=== PATIENT | male | born 1950 | race Caucasian/White ===

== ENCOUNTER 2018-06-05 10:56 | Inpatient (IN) ==
[2018-06-05 11:39] LABS: Baso % (Auto) 0.3 % (0.0-2.0); Eos # (Auto) 0.2 th/mm3 (0.0-0.4); Eos % (Auto) 3.4 % (0.0-4.0); Hematocrit 37.1 % (39.0-51.0); Hemoglobin 12.3 gm/dL (13.0-17.0); Lymph # (Auto) 0.6 th/mm3 (1.0-4.8); Mean Corpuscular HGB Conc 33.1 % (32.0-36.0); Mean Corpuscular Hemoglobin 28.5 pg (27.0-34.0); Mean Platelet Volume 6.7 fL (7.0-11.0); Mono % (Auto) 0.4 % (0.0-8.0); Neut # (Auto) 3.7 th/mm3 (1.8-7.7); Neut % (Auto) 82.9 % (16.0-70.0); Platelet Count 380 th/mm3 (150-450); Red Blood Count 4.32 mil/mm3 (4.50-5.90); Red Cell Distribution Width 18.8 % (11.6-17.2); White Blood Count 4.5 th/mm3 (4.0-11.0)
[2018-06-05] MEDS ORDERED: Morphine Inj 4 MG/ML Vial IV.PUSH ONE (11:44)
--- NOTE | 2018-06-05 11:44 | ED ---
HPI General Chief Complaint: Shortness of Breath/Dyspnea Stated Complaint: SOB/Leg Complaint Time Seen by Provider: 06/05/18 11:14 Source: patient Limitations: no limitations History of Present Illness Patient is a 67-year-old male, current smoker, with a history of severe PVD, diverticulitis with diverticular abscess, sepsis, back pain who presents to the emergency room with complaints of sudden onset shortness of breath at 10 AM this morning. He is also complaining of severe pain to his right lower extremity. Patient complains of some chills but unknown fever. Denies productive cough. Denies chest pain. Patient was hospitalized at [facility] on 05/13/18 for diverticular abscess. He also had severe lower extremity pain at that time was evaluated by vascular surgery. 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 Vascular surgery stated no plan for immediate intervention. Patient states he is has a follow-up appointment on June 10. Patient reports he has had significant increase in pain on the right side as well as some numbness which is a change from previous. Related Data Previous Rx's Medication Instructions Recorded amlodipine [Norvasc] 5 mg PO DAILY 30 Days #30 tab 05/13/18 aspirin 325 mg PO DAILY 30 Days #30 tab 05/13/18 multivitamin with folic acid 1 tab PO DAILY 30 Days #30 tab 05/13/18 [Thera] pravastatin 20 mg PO HS 30 Days #30 tab 05/13/18 tamsulosin 0.4 mg PO BID 30 Days #60 cap 05/13/18 Allergies Allergy/AdvReac Type Severity Reaction Status Date / Time *MDRO Multi-Drug Resistant AdvReac Unknown Uncoded 02/20/16 09:24 Organism Review of Systems ROS: all other systems reviewed are negative [facility] Family History Family History Other Family history non-contributory Social History Social History Substance History: No History of Abuse Second Hand Smoke Exposure: Yes Smoking Status: Current every day smoker Tobacco Type: Cigarettes How Often Do You Have a Drink Containing Alcohol: 4 or more times a week Recent Travel in [facility] within the Last 8 Weeks: No Recent Out of Country Travel within the Last 8 Weeks: No Immunization History Tetanus Immunization: Unsure Procedures Procedural Sedation Indications: other (chest tube) Preparation: cardiac cath technician applied, pulse oximeter, capnometry used, suction/ airway equipment at bedside and IV secured Ketamine: IV Ketamine dose (mg): 30 Patient Tolerated Procedure: well Complications: none Course Reevaluation(s) Reevaluation #1: Patient started to get more tachypneic and appeared anxious, repeat chest x-ray shows small apical pneumothorax. Patient was given DuoNeb treatment. Given elevated lactate was also given broad-spectrum antibiotics as well as Solu-Medrol for possible COPD exacerbation. He was also given IV fluid hydration. He will be monitored closely in the ICU Consultations Consultation #1: dr chairez states to place on heparin if ok with trauma Consultation #2: dr mackey will follow, states start heparin Consultation #3: dr humphries agrees to admit, will place chest tube Initial Documented Vital Signs Temperature 97.4 F L 06/05/18 11:06 Pulse Rate 126 H 06/05/18 11:06 Respiratory Rate 34 H 06/05/18 11:06 Blood Pressure 73/44 L 06/05/18 11:06 Pulse Oximetry 84 L 06/05/18 11:06 Last Documented Vital Signs Temperature 98.2 F 06/05/18 13:53 Pulse Rate 88 06/05/18 13:59 Respiratory Rate 26 H 06/05/18 16:16 Blood Pressure 187/97 H 06/05/18 13:53 Pulse Oximetry 100 06/05/18 16:16 Critical Care Time Critical Care Time: Yes Total Critical Care Time: 35 Attestation: Aggregate critical care time was 35 minutes. Time to perform other separately billable procedures was not included in the critical care time. My time did not include minutes spent treating any other patients simultaneously or on activities that did not directly contribute to the patient's treatment. The services I provided to this patient were to treat and/or prevent clinically significant deterioration that could result in: Arrhythmia, failure, I provided critical care services requiring my management, as noted below: Chart data review, documentation time, medication orders and management, vital sign assessments/reviewing monitor data, ordering and reviewing lab tests, ordering and interpreting/reviewing x-rays and diagnostic studies, care of the patient and discussion of the patient with the admitting physicians. Medical Decision Making SEEMA Attestation SEEMA supervised visit: Yes Attestation: I, Dr. sánchez, have reviewed the advance practice practitioner's documentation and am in agreement, met with the patient face to face, made the diagnosis, and the medical decision making was done by me. *My assessment and Findings: 67-year-old male notes month long history of right leg pain that has been worse over the past 2 days. In addition he is having shortness of breath that started this morning. He has noticeable crepitus to his chest wall. Prelim chest x-ray reviewed at bedside shows no large pneumothorax. CT chest shows a small pneumothorax and rib fracture. He does not have a dopplerable pulse to his right foot and he will need heparin. Will discuss with trauma surgery given small pneumothorax and hemothorax on CT before starting heparin that was discussed with vascular surgeon. 1349 patient is acutely short of breath again in the room after he got back from CT. Patient has expiratory wheezing bilaterally. Will dose with DuoNeb and if does not improve repeat chest x-ray. Lactate is noted at 7 so we will get broad-spectrum antibiotics as he is starting to get hypotensive again. MDM Narrative Medical decision making narrative: 67-year-old old male, current smoker, with severe PVD, who presents the emergency room with a sudden onset of shortness of breath at 10:00 this morning. Planes of some chills. Increased pain noted in his right leg over the last couple of days with new numbness. Upon arrival patient is tachypneic but SPO2 is 100% on room air. He does have a left-sided subcu emphysema. Non-doppleable pulses in the right foot which is cool to touch. Initial chest x-ray shows subcu emphysema but no obvious pneumothorax. Patient examined with Dr. Garcia. She also was not able to obtain dopplerable pulses. Call placed to Dr. Chairez, vascular, he will be coming to evaluate the patient. CTA with runoff and CT chest have been ordered. Medical Screen Exam Complete: Yes Emergency Medical Condition: Yes Differential Diagnosis Differential Diagnosis: Pneumothorax/PE/COPD exacerbation/PNA/PVD Lab Data Result diagrams: 06/05/18 11:20 06/05/18 11:20 Lab Results 06/05/18 06/05/18 06/05/18 Range/Units 11:20 11:20 11:42 WBC 4.5 (4.0-11.0) th/mm3 RBC 4.32 L (4.50-5.90) mil/mm3 Hgb 12.3 L (13.0-17.0) gm/dL Hct 37.1 L (39.0-51.0) % MCV 86.0 (80.0-100.0) fL MCH 28.5 (27.0-34.0) pg MCHC 33.1 (32.0-36.0) % RDW 18.8 H (11.6-17.2) % Plt Count 380 D (150-450) th/mm3 MPV 6.7 L (7.0-11.0) fL Neut % (Auto) 82.9 H (16.0-70.0) % Lymph % (Auto) 13.0 (9.0-44.0) % Victoria % (Auto) 0.4 (0.0-8.0) % Eos % (Auto) 3.4 (0.0-4.0) % Baso % (Auto) 0.3 (0.0-2.0) % Neut # (Auto) 3.7 (1.8-7.7) th/mm3 Lymph # (Auto) 0.6 L (1.0-4.8) th/mm3 Victoria # (Auto) 0.0 (0.0-0.9) th/mm3 Eos # (Auto) 0.2 (0.0-0.4) th/mm3 Baso # (Auto) 0.0 (0.0-0.2) th/mm3 WBC Differential . Differential Comment Auto diff final PT (9.8-11.6) sec INR Ratio APTT (23.4-31.7) sec Puncture Site Patient Temperature O2 Saturation (90-100) % ABG pH (7.380-7.420) ABG pCO2 (38-42) mmHg ABG pO2 (61-120) mmHg ABG HCO3 (22-26) mmol/L ABG O2 Content (12.0-20.0) Vol % ABG Base Excess (-2-2) mmol/L ABG Methemoglobin (0-2) % Donato Test Hemoglobin (12.0-16.0) G/DL Carboxyhemoglobin (0-4) % O2 Delivery Device Critical Value Sodium 133 L (136-145) meq/L Potassium 3.9 (3.5-5.1) meq/L Chloride 101 (98-107) meq/L Carbon Dioxide 16.5 L (21.0-32.0) meq/L Anion Gap 16 H (5-15) meq/L BUN 10 (7-18) mg/dL Creatinine 1.17 (0.60-1.30) mg/dL Estimated GFR 62 L (>89) mL/min Random Glucose 97 (74-106) mg/dL Lactic Acid 7.1 H* (0.4-2.0) mmol/L Calcium 8.9 (8.5-10.1) mg/dL Magnesium (1.5-2.5) mg/dL Total Bilirubin 0.6 (0.2-1.0) mg/dL AST 19 (15-37) U/L ALT 19 (12-78) U/L Alkaline Phosphatase 131 H (45-117) U/L Total Creatine Kinase (39-308) U/L Troponin I 0.06 H (0.02-0.05) ng/mL B-Natriuretic Peptide (0-100) pg/mL Total Protein 8.5 H (6.4-8.2) g/dL Albumin 3.2 L (3.4-5.0) g/dL 06/05/18 06/05/18 06/05/18 Range/Units 11:45 11:45 11:45 WBC (4.0-11.0) th/mm3 RBC (4.50-5.90) mil/mm3 Hgb (13.0-17.0) gm/dL Hct (39.0-51.0) % MCV (80.0-100.0) fL MCH (27.0-34.0) pg MCHC (32.0-36.0) % RDW (11.6-17.2) % Plt Count (150-450) th/mm3 MPV (7.0-11.0) fL Neut % (Auto) (16.0-70.0) % Lymph % (Auto) (9.0-44.0) % Victoria % (Auto) (0.0-8.0) % Eos % (Auto) (0.0-4.0) % Baso % (Auto) (0.0-2.0) % Neut # (Auto) (1.8-7.7) th/mm3 Lymph # (Auto) (1.0-4.8) th/mm3 Victoria # (Auto) (0.0-0.9) th/mm3 Eos # (Auto) (0.0-0.4) th/mm3 Baso # (Auto) (0.0-0.2) th/mm3 WBC Differential Differential Comment PT 10.8 (9.8-11.6) sec INR 1.1 Ratio APTT 24.7 (23.4-31.7) sec Puncture Site Patient Temperature O2 Saturation (90-100) % ABG pH (7.380-7.420) ABG pCO2 (38-42) mmHg ABG pO2 (61-120) mmHg ABG HCO3 (22-26) mmol/L ABG O2 Content (12.0-20.0) Vol % ABG Base Excess (-2-2) mmol/L ABG Methemoglobin (0-2) % Donato Test Hemoglobin (12.0-16.0) G/DL Carboxyhemoglobin (0-4) % O2 Delivery Device Critical Value Sodium (136-145) meq/L Potassium (3.5-5.1) meq/L Chloride (98-107) meq/L Carbon Dioxide (21.0-32.0) meq/L Anion Gap (5-15) meq/L BUN (7-18) mg/dL Creatinine (0.60-1.30) mg/dL Estimated GFR (>89) mL/min Random Glucose (74-106) mg/dL Lactic Acid (0.4-2.0) mmol/L Calcium (8.5-10.1) mg/dL Magnesium 1.8 (1.5-2.5) mg/dL Total Bilirubin (0.2-1.0) mg/dL AST (15-37) U/L ALT (12-78) U/L Alkaline Phosphatase (45-117) U/L Total Creatine Kinase 66 (39-308) U/L Troponin I (0.02-0.05) ng/mL B-Natriuretic Peptide 30 (0-100) pg/mL Total Protein (6.4-8.2) g/dL Albumin (3.4-5.0) g/dL 06/05/18 06/05/18 Range/Units 11:45 12:10 WBC (4.0-11.0) th/mm3 RBC (4.50-5.90) mil/mm3 Hgb (13.0-17.0) gm/dL Hct (39.0-51.0) % MCV (80.0-100.0) fL MCH (27.0-34.0) pg MCHC (32.0-36.0) % RDW (11.6-17.2) % Plt Count (150-450) th/mm3 MPV (7.0-11.0) fL Neut % (Auto) (16.0-70.0) % Lymph % (Auto) (9.0-44.0) % Victoria % (Auto) (0.0-8.0) % Eos % (Auto) (0.0-4.0) % Baso % (Auto) (0.0-2.0) % Neut # (Auto) (1.8-7.7) th/mm3 Lymph # (Auto) (1.0-4.8) th/mm3 Victoria # (Auto) (0.0-0.9) th/mm3 Eos # (Auto) (0.0-0.4) th/mm3 Baso # (Auto) (0.0-0.2) th/mm3 WBC Differential Differential Comment PT (9.8-11.6) sec INR Ratio APTT (23.4-31.7) sec Puncture Site Right radial Patient Temperature 98.6 O2 Saturation 93 (90-100) % ABG pH 7.45 H (7.380-7.420) ABG pCO2 27 L (38-42) mmHg ABG pO2 89 (61-120) mmHg ABG HCO3 18 L (22-26) mmol/L ABG O2 Content 14.4 (12.0-20.0) Vol % ABG Base Excess -4.9 L (-2-2) mmol/L ABG Methemoglobin 1.1 (0-2) % Donato Test Present Hemoglobin 10.9 L (12.0-16.0) G/DL Carboxyhemoglobin 3.0 (0-4) % O2 Delivery Device Nasal cannula Critical Value No Sodium (136-145) meq/L Potassium (3.5-5.1) meq/L Chloride (98-107) meq/L Carbon Dioxide (21.0-32.0) meq/L Anion Gap (5-15) meq/L BUN (7-18) mg/dL Creatinine (0.60-1.30) mg/dL Estimated GFR (>89) mL/min Random Glucose (74-106) mg/dL Lactic Acid (0.4-2.0) mmol/L Calcium (8.5-10.1) mg/dL Magnesium (1.5-2.5) mg/dL Total Bilirubin (0.2-1.0) mg/dL AST (15-37) U/L ALT (12-78) U/L Alkaline Phosphatase (45-117) U/L Total Creatine Kinase Cancelled (39-308) U/L Troponin I (0.02-0.05) ng/mL B-Natriuretic Peptide (0-100) pg/mL Total Protein (6.4-8.2) g/dL Albumin (3.4-5.0) g/dL Imaging Data Radiologist's impression: Chest X-Ray 06/05/18 00:00 CONCLUSION: Left-sided chest tube with tiny left apical pneumothorax slightly decreased in prominence. Chest X-Ray 06/05/18 11:20 CONCLUSION: 1. Left-sided rib fracture. 2. Subcutaneous emphysema without significant pneumothorax. Aorta w/Runoff CTA 06/05/18 11:45 CONCLUSION: 1. Extensive peripheral vascular disease with multifocal areas of narrowing/ occlusion as above. Chest CT 06/05/18 11:45 CONCLUSION: 1. Small left-sided pneumothorax and hemothorax. 2. Acute left fifth rib fracture. 3. Emphysema. Chest X-Ray 06/05/18 13:58 CONCLUSION: Tiny left apical pneumothorax. Discharge Plan Discharge Disposition Patient Disposition: ED Admit(ED Internal Use Only) Discharge Order Discharge Orders: ED Use Only Admit Order (Routine); Ordered 06/05/18 Ordered By: Samantha Sánchez Discharge Details Diagnosis: Arterial occlusion, Pneumothorax Physicians Team ED Provider: Samantha Sánchez ED Midlevel Provider: Denita Bautista Primary Care Provider: UNKNOWN, Attending Provider: Nick Humphries Other Providers: Marcello Chairez ; Luis Antonio Mackey Discharge Interventions Interventions: Vital Signs Last Done: 06/05/18 13:53 ED Discharge Assessment Last Done: 06/05/18 15:51 Status ED Status: Admitted Patient
--- NOTE | 2018-06-05 11:45 | XR ---
EXAM DATE: 06/05/2018 11:38 AM EST AGE/SEX: 67 years / Male INDICATIONS: Shortness of breath. CLINICAL DATA: This is the patient's initial encounter. Patient reports that signs and symptoms have been present for 1 day and indicates a pain score of 2/10. MEDICAL/SURGICAL HISTORY: . Peripheral artery disease. Perforated diverticular abscess. None. COMPARISON: [facility] [place] 1V SINGLE AP, 04/30/2018. . FINDINGS: A single AP view of the chest demonstrates the lungs to be symmetrically aerated without evidence of mass, infiltrate or effusion. The cardiomediastinal contours are unremarkable. Left lateral rib frac ture and subcutaneous emphysema. No significant pneumothorax. CONCLUSION: 1. Left-sided rib fracture. 2. Subcutaneous emphysema without significant pneumothorax. Electronically signed by: Darrius Sanches MD Board Certified Radiologist 06/05/2018 11:43 AM EST
[2018-06-05] MEDS: Sod Chloride 0.9% Inj 1,000 ML IV.CONT SCH (12:02)
[2018-06-05 12:07] LABS: Alanine Aminotransferase 19 U/L (12-78); Albumin 3.2 g/dL (3.4-5.0); Anion Gap 16 meq/L (5-15); Aspartate Aminotransferase 19 U/L (15-37); Blood Urea Nitrogen 10 mg/dL (7-18); Calcium 8.9 mg/dL (8.5-10.1); Carbon Dioxide 16.5 meq/L (21.0-32.0); Chloride 101 meq/L (98-107); Glomerular Filtration Rate 62 mL/min (>89); Glucose,Random 97 mg/dL (74-106); Potassium 3.9 meq/L (3.5-5.1); Sodium 133 meq/L (136-145)
[2018-06-05 12:11] LABS: Alkaline Phosphatase 131 U/L (45-117); Total Protein 8.5 g/dL (6.4-8.2); Troponin I 0.06 ng/mL (0.02-0.05)
[2018-06-05 12:25] LABS: ABG Base Excess -4.9 mmol/L (-2-2); ABG PCO2 27 mmHg (38-42); ABG PO2 89 mmHg (61-120)
[2018-06-05 12:31] LABS: Activated Partial Thrombo Time 24.7 sec (23.4-31.7); INR 1.1 Ratio; Prothrombin Time 10.8 sec (9.8-11.6)
[2018-06-05 12:40] LABS: Magnesium 1.8 mg/dL (1.5-2.5)
--- NOTE | 2018-06-05 13:28 | CT ---
EXAM DATE: 06/05/2018 1:08 PM EST AGE/SEX: 67 years / Male INDICATIONS: Shortness of breath. CLINICAL DATA: This is the patient's initial encounter. Patient reports that signs and symptoms have been present for 1 day and indicates a pain score of 8/10. MEDICAL/SURGICAL HISTORY: Peripheral vascular disease. Diverticulitis. None. RADIATION DOSE: 6.02 CTDI (mGy) COMPARISON: No prior exams available for comparison. TECHNIQUE: Multiple contiguous axial images were obtained through the chest without contrast. Image s were obtained in suspended respiration using multiple row detector helical technique. Using automa ekta exposure control and adjustment of the mA and/or kV according to patient size, radiation dose was kept as low as reasonably achievable to obtain optimal diagnostic quality images. DICOM format imag e data is available electronically for review and comparison. FINDINGS: Lungs: Mild emphysema. Small left-sided pneumothorax. Left-sided subcutaneous emphysema. Bibasilar a telectasis. Mediastinum: There is good visualization of the great vessels of the middle mediastinum. No evidenc e of mediastinal or hilar adenopathy/mass. Pleurae: Small left-sided hemothorax. Axillae: Unremarkable. Bony Structures: Left lateral fifth rib fracture. Old left-sided rib fractures. Miscellaneous: The examination was extended to include the upper abdomen, and both adrenal glands ar e normal in size and configuration. CONCLUSION: 1. Small left-sided pneumothorax and hemothorax. 2. Acute left fifth rib fracture. 3. Emphysema. Electronically signed by: Darrius Sanches MD Board Certified Radiologist 06/05/2018 1:27 PM EST
[2018-06-05] MEDS ORDERED: Sod Chloride 0.9% Inj 1,000 ML IV.SIG SCH ×2 (13:45→14:00)
[2018-06-05] MEDS ORDERED: Vancomycin Inj 1,000 MG in Sodium Chlor 0.9% Inj 250 ML IV.SIG ONE (13:50)
[2018-06-05] MEDS ORDERED: Piperacil/Tazo 3.375 GM Premix 3.375 GM/50 ML PIGGYBACK IV.SIG ONE (13:50)
[2018-06-05] MEDS ORDERED: MethylPREDNISolone Sod Succinate Inj 125 MG/2 ML Vial IV.PUSH ONE (13:53)
[2018-06-05] MEDS ORDERED: Sodium Bicarbonate 8.4% Inj 50 MEQ/50 ML Syringe IV.PUSH ONE (14:00)
[2018-06-05] MEDS ORDERED: Heparin 10,000 UNITS/10 ML Vial (for IV use) IV.PUSH STA (14:14)
--- NOTE | 2018-06-05 14:17 | CT ---
EXAM DATE: 06/05/2018 1:54 PM EST AGE/SEX: 67 years / Male INDICATIONS: Shortness of breath and right lower extremity pain. CLINICAL DATA: This is the patient's initial encounter. Patient reports that signs and symptoms have been present for 1 day and indicates a pain score of 8/10. MEDICAL/SURGICAL HISTORY: Peripheral vascular disease. Diverticulitis. None. RADIATION DOSE: 1.88 CTDI (mGy) COMPARISON: [facility], CTA RUNOFF W CONTRAST W 3D, 04/30/2018. . TECHNIQUE: Volumetric scanning was performed using a multi-row detector CT scanner during bolus infu [place] of 96 ml Omnipaque 350 (iohexol) nonionic water-soluble contrast as a single exam dose. The d yenni was post processed with a variety of visualization algorithms including full volume maximum inten sity projection, multi-planar sliding thin slab reformation, curved planar reformation, and surface r endering techniques. Using automated exposure control and adjustment of the mA and/or kV according t o patient size, radiation dose was kept as low as reasonably achievable to obtain optimal diagnostic quality images. DICOM format image data is available electronically for review and comparison. FINDINGS: Abdominal Aorta: Extensive atherosclerotic changes without aneurysmal dilation. The proximal marimar ac and superior mesenteric arteries are patent and normal in diameter. There are solitary renal nabeel tabitha bilaterally without gross abnormality. Bifurcation: There is occlusion of the right common iliac artery. Right Pelvis: Extensive atherosclerotic changes and narrowing of the right common and external iliac arteries. High-grade stenosis of the distal right external iliac artery. Left Pelvis: Extensive atherosclerotic changes of the left common iliac artery and internal carotid iliac artery with focal areas of mild narrowing seen. Right Thigh: There is significant narrowing of the right common femoral artery and superficial femor al arteries. Left Thigh: Extensive atherosclerotic changes without high-grade stenosis. Right Knee: Extensive atherosclerotic changes and multifocal areas of narrowing of the right poplite al artery. There is occlusion of the right femoral artery Left Knee: Occlusion of the left femoral artery and extensive atherosclerotic changes of the poplite al artery but no significant stenosis. Collateral vessels seen on the left side. Right Leg: Extensive atherosclerotic changes and multifocal narrowing of the trifurcation. Left Leg: Extensive atherosclerotic changes and multifocal narrowing of the trifurcation. CONCLUSION: 1. Extensive peripheral vascular disease with multifocal areas of narrowing/occlusion as above. Electronically signed by: Darrius Sanches MD Board Certified Radiologist 06/05/2018 2:15 PM EST
--- NOTE | 2018-06-05 14:41 | XR ---
EXAM DATE: 06/05/2018 2:36 PM EST AGE/SEX: 67 years / Male INDICATIONS: Shortness of breath. CLINICAL DATA: This is the patient's initial encounter. Patient reports that signs and symptoms have been present for 1 day and indicates a pain score of 8/10. MEDICAL/SURGICAL HISTORY: . Peripheral artery disease. Perforated diverticular abscess. None. COMPARISON: [facility] – [place], CHEST 1V SINGLE AP, 06/05/2018. . FINDINGS: A single AP view of the chest demonstrates hyperinflation with tiny left apical pneumothorax. Heart n ormal in size. Subcutaneous emphysema laterally on the left chest wall. No mediastinal shift. The car diomediastinal contours are unremarkable. Left fifth lateral rib fracture. CONCLUSION: Tiny left apical pneumothorax. Electronically signed by: Darrius Sanches MD Board Certified Radiologist 06/05/2018 2:40 PM EST
[2018-06-05] MEDS ORDERED: Ketamine Inj 50 MG/5 ML Syringe IV.PUSH ONE (14:53)
[2018-06-05] MEDS ORDERED: Lidocaine 1%/Epinephrine 1:100,000 Inj 20 ML Vial ONE (14:56)
--- NOTE | 2018-06-05 15:00 | P.CONVS ---
History of Present Illness Service: vascular surgery Consult date: 06/05/18 Primary Care Provider: UNKNOWN Chief Complaint: RLE pain History of Present Illness: 67 year old male with the PMH of diverticular abscess s/p drainage. He was seen by our service during his last admission for PVD evaluation. During that time, patient was complaining of claudication and right foot numbness. He returns to the hospital today with 2 day history of RLE rest pain. He is able to ambulate. He denies any LE weakness. he reports left sided chest pain and SOB. He was hypotensive on admission and responded to IVF. Review of Systems All other systems reviewed negative except as stated in HPI PMFSH - History History Provided By: Patient - Medical History Medical History: Medical History (Last Reviewed 06/05/18 @ 15:45 by Nick Guillen MD) Back pain PAD (peripheral artery disease) Smoking - Family History Family History: Family History (Last Updated 06/05/18 @ 15:46 by Nick Guillen MD) Other Family history non-contributory - Tobacco History Second Hand Smoke Exposure: Yes Tobacco Use In Past 30 Days: Yes Smoking Status: Current every day smoker Tobacco Type: Cigarettes - Alcohol History How Often Do You Have a Drink Containing Alcohol: 4 or more times a week - Substance Use History Substance History: No History of Abuse - Travel History Recent Travel in the [place] Within the Last 8 Weeks: No Recent Travel Out of the Country Within the Last 8 Weeks: No - Immunization History Tetanus Immunization: Unsure Medications and Allergies Active Medications: Active Medications Sodium Chloride (Ns Inj) 1,000 mls @ 75 mls/hr IV.CONT .[id number] [place] Last Infusion: 06/05/18 13:00 Dose: Infused Sodium Chloride (Ns Inj) 1,000 mls @ 1,000 mls/hr IV.SIG BOLUS [place] Stop: 06/05/18 14:44 Last Infusion: 06/05/18 14:09 Dose: Infused Vancomycin HCl 1,000 mg/ (Sodium Chloride) 250 mls @ 250 mls/hr IV.SIG ONCE ONE Stop: 06/05/18 14:49 Last Admin: 06/05/18 14:20 Dose: 250 mls/hr Sodium Chloride (Ns Inj) 1,000 mls @ 1,000 mls/hr IV.SIG BOLUS [place] Stop: 06/05/18 14:59 Heparin Sodium/Dextrose (Heparin/D5w 25,000 U/250 Ml) 25,000 unit in 250 mls @ 0 mls/hr IV.CONT TITRATE PRN; Protocol PRN Reason: Per Protocol Allergies Allergy/AdvReac Type Severity Reaction Status Date / Time *MDRO Multi-Drug Resistant AdvReac Unknown Uncoded 02/20/16 09:24 Organism Physical Exam Vital Signs / I&O: Vital Signs 06/05/18 11:06 06/05/18 11:18 06/05/18 11:32 Temperature 97.4 F L Pulse Rate 126 H 134 H Respiratory Rate 34 H 26 H Blood Pressure 73/44 L 129/60 Pulse Oximetry 84 L 98 98 06/05/18 11:33 06/05/18 11:56 06/05/18 12:00 Temperature 98.7 F Pulse Rate 123 H 124 H Respiratory Rate 22 30 H Blood Pressure 100/59 L Pulse Oximetry 100 100 06/05/18 13:00 06/05/18 13:53 06/05/18 13:59 Temperature 98.2 F Pulse Rate 113 H 144 H 88 Respiratory Rate 24 32 H 26 H Blood Pressure 84/49 L 187/97 H Pulse Oximetry 95 98 Intake & Output 06/04/18 06/05/18 06/05/18 18:59 06:59 18:59 Intake Total 2049 Balance 2049 Weight 61.235 kg Intake: IV 2049 NS Inj 1,000 ML @ 75 mls/hr IV. 1000 / 1000 CONT .[id number] [facility] Rx#:[id number] Zosyn 3.375 GM Premix 3.375 gm 50 / 50 In 50 ml @ 100 mls/hr IV.SIG ONCE ONE Rx#:[id number] NS Inj 1,000 ML @ 1000 mls/hr 1000 / 1000 IV.SIG BOLUS [facility] Rx#:[id number] Neuro: AAOx3 HEENT: NC AT Neck: supple Heart: s1,s2 Lungs: left chest crepitus Abdomen: soft, ND, Mildly TTP, no Rebound, no PS Vascular: unable to palpate femoral or pedal pulses only RLE venous signal no motor or sensory deficits Laboratory Results - last 24 hr 06/05/18 06/05/18 06/05/18 11:20 11:20 11:42 WBC 4.5 RBC 4.32 L Hgb 12.3 L Hct 37.1 L MCV 86.0 MCH 28.5 MCHC 33.1 RDW 18.8 H Plt Count 380 D MPV 6.7 L Neut % (Auto) 82.9 H Lymph % (Auto) 13.0 [place] % (Auto) 0.4 Eos % (Auto) 3.4 Baso % (Auto) 0.3 Neut # (Auto) 3.7 Lymph # (Auto) 0.6 L [place] # (Auto) 0.0 Eos # (Auto) 0.2 Baso # (Auto) 0.0 WBC Differential . Differential Comment Auto diff final PT INR APTT Puncture Site Patient Temperature O2 Saturation ABG pH ABG pCO2 ABG pO2 ABG HCO3 ABG O2 Content ABG Base Excess ABG Methemoglobin Donato Test Hemoglobin Carboxyhemoglobin O2 Delivery Device Critical Value Sodium 133 L Potassium 3.9 Chloride 101 Carbon Dioxide 16.5 L Anion Gap 16 H BUN 10 Creatinine 1.17 Estimated GFR 62 L Random Glucose 97 Lactic Acid 7.1 H* Calcium 8.9 Magnesium Total Bilirubin 0.6 AST 19 ALT 19 Alkaline Phosphatase 131 H Total Creatine Kinase Troponin I 0.06 H B-Natriuretic Peptide Total Protein 8.5 H Albumin 3.2 L 06/05/18 06/05/18 06/05/18 11:45 11:45 11:45 WBC RBC Hgb Hct MCV MCH MCHC RDW Plt Count MPV Neut % (Auto) Lymph % (Auto) [place] % (Auto) Eos % (Auto) Baso % (Auto) Neut # (Auto) Lymph # (Auto) [place] # (Auto) Eos # (Auto) Baso # (Auto) WBC Differential Differential Comment PT 10.8 INR 1.1 APTT 24.7 Puncture Site Patient Temperature O2 Saturation ABG pH ABG pCO2 ABG pO2 ABG HCO3 ABG O2 Content ABG Base Excess ABG Methemoglobin Donato Test Hemoglobin Carboxyhemoglobin O2 Delivery Device Critical Value Sodium Potassium Chloride Carbon Dioxide Anion Gap BUN Creatinine Estimated GFR Random Glucose Lactic Acid Calcium Magnesium 1.8 Total Bilirubin AST ALT Alkaline Phosphatase Total Creatine Kinase 66 Troponin I B-Natriuretic Peptide 30 Total Protein Albumin 06/05/18 06/05/18 11:45 12:10 WBC RBC Hgb Hct MCV MCH MCHC RDW Plt Count MPV Neut % (Auto) Lymph % (Auto) [place] % (Auto) Eos % (Auto) Baso % (Auto) Neut # (Auto) Lymph # (Auto) [place] # (Auto) Eos # (Auto) Baso # (Auto) WBC Differential Differential Comment PT INR APTT Puncture Site Right radial Patient Temperature 98.6 O2 Saturation 93 ABG pH 7.45 H ABG pCO2 27 L ABG pO2 89 ABG HCO3 18 L ABG O2 Content 14.4 ABG Base Excess -4.9 L ABG Methemoglobin 1.1 Donaot Test Present Hemoglobin 10.9 L Carboxyhemoglobin 3.0 O2 Delivery Device Nasal cannula Critical Value No Sodium Potassium Chloride Carbon Dioxide Anion Gap BUN Creatinine Estimated GFR Random Glucose Lactic Acid Calcium Magnesium Total Bilirubin AST ALT Alkaline Phosphatase Total Creatine Kinase Cancelled Troponin I B-Natriuretic Peptide Total Protein Albumin Impressions Chest X-Ray 06/05/18 11:20 CONCLUSION: 1. Left-sided rib fracture. 2. Subcutaneous emphysema without significant pneumothorax. Aorta w/Runoff CTA 06/05/18 11:45 CONCLUSION: 1. Extensive peripheral vascular disease with multifocal areas of narrowing/ occlusion as above. Chest CT 06/05/18 11:45 CONCLUSION: 1. Small left-sided pneumothorax and hemothorax. 2. Acute left fifth rib fracture. 3. Emphysema. Chest X-Ray 06/05/18 13:58 CONCLUSION: Tiny left apical pneumothorax. Assessment and Plan - Plan Shock/lactic acidosis ?etiology RLE acute limb ischemia stage I Left hemo/pneumothorax and rib fracture reviewed CTA: no obvious change since previous CT scan Patient is critically ill. His RLE ischemia is a result of his current medical condition and it's not the etiology of his shock He is currently a very high operative risk for RLE revascularization. He is at high risk for limb loss if his RLE ischemia progressed. 1- admit to ICU 2- shock/lactic acidosis work up 3- start heparin drip, if ok with trauma service 4- will follow clinically Marcello Saez MD [phone]
[2018-06-05] MEDS: Heparin Drip 25,000 UNIT/250 ML BAG IV.CONT PRN (15:18)
--- NOTE | 2018-06-05 15:57 | P.HPCC ---
History of Present Illness Service: Critical care medicine Primary Care Physician: UNKNOWN Chief Complaint: RLE pain History of Present Illness: 67yM with history of severe PAD who presents after he had sudden onset right leg pain which caused him to fall, and then he began with sudden shortness of breath. In the emergency department, found to have left apical pneumothorax with large amount of subQ air, with rib fracture. In addition, severe PAD with occlusion of the right common femoral artery. Labs significant for trop 0.06, Lactate 7. patient denies chest pain. does endorse leg pain and shortness of breath. denies fever,chills. remainder of the ROS negative, although limited by his critical illness. Inpatient Certification: I certify that the inpatient services were ordered in accordance with Medicare regulations governing the order. This includes certification that hospital inpatient services are reasonable and necessary and in the case of services not specified as inpatient-only under 42 CFR 419.22(n), that they are appropriately provided as inpatient services in accordance to with the 2-midnight benchmark under 43 CFR 412.3(e) Review of Systems All other systems reviewed negative except as stated in HPI PMFSH - History History Provided By: Patient, Medical Record - Medical History Medical History: Medical History (Last Reviewed 06/05/18 @ 15:45 by Nick Guillen MD) Back pain PAD (peripheral artery disease) Smoking - Family History Family History: Family History (Last Updated 06/05/18 @ 15:46 by Nick Guillen MD) Other Family history non-contributory - Social History I have reviewed the patient's Social History: Yes - Tobacco History Second Hand Smoke Exposure: Yes Tobacco Use In Past 30 Days: Yes Smoking Status: Current every day smoker Tobacco Type: Cigarettes - Alcohol History How Often Do You Have a Drink Containing Alcohol: 4 or more times a week - Substance Use History Substance History: No History of Abuse - Travel History Recent Travel in the [place] Within the Last 8 Weeks: No Recent Travel Out of the Country Within the Last 8 Weeks: No - Immunization History Tetanus Immunization: Unsure Medications and Allergies Active Medications: Active Medications Sodium Chloride (Ns Inj) 1,000 mls @ 75 mls/hr IV.CONT .[id number] [place] Last Infusion: 06/05/18 13:00 Dose: Infused Heparin Sodium/Dextrose (Heparin/D5w 25,000 U/250 Ml) 25,000 unit in 250 mls @ 0 mls/hr IV.CONT TITRATE PRN; Protocol PRN Reason: Per Protocol Last Admin: 06/05/18 15:18 Dose: 1,100 units/hr, 11 mls/hr Allergies Allergy/AdvReac Type Severity Reaction Status Date / Time *MDRO Multi-Drug Resistant AdvReac Unknown Uncoded 02/20/16 09:24 Organism Results - Labs CBC & Chem 7: 06/05/18 11:20 06/05/18 11:20 Labs: Short CBC 06/05/18 Range/Units 11:20 WBC 4.5 (4.0-11.0) th/mm3 Hgb 12.3 L (13.0-17.0) gm/dL Hct 37.1 L (39.0-51.0) % Plt Count 380 D (150-450) th/mm3 BMP 06/05/18 11:20 Sodium 133 L Potassium 3.9 Chloride 101 Carbon Dioxide 16.5 L BUN 10 Creatinine 1.17 Calcium 8.9 Cardiac Enzymes 06/05/18 06/05/18 06/05/18 Range/Units 11:20 11:45 11:45 Total Creatine Kinase 66 Cancelled (39-308) U/L Troponin I 0.06 H (0.02-0.05) ng/mL Liver Function 06/05/18 Range/Units 11:20 Total Bilirubin 0.6 (0.2-1.0) mg/dL AST 19 (15-37) U/L ALT 19 (12-78) U/L Alkaline Phosphatase 131 H (45-117) U/L Albumin 3.2 L (3.4-5.0) g/dL - Imaging Impressions Chest X-Ray 06/05/18 11:20 CONCLUSION: 1. Left-sided rib fracture. 2. Subcutaneous emphysema without significant pneumothorax. Aorta w/Runoff CTA 06/05/18 11:45 CONCLUSION: 1. Extensive peripheral vascular disease with multifocal areas of narrowing/ occlusion as above. Chest CT 06/05/18 11:45 CONCLUSION: 1. Small left-sided pneumothorax and hemothorax. 2. Acute left fifth rib fracture. 3. Emphysema. Chest X-Ray 06/05/18 13:58 CONCLUSION: Tiny left apical pneumothorax. Exam Vital signs: Vital Signs 06/05/18 11:06 06/05/18 11:18 06/05/18 11:32 Temperature 36.3 C L Pulse Rate 126 H 134 H Respiratory Rate 34 H 26 H Blood Pressure 73/44 L 129/60 Pulse Oximetry 84 L 98 98 06/05/18 11:33 06/05/18 11:56 06/05/18 12:00 Temperature 37.1 C Pulse Rate 123 H 124 H Respiratory Rate 22 30 H Blood Pressure 100/59 L Pulse Oximetry 100 100 06/05/18 13:00 06/05/18 13:53 06/05/18 13:59 Temperature 36.8 C Pulse Rate 113 H 144 H 88 Respiratory Rate 24 32 H 26 H Blood Pressure 84/49 L 187/97 H Pulse Oximetry 95 98 06/05/18 15:33 Temperature Pulse Rate Respiratory Rate Blood Pressure Pulse Oximetry 99 Intake & Output 06/04/18 06/05/18 06/05/18 18:59 06:59 18:59 Intake Total 2049 Balance 2049 Weight 61.235 kg Intake: IV 2049 NS Inj 1,000 ML @ 75 mls/hr IV. 1000 / 1000 CONT .[id number] [facility] Rx#:[id number] Zosyn 3.375 GM Premix 3.375 gm 50 / 50 In 50 ml @ 100 mls/hr IV.SIG ONCE ONE Rx#:[id number] NS Inj 1,000 ML @ 1000 mls/hr 1000 / 1000 IV.SIG BOLUS [facility] Rx#:[id number] Narrative: GENERAL: Frail middle-age man who appears much older than stated age, lying in bed, in severe distress HEENT: Normocephalic. Atraumatic. Pupils equal, round, reactive, conjugate. Mucous membranes are dry NECK: Trachea is midline. There is no JVD. CHEST: Labored. Tachypneic. Subcu emphysema over the left anterior chest wall. On nasal cannula oxygen. Tripoding. CARDIOVASCULAR: Tachycardic rate, regular rhythm. Sinus. ABDOMEN: Soft, nontender, nondistended. No guarding. MUSCULOSKELETAL: Radial pulses are 1+. There are absent bilateral pulses in the lower extremities. The patient in general is fairly mottled with poor perfusion all the way up to the mid abdomen. In particular however the right lower extremity is acutely cold and demarcated from the toes up to approximately a few centimeters above the knee. Above that point there is still mottling but the patient appears much warmer. No Refill in the right lower extremity. Minimal cap refill in the left lower extremity. Patient can move bilateral lower extremities without pain. NEUROLOGICAL: RASS 0 to +1. GCS 15. Follows commands in all 4 extremities. No focal deficits. Agitated and in distress. Septic Shock Reassessment Septic shock perfusion: reassessment completed Caprini VTE Risk Assessment Caprini VTE Risk Assessment: Moderate/High Risk (score >= 2) Caprini Risk Assessment Model: Point Value = 1 Point Value = 2 Point Value = 3 Point Value = 5 Age 41-60 Minor surgery BMI > 25 kg/m2 Swollen legs Varicose veins or History of unexplained or recurrent spontaneous Oral contraceptives or hormone replacement Sepsis (< 1 month) Serious lung disease, including pneumonia (< 1 month) Abnormal pulmonary function Acute myocardial infarction Congestive heart failure (< 1 month) History of inflammatory bowel disease Medical patient at bed rest Age 61-74 Arthroscopic surgery Major open surgery (> 45 min) Laparoscopic surgery (> 45 min) Malignancy Confined to bed (> 72 hours) Immobilizing plaster cast Central venous access Age >= 75 History of VTE Family history of VTE Factor V Leiden Prothrombin [id number] Lupus anticoagulant Anticardiolipin antibodies Elevated serum homocysteine Heparin-induced thrombocytopenia Other congenital or acquired thrombophilia Stroke (< 1 month) Elective arthroplasty Hip, pelvis, or leg fracture Acute spinal cord injury (< 1 month) Prophylaxis Regimen: Total Risk Factor Score Risk Level Prophylaxis Regimen 0-1 Low Early ambulation 2 Moderate Order ONE of the following: *Sequential Compression Device (SCD) *Heparin 5000 units SQ BID 3-4 Higher Order ONE of the following medications: *Heparin 5000 units SQ TID *Enoxaparin/Lovenox 40 mg SQ daily (WT < 150 kg, CrCl > 30 mL/min) *Enoxaparin/Lovenox 30 mg SQ daily (WT < 150 kg, CrCl > 10-29 mL/min) *Enoxaparin/Lovenox 30 mg SQ BID (WT < 150 kg, CrCl > 30 mL/min) AND/OR *Sequential Compression Device (SCD) 5 or more Highest Order ONE of the following medications: *Heparin 5000 units SQ TID (Preferred with Epidurals) *Enoxaparin/Lovenox 40 mg SQ daily (WT < 150 kg, CrCl > 30 mL/min) *Enoxaparin/Lovenox 30 mg SQ daily (WT < 150 kg, CrCl > 10-29 mL/min) *Enoxaparin/Lovenox 30 mg SQ BID (WT < 150 kg, CrCl > 30 mL/min) AND *Sequential Compression Device (SCD) Assessment and Plan - Assessment and Plan Plan: Assessment: 67yM with left rib fracture, pneumothorax, and critical limb ischemia, who is now in acute shock and clinically decompensating. I placed a left sided chest tube to alleviate the pneumothorax which was decompressing into the subcutaneous tissues. In addition, he needs emergent heparinization for his critical limb ischemia and a chest tube allows for improved monitoring of his small hemothorax. In addition, I have discussed the case at length with the vascular surgeon reconditioner who feels that his shock is out of proportion to his [id number] limb ischemia, and we will work to find a second etiology of his shock. He is critically ill with decompensating shock. Plan by systems: Neurologic: Acute metabolic encephalopathy - avoid sedatives - frequent neuro checks Respiratory: COPD Left sided rib fractures Left pneumothorax Acute hypoxic and hypercarbic respiratory failure intubated 06/05 for resp failure. - wean fio2 for goal spo2 > 90% Vent bundle Nebs Head of bed elevated - keep chest tube to suction - CXR in AM Cardiovascular: Elevated troponin NSTEMI Stat 2D echo Trend troponins Status post 4 L crystalloid bolus Heparin drip Renal: Acute kidney injury Place Loja for hourly urine outputs Trend daily creatinine -- Strict I/Os FEN/GI: Acute protein calorie malnutritionsevere Lactic acidosis Severe anion gap metabolic acidosis N.p.o. ICU electrolyte protocol Status post 4 L crystalloid bolus Daily CMP, magnesium, phosphorus Heme/ID: Critical limb ischemia Heparin drip Trend lactates No other infectious etiology suspected at this time to suggest sepsis as a source of his shock Daily CBC Watch closely for bleeding from the chest tube Endocrine: Hyperglycemia of critical illness -- SSI, medium scale, every 6 Prophylaxis: GI Prophylaxis Pepcid IV DVT Prophylaxis -- SCDs Heparin infusion Lines: 06/05 left radial arterial line 06/05 left subclavian triple-lumen catheter 06/05 Loja 06/05 left-sided 32 Armenian chest tube Dispo: Admit ICU. Critically ill. This patient remains critically ill with one or more organ systems which are or may become a threat to life. I have spent in excess of 95 minutes discontinuously in the care and management of this patient. This time is exclusive of procedures, and includes, but is not limited to, evaluation of the patient, review of the medical record, discussions with family, consultants, nursing staff, or respiratory therapy, and documentation in the medical record.
[2018-06-05] MEDS ORDERED: Midazolam Inj 5 MG/ML 1 ML Vial ONE (16:00)
[2018-06-05] MEDS ORDERED: Succinylcholine Inj 200 MG/10 ML Vial ONE (16:00)
--- NOTE | 2018-06-05 16:09 | ECG ---
Date Performed: 06/05/2018 Time Performed: 11:23:00 PTAGE: 67 years EKG: Baseline artifact present SINUS TACHYCARDIA MINIMAL ST DEPRESSION ABNORMAL RHYTHM ECG Mil red to prior electrocardiogram, rate has increased and Nonspecific ST changes are now present . PREVIOUS TRACING : 04/30/2018 14.14 DOCTOR: Ryan Dey Interpretating Date/Time 06/05/2018 16:09:02
--- NOTE | 2018-06-05 16:14 | XR ---
EXAM DATE: 06/05/2018 4:12 PM EST AGE/SEX: 67 years / Male INDICATIONS: Dobhoff verification placement. CLINICAL DATA: This is the patient's subsequent encounter. Patient reports that signs and symptoms h ave been present for 1 day and indicates a pain score of Nonresponsive. MEDICAL/SURGICAL HISTORY: . Peripheral artery disease. Perforated diverticular abscess. None. [place] [facility] [place]. . FINDINGS: A single AP view of the chest demonstrates hyperinflation. Left-sided chest tube with tiny apical pne umothorax slightly less prominent. Subcutaneous emphysema laterally on the left. The cardiomediastina l contours are unremarkable. Osseous structures are intact. CONCLUSION: Left-sided chest tube with tiny left apical pneumothorax slightly decreased in prominence. Electronically signed by: Darrius Sanches MD Board Certified Radiologist 06/05/2018 4:13 PM EST
[2018-06-05] MEDS ORDERED: Potassium Phosphate 500 MG Soluble Tablet PO PRN ×2 (16:16)
[2018-06-05] MEDS ORDERED: Bisacodyl 10 MG Supp RECTAL PRN (16:16)
[2018-06-05] MEDS ORDERED: Potassium Chlor 20 mEq Premix 20 MEQ/100 ML PIGGYBACK IV.SIG PRN (16:16)
[2018-06-05] MEDS ORDERED: Potassium Phosphate Inj 30 MMOL in Sodium Chlor 0.9% Inj 250 ML IV.SIG PRN (16:16)
[2018-06-05] MEDS ORDERED: Potassium Chloride Liq 20 MEQ/15 ML UDC PO PRN ×2 (16:16)
[2018-06-05] MEDS ORDERED: Magnesium Sulfate Inj 2 GM in Sodium Chlor 0.9% Inj 96 ML IV.SIG PRN (16:16)
[2018-06-05] MEDS ORDERED: Magnesium Sulfate Inj 4 GM in Sodium Chlor 0.9% Inj 92 ML IV.SIG PRN (16:16)
[2018-06-05] MEDS ORDERED: Sodium Phosphate Inj 30 MMOL in Sodium Chlor 0.9% Inj 250 ML IV.SIG PRN (16:16)
[2018-06-05] MEDS ORDERED: Dextrose 50% in Water 50 ML Vial IV.PUSH PRN (16:16)
[2018-06-05] MEDS ORDERED: Acetaminophen 325 MG Tablet PO PRN (16:16)
[2018-06-05] MEDS ORDERED: Magnesium Oxide 400 MG Tablet PO PRN (16:16)
[2018-06-05] MEDS ORDERED: hydrALAZINE HCl Inj 20 MG/ML Vial IV.PUSH PRN (16:16)
[2018-06-05] MEDS ORDERED: Haloperidol Inj 5 MG/ML Ampul IV.PUSH PRN (16:16)
[2018-06-05] MEDS ORDERED: Labetalol HCl Inj 100 MG/20 ML Vial IV.PUSH PRN (16:16)
[2018-06-05] MEDS ORDERED: Propofol Inj 500 MG/50 ML Vial ONE (16:19)
[2018-06-05] MEDS ORDERED: Influenza (Quadrivalent) Vaccine 0.5 ML Syringe IM ONE (16:30)
[2018-06-05 16:55] LABS: ABG Base Excess -9.2 mmol/L (-2-2); ABG PCO2 39 mmHg (38-42); ABG PO2 334 mmHg (61-120)
--- NOTE | 2018-06-05 17:12 | P.PCN ---
Date of procedure: 06/05/18 Procedure: Tube Thoracostomy Procedure Note Left-sided 32 [place] chest tube Diagnosis: Acute pneumothorax with respiratory failure Indications: Acute left-sided pneumothorax with respiratory failure Consent: Emergent Anesthesia: Ketamine 30 milligrams IV Description of the Procedure: The patient was placed in the supine position. The arm was abducted above the head and secured. The left lateral chest was prepped and draped sterilely to include the axilla and nipple. 1% Lidcaine was infiltrated subcutaneously and into the tissues down to the periosteum of the rib. The 5th intercostal space was identified. A small incision was made using a #11 blade. At the mid-axillary line, blunt dissection was performed until the rib was palpated. A Karla clamp was used to bluntly enter the pleura immediately above the adjacent rib. The space was opened bluntly with the Karla clamp. A finger was inserted and lung and pleura were felt. A 32 Fr chest tube was inserted along the course of the finger and into the pleural cavity easily and without resistance. The chest tube was connected to a Pleur-o -vac and connected to [id number] suction. The catheter was sutured to the skin using a 0 silk sandal suture and an occlusive dressing was applied. There were no immediate complications noted. There was minimal EBL. The patient tolerated the procedure well. Chest Tube output: Minimal serosanguineous output, baca of air. A Chest x-ray has been ordered. I personally performed the procedure.
--- NOTE | 2018-06-05 17:14 | P.PCN ---
Date of procedure: 06/05/18 Procedure: Procedure: Arterial Line Placement Left radial arterial line Diagnosis: Cardiogenic shock Indications: Need for beat to beat hemodynamic monitoring Consent: Emergent Description of the Procedure: The left wrist was prepped and draped sterilely. 1% lidocaine was used for local anesthesia. The pulse was located and a needle was advanced into the artery. A 20 gauge, 12 cm catheter was advanced into the artery using a modified Seldinger technique. The catheter was sutured to the skin and a sterile dressing was applied. The catheter was connected to a pressure transducer and an arterial waveform was noted. There were no immediate complications noted. There was minimal EBL. I personally performed the procedure.
--- NOTE | 2018-06-05 17:14 | P.PCN ---
Date of procedure: 06/05/18 Procedure: Endotracheal Intubation Diagnosis: Acute hypoxic respiratory failure Indications: Acute hypoxic respiratory failure Consent: Emergent Anesthesia: Versed 5 milligrams IV, succinylcholine 70 milligrams IV Description of the Procedure: The patient was positioned in the sniffing position. Pre-oxygenation was performed using a high flow nasal cannula. Anesthesia was induced via rapid sequence. A Estrada #2 was used for laryngoscopy and a Grade I view was obtained. A 8.5 cuffed endotracheal tube was inserted atraumatically through the vocal cords. Confirmation of correct endotracheal tube placement was made by equal and bilateral breath sounds and colorimetric CO2 detection. The endotracheal tube was secured at 24 cm at the teeth. There were no immediate complications noted. The patient remained hemodynamically stable throughout the procedure. A chest x-ray has been ordered. I personally performed the procedure.
--- NOTE | 2018-06-05 17:15 | P.PCN ---
Date of procedure: 06/05/18 Procedure: Central Line Procedure Note Left subclavian 7 Malay 20 cm triple-lumen catheter Diagnosis: Cardiogenic shock Indications: Need for highly potent vasoactive substances and need for central pressure monitoring Consent: Emergent Anesthesia: Propofol IV Description of the Procedure: The patient was placed in the supine, mild- Trendelenburg position. The area was prepped and draped sterilely. A 19g needle was inserted under negative pressure aspiration and dark venous blood was obtained. A guidewire was inserted easily without resistance. A small incision was made using a #11 blade. Using a modified Seldinger technique, the dilator and 7 Malay, 27 m catheter were advanced over the guidewire without resistance. All ports were aspirated and flushed, and had brisk blood return. The line was secured at the skin using a non-suture StatLock device. A Biopatch and Transparent sterile dressing were applied. There were no immediate complications noted. There was minimal EBL. The patient tolerated the procedure well. Ultrasound guidance was not used for this procedure. A Chest x-ray has been ordered. I personally performed the procedure.
[2018-06-05 17:19] LABS: Troponin I 1.12 ng/mL (0.02-0.05)
[2018-06-05] MEDS ORDERED: Aspirin 300 MG Supp RECTAL ONE (17:19)
[2018-06-05 17:45] LABS: CKMB Percent 1.3 % (0.0-4.0); Creatine Kinase MB 4.9 ng/mL (0.5-3.6)
[2018-06-05] MEDS ORDERED: Vasopressin Inj 40 UNIT in Dextrose 5% in Water Inj 98 ML IV.CONT PRN ×2 (17:57)
--- NOTE | 2018-06-05 18:06 | XR ---
EXAM DATE: 06/05/2018 6:00 PM EST AGE/SEX: 67 years / Male INDICATIONS: Left central line placement and intubation. CLINICAL DATA: This is the patient's initial encounter. Patient reports that signs and symptoms have been present for 1 day and indicates a pain score of Nonresponsive. MEDICAL/SURGICAL HISTORY: . Peripheral artery disease. Perforated diverticular abscess. None. . [place] [facility] [place]. . FINDINGS: A single AP view of the chest demonstrates tiny left apical pneumothorax. Cutaneous emphysema lateral ly. Left-sided chest tube. Endotracheal tube, nasogastric and left subclavian central line stable pos ition. Bibasilar atelectasis The cardiomediastinal contours are unremarkable. Osseous structures are intact. CONCLUSION: Tiny left apical pneumothorax. Electronically signed by: Darrius Sanches MD Board Certified Radiologist 06/05/2018 6:05 PM EST
[2018-06-05] MEDS: Milrinone Inj 20 MG in Sodium Chlor 0.9% Inj 80 ML IV.CONT SCH (18:15)
--- NOTE | 2018-06-05 18:51 | ECHRPT ---
Indication: Heart Failure CONCLUSIONS Mildly dilated left ventricle. Wall thickness is normal. Left ventricular systolic function is severely reduced with an estimated ejection fraction of 20%. The basal portions of the inferior, posterior and lateral abdi contract fairly normally; all other left ventr icular segments are akinetic or severely hypokinetic. Normal right ventricular size though probably with moderately to severely reduced systolic function. Structurally normal mitral valve. Trace mitral regurgitation. There is trace to mild tricuspid valve regurgitation. The estimated pulmonary arterial pressure is 3 3 mmHg. BP: / HR: Rhythm: MEASUREMENTS (Male / Female) Normal Values Technical Quality:Technically difficult study 2D ECHO LV Diastolic Diameter PLAX 5.3 cm 4.2 - 5.9 / 3.9 - 5.3 cm LV Systolic Diameter PLAX 4.5 cm IVS Diastolic Thickness 0.9 cm 0.6 - 1.0 / 0.6 - 0.9 cm LVPW Diastolic Thickness 0.9 cm 0.6 - 1.0 / 0.6 - 0.9 cm LV Relative Wall Thickness 0.3 RV Internal Dim ED PLAX 2.0 cm LVOT Diameter 1.9 cm Aortic Root Diameter 3.1 cm LA Systolic Diameter LX 2.9 cm 3.0 - 4.0 / 2.7 - 3.8 cm DOPPLER TR Peak Velocity 239.0 cm/s TR Peak Gradient 22.8 mmHg Right Atrial Pressure 10.0 mmHg Pulmonary Artery Systolic Pressu 32.8 mmHg Right Ventricular Systolic Press 32.8 mmHg FINDINGS LEFT VENTRICLE Mildly dilated left ventricle. Wall thickness is normal. Left ventricular systolic function is severely reduced with an estimated ejection fraction of 20%. The basal portions of the inferior, posterior and lateral abdi contract fairly normally; all other left ventr icular segments are akinetic or severely hypokinetic. RIGHT VENTRICLE Normal right ventricular size though probably with moderately to severely reduced systolic function. LEFT ATRIUM The left atrial size is normal. RIGHT ATRIUM The right atrial size is normal. ATRIAL SEPTUM Normal atrial septal thickness. AORTA The aortic root and proximal ascending aorta are normal in size on limited imaging. MITRAL VALVE Structurally normal mitral valve. Trace mitral regurgitation. AORTIC VALVE The aortic valve is not well visualized. Trileaflet aortic valve. No aortic valve stenosis or regurg itation. TRICUSPID VALVE There is trace to mild tricuspid valve regurgitation. The estimated pulmonary arterial pressure is 33 mmHg. PULMONARY VALVE The pulmonary valve is not well visualized. VESSELS The inferior vena cava is normal in size. PERICARDIUM No pericardial effusion. Isma H. No MD (Electronically Signed) Final Date:05 June 2018 18:50
[2018-06-05 19:09] LABS: Bacteria,Urine Few /hpf; Bilirubin,Urine Negative (Negative); Color,Urine Yellow (Yellw/Straw); Glucose,Urine (UA) 50 mg/dL (Negative); Leukocyte Esterase,Urine Large (Negative); Nitrite,Urine Negative (Negative); Specific Gravity,Urine 1.047 (1.002-1.035); Squamous Epithelial Cell,Urine <1 /hpf (0-5)
[2018-06-05 19:11] LABS: Clarity,Urine Hazy (Clear)
[2018-06-05] MEDS ORDERED: Vancomycin Consult Pharmacy OTHER PRN (19:41)
[2018-06-05] MEDS: Insulin NovoLIN Regular Correctional Sugar Inj SQ SCH (20:05)
[2018-06-05] MEDS: Piperacil/Tazo 3.375 GM Premix 3.375 GM/50 ML PIGGYBACK IV.SIG SCH (20:57)
[2018-06-05] MEDS: Senna/Docusate Sodium 8.6/50 MG Tablet PO SCH (20:58)
[2018-06-05] MEDS: Propofol 1000 mg/100 ml Inj 1,000 MG/100 ML BOTTLE IV.CONT PRN (20:58)
[2018-06-05] MEDS: Chlorhexidine 0.12% Oral Kit 15 ML UDC OROPHARYNG SCH (20:58)
[2018-06-05] MEDS: Polyethylene Glycol 3350 17 GM Packet PO SCH (20:58)
[2018-06-05] MEDS: Famotidine PF Inj 20 MG/2 ML Vial IV.PUSH SCH (20:58)
[2018-06-05 21:10] LABS: ABG Base Excess -9.1 mmol/L (-2-2); ABG PCO2 23 mmHg (38-42); ABG PO2 191 mmHg (61-120)
[2018-06-05] MEDS ORDERED: Heparin 10,000 UNITS/10 ML Vial (for IV use) IV.PUSH PRN (21:15)
--- NOTE | 2018-06-05 21:23 | XR ---
EXAM DATE: 06/05/2018 9:13 PM EST AGE/SEX: 67 years / Male INDICATIONS: ET tube placement. CLINICAL DATA: This is the patient's subsequent encounter. Patient reports that signs and symptoms h ave been present for 1 day and indicates a pain score of Nonresponsive. MEDICAL/SURGICAL HISTORY: . Peripheral artery disease. Perforated diverticular abscess. None. COMPARISON: [facility], CHEST 1V SINGLE AP, 06/05/2018. . FINDINGS: Endotracheal tube is in good position. NG is entering stomach. Left central line in superior vena cav a. Left chest tube without pneumothorax. Bilateral mostly basilar airspace disease has improved sligh tly since earlier exam. CONCLUSION: Endotracheal tube, nasogastric tube and left central line in good position. Left chest tube without s ignificant pneumothorax. Slight improvement in basilar airspace disease since earlier exam. Electronically signed by: Cornell Phillips MD Board Certified Radiologist 06/05/2018 9:21 PM EST
--- NOTE | 2018-06-05 21:50 | MB ---
cc: Isma Sarabia MD DATE: 06/05/2018 REASON FOR CONSULTATION: Abnormal troponin, hypotension, severe dilated cardiomyopathy. HISTORY OF PRESENT ILLNESS: Currently, the patient is intubated, though awake. He is a 67-year-old white male with a history of severe peripheral vascular disease, COPD, status post recent admission to the hospital for diverticulitis associated with perforation, and development of pelvic abscess, necessitating drainage, who presented once again to the hospital with complaints of shortness of breath as well as severe pain in his right lower extremity. Today, he developed worsening hypotension and respiratory distress necessitating intubation and placement on mechanical ventilation, as well as initiation of pressor support. The patient denies any recent chest pain, palpitations, syncope, near syncope, pedal edema, paroxysmal nocturnal dyspnea. He does state some time in the last couple of days, his shortness of breath increased considerably from baseline. PAST MEDICAL HISTORY: 1. Severe peripheral vascular disease with recent CT angiograms showing occlusion of the right common iliac artery and occlusion of bilateral femoral arteries. 2. COPD. 3. Right pelvic abscess drainage 04/30/2018. 4. Sigmoid colon diverticulitis with perforation last month. 5. Hypertension. CARDIAC MEDICATIONS AT HOME: 1. Amlodipine 5 mg daily. 2. Aspirin 325 mg daily. 3. Pravastatin 20 mg at bedtime. CARDIAC MEDICATIONS IN THE HOSPITAL: 1. Heparin drip. 2. Milrinone drip. 3. Norepinephrine drip. ALLERGIES: NO KNOWN DRUG ALLERGIES. FAMILY HISTORY: There is no family history of cardiac disease. SOCIAL HISTORY: The patient smokes cigarettes. He denies alcohol abuse. REVIEW OF SYSTEMS: As in the history of present illness, otherwise negative or noncontributory. He also currently denies headache, abdominal pain, melena, dyspepsia, bright red blood per rectum, flu symptoms. PHYSICAL EXAMINATION: VITAL SIGNS: His blood pressure 113/70 with a pulse of 90, respirations 27. GENERAL: He is a well-developed, well-nourished white male, in no acute distress. NECK: Jugular venous pressure is normal. Carotid pulses are 2+ bilaterally and without bruits. CHEST: Reveals clear lung cortez anteriorly. CARDIAC: He has a regular rhythm and rate without S3, S4, or murmur. ABDOMEN: He has a soft, nontender abdomen. Bowel sounds are scant. There is no definite hepatosplenomegaly. EXTREMITIES: Reveal no pedal edema. LABORATORY DATA: Includes WBC 4.5, hemoglobin 12.3, platelets 380, potassium 3.9, BUN 10, creatinine 1.17. Troponin 1.12. IMAGING STUDIES: Chest x-ray shows tiny left apical pneumothorax. IMPRESSION: Severe dilated cardiomyopathy with ejection fraction of 20% by echocardiogram today, hypotension in this 67-year-old white male with a history of severe peripheral vascular disease, chronic obstructive pulmonary disease, recent admission for diverticulitis and pelvic abscess, hypertension. The patient's echocardiogram this evening shows only the basal segments of the posterior, inferior, and lateral abdi lulu. Conceivably, he has a severe nonischemic cardiomyopathy, possibly viral-mediated. Alternatively, he has severe multivessel coronary artery disease. The patient denies any recent chest pains. CK levels are negative for myocardial infarction. Troponin is only minimally elevated. There is no definite evidence for acute congestive heart failure. RECOMMENDATIONS: 1. Continue inotropic and pressor support. 2. Daily aspirin. Continue heparin. 3. Will likely recommend cardiac catheterization this admission to rule out underlying severe coronary artery disease. MD MAIKOL Huerta/kendra/mandy , 07:21 PM , 07:30 PM MTDD
[2018-06-05 23:00] LABS: ABG Base Excess -6.6 mmol/L (-2-2); ABG PCO2 31 mmHg (38-42); ABG PO2 232 mmHg (61-120)
[2018-06-05 23:12] LABS: Troponin I 1.4 ng/mL (0.02-0.05)
[2018-06-05 23:24] LABS: CKMB Percent 2.3 % (0.0-4.0); Creatine Kinase MB 11.7 ng/mL (0.5-3.6)
[2018-06-06] MEDS: Oral Hygiene Kit OROPHARYNG SCH ×5 (00:33→23:18)
[2018-06-06] MEDS: Insulin NovoLIN Regular Correctional Sugar Inj SQ SCH ×5 (01:21→23:28)
[2018-06-06] MEDS: Piperacil/Tazo 3.375 GM Premix 3.375 GM/50 ML PIGGYBACK IV.SIG SCH ×4 (01:23→20:11)
[2018-06-06] MEDS: Sod Chloride 0.9% Inj 1,000 ML IV.CONT SCH ×2 (03:31→15:56)
[2018-06-06] MEDS ORDERED: Chlorhexidine Gluconate 2% 1 Pack (2 Cloths) TOPICAL PRN (04:00)
--- NOTE | 2018-06-06 04:33 | XR ---
EXAM DATE: 06/06/2018 3:57 AM EST AGE/SEX: 67 years / Male INDICATIONS: Atelectasis. CLINICAL DATA: This is the patient's subsequent encounter. Patient reports that signs and symptoms h ave been present for 1 week and indicates a pain score of Nonresponsive. MEDICAL/SURGICAL HISTORY: . Peripheral artery disease. Perforated diverticular abscess. None. COMPARISON: [facility], CHEST 1V SINGLE AP, 06/05/2018. . FINDINGS: Endotracheal tube tip is present 6 cm above the abeba. Nasogastric tube descends into the stomach. L eft subclavian central line and left thoracostomy tube remain in place. There has been slight improve ment in aeration with decrease in confluence of right perihilar and right base infiltrate. Cardiac co ntours are unchanged. CONCLUSION: Slightly improved aeration Electronically signed by: Thee Whitley MD Board Certified Radiologist 06/06/2018 4:32 AM EST
[2018-06-06] MEDS: Chlorhexidine Gluconate 2% 1 Pack (2 Cloths) TOPICAL SCH (04:58)
[2018-06-06 05:15] LABS: ABG Base Excess -4.6 mmol/L (-2-2); ABG PCO2 32 mmHg (38-42); ABG PO2 229 mmHg (61-120)
[2018-06-06 05:28] LABS: INR 1.1 Ratio; Prothrombin Time 11.5 sec (9.8-11.6)
[2018-06-06] MEDS: Milrinone Inj 20 MG in Sodium Chlor 0.9% Inj 80 ML IV.CONT SCH ×4 (05:52→23:17)
[2018-06-06] MEDS: Propofol 1000 mg/100 ml Inj 1,000 MG/100 ML BOTTLE IV.CONT PRN ×2 (05:54→15:43)
[2018-06-06] MEDS ORDERED: Labetalol HCl Inj 20 MG/4 ML Vial IV.PUSH PRN (07:00)
[2018-06-06 07:07] LABS: Alanine Aminotransferase 21 U/L (12-78); Albumin 2.4 g/dL (3.4-5.0); Alkaline Phosphatase 74 U/L (45-117); Anion Gap 9 meq/L (5-15); Aspartate Aminotransferase 36 U/L (15-37); Blood Urea Nitrogen 10 mg/dL (7-18); Calcium 7.7 mg/dL (8.5-10.1); Carbon Dioxide 21.2 meq/L (21.0-32.0); Chloride 112 meq/L (98-107); Creatine Kinase 577 U/L (39-308); Glomerular Filtration Rate Greater Than 89 mL/min (>89); Glucose,Random 257 mg/dL (74-106); Magnesium 1.8 mg/dL (1.5-2.5); Phosphorus 2.4 mg/dL (2.5-4.9); Potassium 3.2 meq/L (3.5-5.1); Sodium 142 meq/L (136-145)
[2018-06-06 07:16] LABS: Baso % (Auto) 0.2 % (0.0-2.0); Hemoglobin 10.4 gm/dL (13.0-17.0); Lymph % (Auto) 4.8 % (9.0-44.0); Mean Corpuscular HGB Conc 33.6 % (32.0-36.0); Mean Corpuscular Hemoglobin 28.2 pg (27.0-34.0); Mean Corpuscular Volume 83.9 fL (80.0-100.0); Mean Platelet Volume 7.2 fL (7.0-11.0); Mono # (Auto) 0.5 th/mm3 (0.0-0.9); Mono % (Auto) 2.3 % (0.0-8.0); Neut # (Auto) 19.1 th/mm3 (1.8-7.7); Neut % (Auto) 92.7 % (16.0-70.0); Platelet Count 329 th/mm3 (150-450); Red Cell Distribution Width 18.6 % (11.6-17.2); White Blood Count 20.6 th/mm3 (4.0-11.0)
[2018-06-06 07:18] LABS: Troponin I 0.96 ng/mL (0.02-0.05)
[2018-06-06 07:33] LABS: CKMB Percent 3.2 % (0.0-4.0); Creatine Kinase MB 18.2 ng/mL (0.5-3.6)
[2018-06-06] MEDS: Polyethylene Glycol 3350 17 GM Packet PO SCH ×2 (08:14→20:11)
[2018-06-06] MEDS: Famotidine PF Inj 20 MG/2 ML Vial IV.PUSH SCH ×2 (08:14→20:12)
[2018-06-06] MEDS: Senna/Docusate Sodium 8.6/50 MG Tablet PO SCH ×2 (08:14→20:12)
[2018-06-06 08:46] LABS: Lymphocytes 5 % (9-44); Monocytes 6 % (0-8); Myelocytes 1 % (0-0)
[2018-06-06 08:47] LABS: Toxic Granulation 1+
[2018-06-06 08:48] LABS: Platelet Estimate Normal (Normal); Platelet Morphology Normal (Normal); Toxic Vacuolation Present
--- NOTE | 2018-06-06 08:48 | ECG ---
Date Performed: 06/05/2018 Time Performed: 22:59:46 PTAGE: 67 years EKG: Baseline artifact present Sinus arrhythmia with PVC(s). Possible septal infarct - age undet ermined Nonspecific ST and T wave abnormalities Low QRS voltages in limb leads Abnormal ECG NO PREVIOUS TRACING DOCTOR: Ryan Dey Interpretating Date/Time 06/06/2018 08:47:09
--- NOTE | 2018-06-06 08:55 | ECG ---
Date Performed: 06/05/2018 Time Performed: 17:12:02 PTAGE: 67 years EKG: Baseline artifact present PROBABLE Sinus tachycardia. Leftward axis Inferior infarct - age undetermined Nonspecific ST-T-wave changes Cannot rule out septal MT Low QRS voltages in limb leads A bnormal ECG Within the constraints of artifact it appears that ST depression has improved while there is now septal lead ST elevation and worsening T-wave conversions. PREVIOUS TRACING : 06/05/2018 11.23 DOCTOR: Ryan Dey Interpretating Date/Time 06/06/2018 08:54:43
[2018-06-06] MEDS ORDERED: Vancomycin Inj 1,250 MG in Sodium Chlor 0.9% Inj 250 ML IV.SIG SCH (09:00)
--- NOTE | 2018-06-06 09:16 | P.PNCA ---
Subjective Interval history: Intubated. Sedated. Medications and Allergies Active Medications: Active Cardiac Medications Aspirin (Aspirin Chew) 81 mg PO DAILY [facility] Last Admin: 06/06/18 08:14 Dose: 81 mg Heparin Sodium/Dextrose (Heparin/D5w 25,000 U/250 Ml) 25,000 unit in 250 mls @ 0 mls/hr IV.CONT TITRATE PRN; Protocol PRN Reason: Per Protocol Last Titration: 06/06/18 03:34 Dose: 800 units/hr, 8 mls/hr Milrinone Lactate 20 mg/ (Sodium Chloride) 100 mls @ 6.88 mls/hr IV.CONT .[id number] [facility] Last Admin: 06/06/18 05:52 Dose: 0.375 mcg/kg/min, 6.88 mls/hr Norepinephrine Bitartrate (Levophed-Dextrose 4 Mg/250 Ml Drip) 4 mg in 250 mls @ 7.5 mls/hr IV.SIG TITRATE PRN; Protocol PRN Reason: Per Protocol Last Admin: 06/06/18 05:51 Dose: 7 mcg/min, 26.25 mls/hr Vasopressin 40 unit/ Dextrose 100 mls @ 6 mls/hr IV.CONT TITRATE PRN; Protocol PRN Reason: Per Protocol Allergies Allergy/AdvReac Type Severity Reaction Status Date / Time *MDRO Multi-Drug Resistant AdvReac Unknown Uncoded 02/20/16 09:24 Organism Physical Exam Vital signs: Vital Signs 06/05/18 11:06 06/05/18 11:18 06/05/18 11:32 Temperature 97.4 F L Pulse Rate 126 H 134 H Respiratory Rate 34 H 26 H Blood Pressure 73/44 L 129/60 Pulse Oximetry 84 L 98 98 06/05/18 11:33 06/05/18 11:56 06/05/18 12:00 Temperature 98.7 F Pulse Rate 123 H 124 H Respiratory Rate 22 30 H Blood Pressure 100/59 L Pulse Oximetry 100 100 06/05/18 13:00 06/05/18 13:53 06/05/18 13:59 Temperature 98.2 F Pulse Rate 113 H 144 H 88 Respiratory Rate 24 32 H 26 H Blood Pressure 84/49 L 187/97 H Pulse Oximetry 95 98 06/05/18 15:33 06/05/18 15:34 06/05/18 15:45 Temperature Pulse Rate 127 H 122 H Respiratory Rate 36 H 37 H Blood Pressure 109/58 L 99/58 L Pulse Oximetry 99 100 06/05/18 15:59 06/05/18 16:00 06/05/18 16:02 Temperature Pulse Rate 130 H 131 H 134 H Respiratory Rate 41 H 57 H 46 H Blood Pressure 101/61 143/77 H Pulse Oximetry 89 L 53 L 87 L 06/05/18 16:05 06/05/18 16:08 06/05/18 16:11 Temperature Pulse Rate 131 H 119 H 113 H Respiratory Rate 51 H 21 26 H Blood Pressure 133/74 102/59 L 92/55 L Pulse Oximetry 82 L 100 100 06/05/18 16:14 06/05/18 16:16 06/05/18 16:30 Temperature Pulse Rate 115 H 112 H Respiratory Rate 24 26 H 24 Blood Pressure 93/55 L 75/49 L Pulse Oximetry 100 100 100 06/05/18 16:45 06/05/18 16:50 06/05/18 17:00 Temperature Pulse Rate 105 H 103 H 105 H Respiratory Rate 24 27 H 27 H Blood Pressure 67/51 L 111/56 L 98/55 L Pulse Oximetry 06/05/18 17:15 06/05/18 17:30 06/05/18 17:40 Temperature Pulse Rate 115 H 107 H 98 H Respiratory Rate 27 H 27 H 27 H Blood Pressure 119/69 117/74 85/54 L Pulse Oximetry 100 75 L 06/05/18 18:00 06/05/18 18:06 06/05/18 18:35 Temperature Pulse Rate 91 H 96 H 91 H Respiratory Rate 27 H 28 H 27 H Blood Pressure 142/84 H 113/70 Pulse Oximetry 95 96 96 06/05/18 19:00 06/05/18 19:15 06/05/18 19:30 Temperature Pulse Rate 83 88 85 Respiratory Rate 27 H 27 H 27 H Blood Pressure Pulse Oximetry 97 96 95 06/05/18 19:35 06/05/18 19:43 06/05/18 19:45 Temperature Pulse Rate 84 86 86 Respiratory Rate 27 H 27 H 27 H Blood Pressure Pulse Oximetry 96 98 06/05/18 19:53 06/05/18 20:00 06/05/18 20:15 Temperature 97.9 F Pulse Rate 85 85 79 Respiratory Rate 27 H 27 H 27 H Blood Pressure 124/70 Pulse Oximetry 98 99 98 06/05/18 20:30 06/05/18 20:35 06/05/18 20:45 Temperature Pulse Rate 74 82 73 Respiratory Rate 27 H 27 H 27 H Blood Pressure 119/71 Pulse Oximetry 97 99 97 06/05/18 21:00 06/05/18 21:15 06/05/18 21:30 Temperature Pulse Rate 74 74 70 Respiratory Rate 27 H 27 H 27 H Blood Pressure Pulse Oximetry 97 99 99 06/05/18 21:35 06/05/18 21:45 06/05/18 22:00 Temperature Pulse Rate 71 76 82 Respiratory Rate 27 H Blood Pressure Pulse Oximetry 99 96 100 06/05/18 22:15 06/05/18 22:30 06/05/18 22:35 Temperature Pulse Rate 86 81 74 Respiratory Rate 20 Blood Pressure 110/62 Pulse Oximetry 100 99 97 06/05/18 22:45 06/05/18 23:00 06/05/18 23:15 Temperature Pulse Rate 71 76 74 Respiratory Rate 20 22 22 Blood Pressure Pulse Oximetry 98 98 100 06/05/18 23:23 06/05/18 23:30 06/05/18 23:35 Temperature Pulse Rate 67 76 71 Respiratory Rate 20 26 H 20 Blood Pressure 115/62 Pulse Oximetry 99 99 98 06/05/18 23:45 06/06/18 00:00 06/06/18 00:15 Temperature 97.8 F Pulse Rate 65 78 78 Respiratory Rate 20 24 23 Blood Pressure Pulse Oximetry 97 98 94 L 06/06/18 00:30 06/06/18 00:35 06/06/18 01:00 Temperature Pulse Rate 70 66 62 Respiratory Rate 20 20 20 Blood Pressure 106/57 L Pulse Oximetry 94 L 97 98 06/06/18 01:35 06/06/18 02:00 06/06/18 02:35 Temperature Pulse Rate 75 61 60 Respiratory Rate 25 H 20 20 Blood Pressure 156/77 H 118/65 Pulse Oximetry 97 98 99 06/06/18 03:00 06/06/18 03:35 06/06/18 03:47 Temperature Pulse Rate 62 63 59 L Respiratory Rate 19 20 20 Blood Pressure 120/63 Pulse Oximetry 99 94 L 99 06/06/18 04:00 06/06/18 04:35 06/06/18 05:00 Temperature 97.8 F Pulse Rate 57 L 57 L 56 L Respiratory Rate 20 20 20 Blood Pressure 116/63 Pulse Oximetry 99 95 99 06/06/18 05:35 06/06/18 06:00 06/06/18 08:32 Temperature Pulse Rate 56 L 55 L 69 Respiratory Rate 20 20 21 Blood Pressure 119/61 Pulse Oximetry 99 95 96 Intake & Output 06/05/18 06/06/18 06/06/18 18:59 06:59 18:59 Intake Total 3300 / 3300 3200 / 3200 Output Total 450 / 450 100 / 100 Balance 2850 / 2850 3100 / 3100 Weight 61.235 kg 58.5 kg Intake: IV 3300 / 3300 1000 / 1000 Primacor Inj 20 MG In NS Inj 80 100 / 100 ML @ 0.375 MCG/KG/MIN 6.88 mls /hr IV.CONT .[id number] [facility] Rx#: [id number] Diprivan 1000 mg/100 ml Inj 1, 100 / 100 000 mg In 100 ml @ 5 MCG/KG/MIN 1.837 mls/hr IV.CONT TITRATE PRN Rx#:[id number] NS Inj 1,000 ML @ 75 mls/hr IV. 1000 / 1000 CONT .[id number] [facility] Rx#:[id number] Diflucan 400 mg Premix Bag 200 200 / 200 ML @ 100 mls/hr IV.SIG Q24H [facility] Rx#:[id number] Levophed-Dextrose 4 mg/250 ml 500 / 500 Drip 4 mg In 250 ml @ 2 MCG/MIN 7.5 mls/hr IV.SIG TITRATE PRN Rx#:[id number] Zosyn 3.375 GM Premix 3.375 gm 50 / 50 100 / 100 In 50 ml @ 100 mls/hr IV.SIG Q6H [facility] Rx#:[id number] NS Inj 1,000 ML @ 1000 mls/hr 1999 / 1999 IV.SIG BOLUS [facility] Rx#:[id number] Vancomycin Inj 1,000 MG In NS 250 / 250 Inj 250 ML @ 250 mls/hr IV.SIG ONCE ONE Rx#:[id number] Oral 2200 / 2200 Output: Urine Amount (Catheter) 300 / 300 Indwelling Temp Sensing 300 / 300 Catheter Gastric Drainage 0 / 0 Orogastric Tube 0 / 0 Chest Tube Drainage 150 / 150 100 / 100 Left 150 / 150 100 / 100 - Constitutional Comments: Intubated. Sedated. - Routine Neck Exam Present: JVD - Routine Respiratory Exam Comments: Clear lungs anteriorly. - Routine Cardiovascular Exam Present: RRR, S1, S2. Absent: murmur, gallop - Routine Abdominal Exam Present: soft, normoactive bowel sounds - Routine Extremities Exam Absent: cyanosis, clubbing, edema - Urinary Catheter Management Indwelling Temp Sensing Catheter Cath placed during this visit: no Results 06/06/18 06:57 06/06/18 06:11 Cardiac Enzymes 06/05/18 06/05/18 06/05/18 Range/Units 11:20 11:45 16:35 AST 19 (15-37) U/L CK-MB (CK-2) 4.9 H (0.5-3.6) ng/mL Troponin I 0.06 H 1.12 H* (0.02-0.05) ng/mL B-Natriuretic Peptide 30 (0-100) pg/mL 06/05/18 06/06/18 06/06/18 Range/Units 22:06 04:49 06:11 AST 36 (15-37) U/L CK-MB (CK-2) 11.7 H 18.2 H (0.5-3.6) ng/mL Troponin I 1.40 H* 0.96 H* (0.02-0.05) ng/mL B-Natriuretic Peptide 1217 H (0-100) pg/mL Coagulation 06/05/18 06/05/18 06/05/18 Range/Units 11:45 11:45 22:06 PT 10.8 (9.8-11.6) sec APTT 24.7 123.9 H* D (23.4-31.7) sec B-Natriuretic Peptide 30 (0-100) pg/mL 06/06/18 06/06/18 06/06/18 Range/Units 02:17 04:49 04:49 PT 11.5 (9.8-11.6) sec APTT 52.3 H D (23.4-31.7) sec B-Natriuretic Peptide 1217 H (0-100) pg/mL 06/06/18 Range/Units 08:55 PT (9.8-11.6) sec APTT 54.9 H (23.4-31.7) sec B-Natriuretic Peptide (0-100) pg/mL CBC 06/05/18 06/06/18 Range/Units 11:20 06:57 WBC 4.5 20.6 H D (4.0-11.0) th/mm3 RBC 4.32 L 3.70 L (4.50-5.90) mil/mm3 Hgb 12.3 L 10.4 L (13.0-17.0) gm/dL Hct 37.1 L 31.0 L (39.0-51.0) % Plt Count 380 D 329 (150-450) th/mm3 Neut # (Auto) 3.7 19.1 H (1.8-7.7) th/mm3 Lymph # (Auto) 0.6 L 1.0 (1.0-4.8) th/mm3 Chaves # (Auto) 0.0 0.5 (0.0-0.9) th/mm3 Eos # (Auto) 0.2 0.0 (0.0-0.4) th/mm3 Baso # (Auto) 0.0 0.0 (0.0-0.2) th/mm3 Comprehensive Metabolic Panel 06/05/18 06/06/18 Range/Units 11:20 06:11 Sodium 133 L 142 (136-145) meq/L Potassium 3.9 3.2 L (3.5-5.1) meq/L Chloride 101 112 H D (98-107) meq/L Carbon Dioxide 16.5 L 21.2 (21.0-32.0) meq/L BUN 10 10 (7-18) mg/dL Creatinine 1.17 0.76 (0.60-1.30) mg/dL Calcium 8.9 7.7 L D (8.5-10.1) mg/dL AST 19 36 (15-37) U/L ALT 19 21 (12-78) U/L Alkaline Phosphatase 131 H 74 (45-117) U/L Total Protein 8.5 H 7.0 D (6.4-8.2) g/dL Albumin 3.2 L 2.4 L D (3.4-5.0) g/dL Intake and Output 02/06/06/18 06/06/18 22:59 06:59 14:59 Intake Total 1550 / 1550 2900 / 2900 Output Total 450 / 450 100 / 100 Balance 1100 / 1100 2800 / 2800 Intake: IV 1550 / 1550 700 / 700 Primacor Inj 20 MG In NS Inj 80 100 / 100 ML @ 0.375 MCG/KG/MIN 6.88 mls /hr IV.CONT .[id number] [facility] Rx#: [id number] Diprivan 1000 mg/100 ml Inj 1, 100 / 100 000 mg In 100 ml @ 5 MCG/KG/MIN 1.837 mls/hr IV.CONT TITRATE PRN Rx#:[id number] Diflucan 400 mg Premix Bag 200 200 / 200 ML @ 100 mls/hr IV.SIG Q24H [facility] Rx#:[id number] Levophed-Dextrose 4 mg/250 ml 250 / 250 250 / 250 Drip 4 mg In 250 ml @ 2 MCG/MIN 7.5 mls/hr IV.SIG TITRATE PRN Rx#:[id number] Zosyn 3.375 GM Premix 3.375 gm 50 / 50 50 / 50 In 50 ml @ 100 mls/hr IV.SIG Q6H [facility] Rx#:[id number] NS Inj 1,000 ML @ 1000 mls/hr 1000 / 1000 IV.SIG BOLUS [facility] Rx#:[id number] Vancomycin Inj 1,000 MG In NS 250 / 250 Inj 250 ML @ 250 mls/hr IV.SIG ONCE ONE Rx#:[id number] Oral 2200 / 2200 Output: Urine Amount (Catheter) 300 / 300 Indwelling Temp Sensing 300 / 300 Catheter Gastric Drainage 0 / 0 Orogastric Tube 0 / 0 Chest Tube Drainage 150 / 150 100 / 100 Left 150 / 150 100 / 100 Other: Weight 58.5 kg - Imaging and Cardiology Imaging: Impressions Chest X-Ray 06/05/18 00:00 CONCLUSION: Left-sided chest tube with tiny left apical pneumothorax slightly decreased in prominence. Chest X-Ray 06/05/18 00:00 CONCLUSION: Tiny left apical pneumothorax. Chest X-Ray 06/05/18 11:20 CONCLUSION: 1. Left-sided rib fracture. 2. Subcutaneous emphysema without significant pneumothorax. Aorta w/Runoff CTA 06/05/18 11:45 CONCLUSION: 1. Extensive peripheral vascular disease with multifocal areas of narrowing/ occlusion as above. Chest CT 06/05/18 11:45 CONCLUSION: 1. Small left-sided pneumothorax and hemothorax. 2. Acute left fifth rib fracture. 3. Emphysema. Chest X-Ray 06/05/18 13:58 CONCLUSION: Tiny left apical pneumothorax. Chest X-Ray 06/05/18 20:55 CONCLUSION: Endotracheal tube, nasogastric tube and left central line in good position. Left chest tube without significant pneumothorax. Slight improvement in basilar airspace disease since earlier exam. Chest X-Ray 06/06/18 05:00 CONCLUSION: Slightly improved aeration Assessment and Plan - Assessment (1) Dilated cardiomyopathy Code(s): I42.0 - Dilated cardiomyopathy Status: Acute Plan: Severe dilated cardiomyopathy, EF 20% by echo yesterday. Improving chest x-ray findings. Weaning off pressor support. Suspect he has underlying severe multivessel CAD. REC cath later this week. Will be out of town tomorrow and f/ u Tues. (2) Elevated troponin Code(s): R74.8 - Abnormal levels of other serum enzymes Status: Acute Plan: Overall minimally elevated troponin levels and trending downward. REC cath later this week. (3) Hypotension Code(s): I95.9 - Hypotension, unspecified Status: Acute Plan: Improving hypotension. Weaning off Levophed. - Plan Code Status: full code (3) Hypotension Qualifiers: Hypotension type: unspecified hypotension type Qualified Code(s): I95.9 - Hypotension, unspecified
[2018-06-06] MEDS: Potassium Chlor 40 mEq Premix 40 MEQ/100 ML PIGGYBACK IV.SIG PRN ×2 (10:05→13:57)
[2018-06-06] MEDS: Chlorhexidine 0.12% Oral Kit 15 ML UDC OROPHARYNG SCH ×2 (10:08→20:12)
--- NOTE | 2018-06-06 10:49 | P.PNCC ---
Subjective Subjective Remarks/Hospital Course: Hospital Course: 67yM with history of severe PAD who presents after he had sudden onset right leg pain which caused him to fall, and then he began with sudden shortness of breath. In the emergency department, found to have left apical pneumothorax with large amount of subQ air, with rib fracture. In addition, severe PAD with occlusion of the right common femoral artery. Labs significant for trop 0.06, Lactate 7. patient denies chest pain. does endorse leg pain and shortness of breath. denies fever,chills. remainder of the ROS negative, although limited by his critical illness. Subjective: 06/06: discussed case with Dr. Oglesby from gen surg overnight- patient also has additional pelvic abscesses compounding his shock. blood cultures growing GNRs. We elected to hold off on draining abscesses yesterday due to acute cardiogenic shock in the setting of acute myocardial infarction as well as critical limb ischemia. Today, leg appears better perfused and lactate is starting to clear. remains on milrinone and norepinephrine infusions. BNP has risen from 30 to 1300. Cardiology recommends LHC during this admission, but waiting until shock resolves and more stable. remains critically ill today. Objective Vital Signs / I&O: Vital Signs 06/05/18 11:06 06/05/18 11:18 06/05/18 11:32 Temperature 36.3 C L Pulse Rate 126 H 134 H Respiratory Rate 34 H 26 H Blood Pressure 73/44 L 129/60 Pulse Oximetry 84 L 98 98 06/05/18 11:33 06/05/18 11:56 06/05/18 12:00 Temperature 37.1 C Pulse Rate 123 H 124 H Respiratory Rate 22 30 H Blood Pressure 100/59 L Pulse Oximetry 100 100 06/05/18 13:00 06/05/18 13:53 06/05/18 13:59 Temperature 36.8 C Pulse Rate 113 H 144 H 88 Respiratory Rate 24 32 H 26 H Blood Pressure 84/49 L 187/97 H Pulse Oximetry 95 98 06/05/18 15:33 06/05/18 15:34 06/05/18 15:45 Temperature Pulse Rate 127 H 122 H Respiratory Rate 36 H 37 H Blood Pressure 109/58 L 99/58 L Pulse Oximetry 99 100 06/05/18 15:59 06/05/18 16:00 06/05/18 16:02 Temperature Pulse Rate 130 H 131 H 134 H Respiratory Rate 41 H 57 H 46 H Blood Pressure 101/61 143/77 H Pulse Oximetry 89 L 53 L 87 L 06/05/18 16:05 06/05/18 16:08 06/05/18 16:11 Temperature Pulse Rate 131 H 119 H 113 H Respiratory Rate 51 H 21 26 H Blood Pressure 133/74 102/59 L 92/55 L Pulse Oximetry 82 L 100 100 06/05/18 16:14 06/05/18 16:16 06/05/18 16:30 Temperature Pulse Rate 115 H 112 H Respiratory Rate 24 26 H 24 Blood Pressure 93/55 L 75/49 L Pulse Oximetry 100 100 100 06/05/18 16:45 06/05/18 16:50 06/05/18 17:00 Temperature Pulse Rate 105 H 103 H 105 H Respiratory Rate 24 27 H 27 H Blood Pressure 67/51 L 111/56 L 98/55 L Pulse Oximetry 06/05/18 17:15 06/05/18 17:30 06/05/18 17:40 Temperature Pulse Rate 115 H 107 H 98 H Respiratory Rate 27 H 27 H 27 H Blood Pressure 119/69 117/74 85/54 L Pulse Oximetry 100 75 L 06/05/18 18:00 06/05/18 18:06 06/05/18 18:35 Temperature Pulse Rate 91 H 96 H 91 H Respiratory Rate 27 H 28 H 27 H Blood Pressure 142/84 H 113/70 Pulse Oximetry 95 96 96 06/05/18 19:00 06/05/18 19:15 06/05/18 19:30 Temperature Pulse Rate 83 88 85 Respiratory Rate 27 H 27 H 27 H Blood Pressure Pulse Oximetry 97 96 95 06/05/18 19:35 06/05/18 19:43 06/05/18 19:45 Temperature Pulse Rate 84 86 86 Respiratory Rate 27 H 27 H 27 H Blood Pressure Pulse Oximetry 96 98 06/05/18 19:53 06/05/18 20:00 06/05/18 20:15 Temperature 36.6 C Pulse Rate 85 85 79 Respiratory Rate 27 H 27 H 27 H Blood Pressure 124/70 Pulse Oximetry 98 99 98 06/05/18 20:30 06/05/18 20:35 06/05/18 20:45 Temperature Pulse Rate 74 82 73 Respiratory Rate 27 H 27 H 27 H Blood Pressure 119/71 Pulse Oximetry 97 99 97 06/05/18 21:00 06/05/18 21:15 06/05/18 21:30 Temperature Pulse Rate 74 74 70 Respiratory Rate 27 H 27 H 27 H Blood Pressure Pulse Oximetry 97 99 99 06/05/18 21:35 06/05/18 21:45 06/05/18 22:00 Temperature Pulse Rate 71 76 82 Respiratory Rate 27 H Blood Pressure Pulse Oximetry 99 96 100 06/05/18 22:15 06/05/18 22:30 06/05/18 22:35 Temperature Pulse Rate 86 81 74 Respiratory Rate 20 Blood Pressure 110/62 Pulse Oximetry 100 99 97 06/05/18 22:45 06/05/18 23:00 06/05/18 23:15 Temperature Pulse Rate 71 76 74 Respiratory Rate 20 22 22 Blood Pressure Pulse Oximetry 98 98 100 06/05/18 23:23 06/05/18 23:30 06/05/18 23:35 Temperature Pulse Rate 67 76 71 Respiratory Rate 20 26 H 20 Blood Pressure 115/62 Pulse Oximetry 99 99 98 06/05/18 23:45 06/06/18 00:00 06/06/18 00:15 Temperature 36.6 C Pulse Rate 65 78 78 Respiratory Rate 20 24 23 Blood Pressure Pulse Oximetry 97 98 94 L 06/06/18 00:30 06/06/18 00:35 06/06/18 01:00 Temperature Pulse Rate 70 66 62 Respiratory Rate 20 20 20 Blood Pressure 106/57 L Pulse Oximetry 94 L 97 98 06/06/18 01:35 06/06/18 02:00 06/06/18 02:35 Temperature Pulse Rate 75 61 60 Respiratory Rate 25 H 20 20 Blood Pressure 156/77 H 118/65 Pulse Oximetry 97 98 99 06/06/18 03:00 06/06/18 03:35 06/06/18 03:47 Temperature Pulse Rate 62 63 59 L Respiratory Rate 19 20 20 Blood Pressure 120/63 Pulse Oximetry 99 94 L 99 06/06/18 04:00 06/06/18 04:35 06/06/18 05:00 Temperature 36.6 C Pulse Rate 57 L 57 L 56 L Respiratory Rate 20 20 20 Blood Pressure 116/63 Pulse Oximetry 99 95 99 06/06/18 05:35 06/06/18 06:00 06/06/18 08:32 Temperature Pulse Rate 56 L 55 L 69 Respiratory Rate 20 20 21 Blood Pressure 119/61 Pulse Oximetry 99 95 96 Intake & Output 06/05/18 06/06/18 06/06/18 18:59 06:59 18:59 Intake Total 3300 / 3300 3200 / 3200 Output Total 450 / 450 100 / 100 Balance 2850 / 2850 3100 / 3100 Weight 61.235 kg 58.5 kg Intake: IV 3300 / 3300 1000 / 1000 Primacor Inj 20 MG In NS Inj 80 100 / 100 ML @ 0.375 MCG/KG/MIN 6.88 mls /hr IV.CONT .[id number] [facility] Rx#: [id number] Diprivan 1000 mg/100 ml Inj 1, 100 / 100 000 mg In 100 ml @ 5 MCG/KG/MIN 1.837 mls/hr IV.CONT TITRATE PRN Rx#:[id number] NS Inj 1,000 ML @ 75 mls/hr IV. 1000 / 1000 CONT .[id number] [facility] Rx#:[id number] Diflucan 400 mg Premix Bag 200 200 / 200 ML @ 100 mls/hr IV.SIG Q24H [facility] Rx#:[id number] Levophed-Dextrose 4 mg/250 ml 500 / 500 Drip 4 mg In 250 ml @ 2 MCG/MIN 7.5 mls/hr IV.SIG TITRATE PRN Rx#:[id number] Zosyn 3.375 GM Premix 3.375 gm 50 / 50 100 / 100 In 50 ml @ 100 mls/hr IV.SIG Q6H [facility] Rx#:[id number] NS Inj 1,000 ML @ 1000 mls/hr 1999 / 1999 IV.SIG BOLUS [facility] Rx#:[id number] Vancomycin Inj 1,000 MG In NS 250 / 250 Inj 250 ML @ 250 mls/hr IV.SIG ONCE ONE Rx#:[id number] Oral 2200 / 2200 Output: Urine Amount (Catheter) 300 / 300 Indwelling Temp Sensing 300 / 300 Catheter Gastric Drainage 0 / 0 Orogastric Tube 0 / 0 Chest Tube Drainage 150 / 150 100 / 100 Left 150 / 150 100 / 100 Result Diagrams: 06/06/18 06:57 06/06/18 06:11 Objective Remarks: GENERAL: Frail middle-age man who appears much older than stated age, lying in bed, intubated, sedated, critically ill. HEENT: Normocephalic. Atraumatic. Pupils equal, round, reactive, conjugate. Mucous membranes are moist NECK: Trachea is midline. +JVD today. CHEST: equal chest rise. Subcu emphysema over the left anterior chest wall. PRVC. PEEP 5. fio2 40%. left chest tube with moderate serosanguinous output, to suction. no air leak. CARDIOVASCULAR: Tachycardic rate, regular rhythm. Sinus. milrinone at 0.5 mcg/ kg/min. norepinephrine at 5 mcg/min. ABDOMEN: Soft, nontender, nondistended. No guarding. MUSCULOSKELETAL: Radial pulses are 1+. There are absent bilateral pulses in the lower extremities, though he now has Dopplerable signals in the bilateral lower extremities. improved perfusion with much less mottling than yesterday. no longer any demarkation of the LE perfusion. NEUROLOGICAL: RASS -2. Follows commands in all 4 extremities. No focal deficits. Assessment and Plan - Assessment and Plan Plan: Assessment: 67yM with left rib fracture, pneumothorax, and critical limb ischemia, complicated by multiple shock states including acute NSTEMI with cardiogenic shock, septic shock with gram negative yojana bacteremia, pelvic abscesses. Critically ill with ongoing shock from multiple etiologies. Plan by systems: Neurologic: Acute metabolic encephalopathy - avoid sedatives - frequent neuro checks - propofol for goal RASS -2. Respiratory: COPD Left sided rib fractures Left pneumothorax Acute hypoxic and hypercarbic respiratory failure intubated 06/05 for resp failure. - wean fio2 for goal spo2 > 90% Vent bundle Nebs Head of bed elevated - keep chest tube to suction - CXR in AM Cardiovascular: Elevated troponin NSTEMI with cardiogenic shock Septic shock new acute ischemic cardiomyopathy, EF 20% Trend troponins Status post 4 L crystalloid bolus Heparin drip ASA Renal: Acute kidney injury Loja for hourly urine outputs Trend daily creatinine -- Strict I/Os FEN/GI: Acute protein calorie malnutritionsevere Lactic acidosis Severe anion gap metabolic acidosis N.p.o. while in shock ICU electrolyte protocol Status post 4 L crystalloid bolus Daily CMP, magnesium, phosphorus Heme/ID: Critical limb ischemia pelvic abscesses Gram negative yojana bacteremia Heparin drip Trend lactates continue zosyn, vancomycin blood cultures 3/4 bottles GNR, speciation and sensitivities to follow. Daily CBC Watch closely for bleeding from the chest tube Endocrine: Hyperglycemia of critical illness -- SSI, medium scale, every 6 Prophylaxis: GI Prophylaxis Pepcid IV DVT Prophylaxis -- SCDs Heparin infusion Lines: 06/05 left radial arterial line 06/05 left subclavian triple-lumen catheter 06/05 Loja 06/05 left-sided 32 [place] chest tube Dispo: remain in ICU. Critically ill. This patient remains critically ill with one or more organ systems which are or may become a threat to life. I have spent in excess of 62 minutes discontinuously in the care and management of this patient. This time is exclusive of procedures, and includes, but is not limited to, evaluation of the patient, review of the medical record, discussions with family, consultants, nursing staff, or respiratory therapy, and documentation in the medical record.
--- NOTE | 2018-06-06 11:22 | P.PNVS ---
Subjective Subjective/Hospital Course: Sedated, intubated On pressors Objective Vital Signs / I&O: Vital Signs 06/05/18 11:32 06/05/18 11:33 06/05/18 11:56 Temperature Pulse Rate 123 H Respiratory Rate 22 Blood Pressure Pulse Oximetry 98 100 06/05/18 12:00 06/05/18 13:00 06/05/18 13:53 Temperature 98.7 F 98.2 F Pulse Rate 124 H 113 H 144 H Respiratory Rate 30 H 24 32 H Blood Pressure 100/59 L 84/49 L 187/97 H Pulse Oximetry 100 95 98 06/05/18 13:59 06/05/18 15:33 06/05/18 15:34 Temperature Pulse Rate 88 127 H Respiratory Rate 26 H 36 H Blood Pressure 109/58 L Pulse Oximetry 99 06/05/18 15:45 06/05/18 15:59 06/05/18 16:00 Temperature Pulse Rate 122 H 130 H 131 H Respiratory Rate 37 H 41 H 57 H Blood Pressure 99/58 L 101/61 Pulse Oximetry 100 89 L 53 L 06/05/18 16:02 06/05/18 16:05 06/05/18 16:08 Temperature Pulse Rate 134 H 131 H 119 H Respiratory Rate 46 H 51 H 21 Blood Pressure 143/77 H 133/74 102/59 L Pulse Oximetry 87 L 82 L 100 06/05/18 16:11 06/05/18 16:14 06/05/18 16:16 Temperature Pulse Rate 113 H 115 H Respiratory Rate 26 H 24 26 H Blood Pressure 92/55 L 93/55 L Pulse Oximetry 100 100 100 06/05/18 16:30 06/05/18 16:45 06/05/18 16:50 Temperature Pulse Rate 112 H 105 H 103 H Respiratory Rate 24 24 27 H Blood Pressure 75/49 L 67/51 L 111/56 L Pulse Oximetry 100 06/05/18 17:00 06/05/18 17:15 06/05/18 17:30 Temperature Pulse Rate 105 H 115 H 107 H Respiratory Rate 27 H 27 H 27 H Blood Pressure 98/55 L 119/69 117/74 Pulse Oximetry 100 75 L 06/05/18 17:40 06/05/18 18:00 06/05/18 18:06 Temperature Pulse Rate 98 H 91 H 96 H Respiratory Rate 27 H 27 H 28 H Blood Pressure 85/54 L 142/84 H Pulse Oximetry 95 96 06/05/18 18:35 06/05/18 19:00 06/05/18 19:15 Temperature Pulse Rate 91 H 83 88 Respiratory Rate 27 H 27 H 27 H Blood Pressure 113/70 Pulse Oximetry 96 97 96 06/05/18 19:30 06/05/18 19:35 06/05/18 19:43 Temperature Pulse Rate 85 84 86 Respiratory Rate 27 H 27 H 27 H Blood Pressure Pulse Oximetry 95 96 06/05/18 19:45 06/05/18 19:53 06/05/18 20:00 Temperature Pulse Rate 86 85 85 Respiratory Rate 27 H 27 H 27 H Blood Pressure 124/70 Pulse Oximetry 98 98 99 06/05/18 20:15 06/05/18 20:30 06/05/18 20:35 Temperature 97.9 F Pulse Rate 79 74 82 Respiratory Rate 27 H 27 H 27 H Blood Pressure 119/71 Pulse Oximetry 98 97 99 06/05/18 20:45 06/05/18 21:00 06/05/18 21:15 Temperature Pulse Rate 73 74 74 Respiratory Rate 27 H 27 H 27 H Blood Pressure Pulse Oximetry 97 97 99 06/05/18 21:30 06/05/18 21:35 06/05/18 21:45 Temperature Pulse Rate 70 71 76 Respiratory Rate 27 H 27 H Blood Pressure Pulse Oximetry 99 99 96 06/05/18 22:00 06/05/18 22:15 06/05/18 22:30 Temperature Pulse Rate 82 86 81 Respiratory Rate Blood Pressure Pulse Oximetry 100 100 99 06/05/18 22:35 06/05/18 22:45 06/05/18 23:00 Temperature Pulse Rate 74 71 76 Respiratory Rate 20 20 22 Blood Pressure 110/62 Pulse Oximetry 97 98 98 06/05/18 23:15 06/05/18 23:23 06/05/18 23:30 Temperature Pulse Rate 74 67 76 Respiratory Rate 22 20 26 H Blood Pressure Pulse Oximetry 100 99 99 06/05/18 23:35 06/05/18 23:45 06/06/18 00:00 Temperature 97.8 F Pulse Rate 71 65 78 Respiratory Rate 20 20 24 Blood Pressure 115/62 Pulse Oximetry 98 97 98 06/06/18 00:15 06/06/18 00:30 06/06/18 00:35 Temperature Pulse Rate 78 70 66 Respiratory Rate 23 20 20 Blood Pressure 106/57 L Pulse Oximetry 94 L 94 L 97 06/06/18 01:00 06/06/18 01:35 06/06/18 02:00 Temperature Pulse Rate 62 75 61 Respiratory Rate 20 25 H 20 Blood Pressure 156/77 H Pulse Oximetry 98 97 98 06/06/18 02:35 06/06/18 03:00 06/06/18 03:35 Temperature Pulse Rate 60 62 63 Respiratory Rate 20 19 20 Blood Pressure 118/65 120/63 Pulse Oximetry 99 99 94 L 06/06/18 03:47 06/06/18 04:00 06/06/18 04:35 Temperature 97.8 F Pulse Rate 59 L 57 L 57 L Respiratory Rate 20 20 20 Blood Pressure 116/63 Pulse Oximetry 99 99 95 06/06/18 05:00 06/06/18 05:35 06/06/18 06:00 Temperature Pulse Rate 56 L 56 L 55 L Respiratory Rate 20 20 20 Blood Pressure 119/61 Pulse Oximetry 99 99 95 06/06/18 06:35 06/06/18 07:00 06/06/18 07:35 Temperature Pulse Rate 55 L 55 L 51 L Respiratory Rate 20 20 20 Blood Pressure 124/65 118/61 Pulse Oximetry 98 98 98 06/06/18 08:00 06/06/18 08:32 06/06/18 08:35 Temperature Pulse Rate 53 L 69 69 Respiratory Rate 20 21 21 Blood Pressure 130/63 Pulse Oximetry 99 96 97 06/06/18 09:00 06/06/18 09:35 06/06/18 10:00 Temperature 93.7 F L 94.1 F L 94.6 F L Pulse Rate 53 L 55 L 63 Respiratory Rate 20 20 20 Blood Pressure 110/60 Pulse Oximetry 94 L 98 95 06/06/18 10:35 06/06/18 10:45 06/06/18 11:00 Temperature 95.4 F L 95.7 F L 95.9 F L Pulse Rate 55 L 55 L 57 L Respiratory Rate 20 20 20 Blood Pressure 110/55 L Pulse Oximetry 97 97 97 Intake & Output 06/05/18 06/06/18 06/06/18 18:59 06:59 18:59 Intake Total 3300 / 3300 3200 / 3200 Output Total 450 / 450 100 / 100 Balance 2850 / 2850 3100 / 3100 Weight 61.235 kg 58.5 kg Intake: IV 3300 / 3300 1000 / 1000 Primacor Inj 20 MG In NS Inj 80 100 / 100 ML @ 0.375 MCG/KG/MIN 6.88 mls /hr IV.CONT .[id number] [place] Rx#: [id number] Diprivan 1000 mg/100 ml Inj 1, 100 / 100 000 mg In 100 ml @ 5 MCG/KG/MIN 1.837 mls/hr IV.CONT TITRATE PRN Rx#:[id number] NS Inj 1,000 ML @ 75 mls/hr IV. 1000 / 1000 CONT .[id number] [place] Rx#:[id number] Diflucan 400 mg Premix Bag 200 200 / 200 ML @ 100 mls/hr IV.SIG Q24H [facility] Rx#:[id number] Levophed-Dextrose 4 mg/250 ml 500 / 500 Drip 4 mg In 250 ml @ 2 MCG/MIN 7.5 mls/hr IV.SIG TITRATE PRN Rx#:[id number] Zosyn 3.375 GM Premix 3.375 gm 50 / 50 100 / 100 In 50 ml @ 100 mls/hr IV.SIG Q6H [facility] Rx#:[id number] NS Inj 1,000 ML @ 1000 mls/hr 2000 / 2000 IV.SIG BOLUS [facility] Rx#:[id number] Vancomycin Inj 1,000 MG In NS 250 / 250 Inj 250 ML @ 250 mls/hr IV.SIG ONCE ONE Rx#:[id number] Oral 2200 / 2200 Output: Urine Amount (Catheter) 300 / 300 Indwelling Temp Sensing 300 / 300 Catheter Gastric Drainage 0 / 0 Orogastric Tube 0 / 0 Chest Tube Drainage 150 / 150 100 / 100 Left 150 / 150 100 / 100 Physical Exam: Right lower extremity monitoring resolved Monophasic right PT signal Laboratory Results - last 24 hr 06/05/18 06/05/18 06/05/18 11:20 11:20 11:42 WBC 4.5 RBC 4.32 L Hgb 12.3 L Hct 37.1 L MCV 86.0 MCH 28.5 MCHC 33.1 RDW 18.8 H Plt Count 380 D MPV 6.7 L Prelim Diff (Auto) Neut % (Auto) 82.9 H Lymph % (Auto) 13.0 [place] % (Auto) 0.4 Eos % (Auto) 3.4 Baso % (Auto) 0.3 Neut # (Auto) 3.7 Lymph # (Auto) 0.6 L [place] # (Auto) 0.0 Eos # (Auto) 0.2 Baso # (Auto) 0.0 WBC Differential . Seg Neuts % (Manual) Band Neuts % (Manual) Lymphocytes % (Manual) Monocytes % (Manual) Myelocytes % (Man) Abs Neuts (Manual) Differential Comment Auto diff final Toxic Granulation Toxic Vacuolation Platelet Estimate Platelet Morphology PT INR APTT Puncture Site Patient Temperature O2 Saturation ABG pH ABG pCO2 ABG pO2 ABG HCO3 ABG O2 Content ABG Base Excess ABG Methemoglobin [place] Test Hemoglobin Carboxyhemoglobin O2 Delivery Device Liter Flow Vent Setting Inspired O2 Critical Value Sodium 133 L Potassium 3.9 Chloride 101 Carbon Dioxide 16.5 L Anion Gap 16 H BUN 10 Creatinine 1.17 Estimated GFR 62 L POC Glucose Random Glucose 97 Lactic Acid 7.1 H* Calcium 8.9 Phosphorus Magnesium Total Bilirubin 0.6 AST 19 ALT 19 Alkaline Phosphatase 131 H Total Creatine Kinase CK-MB (CK-2) CK-MB (CK-2) % Troponin I 0.06 H B-Natriuretic Peptide Total Protein 8.5 H Albumin 3.2 L Urine Color Urine Clarity Urine pH Ur Specific [place] Urine Protein Urine Glucose (UA) Urine Ketones Urine Occult Blood Urine Nitrate Urine Bilirubin Urine Urobilinogen Ur Leukocyte Esterase Urine RBC Urine WBC Urine WBC Clumps Ur Squamous Epith Cells Urine Bacteria Micro UA Comment Ur Microscopic Review Urine Culture Comments Nasal Screen MRSA (PCR) 06/05/18 06/05/18 06/05/18 11:45 11:45 11:45 WBC RBC Hgb Hct MCV MCH MCHC RDW Plt Count MPV Prelim Diff (Auto) Neut % (Auto) Lymph % (Auto) [place] % (Auto) Eos % (Auto) Baso % (Auto) Neut # (Auto) Lymph # (Auto) [place] # (Auto) Eos # (Auto) Baso # (Auto) WBC Differential Seg Neuts % (Manual) Band Neuts % (Manual) Lymphocytes % (Manual) Monocytes % (Manual) Myelocytes % (Man) Abs Neuts (Manual) Differential Comment Toxic Granulation Toxic Vacuolation Platelet Estimate Platelet Morphology PT 10.8 INR 1.1 APTT 24.7 Puncture Site Patient Temperature O2 Saturation ABG pH ABG pCO2 ABG pO2 ABG HCO3 ABG O2 Content ABG Base Excess ABG Methemoglobin [place] Test Hemoglobin Carboxyhemoglobin O2 Delivery Device Liter Flow Vent Setting Inspired O2 Critical Value Sodium Potassium Chloride Carbon Dioxide Anion Gap BUN Creatinine Estimated GFR POC Glucose Random Glucose Lactic Acid Calcium Phosphorus Magnesium 1.8 Total Bilirubin AST ALT Alkaline Phosphatase Total Creatine Kinase 66 CK-MB (CK-2) CK-MB (CK-2) % Troponin I B-Natriuretic Peptide 30 Total Protein Albumin Urine Color Urine Clarity Urine pH Ur Specific [place] Urine Protein Urine Glucose (UA) Urine Ketones Urine Occult Blood Urine Nitrate Urine Bilirubin Urine Urobilinogen Ur Leukocyte Esterase Urine RBC Urine WBC Urine WBC Clumps Ur Squamous Epith Cells Urine Bacteria Micro UA Comment Ur Microscopic Review Urine Culture Comments Nasal Screen MRSA (PCR) 06/05/18 06/05/18 06/05/18 11:45 12:10 16:35 WBC RBC Hgb Hct MCV MCH MCHC RDW Plt Count MPV Prelim Diff (Auto) Neut % (Auto) Lymph % (Auto) [place] % (Auto) Eos % (Auto) Baso % (Auto) Neut # (Auto) Lymph # (Auto) [place] # (Auto) Eos # (Auto) Baso # (Auto) WBC Differential Seg Neuts % (Manual) Band Neuts % (Manual) Lymphocytes % (Manual) Monocytes % (Manual) Myelocytes % (Man) Abs Neuts (Manual) Differential Comment Toxic Granulation Toxic Vacuolation Platelet Estimate Platelet Morphology PT INR APTT Puncture Site Right radial Patient Temperature 98.6 O2 Saturation 93 ABG pH 7.45 H ABG pCO2 27 L ABG pO2 89 ABG HCO3 18 L ABG O2 Content 14.4 ABG Base Excess -4.9 L ABG Methemoglobin 1.1 [place] Test Present Hemoglobin 10.9 L Carboxyhemoglobin 3.0 O2 Delivery Device Nasal cannula Liter Flow Vent Setting Inspired O2 Critical Value No Sodium Potassium Chloride Carbon Dioxide Anion Gap BUN Creatinine Estimated GFR POC Glucose Random Glucose Lactic Acid 3.4 H Calcium Phosphorus Magnesium Total Bilirubin AST ALT Alkaline Phosphatase Total Creatine Kinase Cancelled CK-MB (CK-2) CK-MB (CK-2) % Troponin I B-Natriuretic Peptide Total Protein Albumin Urine Color Urine Clarity Urine pH Ur Specific [place] Urine Protein Urine Glucose (UA) Urine Ketones Urine Occult Blood Urine Nitrate Urine Bilirubin Urine Urobilinogen Ur Leukocyte Esterase Urine RBC Urine WBC Urine WBC Clumps Ur Squamous Epith Cells Urine Bacteria Micro UA Comment Ur Microscopic Review Urine Culture Comments Nasal Screen MRSA (PCR) 06/05/18 06/05/18 06/05/18 16:35 16:37 16:37 WBC RBC Hgb Hct MCV MCH MCHC RDW Plt Count MPV Prelim Diff (Auto) Neut % (Auto) Lymph % (Auto) [place] % (Auto) Eos % (Auto) Baso % (Auto) Neut # (Auto) Lymph # (Auto) [place] # (Auto) Eos # (Auto) Baso # (Auto) WBC Differential Seg Neuts % (Manual) Band Neuts % (Manual) Lymphocytes % (Manual) Monocytes % (Manual) Myelocytes % (Man) Abs Neuts (Manual) Differential Comment Toxic Granulation Toxic Vacuolation Platelet Estimate Platelet Morphology PT INR APTT Puncture Site Art line Cancelled Patient Temperature 98.6 Cancelled O2 Saturation 97 Cancelled ABG pH 7.25 L* Cancelled ABG pCO2 39 Cancelled ABG pO2 334 H Cancelled ABG HCO3 17 L Cancelled ABG O2 Content 13.2 Cancelled ABG Base Excess -9.2 L Cancelled ABG Methemoglobin 1.3 Cancelled [place] Test Cancelled Hemoglobin 9.0 L Cancelled Carboxyhemoglobin 1.4 Cancelled O2 Delivery Device Ventilator Cancelled Liter Flow Cancelled Vent Setting 600/24/+5/1.0 Cancelled Inspired O2 100 Cancelled Critical Value Yes Cancelled Sodium Potassium Chloride Carbon Dioxide Anion Gap BUN Creatinine Estimated GFR POC Glucose Random Glucose Lactic Acid Calcium Phosphorus Magnesium Total Bilirubin AST ALT Alkaline Phosphatase Total Creatine Kinase 375 H CK-MB (CK-2) 4.9 H CK-MB (CK-2) % 1.3 Troponin I 1.12 H* B-Natriuretic Peptide Total Protein Albumin Urine Color Urine Clarity Urine pH Ur Specific [place] Urine Protein Urine Glucose (UA) Urine Ketones Urine Occult Blood Urine Nitrate Urine Bilirubin Urine Urobilinogen Ur Leukocyte Esterase Urine RBC Urine WBC Urine WBC Clumps Ur Squamous Epith Cells Urine Bacteria Micro UA Comment Ur Microscopic Review Urine Culture Comments Nasal Screen MRSA (PCR) 06/05/18 06/05/18 06/05/18 17:55 18:50 18:50 WBC RBC Hgb Hct MCV MCH MCHC RDW Plt Count MPV Prelim Diff (Auto) Neut % (Auto) Lymph % (Auto) [place] % (Auto) Eos % (Auto) Baso % (Auto) Neut # (Auto) Lymph # (Auto) [place] # (Auto) Eos # (Auto) Baso # (Auto) WBC Differential Seg Neuts % (Manual) Band Neuts % (Manual) Lymphocytes % (Manual) Monocytes % (Manual) Myelocytes % (Man) Abs Neuts (Manual) Differential Comment Toxic Granulation Toxic Vacuolation Platelet Estimate Platelet Morphology PT INR APTT Puncture Site Patient Temperature O2 Saturation ABG pH ABG pCO2 ABG pO2 ABG HCO3 ABG O2 Content ABG Base Excess ABG Methemoglobin [place] Test Hemoglobin Carboxyhemoglobin O2 Delivery Device Liter Flow Vent Setting Inspired O2 Critical Value Sodium Potassium Chloride Carbon Dioxide Anion Gap BUN Creatinine Estimated GFR POC Glucose 179 H Random Glucose Lactic Acid Calcium Phosphorus Magnesium Total Bilirubin AST ALT Alkaline Phosphatase Total Creatine Kinase CK-MB (CK-2) CK-MB (CK-2) % Troponin I B-Natriuretic Peptide Total Protein Albumin Urine Color Yellow Urine Clarity Hazy H Urine pH 5.0 Ur Specific [place] 1.047 H Urine Protein 30 H Urine Glucose (UA) 50 Urine Ketones Trace H Urine Occult Blood Small H Urine Nitrate Negative Urine Bilirubin Negative Urine Urobilinogen Less than 2 Ur Leukocyte Esterase Large H Urine RBC 32 H Urine WBC Urine WBC Clumps Few H Ur Squamous Epith Cells <1 Urine Bacteria Few H Micro UA Comment Cath-culture ind Ur Microscopic Review Not Reportable Urine Culture Comments Cath-cult indicated Nasal Screen MRSA (PCR) Not detected 06/05/18 06/05/18 06/05/18 20:11 20:56 22:06 WBC RBC Hgb Hct MCV MCH MCHC RDW Plt Count MPV Prelim Diff (Auto) Neut % (Auto) Lymph % (Auto) [place] % (Auto) Eos % (Auto) Baso % (Auto) Neut # (Auto) Lymph # (Auto) [place] # (Auto) Eos # (Auto) Baso # (Auto) WBC Differential Seg Neuts % (Manual) Band Neuts % (Manual) Lymphocytes % (Manual) Monocytes % (Manual) Myelocytes % (Man) Abs Neuts (Manual) Differential Comment Toxic Granulation Toxic Vacuolation Platelet Estimate Platelet Morphology PT INR APTT 123.9 H* D Puncture Site Art line Patient Temperature 98.6 O2 Saturation 97 ABG pH 7.42 ABG pCO2 23 L* ABG pO2 191 H ABG HCO3 15 L* ABG O2 Content 13.8 ABG Base Excess -9.1 L ABG Methemoglobin 1.1 [place] Test Hemoglobin 9.8 L Carboxyhemoglobin 1.3 O2 Delivery Device Ventilator Liter Flow Vent Setting Prvc/ac Inspired O2 50 Critical Value Yes Sodium Potassium Chloride Carbon Dioxide Anion Gap BUN Creatinine Estimated GFR POC Glucose Random Glucose Lactic Acid 2.9 H Calcium Phosphorus Magnesium Total Bilirubin AST ALT Alkaline Phosphatase Total Creatine Kinase CK-MB (CK-2) CK-MB (CK-2) % Troponin I B-Natriuretic Peptide Total Protein Albumin Urine Color Urine Clarity Urine pH Ur Specific [place] Urine Protein Urine Glucose (UA) Urine Ketones Urine Occult Blood Urine Nitrate Urine Bilirubin Urine Urobilinogen Ur Leukocyte Esterase Urine RBC Urine WBC Urine WBC Clumps Ur Squamous Epith Cells Urine Bacteria Micro UA Comment Ur Microscopic Review Urine Culture Comments Nasal Screen MRSA (PCR) 06/05/18 06/05/18 06/05/18 22:06 22:39 22:46 WBC RBC Hgb Hct MCV MCH MCHC RDW Plt Count MPV Prelim Diff (Auto) Neut % (Auto) Lymph % (Auto) [place] % (Auto) Eos % (Auto) Baso % (Auto) Neut # (Auto) Lymph # (Auto) [place] # (Auto) Eos # (Auto) Baso # (Auto) WBC Differential Seg Neuts % (Manual) Band Neuts % (Manual) Lymphocytes % (Manual) Monocytes % (Manual) Myelocytes % (Man) Abs Neuts (Manual) Differential Comment Toxic Granulation Toxic Vacuolation Platelet Estimate Platelet Morphology PT INR APTT Puncture Site Art line Patient Temperature 98.6 O2 Saturation 98 ABG pH 7.38 ABG pCO2 31 L ABG pO2 232 H ABG HCO3 18 L ABG O2 Content 14.6 ABG Base Excess -6.6 L ABG Methemoglobin 1.0 [place] Test Hemoglobin 10.3 L Carboxyhemoglobin 1.3 O2 Delivery Device Ventilator Liter Flow Vent Setting Prvc/ac Inspired O2 50 Critical Value No Sodium Potassium Chloride Carbon Dioxide Anion Gap BUN Creatinine Estimated GFR POC Glucose Random Glucose Lactic Acid 2.2 H Calcium Phosphorus Magnesium Total Bilirubin AST ALT Alkaline Phosphatase Total Creatine Kinase 504 H CK-MB (CK-2) 11.7 H CK-MB (CK-2) % 2.3 Troponin I 1.40 H* B-Natriuretic Peptide Total Protein Albumin Urine Color Urine Clarity Urine pH Ur Specific [place] Urine Protein Urine Glucose (UA) Urine Ketones Urine Occult Blood Urine Nitrate Urine Bilirubin Urine Urobilinogen Ur Leukocyte Esterase Urine RBC Urine WBC Urine WBC Clumps Ur Squamous Epith Cells Urine Bacteria Micro UA Comment Ur Microscopic Review Urine Culture Comments Nasal Screen MRSA (PCR) 06/06/18 06/06/18 06/06/18 02:17 04:49 04:49 WBC RBC Hgb Hct MCV MCH MCHC RDW Plt Count MPV Prelim Diff (Auto) Neut % (Auto) Lymph % (Auto) [place] % (Auto) Eos % (Auto) Baso % (Auto) Neut # (Auto) Lymph # (Auto) [place] # (Auto) Eos # (Auto) Baso # (Auto) WBC Differential Seg Neuts % (Manual) Band Neuts % (Manual) Lymphocytes % (Manual) Monocytes % (Manual) Myelocytes % (Man) Abs Neuts (Manual) Differential Comment Toxic Granulation Toxic Vacuolation Platelet Estimate Platelet Morphology PT 11.5 INR 1.1 APTT 52.3 H D Puncture Site Patient Temperature O2 Saturation ABG pH ABG pCO2 ABG pO2 ABG HCO3 ABG O2 Content ABG Base Excess ABG Methemoglobin [place] Test Hemoglobin Carboxyhemoglobin O2 Delivery Device Liter Flow Vent Setting Inspired O2 Critical Value Sodium Potassium Chloride Carbon Dioxide Anion Gap BUN Creatinine Estimated GFR POC Glucose Random Glucose Lactic Acid Calcium Phosphorus Magnesium Total Bilirubin AST ALT Alkaline Phosphatase Total Creatine Kinase CK-MB (CK-2) CK-MB (CK-2) % Troponin I B-Natriuretic Peptide 1217 H Total Protein Albumin Urine Color Urine Clarity Urine pH Ur Specific [place] Urine Protein Urine Glucose (UA) Urine Ketones Urine Occult Blood Urine Nitrate Urine Bilirubin Urine Urobilinogen Ur Leukocyte Esterase Urine RBC Urine WBC Urine WBC Clumps Ur Squamous Epith Cells Urine Bacteria Micro UA Comment Ur Microscopic Review Urine Culture Comments Nasal Screen MRSA (PCR) 06/06/18 06/06/18 06/06/18 05:04 06:11 06:57 WBC 20.6 H D RBC 3.70 L Hgb 10.4 L Hct 31.0 L MCV 83.9 MCH 28.2 MCHC 33.6 RDW 18.6 H Plt Count 329 MPV 7.2 Prelim Diff (Auto) Slide review pending Neut % (Auto) 92.7 H Lymph % (Auto) 4.8 L [place] % (Auto) 2.3 Eos % (Auto) 0.0 Baso % (Auto) 0.2 Neut # (Auto) 19.1 H Lymph # (Auto) 1.0 [place] # (Auto) 0.5 Eos # (Auto) 0.0 Baso # (Auto) 0.0 WBC Differential Manual diff final Seg Neuts % (Manual) 70 Band Neuts % (Manual) 18 H Lymphocytes % (Manual) 5 L Monocytes % (Manual) 6 Myelocytes % (Man) 1 H Abs Neuts (Manual) 18.3 H Differential Comment . Toxic Granulation 1+ H Toxic Vacuolation Present H Platelet Estimate Normal Platelet Morphology Normal PT INR APTT Puncture Site Art line Patient Temperature 98.6 O2 Saturation 98 ABG pH 7.40 ABG pCO2 32 L ABG pO2 229 H ABG HCO3 19 L ABG O2 Content 14.7 ABG Base Excess -4.6 L ABG Methemoglobin 1.0 [place] Test Hemoglobin 10.3 L Carboxyhemoglobin 1.1 O2 Delivery Device Ventilator Liter Flow Vent Setting See comments Inspired O2 50 Critical Value No Sodium 142 Potassium 3.2 L Chloride 112 H D Carbon Dioxide 21.2 Anion Gap 9 BUN 10 Creatinine 0.76 Estimated GFR Greater than 89 POC Glucose Random Glucose 257 H D Lactic Acid Calcium 7.7 L D Phosphorus 2.4 L Magnesium 1.8 Total Bilirubin 0.5 AST 36 ALT 21 Alkaline Phosphatase 74 Total Creatine Kinase 577 H CK-MB (CK-2) 18.2 H CK-MB (CK-2) % 3.2 Troponin I 0.96 H* B-Natriuretic Peptide Total Protein 7.0 D Albumin 2.4 L D Urine Color Urine Clarity Urine pH Ur Specific [place] Urine Protein Urine Glucose (UA) Urine Ketones Urine Occult Blood Urine Nitrate Urine Bilirubin Urine Urobilinogen Ur Leukocyte Esterase Urine RBC Urine WBC Urine WBC Clumps Ur Squamous Epith Cells Urine Bacteria Micro UA Comment Ur Microscopic Review Urine Culture Comments Nasal Screen MRSA (PCR) 06/06/18 08:55 WBC RBC Hgb Hct MCV MCH MCHC RDW Plt Count MPV Prelim Diff (Auto) Neut % (Auto) Lymph % (Auto) [place] % (Auto) Eos % (Auto) Baso % (Auto) Neut # (Auto) Lymph # (Auto) [place] # (Auto) Eos # (Auto) Baso # (Auto) WBC Differential Seg Neuts % (Manual) Band Neuts % (Manual) Lymphocytes % (Manual) Monocytes % (Manual) Myelocytes % (Man) Abs Neuts (Manual) Differential Comment Toxic Granulation Toxic Vacuolation Platelet Estimate Platelet Morphology PT INR APTT 54.9 H Puncture Site Patient Temperature O2 Saturation ABG pH ABG pCO2 ABG pO2 ABG HCO3 ABG O2 Content ABG Base Excess ABG Methemoglobin [place] Test Hemoglobin Carboxyhemoglobin O2 Delivery Device Liter Flow Vent Setting Inspired O2 Critical Value Sodium Potassium Chloride Carbon Dioxide Anion Gap BUN Creatinine Estimated GFR POC Glucose Random Glucose Lactic Acid Calcium Phosphorus Magnesium Total Bilirubin AST ALT Alkaline Phosphatase Total Creatine Kinase CK-MB (CK-2) CK-MB (CK-2) % Troponin I B-Natriuretic Peptide Total Protein Albumin Urine Color Urine Clarity Urine pH Ur Specific [place] Urine Protein Urine Glucose (UA) Urine Ketones Urine Occult Blood Urine Nitrate Urine Bilirubin Urine Urobilinogen Ur Leukocyte Esterase Urine RBC Urine WBC Urine WBC Clumps Ur Squamous Epith Cells Urine Bacteria Micro UA Comment Ur Microscopic Review Urine Culture Comments Nasal Screen MRSA (PCR) Microbiology 06/05/18 11:45 Aerobic Blood Culture - Preliminary Blood - Peripheral No growth in 1 day Anaerobic Blood Culture - Preliminary gram negative rods 06/05/18 11:40 Aerobic Blood Culture - Preliminary Blood - Peripheral gram negative rods Anaerobic Blood Culture - Preliminary gram negative rods Impressions Chest X-Ray 06/05/18 00:00 CONCLUSION: Left-sided chest tube with tiny left apical pneumothorax slightly decreased in prominence. Chest X-Ray 06/05/18 00:00 CONCLUSION: Tiny left apical pneumothorax. Chest X-Ray 06/05/18 11:20 CONCLUSION: 1. Left-sided rib fracture. 2. Subcutaneous emphysema without significant pneumothorax. Aorta w/Runoff CTA 06/05/18 11:45 CONCLUSION: 1. Extensive peripheral vascular disease with multifocal areas of narrowing/ occlusion as above. Chest CT 06/05/18 11:45 CONCLUSION: 1. Small left-sided pneumothorax and hemothorax. 2. Acute left fifth rib fracture. 3. Emphysema. Chest X-Ray 06/05/18 13:58 CONCLUSION: Tiny left apical pneumothorax. Chest X-Ray 06/05/18 20:55 CONCLUSION: Endotracheal tube, nasogastric tube and left central line in good position. Left chest tube without significant pneumothorax. Slight improvement in basilar airspace disease since earlier exam. Chest X-Ray 06/06/18 05:00 CONCLUSION: Slightly improved aeration Assessment and Plan - Plan Shock/lactic acidosis Most likely cardiogenic Multiple intra-abdominal diverticular abscess. Left hemo/pneumothorax and rib fracture RLE acute limb ischemia stage I Resolved with augmentation of cardiac output. Patient is back to baseline. Continue with heparin drip. Right lower extremity revascularization when adequate stable. Marcello Saez MD [phone]
[2018-06-06 12:58] LABS: Troponin I 0.79 ng/mL (0.02-0.05)
[2018-06-06 13:11] LABS: CKMB Percent 3.2 % (0.0-4.0); Creatine Kinase MB 16.4 ng/mL (0.5-3.6)
[2018-06-06] MEDS: fentaNYL 10 mcg/mL Premix Drip 2,500 MCG/250 ML BAG IV.SIG PRN (13:58)
[2018-06-06] MEDS: Heparin Drip 25,000 UNIT/250 ML BAG IV.CONT PRN (15:50)
--- NOTE | 2018-06-06 16:46 | P.CON ---
History of Present Illness Consult date: 06/06/18 Reason for Consult: Possible intestinal ischemia Primary Care Provider: UNKNOWN Chief Complaint: Abdominal pain History of Present Illness: Patient is an unfortunate 67-year-old male who presented with sudden onset right leg pain which caused him to fall. Patient then had shortness of breath and was found to have a small left apical pneumothorax with rib fracture. Patient had a very small abscess on CT scan and was noted to have elevated troponins and was in cardiogenic shock. Patient has been placed on pressor agents including milrinone and norepinephrine. Patient is also been recommended to be on anticoagulation by the vascular surgeon to improve chances of limb salvage of the right leg. [facility] - History History Provided By: Patient - Medical / Surgical Hx Neg / Unobtainable Medical Problems Denied: Unable to Obtain - Medical History Medical History: Medical History (Last Reviewed 06/05/18 @ 15:45 by Nick Guillen MD) Back pain PAD (peripheral artery disease) Smoking - Family History Family History: Family History (Last Updated 06/05/18 @ 15:46 by Nick Guillen MD) Other Family history non-contributory - Tobacco History Second Hand Smoke Exposure: Yes Tobacco Use In Past 30 Days: Yes Smoking Status: Current every day smoker Tobacco Type: Cigarettes - Alcohol History How Often Do You Have a Drink Containing Alcohol: 4 or more times a week - Substance Use History Substance History: No History of Abuse - Travel History Recent Travel in the [place] Within the Last 8 Weeks: No Recent Travel Out of the Country Within the Last 8 Weeks: No - Immunization History Tetanus Immunization: Unsure Hx Influenza Vaccine This Season: No Medications and Allergies Active Medications: Active Medications Acetaminophen (Tylenol) 650 mg PO Q6H PRN PRN Reason: TEMPERATURE > 101 F Albuterol (Duoneb Neb (Prn)) 1 ampul NEB Q2HR NEB PRN PRN Reason: WHEEZING Albuterol (Duoneb Neb (Nikkie)) 1 ampul NEB Q4HR NEB NIKKIE Last Admin: 06/06/18 12:46 Dose: 1 ampul Aspirin (Aspirin Chew) 81 mg PO DAILY NIKKIE Last Admin: 06/06/18 08:14 Dose: 81 mg Bisacodyl (Dulcolax Supp) 10 mg RECTAL DAILY PRN PRN Reason: if no BM in last 24h Chlorhexidine Gluconate (Peridex 0.12% Oral Kit) 15 ml OROPHARYNG BID@0800, 2000 [facility] Last Admin: 06/06/18 10:08 Dose: 15 ml Chlorhexidine Gluconate (Chlorhexidine 2% Cloth) 3 pack TOPICAL DAILY@0400 [facility] Stop: 06/11/18 03:59 Last Admin: 06/06/18 04:58 Dose: 3 pack Chlorhexidine Gluconate (Chlorhexidine 2% Cloth) 3 pack TOPICAL DAILY@0400 PRN PRN Reason: Extra cloth needed Stop: 06/11/18 03:59 Dextrose (D50w Vial) 50 ml IV.PUSH UNSCH PRN PRN Reason: PER HYPOGLYCEMIA PROTOCOL Famotidine (Pepcid Pf Inj) 20 mg IV.PUSH Q12HR [facility] Last Admin: 06/06/18 08:14 Dose: 20 mg Glucagon (Glucagon Inj) 1 mg OTHER PRN PRN PRN Reason: for Hypoglycemia Protocol Haloperidol Lactate (Haldol Inj) 5 mg IV.PUSH Q1H PRN PRN Reason: AGITATION Heparin Sodium (Porcine) (Heparin Inj) 5,000 units IV.PUSH UNSCH PRN PRN Reason: aPTT < 25 Heparin Sodium (Porcine) (Heparin Inj) 2,500 units IV.PUSH UNSCH PRN PRN Reason: aPTT 25-39 Hydralazine HCl (Apresoline Inj) 10 mg IV.PUSH Q30M PRN PRN Reason: sbp > 160, dbp > 95 Sodium Chloride (Ns Inj) 1,000 mls @ 75 mls/hr IV.CONT .[id number] [facility] Last Admin: 06/06/18 15:56 Dose: Not Given Heparin Sodium/Dextrose (Heparin/D5w 25,000 U/250 Ml) 25,000 unit in 250 mls @ 0 mls/hr IV.CONT TITRATE PRN; Protocol PRN Reason: Per Protocol Last Admin: 06/06/18 15:50 Dose: 800 units/hr, 8 mls/hr Milrinone Lactate 20 mg/ (Sodium Chloride) 100 mls @ 6.88 mls/hr IV.CONT .[id number] [facility] Last Infusion: 06/06/18 09:00 Dose: 0.5 mcg/kg/min, 9.18 mls/hr Fentanyl (Fentanyl 10 Mcg/Ml Premix Drip) 2,500 mcg in 250 mls @ 5 mls/hr IV.SIG TITRATE PRN; Protocol PRN Reason: Per Protocol Last Admin: 06/06/18 13:58 Dose: 50 mcg/hr, 5 mls/hr Magnesium Sulfate 4 gm/ Sodium (Chloride) 100 mls @ 50 mls/hr IV.SIG UNSCH PRN PRN Reason: For Magnesium 0.9 - 1.1 mg/dL Magnesium Sulfate 2 gm/ Sodium (Chloride) 100 mls @ 50 mls/hr IV.SIG UNSCH PRN PRN Reason: For Magnesium 1.2 - 1.6 mg/dL Potassium Chloride (Kcl 40 Meq Premix Inj) 40 meq in 100 mls @ 25 mls/hr IV.SIG Q2H PRN PRN Reason: For Potassium 2.8 - 3.2 mEq/L Last Admin: 06/06/18 13:57 Dose: 25 mls/hr Potassium Chloride (Kcl 20 Meq Premix Inj) 20 meq in 100 mls @ 50 mls/hr IV.SIG Q2H PRN PRN Reason: For Potassium 3.3 - 3.5 mEq/L Potassium Chloride (Kcl 40 Meq Premix Inj) 40 meq in 100 mls @ 25 mls/hr IV.SIG UNSCH PRN PRN Reason: For Potassium 3.3 - 3.5 mEq/L Potassium Chloride (Kcl 20 Meq Premix Inj) 20 meq in 100 mls @ 50 mls/hr IV.SIG Q2H PRN PRN Reason: For Potassium 2.8 - 3.2 mEq/L Potassium Phosphate 30 mmol/ (Sodium Chloride) 260 mls @ 42 mls/hr IV.SIG UNSCH PRN PRN Reason: SEE LABEL COMMENTS Propofol (Diprivan 1000 Mg/100 Ml Inj) 1,000 mg in 100 mls @ 1.837 mls/hr IV.CONT TITRATE PRN; Protocol PRN Reason: Per Protocol Last Admin: 06/06/18 15:43 Dose: 30 mcg/kg/min, 11.02 mls/hr Sodium Phosphate 30 mmol/ (Sodium Chloride) 260 mls @ 42 mls/hr IV.SIG UNSCH PRN PRN Reason: For Phosphorus < 2.5 mg/dL Norepinephrine Bitartrate (Levophed-Dextrose 4 Mg/250 Ml Drip) 4 mg in 250 mls @ 7.5 mls/hr IV.SIG TITRATE PRN; Protocol PRN Reason: Per Protocol Last Admin: 06/06/18 15:41 Dose: 8 mcg/min, 30 mls/hr Vasopressin 40 unit/ Dextrose 100 mls @ 6 mls/hr IV.CONT TITRATE PRN; Protocol PRN Reason: Per Protocol Piperacillin/Tazobactam/Dextrose (Zosyn 3.375 Gm Premix) 3.375 gm in 50 mls @ 100 mls/hr IV.SIG Q6H [facility] Last Infusion: 06/06/18 14:30 Dose: Infused Fluconazole (Diflucan 400 Mg Premix Bag) 200 mls @ 100 mls/hr IV.SIG Q24H [facility] Last Infusion: 06/06/18 02:05 Dose: Infused Vancomycin HCl 1,000 mg/ (Sodium Chloride) 250 mls @ 250 mls/hr IV.SIG Q12H NIKKIE Insulin Human Regular (Novolin R Correctional Sugar Inj) 0 units SQ Q6HR [facility]; Protocol Last Admin: 06/06/18 12:00 Dose: 2 units Labetalol HCl (Trandate Inj) 10 mg IV.PUSH Q20M PRN PRN Reason: SBP > 160 DBP > 95 Lactulose (Lactulose Liq) 30 ml PO BID [facility] Last Admin: 06/06/18 08:13 Dose: 30 ml Magnesium Oxide (Mag-Ox) 800 mg PO UNSCH PRN PRN Reason: For Magnesium 1.2 - 1.6 mg/dL Midazolam HCl (Versed Inj) 2 mg IV.PUSH Q1H PRN PRN Reason: sedation Last Admin: 06/06/18 12:00 Dose: 2 mg Miscellaneous Information ([facility] Ordered Lab Info) 0 each OTHER ONCE [facility] Miscellaneous Medication () 1 each OROPHARYNG 0000,0400,1200,1600 [facility] Last Admin: 06/06/18 13:57 Dose: 1 each Ondansetron HCl (Zofran Inj) 4 mg IV.PUSH Q6H PRN PRN Reason: NAUSEA OR VOMITING Pharmacy Profile Note (Vancomycin Consult Pharmacy) 1 each OTHER UNSCH PRN PRN Reason: Pharmacy to dose Polyethylene Glycol (Miralax) 17 gm PO BID [facility] Last Admin: 06/06/18 08:14 Dose: 17 gm Potassium Chloride (Kcl Liq) 40 meq PO UNSCH PRN PRN Reason: Potassium level 3.3-3.5 mEq/L Potassium Chloride (Kcl Liq) 40 meq PO UNSCH PRN PRN Reason: POTASSIUM LESS THAN 3.5 Potassium Phosphate (K-Phos Original) 2,000 mg PO Q4H PRN PRN Reason: Phosphorus Less Than 2.5 mg/dL Potassium Phosphate (K-Phos Original) 2,000 mg PO UNSCH PRN PRN Reason: SEE LABEL COMMENTS Senna/Docusate Sodium (Antoinette-Colace) 1 tab PO BID NIKKIE Last Admin: 06/06/18 08:14 Dose: 1 tab Sodium Chloride (Ns Flush) 2 ml IV.FLUSH UNSCH PRN PRN Reason: FLUSH AFTER USING IV ACCESS Terbutaline Sulfate (Brethine Inj) 1 mg SQ UNSCH PRN PRN Reason: For Extravasation Allergies Allergy/AdvReac Type Severity Reaction Status Date / Time *MDRO Multi-Drug Resistant AdvReac Unknown Uncoded 02/20/16 09:24 Organism Physical Exam Vital signs: Vital Signs 06/05/18 16:50 06/05/18 17:00 06/05/18 17:15 Temperature Pulse Rate 103 H 105 H 115 H Respiratory Rate 27 H 27 H 27 H Blood Pressure 111/56 L 98/55 L 119/69 Pulse Oximetry 100 06/05/18 17:30 06/05/18 17:40 06/05/18 18:00 Temperature Pulse Rate 107 H 98 H 91 H Respiratory Rate 27 H 27 H 27 H Blood Pressure 117/74 85/54 L Pulse Oximetry 75 L 95 06/05/18 18:06 06/05/18 18:35 06/05/18 19:00 Temperature Pulse Rate 96 H 91 H 83 Respiratory Rate 28 H 27 H 27 H Blood Pressure 142/84 H 113/70 Pulse Oximetry 96 96 97 06/05/18 19:15 06/05/18 19:30 06/05/18 19:35 Temperature Pulse Rate 88 85 84 Respiratory Rate 27 H 27 H 27 H Blood Pressure Pulse Oximetry 96 95 96 06/05/18 19:43 06/05/18 19:45 06/05/18 19:53 Temperature Pulse Rate 86 86 85 Respiratory Rate 27 H 27 H 27 H Blood Pressure 124/70 Pulse Oximetry 98 98 06/05/18 20:00 06/05/18 20:15 06/05/18 20:30 Temperature 97.9 F Pulse Rate 85 79 74 Respiratory Rate 27 H 27 H 27 H Blood Pressure Pulse Oximetry 99 98 97 06/05/18 20:35 06/05/18 20:45 06/05/18 21:00 Temperature Pulse Rate 82 73 74 Respiratory Rate 27 H 27 H 27 H Blood Pressure 119/71 Pulse Oximetry 99 97 97 06/05/18 21:15 06/05/18 21:30 06/05/18 21:35 Temperature Pulse Rate 74 70 71 Respiratory Rate 27 H 27 H 27 H Blood Pressure Pulse Oximetry 99 99 99 06/05/18 21:45 06/05/18 22:00 06/05/18 22:15 Temperature Pulse Rate 76 82 86 Respiratory Rate Blood Pressure Pulse Oximetry 96 100 100 06/05/18 22:30 06/05/18 22:35 06/05/18 22:45 Temperature Pulse Rate 81 74 71 Respiratory Rate 20 20 Blood Pressure 110/62 Pulse Oximetry 99 97 98 06/05/18 23:00 06/05/18 23:15 06/05/18 23:23 Temperature Pulse Rate 76 74 67 Respiratory Rate 22 22 20 Blood Pressure Pulse Oximetry 98 100 99 06/05/18 23:30 06/05/18 23:35 06/05/18 23:45 Temperature Pulse Rate 76 71 65 Respiratory Rate 26 H 20 20 Blood Pressure 115/62 Pulse Oximetry 99 98 97 06/06/18 00:00 06/06/18 00:15 06/06/18 00:30 Temperature 97.8 F Pulse Rate 78 78 70 Respiratory Rate 24 23 20 Blood Pressure Pulse Oximetry 98 94 L 94 L 06/06/18 00:35 06/06/18 01:00 06/06/18 01:35 Temperature Pulse Rate 66 62 75 Respiratory Rate 20 20 25 H Blood Pressure 106/57 L 156/77 H Pulse Oximetry 97 98 97 06/06/18 02:00 06/06/18 02:35 06/06/18 03:00 Temperature Pulse Rate 61 60 62 Respiratory Rate 20 20 19 Blood Pressure 118/65 Pulse Oximetry 98 99 99 06/06/18 03:35 06/06/18 03:47 06/06/18 04:00 Temperature 97.8 F Pulse Rate 63 59 L 57 L Respiratory Rate 20 20 20 Blood Pressure 120/63 Pulse Oximetry 94 L 99 99 06/06/18 04:35 06/06/18 05:00 06/06/18 05:35 Temperature Pulse Rate 57 L 56 L 56 L Respiratory Rate 20 20 20 Blood Pressure 116/63 119/61 Pulse Oximetry 95 99 99 06/06/18 06:00 06/06/18 06:35 06/06/18 07:00 Temperature Pulse Rate 55 L 55 L 55 L Respiratory Rate 20 20 20 Blood Pressure 124/65 Pulse Oximetry 95 98 98 06/06/18 07:35 06/06/18 08:00 06/06/18 08:32 Temperature Pulse Rate 51 L 53 L 69 Respiratory Rate 20 20 21 Blood Pressure 118/61 Pulse Oximetry 98 99 96 06/06/18 08:35 06/06/18 09:00 06/06/18 09:35 Temperature 93.7 F L 94.1 F L Pulse Rate 69 53 L 55 L Respiratory Rate 21 20 20 Blood Pressure 130/63 110/60 Pulse Oximetry 97 94 L 98 06/06/18 10:00 06/06/18 10:35 06/06/18 10:45 Temperature 94.6 F L 95.4 F L 95.7 F L Pulse Rate 63 55 L 55 L Respiratory Rate 20 20 20 Blood Pressure 110/55 L Pulse Oximetry 95 97 97 06/06/18 11:00 06/06/18 11:35 06/06/18 12:00 Temperature 95.9 F L 96.6 F L 97.0 F L Pulse Rate 57 L 64 62 Respiratory Rate 20 20 20 Blood Pressure 108/58 L Pulse Oximetry 97 97 97 06/06/18 12:35 06/06/18 12:48 06/06/18 13:00 Temperature 97.0 F L 96.8 F L Pulse Rate 59 L 61 60 Respiratory Rate 20 20 20 Blood Pressure 106/55 L Pulse Oximetry 97 97 97 06/06/18 13:35 06/06/18 14:00 06/06/18 14:30 Temperature 96.6 F L 96.6 F L Pulse Rate 55 L 55 L Respiratory Rate 20 20 20 Blood Pressure 106/59 L Pulse Oximetry 97 97 06/06/18 14:35 06/06/18 15:00 06/06/18 15:35 Temperature 96.8 F L 97.0 F L 96.8 F L Pulse Rate 65 56 L 52 L Respiratory Rate 21 23 20 Blood Pressure 109/55 L 100/54 L Pulse Oximetry 97 97 97 02/17/19 16:00 Temperature 96.6 F L Pulse Rate 56 L Respiratory Rate 20 Blood Pressure Pulse Oximetry 97 Intake & Output 06/05/18 06/06/18 06/06/18 18:59 06:59 18:59 Intake Total 3300 / 3300 3200 / 3200 1062.5 / 1062.5 Output Total 450 / 450 100 / 100 Balance 2850 / 2850 3100 / 3100 1062.5 / 1062.5 Weight 61.235 kg 58.5 kg Intake: IV 3300 / 3300 1000 / 1000 1062.5 / 1062.5 Heparin/D5W 25,000 U/250 mL 25, 250 / 250 000 unit In 250 ml @ Per Protocol IV.CONT TITRATE PRN Rx #:[id number] Primacor Inj 20 MG In NS Inj 80 100 / 100 ML @ 0.375 MCG/KG/MIN 6.88 mls /hr IV.CONT .[id number] NIKKIE Rx#: [id number] Diprivan 1000 mg/100 ml Inj 1, 100 / 100 100 / 100 000 mg In 100 ml @ 5 MCG/KG/MIN 1.837 mls/hr IV.CONT TITRATE PRN Rx#:[id number] NS Inj 1,000 ML @ 75 mls/hr IV. 1000 / 1000 CONT .[id number] NIKKIE Rx#:[id number] Diflucan 400 mg Premix Bag 200 200 / 200 ML @ 100 mls/hr IV.SIG Q24H NIKKIE Rx#:[id number] Levophed-Dextrose 4 mg/250 ml 500 / 500 250 / 250 Drip 4 mg In 250 ml @ 2 MCG/MIN 7.5 mls/hr IV.SIG TITRATE PRN Rx#:[id number] Zosyn 3.375 GM Premix 3.375 gm 50 / 50 100 / 100 100 / 100 In 50 ml @ 100 mls/hr IV.SIG Q6H NIKKIE Rx#:[id number] KCl 40 mEq Premix Inj 40 meq In 100 / 100 100 ml @ 25 mls/hr IV.SIG Q2H PRN Rx#:[id number] NS Inj 1,000 ML @ 1000 mls/hr 1999 / 1999 IV.SIG BOLUS NIKKIE Rx#:[id number] Vancomycin Inj 1,000 MG In NS 250 / 250 Inj 250 ML @ 250 mls/hr IV.SIG ONCE ONE Rx#:[id number] Vancomycin Inj 1,250 MG In NS 262.5 / 262.5 Inj 250 ML @ 250 mls/hr IV.SIG Q24H [facility] Rx#:[id number] Oral 2200 / 2200 Output: Urine Amount (Catheter) 300 / 300 Indwelling Temp Sensing 300 / 300 Catheter Gastric Drainage 0 / 0 Orogastric Tube 0 / 0 Chest Tube Drainage 150 / 150 100 / 100 Left 150 / 150 100 / 100 - Constitutional mild distress, thin, chronically ill appearing - Routine Respiratory Exam Present: patient mechanically ventilated, CTA bilaterally - Routine Cardiovascular Exam Present: tachycardia - Routine Abdominal Exam Present: soft, tenderness (Mild diffuse tenderness; patient grimaces with palpation) - Routine Skin Exam Present: dry, warm - Detailed Neurological Exam: Coma Scale Motor Response: Localizing - Urinary Catheter Management Indwelling Temp Sensing Catheter Cath placed during this visit: no Results - Labs CBC & Chem 7: 06/06/18 06:57 06/06/18 06:11 Labs: Laboratory Results - last 24 hr 06/05/18 06/05/18 06/05/18 16:35 16:35 16:37 WBC RBC Hgb Hct MCV MCH MCHC RDW Plt Count MPV Prelim Diff (Auto) Neut % (Auto) Lymph % (Auto) Bland % (Auto) Eos % (Auto) Baso % (Auto) Neut # (Auto) Lymph # (Auto) Bland # (Auto) Eos # (Auto) Baso # (Auto) WBC Differential Seg Neuts % (Manual) Band Neuts % (Manual) Lymphocytes % (Manual) Monocytes % (Manual) Myelocytes % (Man) Abs Neuts (Manual) Differential Comment Toxic Granulation Toxic Vacuolation Platelet Estimate Platelet Morphology PT INR APTT Puncture Site Art line Patient Temperature 98.6 O2 Saturation 97 ABG pH 7.25 L* ABG pCO2 39 ABG pO2 334 H ABG HCO3 17 L ABG O2 Content 13.2 ABG Base Excess -9.2 L ABG Methemoglobin 1.3 Donato Test Hemoglobin 9.0 L Carboxyhemoglobin 1.4 O2 Delivery Device Ventilator Liter Flow Vent Setting 600/24/+5/1.0 Inspired O2 100 Critical Value Yes Sodium Potassium Chloride Carbon Dioxide Anion Gap BUN Creatinine Estimated GFR POC Glucose Random Glucose Lactic Acid 3.4 H Calcium Phosphorus Magnesium Total Bilirubin AST ALT Alkaline Phosphatase Total Creatine Kinase 375 H CK-MB (CK-2) 4.9 H CK-MB (CK-2) % 1.3 Troponin I 1.12 H* B-Natriuretic Peptide Total Protein Albumin Urine Color Urine Clarity Urine pH Ur Specific [place] Urine Protein Urine Glucose (UA) Urine Ketones Urine Occult Blood Urine Nitrate Urine Bilirubin Urine Urobilinogen Ur Leukocyte Esterase Urine RBC Urine WBC Urine WBC Clumps Ur Squamous Epith Cells Urine Bacteria Micro UA Comment Ur Microscopic Review Urine Culture Comments Nasal Screen MRSA (PCR) 06/05/18 06/05/18 06/05/18 16:37 17:55 18:50 WBC RBC Hgb Hct MCV MCH MCHC RDW Plt Count MPV Prelim Diff (Auto) Neut % (Auto) Lymph % (Auto) Bland % (Auto) Eos % (Auto) Baso % (Auto) Neut # (Auto) Lymph # (Auto) Bland # (Auto) Eos # (Auto) Baso # (Auto) WBC Differential Seg Neuts % (Manual) Band Neuts % (Manual) Lymphocytes % (Manual) Monocytes % (Manual) Myelocytes % (Man) Abs Neuts (Manual) Differential Comment Toxic Granulation Toxic Vacuolation Platelet Estimate Platelet Morphology PT INR APTT Puncture Site Cancelled Patient Temperature Cancelled O2 Saturation Cancelled ABG pH Cancelled ABG pCO2 Cancelled ABG pO2 Cancelled ABG HCO3 Cancelled ABG O2 Content Cancelled ABG Base Excess Cancelled ABG Methemoglobin Cancelled [place] Test Cancelled Hemoglobin Cancelled Carboxyhemoglobin Cancelled O2 Delivery Device Cancelled Liter Flow Cancelled Vent Setting Cancelled Inspired O2 Cancelled Critical Value Cancelled Sodium Potassium Chloride Carbon Dioxide Anion Gap BUN Creatinine Estimated GFR POC Glucose 179 H Random Glucose Lactic Acid Calcium Phosphorus Magnesium Total Bilirubin AST ALT Alkaline Phosphatase Total Creatine Kinase CK-MB (CK-2) CK-MB (CK-2) % Troponin I B-Natriuretic Peptide Total Protein Albumin Urine Color Urine Clarity Urine pH Ur Specific [place] Urine Protein Urine Glucose (UA) Urine Ketones Urine Occult Blood Urine Nitrate Urine Bilirubin Urine Urobilinogen Ur Leukocyte Esterase Urine RBC Urine WBC Urine WBC Clumps Ur Squamous Epith Cells Urine Bacteria Micro UA Comment Ur Microscopic Review Urine Culture Comments Nasal Screen MRSA (PCR) Not detected 06/05/18 06/05/18 06/05/18 18:50 20:11 20:56 WBC RBC Hgb Hct MCV MCH MCHC RDW Plt Count MPV Prelim Diff (Auto) Neut % (Auto) Lymph % (Auto) Bland % (Auto) Eos % (Auto) Baso % (Auto) Neut # (Auto) Lymph # (Auto) Bland # (Auto) Eos # (Auto) Baso # (Auto) WBC Differential Seg Neuts % (Manual) Band Neuts % (Manual) Lymphocytes % (Manual) Monocytes % (Manual) Myelocytes % (Man) Abs Neuts (Manual) Differential Comment Toxic Granulation Toxic Vacuolation Platelet Estimate Platelet Morphology PT INR APTT Puncture Site Art line Patient Temperature 98.6 O2 Saturation 97 ABG pH 7.42 ABG pCO2 23 L* ABG pO2 191 H ABG HCO3 15 L* ABG O2 Content 13.8 ABG Base Excess -9.1 L ABG Methemoglobin 1.1 Donato Test Hemoglobin 9.8 L Carboxyhemoglobin 1.3 O2 Delivery Device Ventilator Liter Flow Vent Setting Prvc/ac Inspired O2 50 Critical Value Yes Sodium Potassium Chloride Carbon Dioxide Anion Gap BUN Creatinine Estimated GFR POC Glucose Random Glucose Lactic Acid 2.9 H Calcium Phosphorus Magnesium Total Bilirubin AST ALT Alkaline Phosphatase Total Creatine Kinase CK-MB (CK-2) CK-MB (CK-2) % Troponin I B-Natriuretic Peptide Total Protein Albumin Urine Color Yellow Urine Clarity Hazy H Urine pH 5.0 Ur Specific [place] 1.047 H Urine Protein 30 H Urine Glucose (UA) 50 Urine Ketones Trace H Urine Occult Blood Small H Urine Nitrate Negative Urine Bilirubin Negative Urine Urobilinogen Less than 2 Ur Leukocyte Esterase Large H Urine RBC 32 H Urine WBC Urine WBC Clumps Few H Ur Squamous Epith Cells <1 Urine Bacteria Few H Micro UA Comment Cath-culture ind Ur Microscopic Review Not Reportable Urine Culture Comments Cath-cult indicated Nasal Screen MRSA (PCR) 06/05/18 06/05/18 06/05/18 22:06 22:06 22:39 WBC RBC Hgb Hct MCV MCH MCHC RDW Plt Count MPV Prelim Diff (Auto) Neut % (Auto) Lymph % (Auto) Bland % (Auto) Eos % (Auto) Baso % (Auto) Neut # (Auto) Lymph # (Auto) Bland # (Auto) Eos # (Auto) Baso # (Auto) WBC Differential Seg Neuts % (Manual) Band Neuts % (Manual) Lymphocytes % (Manual) Monocytes % (Manual) Myelocytes % (Man) Abs Neuts (Manual) Differential Comment Toxic Granulation Toxic Vacuolation Platelet Estimate Platelet Morphology PT INR APTT 123.9 H* D Puncture Site Patient Temperature O2 Saturation ABG pH ABG pCO2 ABG pO2 ABG HCO3 ABG O2 Content ABG Base Excess ABG Methemoglobin Donato Test Hemoglobin Carboxyhemoglobin O2 Delivery Device Liter Flow Vent Setting Inspired O2 Critical Value Sodium Potassium Chloride Carbon Dioxide Anion Gap BUN Creatinine Estimated GFR POC Glucose Random Glucose Lactic Acid 2.2 H Calcium Phosphorus Magnesium Total Bilirubin AST ALT Alkaline Phosphatase Total Creatine Kinase 504 H CK-MB (CK-2) 11.7 H CK-MB (CK-2) % 2.3 Troponin I 1.40 H* B-Natriuretic Peptide Total Protein Albumin Urine Color Urine Clarity Urine pH Ur Specific [place] Urine Protein Urine Glucose (UA) Urine Ketones Urine Occult Blood Urine Nitrate Urine Bilirubin Urine Urobilinogen Ur Leukocyte Esterase Urine RBC Urine WBC Urine WBC Clumps Ur Squamous Epith Cells Urine Bacteria Micro UA Comment Ur Microscopic Review Urine Culture Comments Nasal Screen MRSA (PCR) 06/05/18 06/06/18 06/06/18 22:46 02:17 04:49 WBC RBC Hgb Hct MCV MCH MCHC RDW Plt Count MPV Prelim Diff (Auto) Neut % (Auto) Lymph % (Auto) Bland % (Auto) Eos % (Auto) Baso % (Auto) Neut # (Auto) Lymph # (Auto) Bland # (Auto) Eos # (Auto) Baso # (Auto) WBC Differential Seg Neuts % (Manual) Band Neuts % (Manual) Lymphocytes % (Manual) Monocytes % (Manual) Myelocytes % (Man) Abs Neuts (Manual) Differential Comment Toxic Granulation Toxic Vacuolation Platelet Estimate Platelet Morphology PT 11.5 INR 1.1 APTT 52.3 H D Puncture Site Art line Patient Temperature 98.6 O2 Saturation 98 ABG pH 7.38 ABG pCO2 31 L ABG pO2 232 H ABG HCO3 18 L ABG O2 Content 14.6 ABG Base Excess -6.6 L ABG Methemoglobin 1.0 Donato Test Hemoglobin 10.3 L Carboxyhemoglobin 1.3 O2 Delivery Device Ventilator Liter Flow Vent Setting Prvc/ac Inspired O2 50 Critical Value No Sodium Potassium Chloride Carbon Dioxide Anion Gap BUN Creatinine Estimated GFR POC Glucose Random Glucose Lactic Acid Calcium Phosphorus Magnesium Total Bilirubin AST ALT Alkaline Phosphatase Total Creatine Kinase CK-MB (CK-2) CK-MB (CK-2) % Troponin I B-Natriuretic Peptide Total Protein Albumin Urine Color Urine Clarity Urine pH Ur Specific [place] Urine Protein Urine Glucose (UA) Urine Ketones Urine Occult Blood Urine Nitrate Urine Bilirubin Urine Urobilinogen Ur Leukocyte Esterase Urine RBC Urine WBC Urine WBC Clumps Ur Squamous Epith Cells Urine Bacteria Micro UA Comment Ur Microscopic Review Urine Culture Comments Nasal Screen MRSA (PCR) 06/06/18 06/06/18 06/06/18 04:49 05:04 06:11 WBC RBC Hgb Hct MCV MCH MCHC RDW Plt Count MPV Prelim Diff (Auto) Neut % (Auto) Lymph % (Auto) Bland % (Auto) Eos % (Auto) Baso % (Auto) Neut # (Auto) Lymph # (Auto) Bland # (Auto) Eos # (Auto) Baso # (Auto) WBC Differential Seg Neuts % (Manual) Band Neuts % (Manual) Lymphocytes % (Manual) Monocytes % (Manual) Myelocytes % (Man) Abs Neuts (Manual) Differential Comment Toxic Granulation Toxic Vacuolation Platelet Estimate Platelet Morphology PT INR APTT Puncture Site Art line Patient Temperature 98.6 O2 Saturation 98 ABG pH 7.40 ABG pCO2 32 L ABG pO2 229 H ABG HCO3 19 L ABG O2 Content 14.7 ABG Base Excess -4.6 L ABG Methemoglobin 1.0 Donato Test Hemoglobin 10.3 L Carboxyhemoglobin 1.1 O2 Delivery Device Ventilator Liter Flow Vent Setting See comments Inspired O2 50 Critical Value No Sodium 142 Potassium 3.2 L Chloride 112 H D Carbon Dioxide 21.2 Anion Gap 9 BUN 10 Creatinine 0.76 Estimated GFR Greater than 89 POC Glucose Random Glucose 257 H D Lactic Acid Calcium 7.7 L D Phosphorus 2.4 L Magnesium 1.8 Total Bilirubin 0.5 AST 36 ALT 21 Alkaline Phosphatase 74 Total Creatine Kinase 577 H CK-MB (CK-2) 18.2 H CK-MB (CK-2) % 3.2 Troponin I 0.96 H* B-Natriuretic Peptide 1217 H Total Protein 7.0 D Albumin 2.4 L D Urine Color Urine Clarity Urine pH Ur Specific [place] Urine Protein Urine Glucose (UA) Urine Ketones Urine Occult Blood Urine Nitrate Urine Bilirubin Urine Urobilinogen Ur Leukocyte Esterase Urine RBC Urine WBC Urine WBC Clumps Ur Squamous Epith Cells Urine Bacteria Micro UA Comment Ur Microscopic Review Urine Culture Comments Nasal Screen MRSA (PCR) 06/06/18 06/06/18 06/06/18 06:57 08:55 11:43 WBC 20.6 H D RBC 3.70 L Hgb 10.4 L Hct 31.0 L MCV 83.9 MCH 28.2 MCHC 33.6 RDW 18.6 H Plt Count 329 MPV 7.2 Prelim Diff (Auto) Slide review pending Neut % (Auto) 92.7 H Lymph % (Auto) 4.8 L Bland % (Auto) 2.3 Eos % (Auto) 0.0 Baso % (Auto) 0.2 Neut # (Auto) 19.1 H Lymph # (Auto) 1.0 Bland # (Auto) 0.5 Eos # (Auto) 0.0 Baso # (Auto) 0.0 WBC Differential Manual diff final Seg Neuts % (Manual) 70 Band Neuts % (Manual) 18 H Lymphocytes % (Manual) 5 L Monocytes % (Manual) 6 Myelocytes % (Man) 1 H Abs Neuts (Manual) 18.3 H Differential Comment . Toxic Granulation 1+ H Toxic Vacuolation Present H Platelet Estimate Normal Platelet Morphology Normal PT INR APTT 54.9 H Puncture Site Patient Temperature O2 Saturation ABG pH ABG pCO2 ABG pO2 ABG HCO3 ABG O2 Content ABG Base Excess ABG Methemoglobin [place]ato Test Hemoglobin Carboxyhemoglobin O2 Delivery Device Liter Flow Vent Setting Inspired O2 Critical Value Sodium Potassium Chloride Carbon Dioxide Anion Gap BUN Creatinine Estimated GFR POC Glucose 193 H Random Glucose Lactic Acid Calcium Phosphorus Magnesium Total Bilirubin AST ALT Alkaline Phosphatase Total Creatine Kinase CK-MB (CK-2) CK-MB (CK-2) % Troponin I B-Natriuretic Peptide Total Protein Albumin Urine Color Urine Clarity Urine pH Ur Specific [place] Urine Protein Urine Glucose (UA) Urine Ketones Urine Occult Blood Urine Nitrate Urine Bilirubin Urine Urobilinogen Ur Leukocyte Esterase Urine RBC Urine WBC Urine WBC Clumps Ur Squamous Epith Cells Urine Bacteria Micro UA Comment Ur Microscopic Review Urine Culture Comments Nasal Screen MRSA (PCR) 06/06/18 12:07 WBC RBC Hgb Hct MCV MCH MCHC RDW Plt Count MPV Prelim Diff (Auto) Neut % (Auto) Lymph % (Auto) Bland % (Auto) Eos % (Auto) Baso % (Auto) Neut # (Auto) Lymph # (Auto) Bland # (Auto) Eos # (Auto) Baso # (Auto) WBC Differential Seg Neuts % (Manual) Band Neuts % (Manual) Lymphocytes % (Manual) Monocytes % (Manual) Myelocytes % (Man) Abs Neuts (Manual) Differential Comment Toxic Granulation Toxic Vacuolation Platelet Estimate Platelet Morphology PT INR APTT Puncture Site Patient Temperature O2 Saturation ABG pH ABG pCO2 ABG pO2 ABG HCO3 ABG O2 Content ABG Base Excess ABG Methemoglobin [place] Test Hemoglobin Carboxyhemoglobin O2 Delivery Device Liter Flow Vent Setting Inspired O2 Critical Value Sodium Potassium Chloride Carbon Dioxide Anion Gap BUN Creatinine Estimated GFR POC Glucose Random Glucose Lactic Acid Calcium Phosphorus Magnesium Total Bilirubin AST ALT Alkaline Phosphatase Total Creatine Kinase 520 H CK-MB (CK-2) 16.4 H CK-MB (CK-2) % 3.2 Troponin I 0.79 H* B-Natriuretic Peptide Total Protein Albumin Urine Color Urine Clarity Urine pH Ur Specific [place] Urine Protein Urine Glucose (UA) Urine Ketones Urine Occult Blood Urine Nitrate Urine Bilirubin Urine Urobilinogen Ur Leukocyte Esterase Urine RBC Urine WBC Urine WBC Clumps Ur Squamous Epith Cells Urine Bacteria Micro UA Comment Ur Microscopic Review Urine Culture Comments Nasal Screen MRSA (PCR) - Imaging Impressions Chest X-Ray 06/05/18 00:00 CONCLUSION: Tiny left apical pneumothorax. Chest X-Ray 06/05/18 20:55 CONCLUSION: Endotracheal tube, nasogastric tube and left central line in good position. Left chest tube without significant pneumothorax. Slight improvement in basilar airspace disease since earlier exam. Chest X-Ray 06/06/18 05:00 CONCLUSION: Slightly improved aeration Assessment and Plan - Assessment (1) Diverticulitis of colon with perforation Code(s): K57.20 - Diverticulitis of large intestine with perforation and abscess without bleeding Status: Acute Plan: Recheck CT when more stable; if he has an extremely small non-drainable area, continued nonoperative management would be appropriate. Etiology of patient's previous abscesses not clear; it may very well simply be a fistula sized area that is due to inflammatory process of the colon versus a malignant process. In any case, surgical intervention given the patient's recent acute WA would be problematic at very best. Staff is attempting to contact family, as patient may best be served by palliative care at this point. However full resuscitation has been undertaken and the patient seems to have stabilized. We will follow with you. Dr. Oglesby to return tomorrow. (2) Dilated cardiomyopathy Code(s): I42.0 - Dilated cardiomyopathy Status: Acute (3) Elevated troponin Code(s): R74.8 - Abnormal levels of other serum enzymes Status: Acute (4) Hypotension Code(s): I95.9 - Hypotension, unspecified Status: Acute (1) Diverticulitis of colon with perforation Qualifiers: Diverticulitis bleeding: without bleeding Qualified Code(s): K57.20 - Diverticulitis of large intestine with perforation and abscess without bleeding (4) Hypotension Qualifiers: Hypotension type: unspecified hypotension type Qualified Code(s): I95.9 - Hypotension, unspecified
[2018-06-06] MEDS: Vancomycin Inj 1,000 MG in Sodium Chlor 0.9% Inj 250 ML IV.SIG SCH (22:02)
[2018-06-07] MEDS: Propofol 1000 mg/100 ml Inj 1,000 MG/100 ML BOTTLE IV.CONT PRN ×2 (01:18→09:49)
[2018-06-07] MEDS: Piperacil/Tazo 3.375 GM Premix 3.375 GM/50 ML PIGGYBACK IV.SIG SCH ×4 (01:22→20:05)
[2018-06-07] MEDS: Oral Hygiene Kit OROPHARYNG SCH ×4 (04:16→23:10)
[2018-06-07] MEDS: Sod Chloride 0.9% Inj 1,000 ML IV.CONT SCH ×2 (04:17→14:05)
[2018-06-07] MEDS: Chlorhexidine Gluconate 2% 1 Pack (2 Cloths) TOPICAL SCH (04:17)
[2018-06-07 05:50] LABS: ABG Base Excess -3.4 mmol/L (-2-2); ABG PCO2 30 mmHg (38-42); ABG PO2 186 mmHg (61-120)
[2018-06-07] MEDS: Insulin NovoLIN Regular Correctional Sugar Inj SQ SCH ×3 (06:05→18:05)
[2018-06-07 06:09] LABS: Baso % (Auto) 0.1 % (0.0-2.0); Hematocrit 29.2 % (39.0-51.0); Hemoglobin 9.6 gm/dL (13.0-17.0); Lymph # (Auto) 1.4 th/mm3 (1.0-4.8); Lymph % (Auto) 6.6 % (9.0-44.0); Mean Corpuscular HGB Conc 32.9 % (32.0-36.0); Mean Corpuscular Hemoglobin 27.8 pg (27.0-34.0); Mean Corpuscular Volume 84.5 fL (80.0-100.0); Mean Platelet Volume 7.3 fL (7.0-11.0); Mono # (Auto) 1.4 th/mm3 (0.0-0.9); Mono % (Auto) 6.6 % (0.0-8.0); Neut # (Auto) 18.9 th/mm3 (1.8-7.7); Neut % (Auto) 86.7 % (16.0-70.0); Platelet Count 314 th/mm3 (150-450); Red Blood Count 3.46 mil/mm3 (4.50-5.90); Red Cell Distribution Width 18.8 % (11.6-17.2); White Blood Count 21.8 th/mm3 (4.0-11.0)
[2018-06-07 06:19] LABS: Activated Partial Thrombo Time 35.7 sec (23.4-31.7); Prothrombin Time 10.1 sec (9.8-11.6)
[2018-06-07 06:41] LABS: Alanine Aminotransferase 18 U/L (12-78); Albumin 2.3 g/dL (3.4-5.0); Anion Gap 10 meq/L (5-15); Aspartate Aminotransferase 26 U/L (15-37); Blood Urea Nitrogen 16 mg/dL (7-18); Calcium 7.9 mg/dL (8.5-10.1); Carbon Dioxide 20.2 meq/L (21.0-32.0); Chloride 112 meq/L (98-107); Glomerular Filtration Rate 75 mL/min (>89); Glucose,Random 145 mg/dL (74-106); Magnesium 1.9 mg/dL (1.5-2.5); Phosphorus 2.8 mg/dL (2.5-4.9); Potassium 3.9 meq/L (3.5-5.1); Sodium 142 meq/L (136-145)
[2018-06-07 06:45] LABS: Alkaline Phosphatase 61 U/L (45-117); Creatine Kinase 252 U/L (39-308); Total Protein 6.9 g/dL (6.4-8.2)
[2018-06-07] MEDS: fentaNYL 10 mcg/mL Premix Drip 2,500 MCG/250 ML BAG IV.SIG PRN (09:30)
[2018-06-07] MEDS: Chlorhexidine 0.12% Oral Kit 15 ML UDC OROPHARYNG SCH ×2 (09:47→19:52)
[2018-06-07] MEDS: Polyethylene Glycol 3350 17 GM Packet PO SCH (09:48)
[2018-06-07] MEDS: Senna/Docusate Sodium 8.6/50 MG Tablet PO SCH (09:48)
[2018-06-07] MEDS: Vancomycin Inj 1,000 MG in Sodium Chlor 0.9% Inj 250 ML IV.SIG SCH ×2 (09:48→23:10)
[2018-06-07] MEDS: Famotidine PF Inj 20 MG/2 ML Vial IV.PUSH SCH ×2 (09:51→20:05)
[2018-06-07] MEDS: Heparin 10,000 UNITS/10 ML Vial (for IV use) IV.PUSH PRN ×2 (10:20→20:04)
[2018-06-07] MEDS: Heparin Drip 25,000 UNIT/250 ML BAG IV.CONT PRN ×2 (10:21→20:39)
[2018-06-07] MEDS: Milrinone Inj 20 MG in Sodium Chlor 0.9% Inj 80 ML IV.CONT SCH ×2 (10:29→15:32)
--- NOTE | 2018-06-07 10:50 | P.PNPAL ---
Palliative care consulted to assist with goals of medical treatment for Mr. Potter. Attempted to identify legal health care decision maker(s). In review of past records patient has a brother, Nikos Potter, listed. Staff, including palliative care, have been unable to connect with anyone via . No additional contact numbers in past EMR. Notes indicate patient was discharged on 05/13/18 with [facility]. Telephone call to [facility]ri to inquire about their records of family/next of kin. [place] only has patient's home number, , and report they were never able to connect with him. Google search indicates possible mother, Angela Potter (age 93) [phone] ( disconnected) and [phone] (disconnected). [employer] requested. Results obtained, however patient was able to complete health care surrogate designation later in the day. Palliative care will continue to follow. See full consultation for additional information.
--- NOTE | 2018-06-07 11:09 | P.CONPAL ---
Consult Service: Palliative Care Requesting Physician: Nick Guillen Reason for Consult: a. To assist with evaluation and management of symptoms including: dyspnea, pain b. To assist medical decision maker(s) with: better understanding of current medical conditions; weighing benefits/burdens of medical treatment options; making medical treatment decisions. Primary Care Provider: UNKNOWN History of Present Illness History of Present Illness: This is a 67 y/o male with hx PAD, COPD, diverticular abscesses, hydronephrosis who presented 06/05 to ER for sudden onset SOB, RLE pain. Imaging showed pneumothorax and rib fx. and chest tube was placed. He had ischemic RLE and was started on heparin heparin. Per vascular surgery very high risk for surgery. He developed hypotension, worsening respiratory distress. CCM consulted, pt noted to be in decompensating shock. Pt intubated. Found to have NSTEMI. Echo 06/05 showed EF 20% and fairly normal movement basal, inferior , posterior, lateral abdi but all other left ventricular segments akinetic or severely hypokinetic; moderate to severe reduced right ventricle systolic function. Cardiology consulted, recommended left heart cath but pt has been too unstable. Subsequently BCX pos for gram negative rods. General Surgery consulted for known pelvic abscesses and recommending non-op mgmt given pt's acute TX. Pt was recently admitted 04/30 to 05/13 during which he was found to have diverticular abscesses and had drain placement. He was also treated for UTI and obstructive uropathy, hydronephrosis. He was noted to have right common iliac total occlusion, left common illiac severe stenosis, dodie SFA occlusion and at that time was not deemed surgical candidate. Pt seen in room, RN and surgery SHAKE SPLITTER Elsa at bedside. No family present. Pt is awake and lethargic. Initially he indicates denial of pain, SOB, nausea however during exam he does nod his head when asked about RLE pain. He is intubated. On [address]AP trials under way. ADDENDUM: Around 1300 was informed pt self extubated. On my eval he is lethargic, answers appropriately. Does not appear to be in any distress. Function/Cognitive Trajectory: Pt had recent admission but reportedly at d/c 05/13/18 was ambulatory. Review of Systems unobtainable due to endotracheal tube Ears, Nose, Mouth, and Throat: Denies abnormal hearing (done to best of my ability via chart review, discussion with providers) Cardiovascular: Denies chest pain Respiratory: Reports shortness of breath Gastrointestinal: Denies abdominal pain, Denies nausea Musculoskeletal: Reports radiating pain into limb Psychiatric: Denies anxiety PMFSH - History History Provided By: Patient - Medical History Medical History: Medical History (Last Updated 06/07/18 @ 12:01 by EDUARDO Srivastava) Pelvic abscess Back pain PAD (peripheral artery disease) Smoking - Family History Family History: Family History (Last Updated 06/07/18 @ 10:40 by EDUARDO Srivastava) Father Lung cancer Mother Diverticulitis - Tobacco History Second Hand Smoke Exposure: Yes Tobacco Use In Past 30 Days: Yes Smoking Status: Current every day smoker Tobacco Type: Cigarettes - Alcohol History How Often Do You Have a Drink Containing Alcohol: 4 or more times a week - Substance Use History Substance History: No History of Abuse - Travel History Recent Travel in the [place] Within the Last 8 Weeks: No Recent Travel Out of the Country Within the Last 8 Weeks: No - Immunization History Tetanus Immunization: Unsure Hx Influenza Vaccine This Season: No Medications and Allergies Active Medications: Active Medications Acetaminophen (Tylenol) 650 mg PO Q6H PRN PRN Reason: TEMPERATURE > 101 F Albuterol (Duoneb Neb (Prn)) 1 ampul NEB Q2HR NEB PRN PRN Reason: WHEEZING Albuterol (Duoneb Neb (Nikkie)) 1 ampul NEB Q4HR NEB NIKKIE Last Admin: 06/07/18 07:52 Dose: 1 ampul Aspirin (Aspirin Chew) 81 mg PO DAILY [facility] Last Admin: 06/07/18 09:47 Dose: Not Given Bisacodyl (Dulcolax Supp) 10 mg RECTAL DAILY PRN PRN Reason: if no BM in last 24h Chlorhexidine Gluconate (Peridex 0.12% Oral Kit) 15 ml OROPHARYNG BID@0800, 2000 [facility] Last Admin: 06/07/18 09:47 Dose: 15 ml Chlorhexidine Gluconate (Chlorhexidine 2% Cloth) 3 pack TOPICAL DAILY@0400 [facility] Stop: 06/11/18 03:59 Last Admin: 06/07/18 04:17 Dose: 3 pack Chlorhexidine Gluconate (Chlorhexidine 2% Cloth) 3 pack TOPICAL DAILY@0400 PRN PRN Reason: Extra cloth needed Stop: 06/11/18 03:59 Dextrose (D50w Vial) 50 ml IV.PUSH UNSCH PRN PRN Reason: PER HYPOGLYCEMIA PROTOCOL Famotidine (Pepcid Pf Inj) 20 mg IV.PUSH Q12HR [facility] Last Admin: 06/07/18 09:51 Dose: 20 mg Glucagon (Glucagon Inj) 1 mg OTHER PRN PRN PRN Reason: for Hypoglycemia Protocol Haloperidol Lactate (Haldol Inj) 5 mg IV.PUSH Q1H PRN PRN Reason: AGITATION Heparin Sodium (Porcine) (Heparin Inj) 5,000 units IV.PUSH UNSCH PRN PRN Reason: aPTT < 25 Heparin Sodium (Porcine) (Heparin Inj) 2,500 units IV.PUSH UNSCH PRN PRN Reason: aPTT 25-39 Last Admin: 06/07/18 10:20 Dose: 2,500 units Hydralazine HCl (Apresoline Inj) 10 mg IV.PUSH Q30M PRN PRN Reason: sbp > 160, dbp > 95 Sodium Chloride (Ns Inj) 1,000 mls @ 75 mls/hr IV.CONT .[id number] [facility] Last Infusion: 06/07/18 06:00 Dose: 75 mls/hr Heparin Sodium/Dextrose (Heparin/D5w 25,000 U/250 Ml) 25,000 unit in 250 mls @ 0 mls/hr IV.CONT TITRATE PRN; Protocol PRN Reason: Per Protocol Last Titration: 06/07/18 10:27 Dose: 900 units/hr, 9 mls/hr Milrinone Lactate 20 mg/ (Sodium Chloride) 100 mls @ 6.88 mls/hr IV.CONT .[id number] [facility] Last Admin: 06/07/18 10:29 Dose: 0.5 mcg/kg/min, 9.18 mls/hr Fentanyl (Fentanyl 10 Mcg/Ml Premix Drip) 2,500 mcg in 250 mls @ 5 mls/hr IV.SIG TITRATE PRN; Protocol PRN Reason: Per Protocol Last Admin: 06/07/18 09:30 Dose: 125 mcg/hr, 12.5 mls/hr Magnesium Sulfate 4 gm/ Sodium (Chloride) 100 mls @ 50 mls/hr IV.SIG UNSCH PRN PRN Reason: For Magnesium 0.9 - 1.1 mg/dL Magnesium Sulfate 2 gm/ Sodium (Chloride) 100 mls @ 50 mls/hr IV.SIG UNSCH PRN PRN Reason: For Magnesium 1.2 - 1.6 mg/dL Potassium Chloride (Kcl 40 Meq Premix Inj) 40 meq in 100 mls @ 25 mls/hr IV.SIG Q2H PRN PRN Reason: For Potassium 2.8 - 3.2 mEq/L Last Infusion: 06/06/18 18:00 Dose: Infused Potassium Chloride (Kcl 20 Meq Premix Inj) 20 meq in 100 mls @ 50 mls/hr IV.SIG Q2H PRN PRN Reason: For Potassium 3.3 - 3.5 mEq/L Potassium Chloride (Kcl 40 Meq Premix Inj) 40 meq in 100 mls @ 25 mls/hr IV.SIG UNSCH PRN PRN Reason: For Potassium 3.3 - 3.5 mEq/L Potassium Chloride (Kcl 20 Meq Premix Inj) 20 meq in 100 mls @ 50 mls/hr IV.SIG Q2H PRN PRN Reason: For Potassium 2.8 - 3.2 mEq/L Potassium Phosphate 30 mmol/ (Sodium Chloride) 260 mls @ 42 mls/hr IV.SIG UNSCH PRN PRN Reason: SEE LABEL COMMENTS Propofol (Diprivan 1000 Mg/100 Ml Inj) 1,000 mg in 100 mls @ 1.837 mls/hr IV.CONT TITRATE PRN; Protocol PRN Reason: Per Protocol Last Admin: 06/07/18 09:49 Dose: 25 mcg/kg/min, 9.19 mls/hr Sodium Phosphate 30 mmol/ (Sodium Chloride) 260 mls @ 42 mls/hr IV.SIG UNSCH PRN PRN Reason: For Phosphorus < 2.5 mg/dL Norepinephrine Bitartrate (Levophed-Dextrose 4 Mg/250 Ml Drip) 4 mg in 250 mls @ 7.5 mls/hr IV.SIG TITRATE PRN; Protocol PRN Reason: Per Protocol Last Titration: 06/07/18 10:31 Dose: 7 mcg/min, 26.25 mls/hr Vasopressin 40 unit/ Dextrose 100 mls @ 6 mls/hr IV.CONT TITRATE PRN; Protocol PRN Reason: Per Protocol Piperacillin/Tazobactam/Dextrose (Zosyn 3.375 Gm Premix) 3.375 gm in 50 mls @ 100 mls/hr IV.SIG Q6H [facility] Last Admin: 06/07/18 09:47 Dose: 100 mls/hr Fluconazole (Diflucan 400 Mg Premix Bag) 200 mls @ 100 mls/hr IV.SIG Q24H [facility] Last Infusion: 06/07/18 01:17 Dose: Infused Vancomycin HCl 1,000 mg/ (Sodium Chloride) 250 mls @ 250 mls/hr IV.SIG Q12H [facility] Last Admin: 06/07/18 09:48 Dose: 250 mls/hr Insulin Human Regular (Novolin R Correctional Sugar Inj) 0 units SQ Q6HR [facility]; Protocol Last Admin: 06/07/18 06:05 Dose: Not Given Labetalol HCl (Trandate Inj) 10 mg IV.PUSH Q20M PRN PRN Reason: SBP > 160 DBP > 95 Lactulose (Lactulose Liq) 30 ml PO BID [facility] Last Admin: 06/07/18 09:48 Dose: Not Given Magnesium Oxide (Mag-Ox) 800 mg PO UNSCH PRN PRN Reason: For Magnesium 1.2 - 1.6 mg/dL Midazolam HCl (Versed Inj) 2 mg IV.PUSH Q1H PRN PRN Reason: sedation Last Admin: 06/06/18 12:00 Dose: 2 mg Miscellaneous Information ([facility] Ordered Lab Info) 0 each OTHER ONCE [facility] Miscellaneous Medication () 1 each OROPHARYNG 0000,0400,1200,1600 [facility] Last Admin: 06/07/18 04:16 Dose: 1 each Ondansetron HCl (Zofran Inj) 4 mg IV.PUSH Q6H PRN PRN Reason: NAUSEA OR VOMITING Pharmacy Profile Note (Vancomycin Consult Pharmacy) 1 each OTHER UNSCH PRN PRN Reason: Pharmacy to dose Polyethylene Glycol (Miralax) 17 gm PO BID [facility] Last Admin: 06/07/18 09:48 Dose: Not Given Potassium Chloride (Kcl Liq) 40 meq PO UNSCH PRN PRN Reason: Potassium level 3.3-3.5 mEq/L Potassium Chloride (Kcl Liq) 40 meq PO UNSCH PRN PRN Reason: POTASSIUM LESS THAN 3.5 Potassium Phosphate (K-Phos Original) 2,000 mg PO Q4H PRN PRN Reason: Phosphorus Less Than 2.5 mg/dL Potassium Phosphate (K-Phos Original) 2,000 mg PO UNSCH PRN PRN Reason: SEE LABEL COMMENTS Senna/Docusate Sodium (Antoinette-Colace) 1 tab PO BID NIKKIE Last Admin: 06/07/18 09:48 Dose: Not Given Sodium Chloride (Ns Flush) 2 ml IV.FLUSH UNSCH PRN PRN Reason: FLUSH AFTER USING IV ACCESS Terbutaline Sulfate (Brethine Inj) 1 mg SQ UNSCH PRN PRN Reason: For Extravasation Allergies Allergy/AdvReac Type Severity Reaction Status Date / Time *MDRO Multi-Drug Resistant AdvReac Unknown Uncoded 02/20/16 09:24 Organism Advance Directives Living Will: No Healthcare Surrogate: No Power of Oyster Worker: No Physical Exam Vital Signs: Vital Signs - 24 hr 06/06/18 10:35 06/06/18 10:45 06/06/18 11:00 Temperature 95.4 F L 95.7 F L 95.9 F L Pulse Rate 55 L 55 L 57 L Respiratory Rate 20 20 20 Blood Pressure 110/55 L Pulse Oximetry 97 97 97 06/06/18 11:35 06/06/18 12:00 06/06/18 12:35 Temperature 96.6 F L 97.0 F L 97.0 F L Pulse Rate 64 62 59 L Respiratory Rate 20 20 20 Blood Pressure 108/58 L 106/55 L Pulse Oximetry 97 97 97 06/06/18 12:48 06/06/18 13:00 06/06/18 13:35 Temperature 96.8 F L 96.6 F L Pulse Rate 61 60 55 L Respiratory Rate 20 20 20 Blood Pressure 106/59 L Pulse Oximetry 97 97 97 06/06/18 14:00 06/06/18 14:30 06/06/18 14:35 Temperature 96.6 F L 96.8 F L Pulse Rate 55 L 65 Respiratory Rate 20 20 21 Blood Pressure 109/55 L Pulse Oximetry 97 97 06/06/18 15:00 06/06/18 15:35 06/06/18 16:00 Temperature 97.0 F L 96.8 F L 96.6 F L Pulse Rate 56 L 52 L 56 L Respiratory Rate 23 20 20 Blood Pressure 100/54 L Pulse Oximetry 97 97 97 06/06/18 16:35 06/06/18 17:00 06/06/18 17:35 Temperature 96.4 F L 96.8 F L 97.3 F L Pulse Rate 52 L 73 64 Respiratory Rate 20 20 20 Blood Pressure 106/57 L 102/55 L Pulse Oximetry 97 97 100 06/06/18 17:41 06/06/18 17:46 06/06/18 18:00 Temperature 97.3 F L Pulse Rate 57 L 53 L Respiratory Rate 20 20 20 Blood Pressure Pulse Oximetry 100 100 06/06/18 18:35 06/06/18 19:00 06/06/18 19:35 Temperature 97.2 F L 96.8 F L 96.6 F L Pulse Rate 52 L 52 L 51 L Respiratory Rate 26 H 29 H 29 H Blood Pressure 108/58 L 118/59 L Pulse Oximetry 100 100 100 06/06/18 19:58 06/06/18 20:00 06/06/18 20:35 Temperature Pulse Rate 62 61 86 Respiratory Rate 20 35 H 23 Blood Pressure 126/64 Pulse Oximetry 100 100 100 06/06/18 21:00 06/06/18 21:35 06/06/18 22:00 Temperature 98.9 F Pulse Rate 48 L 50 L 51 L Respiratory Rate 21 17 Blood Pressure 125/61 Pulse Oximetry 99 99 100 06/06/18 22:35 06/06/18 23:00 06/06/18 23:17 Temperature 97.4 F L Pulse Rate 52 L 53 L 53 L Respiratory Rate 17 20 Blood Pressure 126/61 Pulse Oximetry 100 100 100 06/06/18 23:35 06/07/18 00:00 06/07/18 00:35 Temperature Pulse Rate 66 52 L 48 L Respiratory Rate 20 20 20 Blood Pressure 141/63 H 128/59 L Pulse Oximetry 100 100 100 06/07/18 01:00 06/07/18 01:35 06/07/18 02:00 Temperature Pulse Rate 49 L 47 L 50 L Respiratory Rate 20 20 20 Blood Pressure 130/60 Pulse Oximetry 100 100 100 06/07/18 02:35 06/07/18 03:00 06/07/18 03:12 Temperature 97.5 F L Pulse Rate 49 L 48 L 50 L Respiratory Rate 20 Blood Pressure 142/65 H 178/84 H Pulse Oximetry 100 100 100 06/07/18 03:14 06/07/18 03:35 06/07/18 03:49 Temperature Pulse Rate 53 L 49 L 49 L Respiratory Rate 20 Blood Pressure 139/62 139/64 Pulse Oximetry 100 100 100 06/07/18 04:00 06/07/18 04:35 06/07/18 05:00 Temperature Pulse Rate 80 47 L 49 L Respiratory Rate 17 Blood Pressure 120/59 L Pulse Oximetry 99 100 100 06/07/18 05:35 06/07/18 06:00 06/07/18 06:35 Temperature 95.7 F L Pulse Rate 49 L 48 L 48 L Respiratory Rate 20 25 H Blood Pressure 137/65 129/60 Pulse Oximetry 100 100 100 06/07/18 06:43 06/07/18 06:45 06/07/18 06:46 Temperature 95.7 F L 95.7 F L 95.7 F L Pulse Rate 52 L 59 L 53 L Respiratory Rate 24 20 23 Blood Pressure 79/46 L 123/61 134/68 Pulse Oximetry 97 96 100 06/07/18 07:00 06/07/18 07:01 06/07/18 07:16 Temperature 95.7 F L 95.7 F L 95.9 F L Pulse Rate 49 L 49 L 50 L Respiratory Rate 28 H 28 H 25 H Blood Pressure 135/69 134/63 Pulse Oximetry 100 100 100 06/07/18 07:31 06/07/18 07:46 06/07/18 07:52 Temperature 95.9 F L 95.9 F L Pulse Rate 49 L 50 L Respiratory Rate 28 H 28 H 20 Blood Pressure 133/63 141/65 H Pulse Oximetry 100 100 100 06/07/18 08:00 06/07/18 08:01 06/07/18 08:16 Temperature 95.5 F L 95.5 F L 96.1 F L Pulse Rate 48 L 46 L 68 Respiratory Rate 19 26 H 21 Blood Pressure 138/60 155/72 H Pulse Oximetry 100 100 100 06/07/18 08:31 Temperature 95.9 F L Pulse Rate 48 L Respiratory Rate 28 H Blood Pressure 135/57 L Pulse Oximetry 100 I&O: Intake & Output 06/05/18 06/06/18 06/07/18 06/08/18 06:59 06:59 06:59 06:59 Intake Total 6500 / 6500 3010.0 / 3010.0 149.5 / 149.5 Output Total 550 / 550 2135 / 2135 Balance 5950 / 5950 875.0 / 875.0 149.5 / 149.5 Weight 58.5 kg 59.3 kg Physical Exam: CONSTITUTIONAL/GENERAL: This is an thin male, intubated on vent TUBES/LINES/DRAINS: paul, chest tube, OETT, PIV, central line SKIN: No jaundice, rashes, or lesions. +Ecchymoses on upper extremities. wound/ lesion partially bandaged LUE. Not diaphoretic. HEAD: Atraumatic. Normocephalic. EYES: Pupils equal and round and reactive. Extraocular motions intact. No scleral icterus. No injection or drainage. Fundi not examined. ENT: Hearing grossly normal. Nose without bleeding or purulent drainage. Throat exam inhibited by ETT NECK: Trachea midline. Supple, nontender. CARDIOVASCULAR: irregular heart rate without murmurs, gallops, or rubs. No JVD. RESPIRATORY/CHEST: Symmetric, unlabored respirations. Clear to auscultation. Breath sounds equal bilaterally. No wheezes, rales, or rhonchi. GASTROINTESTINAL: Abdomen semi firm, tympanitic, non-tender, somewhat distended. No hepato-splenomegaly, or palpable masses. No guarding. Bowel sounds present. GENITOURINARY: Without palpable bladder distension. Paul catheter in place. MUSCULOSKELETAL: Extremities without clubbing, cyanosis, or edema. No joint tenderness or effusion noted. No calf tenderness. No mottling or clubbing. + BUE restraints NEUROLOGICAL: Awake and lethargic. Motor and sensory grossly within normal limits. Follows commands. can shake head 'no'. Moves all extremities. PSYCHIATRIC: No obvious anxiety/depression. no apparent hallucinations or other psychotic thought process. Diagnostic Tests Laboratory: Laboratory Results - last 72 hr 06/05/18 06/05/18 06/05/18 11:20 11:20 11:42 WBC 4.5 RBC 4.32 L Hgb 12.3 L Hct 37.1 L MCV 86.0 MCH 28.5 MCHC 33.1 RDW 18.8 H Plt Count 380 D MPV 6.7 L Prelim Diff (Auto) Neut % (Auto) 82.9 H Lymph % (Auto) 13.0 [place] % (Auto) 0.4 Eos % (Auto) 3.4 Baso % (Auto) 0.3 Neut # (Auto) 3.7 Lymph # (Auto) 0.6 L [place] # (Auto) 0.0 Eos # (Auto) 0.2 Baso # (Auto) 0.0 WBC Differential . Seg Neuts % (Manual) Band Neuts % (Manual) Lymphocytes % (Manual) Monocytes % (Manual) Myelocytes % (Man) Abs Neuts (Manual) Differential Comment Auto diff final Toxic Granulation Toxic Vacuolation Platelet Estimate Platelet Morphology PT INR APTT Puncture Site Patient Temperature O2 Saturation ABG pH ABG pCO2 ABG pO2 ABG HCO3 ABG O2 Content ABG Base Excess ABG Methemoglobin Donato Test Hemoglobin Carboxyhemoglobin O2 Delivery Device Liter Flow Vent Setting Inspired O2 Critical Value Sodium 133 L Potassium 3.9 Chloride 101 Carbon Dioxide 16.5 L Anion Gap 16 H BUN 10 Creatinine 1.17 Estimated GFR 62 L POC Glucose Random Glucose 97 Lactic Acid 7.1 H* Calcium 8.9 Phosphorus Magnesium Total Bilirubin 0.6 AST 19 ALT 19 Alkaline Phosphatase 131 H Total Creatine Kinase CK-MB (CK-2) CK-MB (CK-2) % Troponin I 0.06 H B-Natriuretic Peptide Total Protein 8.5 H Albumin 3.2 L Urine Color Urine Clarity Urine pH Ur Specific [place] Urine Protein Urine Glucose (UA) Urine Ketones Urine Occult Blood Urine Nitrate Urine Bilirubin Urine Urobilinogen Ur Leukocyte Esterase Urine RBC Urine WBC Urine WBC Clumps Ur Squamous Epith Cells Urine Bacteria Micro UA Comment Ur Microscopic Review Urine Culture Comments Nasal Screen MRSA (PCR) 06/05/18 06/05/18 06/05/18 11:45 11:45 11:45 WBC RBC Hgb Hct MCV MCH MCHC RDW Plt Count MPV Prelim Diff (Auto) Neut % (Auto) Lymph % (Auto) [place] % (Auto) Eos % (Auto) Baso % (Auto) Neut # (Auto) Lymph # (Auto) [place] # (Auto) Eos # (Auto) Baso # (Auto) WBC Differential Seg Neuts % (Manual) Band Neuts % (Manual) Lymphocytes % (Manual) Monocytes % (Manual) Myelocytes % (Man) Abs Neuts (Manual) Differential Comment Toxic Granulation Toxic Vacuolation Platelet Estimate Platelet Morphology PT 10.8 INR 1.1 APTT 24.7 Puncture Site Patient Temperature O2 Saturation ABG pH ABG pCO2 ABG pO2 ABG HCO3 ABG O2 Content ABG Base Excess ABG Methemoglobin [place] Test Hemoglobin Carboxyhemoglobin O2 Delivery Device Liter Flow Vent Setting Inspired O2 Critical Value Sodium Potassium Chloride Carbon Dioxide Anion Gap BUN Creatinine Estimated GFR POC Glucose Random Glucose Lactic Acid Calcium Phosphorus Magnesium 1.8 Total Bilirubin AST ALT Alkaline Phosphatase Total Creatine Kinase 66 CK-MB (CK-2) CK-MB (CK-2) % Troponin I B-Natriuretic Peptide 30 Total Protein Albumin Urine Color Urine Clarity Urine pH Ur Specific [place] Urine Protein Urine Glucose (UA) Urine Ketones Urine Occult Blood Urine Nitrate Urine Bilirubin Urine Urobilinogen Ur Leukocyte Esterase Urine RBC Urine WBC Urine WBC Clumps Ur Squamous Epith Cells Urine Bacteria Micro UA Comment Ur Microscopic Review Urine Culture Comments Nasal Screen MRSA (PCR) 06/05/18 06/05/18 06/05/18 11:45 12:10 16:35 WBC RBC Hgb Hct MCV MCH MCHC RDW Plt Count MPV Prelim Diff (Auto) Neut % (Auto) Lymph % (Auto) [place] % (Auto) Eos % (Auto) Baso % (Auto) Neut # (Auto) Lymph # (Auto) [place] # (Auto) Eos # (Auto) Baso # (Auto) WBC Differential Seg Neuts % (Manual) Band Neuts % (Manual) Lymphocytes % (Manual) Monocytes % (Manual) Myelocytes % (Man) Abs Neuts (Manual) Differential Comment Toxic Granulation Toxic Vacuolation Platelet Estimate Platelet Morphology PT INR APTT Puncture Site Right radial Patient Temperature 98.6 O2 Saturation 93 ABG pH 7.45 H ABG pCO2 27 L ABG pO2 89 ABG HCO3 18 L ABG O2 Content 14.4 ABG Base Excess -4.9 L ABG Methemoglobin 1.1 Donato Test Present Hemoglobin 10.9 L Carboxyhemoglobin 3.0 O2 Delivery Device Nasal cannula Liter Flow Vent Setting Inspired O2 Critical Value No Sodium Potassium Chloride Carbon Dioxide Anion Gap BUN Creatinine Estimated GFR POC Glucose Random Glucose Lactic Acid 3.4 H Calcium Phosphorus Magnesium Total Bilirubin AST ALT Alkaline Phosphatase Total Creatine Kinase Cancelled CK-MB (CK-2) CK-MB (CK-2) % Troponin I B-Natriuretic Peptide Total Protein Albumin Urine Color Urine Clarity Urine pH Ur Specific [place] Urine Protein Urine Glucose (UA) Urine Ketones Urine Occult Blood Urine Nitrate Urine Bilirubin Urine Urobilinogen Ur Leukocyte Esterase Urine RBC Urine WBC Urine WBC Clumps Ur Squamous Epith Cells Urine Bacteria Micro UA Comment Ur Microscopic Review Urine Culture Comments Nasal Screen MRSA (PCR) 06/05/18 06/05/1819 16:35 16:37 16:37 WBC RBC Hgb Hct MCV MCH MCHC RDW Plt Count MPV Prelim Diff (Auto) Neut % (Auto) Lymph % (Auto) [place] % (Auto) Eos % (Auto) Baso % (Auto) Neut # (Auto) Lymph # (Auto) [place] # (Auto) Eos # (Auto) Baso # (Auto) WBC Differential Seg Neuts % (Manual) Band Neuts % (Manual) Lymphocytes % (Manual) Monocytes % (Manual) Myelocytes % (Man) Abs Neuts (Manual) Differential Comment Toxic Granulation Toxic Vacuolation Platelet Estimate Platelet Morphology PT INR APTT Puncture Site Art line Cancelled Patient Temperature 98.6 Cancelled O2 Saturation 97 Cancelled ABG pH 7.25 L* Cancelled ABG pCO2 39 Cancelled ABG pO2 334 H Cancelled ABG HCO3 17 L Cancelled ABG O2 Content 13.2 Cancelled ABG Base Excess -9.2 L Cancelled ABG Methemoglobin 1.3 Cancelled Donato Test Cancelled Hemoglobin 9.0 L Cancelled Carboxyhemoglobin 1.4 Cancelled O2 Delivery Device Ventilator Cancelled Liter Flow Cancelled Vent Setting 600/24/+5/1.0 Cancelled Inspired O2 100 Cancelled Critical Value Yes Cancelled Sodium Potassium Chloride Carbon Dioxide Anion Gap BUN Creatinine Estimated GFR POC Glucose Random Glucose Lactic Acid Calcium Phosphorus Magnesium Total Bilirubin AST ALT Alkaline Phosphatase Total Creatine Kinase 375 H CK-MB (CK-2) 4.9 H CK-MB (CK-2) % 1.3 Troponin I 1.12 H* B-Natriuretic Peptide Total Protein Albumin Urine Color Urine Clarity Urine pH Ur Specific [place] Urine Protein Urine Glucose (UA) Urine Ketones Urine Occult Blood Urine Nitrate Urine Bilirubin Urine Urobilinogen Ur Leukocyte Esterase Urine RBC Urine WBC Urine WBC Clumps Ur Squamous Epith Cells Urine Bacteria Micro UA Comment Ur Microscopic Review Urine Culture Comments Nasal Screen MRSA (PCR) 06/05/18 06/05/18 06/05/18 17:55 18:50 18:50 WBC RBC Hgb Hct MCV MCH MCHC RDW Plt Count MPV Prelim Diff (Auto) Neut % (Auto) Lymph % (Auto) [place] % (Auto) Eos % (Auto) Baso % (Auto) Neut # (Auto) Lymph # (Auto) [place] # (Auto) Eos # (Auto) Baso # (Auto) WBC Differential Seg Neuts % (Manual) Band Neuts % (Manual) Lymphocytes % (Manual) Monocytes % (Manual) Myelocytes % (Man) Abs Neuts (Manual) Differential Comment Toxic Granulation Toxic Vacuolation Platelet Estimate Platelet Morphology PT INR APTT Puncture Site Patient Temperature O2 Saturation ABG pH ABG pCO2 ABG pO2 ABG HCO3 ABG O2 Content ABG Base Excess ABG Methemoglobin [place] Test Hemoglobin Carboxyhemoglobin O2 Delivery Device Liter Flow Vent Setting Inspired O2 Critical Value Sodium Potassium Chloride Carbon Dioxide Anion Gap BUN Creatinine Estimated GFR POC Glucose 179 H Random Glucose Lactic Acid Calcium Phosphorus Magnesium Total Bilirubin AST ALT Alkaline Phosphatase Total Creatine Kinase CK-MB (CK-2) CK-MB (CK-2) % Troponin I B-Natriuretic Peptide Total Protein Albumin Urine Color Yellow Urine Clarity Hazy H Urine pH 5.0 Ur Specific [place] 1.047 H Urine Protein 30 H Urine Glucose (UA) 50 Urine Ketones Trace H Urine Occult Blood Small H Urine Nitrate Negative Urine Bilirubin Negative Urine Urobilinogen Less than 2 Ur Leukocyte Esterase Large H Urine RBC 32 H Urine WBC Urine WBC Clumps Few H Ur Squamous Epith Cells <1 Urine Bacteria Few H Micro UA Comment Cath-culture ind Ur Microscopic Review Not Reportable Urine Culture Comments Cath-cult indicated Nasal Screen MRSA (PCR) Not detected 06/05/18 06/05/18 06/05/18 20:11 20:56 22:06 WBC RBC Hgb Hct MCV MCH MCHC RDW Plt Count MPV Prelim Diff (Auto) Neut % (Auto) Lymph % (Auto) [place] % (Auto) Eos % (Auto) Baso % (Auto) Neut # (Auto) Lymph # (Auto) [place] # (Auto) Eos # (Auto) Baso # (Auto) WBC Differential Seg Neuts % (Manual) Band Neuts % (Manual) Lymphocytes % (Manual) Monocytes % (Manual) Myelocytes % (Man) Abs Neuts (Manual) Differential Comment Toxic Granulation Toxic Vacuolation Platelet Estimate Platelet Morphology PT INR APTT 123.9 H* D Puncture Site Art line Patient Temperature 98.6 O2 Saturation 97 ABG pH 7.42 ABG pCO2 23 L* ABG pO2 191 H ABG HCO3 15 L* ABG O2 Content 13.8 ABG Base Excess -9.1 L ABG Methemoglobin 1.1 Donato Test Hemoglobin 9.8 L Carboxyhemoglobin 1.3 O2 Delivery Device Ventilator Liter Flow Vent Setting Prvc/ac Inspired O2 50 Critical Value Yes Sodium Potassium Chloride Carbon Dioxide Anion Gap BUN Creatinine Estimated GFR POC Glucose Random Glucose Lactic Acid 2.9 H Calcium Phosphorus Magnesium Total Bilirubin AST ALT Alkaline Phosphatase Total Creatine Kinase CK-MB (CK-2) CK-MB (CK-2) % Troponin I B-Natriuretic Peptide Total Protein Albumin Urine Color Urine Clarity Urine pH Ur Specific [place] Urine Protein Urine Glucose (UA) Urine Ketones Urine Occult Blood Urine Nitrate Urine Bilirubin Urine Urobilinogen Ur Leukocyte Esterase Urine RBC Urine WBC Urine WBC Clumps Ur Squamous Epith Cells Urine Bacteria Micro UA Comment Ur Microscopic Review Urine Culture Comments Nasal Screen MRSA (PCR) 06/05/18 06/05/18 06/05/18 22:06 22:39 22:46 WBC RBC Hgb Hct MCV MCH MCHC RDW Plt Count MPV Prelim Diff (Auto) Neut % (Auto) Lymph % (Auto) [place] % (Auto) Eos % (Auto) Baso % (Auto) Neut # (Auto) Lymph # (Auto) [place] # (Auto) Eos # (Auto) Baso # (Auto) WBC Differential Seg Neuts % (Manual) Band Neuts % (Manual) Lymphocytes % (Manual) Monocytes % (Manual) Myelocytes % (Man) Abs Neuts (Manual) Differential Comment Toxic Granulation Toxic Vacuolation Platelet Estimate Platelet Morphology PT INR APTT Puncture Site Art line Patient Temperature 98.6 O2 Saturation 98 ABG pH 7.38 ABG pCO2 31 L ABG pO2 232 H ABG HCO3 18 L ABG O2 Content 14.6 ABG Base Excess -6.6 L ABG Methemoglobin 1.0 Don[place] Test Hemoglobin 10.3 L Carboxyhemoglobin 1.3 O2 Delivery Device Ventilator Liter Flow Vent Setting Prvc/ac Inspired O2 50 Critical Value No Sodium Potassium Chloride Carbon Dioxide Anion Gap BUN Creatinine Estimated GFR POC Glucose Random Glucose Lactic Acid 2.2 H Calcium Phosphorus Magnesium Total Bilirubin AST ALT Alkaline Phosphatase Total Creatine Kinase 504 H CK-MB (CK-2) 11.7 H CK-MB (CK-2) % 2.3 Troponin I 1.40 H* B-Natriuretic Peptide Total Protein Albumin Urine Color Urine Clarity Urine pH Ur Specific [place] Urine Protein Urine Glucose (UA) Urine Ketones Urine Occult Blood Urine Nitrate Urine Bilirubin Urine Urobilinogen Ur Leukocyte Esterase Urine RBC Urine WBC Urine WBC Clumps Ur Squamous Epith Cells Urine Bacteria Micro UA Comment Ur Microscopic Review Urine Culture Comments Nasal Screen MRSA (PCR) 06/06/18 06/06/18 06/06/18 02:17 04:49 04:49 WBC RBC Hgb Hct MCV MCH MCHC RDW Plt Count MPV Prelim Diff (Auto) Neut % (Auto) Lymph % (Auto) [place] % (Auto) Eos % (Auto) Baso % (Auto) Neut # (Auto) Lymph # (Auto) [place] # (Auto) Eos # (Auto) Baso # (Auto) WBC Differential Seg Neuts % (Manual) Band Neuts % (Manual) Lymphocytes % (Manual) Monocytes % (Manual) Myelocytes % (Man) Abs Neuts (Manual) Differential Comment Toxic Granulation Toxic Vacuolation Platelet Estimate Platelet Morphology PT 11.5 INR 1.1 APTT 52.3 H D Puncture Site Patient Temperature O2 Saturation ABG pH ABG pCO2 ABG pO2 ABG HCO3 ABG O2 Content ABG Base Excess ABG Methemoglobin [place] Test Hemoglobin Carboxyhemoglobin O2 Delivery Device Liter Flow Vent Setting Inspired O2 Critical Value Sodium Potassium Chloride Carbon Dioxide Anion Gap BUN Creatinine Estimated GFR POC Glucose Random Glucose Lactic Acid Calcium Phosphorus Magnesium Total Bilirubin AST ALT Alkaline Phosphatase Total Creatine Kinase CK-MB (CK-2) CK-MB (CK-2) % Troponin I B-Natriuretic Peptide 1217 H Total Protein Albumin Urine Color Urine Clarity Urine pH Ur Specific [place] Urine Protein Urine Glucose (UA) Urine Ketones Urine Occult Blood Urine Nitrate Urine Bilirubin Urine Urobilinogen Ur Leukocyte Esterase Urine RBC Urine WBC Urine WBC Clumps Ur Squamous Epith Cells Urine Bacteria Micro UA Comment Ur Microscopic Review Urine Culture Comments Nasal Screen MRSA (PCR) 06/06/18 06/06/18 06/06/18 05:04 06:11 06:57 WBC 20.6 H D RBC 3.70 L Hgb 10.4 L Hct 31.0 L MCV 83.9 MCH 28.2 MCHC 33.6 RDW 18.6 H Plt Count 329 MPV 7.2 Prelim Diff (Auto) Slide review pending Neut % (Auto) 92.7 H Lymph % (Auto) 4.8 L [place] % (Auto) 2.3 Eos % (Auto) 0.0 Baso % (Auto) 0.2 Neut # (Auto) 19.1 H Lymph # (Auto) 1.0 [place] # (Auto) 0.5 Eos # (Auto) 0.0 Baso # (Auto) 0.0 WBC Differential Manual diff final Seg Neuts % (Manual) 70 Band Neuts % (Manual) 18 H Lymphocytes % (Manual) 5 L Monocytes % (Manual) 6 Myelocytes % (Man) 1 H Abs Neuts (Manual) 18.3 H Differential Comment . Toxic Granulation 1+ H Toxic Vacuolation Present H Platelet Estimate Normal Platelet Morphology Normal PT INR APTT Puncture Site Art line Patient Temperature 98.6 O2 Saturation 98 ABG pH 7.40 ABG pCO2 32 L ABG pO2 229 H ABG HCO3 19 L ABG O2 Content 14.7 ABG Base Excess -4.6 L ABG Methemoglobin 1.0 [place] Test Hemoglobin 10.3 L Carboxyhemoglobin 1.1 O2 Delivery Device Ventilator Liter Flow Vent Setting See comments Inspired O2 50 Critical Value No Sodium 142 Potassium 3.2 L Chloride 112 H D Carbon Dioxide 21.2 Anion Gap 9 BUN 10 Creatinine 0.76 Estimated GFR Greater than 89 POC Glucose Random Glucose 257 H D Lactic Acid Calcium 7.7 L D Phosphorus 2.4 L Magnesium 1.8 Total Bilirubin 0.5 AST 36 ALT 21 Alkaline Phosphatase 74 Total Creatine Kinase 577 H CK-MB (CK-2) 18.2 H CK-MB (CK-2) % 3.2 Troponin I 0.96 H* B-Natriuretic Peptide Total Protein 7.0 D Albumin 2.4 L D Urine Color Urine Clarity Urine pH Ur Specific [place] Urine Protein Urine Glucose (UA) Urine Ketones Urine Occult Blood Urine Nitrate Urine Bilirubin Urine Urobilinogen Ur Leukocyte Esterase Urine RBC Urine WBC Urine WBC Clumps Ur Squamous Epith Cells Urine Bacteria Micro UA Comment Ur Microscopic Review Urine Culture Comments Nasal Screen MRSA (PCR) 06/06/18 06/06/18 06/06/18 08:55 11:43 12:07 WBC RBC Hgb Hct MCV MCH MCHC RDW Plt Count MPV Prelim Diff (Auto) Neut % (Auto) Lymph % (Auto) [place] % (Auto) Eos % (Auto) Baso % (Auto) Neut # (Auto) Lymph # (Auto) [place] # (Auto) Eos # (Auto) Baso # (Auto) WBC Differential Seg Neuts % (Manual) Band Neuts % (Manual) Lymphocytes % (Manual) Monocytes % (Manual) Myelocytes % (Man) Abs Neuts (Manual) Differential Comment Toxic Granulation Toxic Vacuolation Platelet Estimate Platelet Morphology PT INR APTT 54.9 H Puncture Site Patient Temperature O2 Saturation ABG pH ABG pCO2 ABG pO2 ABG HCO3 ABG O2 Content ABG Base Excess ABG Methemoglobin [place] Test Hemoglobin Carboxyhemoglobin O2 Delivery Device Liter Flow Vent Setting Inspired O2 Critical Value Sodium Potassium Chloride Carbon Dioxide Anion Gap BUN Creatinine Estimated GFR POC Glucose 193 H Random Glucose Lactic Acid Calcium Phosphorus Magnesium Total Bilirubin AST ALT Alkaline Phosphatase Total Creatine Kinase 520 H CK-MB (CK-2) 16.4 H CK-MB (CK-2) % 3.2 Troponin I 0.79 H* B-Natriuretic Peptide Total Protein Albumin Urine Color Urine Clarity Urine pH Ur Specific [place] Urine Protein Urine Glucose (UA) Urine Ketones Urine Occult Blood Urine Nitrate Urine Bilirubin Urine Urobilinogen Ur Leukocyte Esterase Urine RBC Urine WBC Urine WBC Clumps Ur Squamous Epith Cells Urine Bacteria Micro UA Comment Ur Microscopic Review Urine Culture Comments Nasal Screen MRSA (PCR) 06/06/18 06/06/18 06/07/18 17:23 23:26 05:39 WBC RBC Hgb Hct MCV MCH MCHC RDW Plt Count MPV Prelim Diff (Auto) Neut % (Auto) Lymph % (Auto) [place] % (Auto) Eos % (Auto) Baso % (Auto) Neut # (Auto) Lymph # (Auto) [place] # (Auto) Eos # (Auto) Baso # (Auto) WBC Differential Seg Neuts % (Manual) Band Neuts % (Manual) Lymphocytes % (Manual) Monocytes % (Manual) Myelocytes % (Man) Abs Neuts (Manual) Differential Comment Toxic Granulation Toxic Vacuolation Platelet Estimate Platelet Morphology PT INR APTT Puncture Site Art line Patient Temperature 98.6 O2 Saturation 97 ABG pH 7.45 H ABG pCO2 30 L ABG pO2 186 H ABG HCO3 20 L ABG O2 Content 15.2 ABG Base Excess -3.4 L ABG Methemoglobin 1.2 Don[place] Test Hemoglobin 10.8 L Carboxyhemoglobin 1.1 O2 Delivery Device Ventilator Liter Flow Vent Setting Prvc/ac Inspired O2 40 Critical Value No Sodium Potassium Chloride Carbon Dioxide Anion Gap BUN Creatinine Estimated GFR POC Glucose 146 H 200 H Random Glucose Lactic Acid Calcium Phosphorus Magnesium Total Bilirubin AST ALT Alkaline Phosphatase Total Creatine Kinase CK-MB (CK-2) CK-MB (CK-2) % Troponin I B-Natriuretic Peptide Total Protein Albumin Urine Color Urine Clarity Urine pH Ur Specific [place] Urine Protein Urine Glucose (UA) Urine Ketones Urine Occult Blood Urine Nitrate Urine Bilirubin Urine Urobilinogen Ur Leukocyte Esterase Urine RBC Urine WBC Urine WBC Clumps Ur Squamous Epith Cells Urine Bacteria Micro UA Comment Ur Microscopic Review Urine Culture Comments Nasal Screen MRSA (PCR) 06/07/18 06/07/18 06/07/18 05:51 05:55 05:55 WBC 21.8 H RBC 3.46 L Hgb 9.6 L Hct 29.2 L MCV 84.5 MCH 27.8 MCHC 32.9 RDW 18.8 H Plt Count 314 MPV 7.3 Prelim Diff (Auto) Neut % (Auto) 86.7 H Lymph % (Auto) 6.6 L [place] % (Auto) 6.6 Eos % (Auto) 0.0 Baso % (Auto) 0.1 Neut # (Auto) 18.9 H Lymph # (Auto) 1.4 [place] # (Auto) 1.4 H Eos # (Auto) 0.0 Baso # (Auto) 0.0 WBC Differential . Seg Neuts % (Manual) Band Neuts % (Manual) Lymphocytes % (Manual) Monocytes % (Manual) Myelocytes % (Man) Abs Neuts (Manual) Differential Comment Auto diff final Toxic Granulation Toxic Vacuolation Platelet Estimate Platelet Morphology PT INR APTT Puncture Site Patient Temperature O2 Saturation ABG pH ABG pCO2 ABG pO2 ABG HCO3 ABG O2 Content ABG Base Excess ABG Methemoglobin [place] Test Hemoglobin Carboxyhemoglobin O2 Delivery Device Liter Flow Vent Setting Inspired O2 Critical Value Sodium 142 Potassium 3.9 Chloride 112 H Carbon Dioxide 20.2 L Anion Gap 10 BUN 16 Creatinine 0.99 Estimated GFR 75 L POC Glucose 161 H Random Glucose 145 H D Lactic Acid Calcium 7.9 L Phosphorus 2.8 Magnesium 1.9 Total Bilirubin 0.3 AST 26 ALT 18 Alkaline Phosphatase 61 Total Creatine Kinase 252 CK-MB (CK-2) CK-MB (CK-2) % Troponin I B-Natriuretic Peptide Total Protein 6.9 Albumin 2.3 L Urine Color Urine Clarity Urine pH Ur Specific [place] Urine Protein Urine Glucose (UA) Urine Ketones Urine Occult Blood Urine Nitrate Urine Bilirubin Urine Urobilinogen Ur Leukocyte Esterase Urine RBC Urine WBC Urine WBC Clumps Ur Squamous Epith Cells Urine Bacteria Micro UA Comment Ur Microscopic Review Urine Culture Comments Nasal Screen MRSA (PCR) 06/07/18 06/07/18 05:55 05:55 WBC RBC Hgb Hct MCV MCH MCHC RDW Plt Count MPV Prelim Diff (Auto) Neut % (Auto) Lymph % (Auto) [place] % (Auto) Eos % (Auto) Baso % (Auto) Neut # (Auto) Lymph # (Auto) [place] # (Auto) Eos # (Auto) Baso # (Auto) WBC Differential Seg Neuts % (Manual) Band Neuts % (Manual) Lymphocytes % (Manual) Monocytes % (Manual) Myelocytes % (Man) Abs Neuts (Manual) Differential Comment Toxic Granulation Toxic Vacuolation Platelet Estimate Platelet Morphology PT 10.1 INR 1.0 APTT 35.7 H D Puncture Site Patient Temperature O2 Saturation ABG pH ABG pCO2 ABG pO2 ABG HCO3 ABG O2 Content ABG Base Excess ABG Methemoglobin [place] Test Hemoglobin Carboxyhemoglobin O2 Delivery Device Liter Flow Vent Setting Inspired O2 Critical Value Sodium Potassium Chloride Carbon Dioxide Anion Gap BUN Creatinine Estimated GFR POC Glucose Random Glucose Lactic Acid Calcium Phosphorus Magnesium Total Bilirubin AST ALT Alkaline Phosphatase Total Creatine Kinase CK-MB (CK-2) CK-MB (CK-2) % Troponin I B-Natriuretic Peptide 225 H Total Protein Albumin Urine Color Urine Clarity Urine pH Ur Specific [place] Urine Protein Urine Glucose (UA) Urine Ketones Urine Occult Blood Urine Nitrate Urine Bilirubin Urine Urobilinogen Ur Leukocyte Esterase Urine RBC Urine WBC Urine WBC Clumps Ur Squamous Epith Cells Urine Bacteria Micro UA Comment Ur Microscopic Review Urine Culture Comments Nasal Screen MRSA (PCR) Result Diagrams: 06/07/18 05:55 06/07/18 05:55 Microbiology: Microbiology 06/05/18 11:40 Aerobic Blood Culture - Preliminary Blood - Peripheral Klebsiella pneumoniae Anaerobic Blood Culture - Preliminary gram negative rods 06/05/18 18:50 Urine Culture - Preliminary Catheterized Urine Immature growth - reincubate 06/05/18 11:45 Aerobic Blood Culture - Preliminary Blood - Peripheral No growth in 1 day Anaerobic Blood Culture - Preliminary gram negative rods Imaging: ITS Impressions Aorta w/Runoff CTA 06/05/18 11:45 CONCLUSION: 1. Extensive peripheral vascular disease with multifocal areas of narrowing/ occlusion as above. Chest CT 06/05/18 11:45 CONCLUSION: 1. Small left-sided pneumothorax and hemothorax. 2. Acute left fifth rib fracture. 3. Emphysema. Chest X-Ray 06/06/18 05:00 CONCLUSION: Slightly improved aeration Procedures: 06/05 chest tube placed, intubated, art line placed, central line placed 06/07 self extubated Patient/Family Conference Present at Family Conference: Dr Ruiz, RN Juanis Pt's brother Vinny Family Conference Time: 28 Family Conference Location: Bedside Issues Discussed: Provided brief medical update to patient this morning while he was awake and intubated. Dr Ruiz later provided medical update to pt and brother after pt self -extubated. * Palliative care role, purpose, approach * Additional medical, psychosocial history * Patient/family understanding of the current medical problems * Patient/family understanding of prognosis * Patients goals of care * Current medical treatment options and benefits/burdens of those options * Likely scenarios comparing ongoing aggressive care with a transition to comfort measures only * code status * decision maker * Questions answered to the best of my ability * Palliative care contact information provided Goals pending, aggressive for now. Pt designated his sister Leanna as his primary HCS and his brother Vinny as alternate. Pt not ready to make decision on code status or goals of medical treatment. "You act like I didn't like that tube." Advised pt that if he had to be intubated manager long term care he would get weaker and eventually require a tracheostomy. He still would not indicate if he would want to be intubated or not. Dr Ruiz provided in depth medical update to both pt and Vinny. Pt said he was "pissed" b/c he was at a Dr appt about a month ago and was told he was fine to continue outpt follow up. Unclear which Dr this was. 1530 had telephone discussion with Leanna Minaya [facility]. Discussed above. Assessment and Plan - Disease Oriented Problem List (1) Intra-abdominal abscess (2) Pneumothorax (3) Dilated cardiomyopathy (4) Arterial occlusion (5) UTI (urinary tract infection), bacterial (6) Claudication of both lower extremities Pertinent Non-Medical Issues: Psychosocial: Pt has 2 sisters and 2 brothers, also a son who reportedly lives in [place] from whom he is estranged. 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 [place] is a [place]. Spiritual: pastoral care available Legal: Pt is not currently capacitated to make decisions. It is possible he will regain that capacity. For the time being, in the absence of previously designated HCS, proxy medical decision making would fall to his son. If his son were to opt out or is otherwise unavailable, decision making would then fall to the majority of pt's 4 siblings. Ethical issues impacting care: none Important Contacts: brother Tracie Potter [phone] brother Vinny Potter [phone] Prognosis: 67 y/o male with COPD, PAD, diverticular abscesses who presented 06/05 for RLE pain and SOB. Found to have TX, ischemic RLE, persistent pelvic abscesses. In shock and not stable for cath or surgeries. Currently intubated and on 2 pressors. CPAP trials in progress. Even if he is intubated, it is not clear if he would be a candidate for any aggressive interventions. Pt is critically ill and at risk for decline and further complications. Code Status: Full Code Plan: - LEGAL DECISION MAKER - Pt is not currently capacitated to make decisions. It is possible he will regain that capacity. For the time being, in the absence of previously designated HCS, proxy medical decision making would fall to his son. If his son were to opt out or is otherwise unavailable, decision making would then fall to the majority of pt's 4 siblings. - CODE STATUS- full code - GOALS - pending further discussion and hospital course. Aggressive for now. Pt designated his sister Leanna as his primary HCS and his brother Vinny as alternate. Pt not ready to make decision on code status or goals of medical treatment. "You act like I didn't like that tube." Advised pt that if he had to be intubated manager long term care he would get weaker and eventually require a tracheostomy. He still would not indicate if he would want to be intubated or not. Dr Ruiz provided in depth medical update to both pt and Vinny. Pt said he was "pissed" b/c he was at a Dr appt about a month ago and was told he was fine to continue outpt follow up. Unclear which Dr this was. - SYMPTOMS - * dyspnea - multifactorial, hx COPD, recent TX, pneumothorax s/p chest tube, fractured rib. self extubated 06/07 * pain - poss pain sites/sources include: lines and drains, RLE, abdomen. on fentanyl drip - d/w Dr Guillen, RN, [facility] [employer] Elsa - Palliative care will continue to follow during hospital course as condition evolves, to assist patient/decision-maker with understanding of medical conditions, weighing benefits/burdens of treatment options, for clarification of goals of treatment. Additionally will assist with any symptoms of palliative concern Appreciation Thank you for the opportunity to participate in the care of Cornell Potter.
--- NOTE | 2018-06-07 12:00 | P.PNCC ---
Subjective Subjective Remarks/Hospital Course: Hospital Course: 67yM with history of severe PAD who presents after he had sudden onset right leg pain which caused him to fall, and then he began with sudden shortness of breath. In the emergency department, found to have left apical pneumothorax with large amount of subQ air, with rib fracture. In addition, severe PAD with occlusion of the right common femoral artery. Labs significant for trop 0.06, Lactate 7. patient denies chest pain. does endorse leg pain and shortness of breath. denies fever,chills. remainder of the ROS negative, although limited by his critical illness. Subjective: 06/06: discussed case with Dr. Oglesby from gen surg overnight- patient also has additional pelvic abscesses compounding his shock. blood cultures growing GNRs. We elected to hold off on draining abscesses yesterday due to acute cardiogenic shock in the setting of acute myocardial infarction as well as critical limb ischemia. Today, leg appears better perfused and lactate is starting to clear. remains on milrinone and norepinephrine infusions. BNP has risen from 30 to 1300. Cardiology recommends LHC during this admission, but waiting until shock resolves and more stable. remains critically ill today. 06/07: minimal improvements. remains in shock. bacteremic with Klebsiella, sensitivities pending. remains on milrinone at 0.5 mcg/kg/min, norepinephrine. lactate still elevated, although starting to clear. Objective Vital Signs / I&O: Vital Signs 06/06/18 12:00 06/06/18 12:35 06/06/18 12:48 Temperature 36.1 C L 36.1 C L Pulse Rate 62 59 L 61 Respiratory Rate 20 20 20 Blood Pressure 106/55 L Pulse Oximetry 97 97 97 06/06/18 13:00 06/06/18 13:35 06/06/18 14:00 Temperature 36.0 C L 35.9 C L 35.9 C L Pulse Rate 60 55 L 55 L Respiratory Rate 20 20 20 Blood Pressure 106/59 L Pulse Oximetry 97 97 97 06/06/18 14:30 06/06/18 14:35 06/06/18 15:00 Temperature 36.0 C L 36.1 C L Pulse Rate 65 56 L Respiratory Rate 20 21 23 Blood Pressure 109/55 L Pulse Oximetry 97 97 06/06/18 15:35 06/06/18 16:00 06/06/18 16:35 Temperature 36.0 C L 35.9 C L 35.8 C L Pulse Rate 52 L 56 L 52 L Respiratory Rate 20 20 20 Blood Pressure 100/54 L 106/57 L Pulse Oximetry 97 97 97 06/06/18 17:00 06/06/18 17:35 06/06/18 17:41 Temperature 36.0 C L 36.3 C L Pulse Rate 73 64 57 L Respiratory Rate 20 20 20 Blood Pressure 102/55 L Pulse Oximetry 97 100 06/06/18 17:46 06/06/18 18:00 06/06/18 18:35 Temperature 36.3 C L 36.2 C L Pulse Rate 53 L 52 L Respiratory Rate 20 20 26 H Blood Pressure 108/58 L Pulse Oximetry 100 100 100 06/06/18 19:00 06/06/18 19:35 06/06/18 19:58 Temperature 36.0 C L 35.9 C L Pulse Rate 52 L 51 L 62 Respiratory Rate 29 H 29 H 20 Blood Pressure 118/59 L Pulse Oximetry 100 100 100 06/06/18 20:00 06/06/18 20:35 06/06/18 21:00 Temperature 37.2 C Pulse Rate 61 86 48 L Respiratory Rate 35 H 23 21 Blood Pressure 126/64 Pulse Oximetry 100 100 99 06/06/18 21:35 06/06/18 22:00 06/06/18 22:35 Temperature Pulse Rate 50 L 51 L 52 L Respiratory Rate 17 Blood Pressure 125/61 126/61 Pulse Oximetry 99 100 100 06/06/18 23:00 06/06/18 23:17 06/06/18 23:35 Temperature 36.3 C L Pulse Rate 53 L 53 L 66 Respiratory Rate 17 20 20 Blood Pressure 141/63 H Pulse Oximetry 100 100 100 06/07/18 00:00 06/07/18 00:35 06/07/18 01:00 Temperature Pulse Rate 52 L 48 L 49 L Respiratory Rate 20 20 20 Blood Pressure 128/59 L Pulse Oximetry 100 100 100 06/07/18 01:35 06/07/18 02:00 06/07/18 02:35 Temperature Pulse Rate 47 L 50 L 49 L Respiratory Rate 20 20 Blood Pressure 130/60 142/65 H Pulse Oximetry 100 100 100 06/07/18 03:00 06/07/18 03:12 06/07/18 03:14 Temperature 36.4 C L Pulse Rate 48 L 50 L 53 L Respiratory Rate 20 Blood Pressure 178/84 H 139/62 Pulse Oximetry 100 100 100 06/07/18 03:35 06/07/18 03:49 06/07/18 04:00 Temperature Pulse Rate 49 L 49 L 80 Respiratory Rate 20 17 Blood Pressure 139/64 Pulse Oximetry 100 100 99 06/07/18 04:35 06/07/18 05:00 06/07/18 05:35 Temperature Pulse Rate 47 L 49 L 49 L Respiratory Rate 20 Blood Pressure 120/59 L 137/65 Pulse Oximetry 100 100 100 06/07/18 06:00 06/07/18 06:35 06/07/18 06:43 Temperature 35.4 C L 35.4 C L Pulse Rate 48 L 48 L 52 L Respiratory Rate 25 H 24 Blood Pressure 129/60 79/46 L Pulse Oximetry 100 100 97 06/07/18 06:45 06/07/18 06:46 06/07/18 07:00 Temperature 35.4 C L 35.4 C L 35.4 C L Pulse Rate 59 L 53 L 49 L Respiratory Rate 20 23 28 H Blood Pressure 123/61 134/68 Pulse Oximetry 96 100 100 06/07/18 07:01 06/07/18 07:16 06/07/18 07:31 Temperature 35.4 C L 35.5 C L 35.5 C L Pulse Rate 49 L 50 L 49 L Respiratory Rate 28 H 25 H 28 H Blood Pressure 135/69 134/63 133/63 Pulse Oximetry 100 100 100 06/07/18 07:46 06/07/18 07:52 06/07/18 08:00 Temperature 35.5 C L 35.3 C L Pulse Rate 50 L 48 L Respiratory Rate 28 H 20 19 Blood Pressure 141/65 H Pulse Oximetry 100 100 100 06/07/18 08:01 06/07/18 08:16 06/07/18 08:31 Temperature 35.3 C L 35.6 C L 35.5 C L Pulse Rate 46 L 68 48 L Respiratory Rate 26 H 21 28 H Blood Pressure 138/60 155/72 H 135/57 L Pulse Oximetry 100 100 100 06/07/18 08:46 06/07/18 09:00 06/07/18 09:01 Temperature Pulse Rate 48 L 48 L 48 L Respiratory Rate 27 H 28 H 27 H Blood Pressure 134/63 147/70 H Pulse Oximetry 100 100 100 06/07/18 09:16 06/07/18 09:31 06/07/18 09:46 Temperature Pulse Rate 49 L 48 L 48 L Respiratory Rate 25 H 21 21 Blood Pressure 144/61 H 141/68 H 149/71 H Pulse Oximetry 100 100 100 06/07/18 10:00 06/07/18 10:01 06/07/18 10:16 Temperature Pulse Rate 51 L 45 L 47 L Respiratory Rate 22 27 H 33 H Blood Pressure 150/71 H 156/70 H Pulse Oximetry 100 100 100 06/07/18 10:31 06/07/18 10:46 06/07/18 11:00 Temperature Pulse Rate 47 L 46 L 47 L Respiratory Rate 28 H 34 H 31 H Blood Pressure 136/56 L 133/63 Pulse Oximetry 100 100 100 06/07/18 11:01 06/07/18 11:11 06/07/18 11:16 Temperature Pulse Rate 47 L 68 Respiratory Rate 33 H 20 23 Blood Pressure 144/71 H 143/70 H Pulse Oximetry 100 100 100 Intake & Output 06/06/18 06/07/18 06/07/18 18:59 06:59 18:59 Intake Total 1262.5 / 1262.5 1747.5 / 1747.5 149.5 / 149.5 Output Total 1650 / 1650 485 / 485 Balance -387.5 / -387.5 1262.5 / 1262.5 149.5 / 149.5 Weight 59.3 kg Intake: IV 1262.5 / 1262.5 1747.5 / 1747.5 149.5 / 149.5 Heparin/D5W 25,000 U/250 mL 25, 250 / 250 67 / 67 000 unit In 250 ml @ Per Protocol IV.CONT TITRATE PRN Rx #:[id number] Primacor Inj 20 MG In NS Inj 80 100 / 100 175 / 175 25 / 25 ML @ 0.375 MCG/KG/MIN 6.88 mls /hr IV.CONT .[id number] [facility] Rx#: [id number] Diprivan 1000 mg/100 ml Inj 1, 100 / 100 142.5 / 142.5 57.5 / 57.5 000 mg In 100 ml @ 5 MCG/KG/MIN 1.837 mls/hr IV.CONT TITRATE PRN Rx#:[id number] NS Inj 1,000 ML @ 75 mls/hr IV. 125 / 125 CONT .[id number] [facility] Rx#:[id number] Diflucan 400 mg Premix Bag 200 200 / 200 ML @ 100 mls/hr IV.SIG Q24H [facility] Rx#:[id number] Levophed-Dextrose 4 mg/250 ml 250 / 250 505 / 505 Drip 4 mg In 250 ml @ 2 MCG/MIN 7.5 mls/hr IV.SIG TITRATE PRN Rx#:[id number] Zosyn 3.375 GM Premix 3.375 gm 100 / 100 100 / 100 In 50 ml @ 100 mls/hr IV.SIG Q6H [facility] Rx#:[id number] KCl 40 mEq Premix Inj 40 meq In 200 / 200 100 ml @ 25 mls/hr IV.SIG Q2H PRN Rx#:[id number] Vancomycin Inj 1,000 MG In NS 250 / 250 Inj 250 ML @ 250 mls/hr IV.SIG Q12H [facility] Rx#:[id number] Vancomycin Inj 1,250 MG In NS 262.5 / 262.5 Inj 250 ML @ 250 mls/hr IV.SIG Q24H [facility] Rx#:[id number] fentaNYL 10 mcg/mL Premix Drip 183 / 183 67 / 67 2,500 mcg In 250 ml @ 50 MCG/HR 5 mls/hr IV.SIG TITRATE PRN Rx #:[id number] Output: Urine Amount (Catheter) 1500 / 1500 245 / 245 Indwelling Temp Sensing 1500 / 1500 245 / 245 Catheter Gastric Drainage 150 / 150 200 / 200 Orogastric Tube 150 / 150 200 / 200 Chest Tube Drainage 0 / 0 40 / 40 Left 0 / 0 40 / 40 Result Diagrams: 06/07/18 05:55 06/07/18 05:55 Objective Remarks: GENERAL: Frail middle-age man who appears much older than stated age, lying in bed, intubated, sedated, critically ill. HEENT: Normocephalic. Atraumatic. Pupils equal, round, reactive, conjugate. Mucous membranes are moist NECK: Trachea is midline. -JVD today. CHEST: equal chest rise. Subcu emphysema over the left anterior chest wall, improving. PRVC. PEEP 5. fio2 40%. left chest tube with minimal serosanguinous output, to suction. no air leak. CARDIOVASCULAR: Tachycardic rate, regular rhythm. Sinus. milrinone at 0.5 mcg/ kg/min. norepinephrine at 9 mcg/min. ABDOMEN: Soft, nontender, nondistended. No guarding. MUSCULOSKELETAL: Radial pulses are 1+. There are absent bilateral pulses in the lower extremities, though he now has Dopplerable signals in the bilateral lower extremities. improved perfusion with much less mottling than yesterday. no longer any demarkation of the LE perfusion. NEUROLOGICAL: RASS -2. Follows commands in all 4 extremities. No focal deficits. Assessment and Plan - Assessment and Plan Plan: Assessment: 67yM with left rib fracture, pneumothorax, and critical limb ischemia, complicated by multiple shock states including acute NSTEMI with cardiogenic shock, septic shock with gram negative yojana bacteremia, pelvic abscesses. Critically ill with ongoing shock from multiple etiologies. I have asked palliative to consult to assist with goals of care, since we are unable to rapidly intervene on his cardiogenic shock, we are unable to operatively gain source control over his septic shock, and we cannot address his critical peripheral vascular disease due to his shock states. He remains critically ill with an overall quite poor prognosis. Plan by systems: Neurologic: Acute metabolic encephalopathy - avoid sedatives - frequent neuro checks - propofol for goal RASS -2. Respiratory: COPD Left sided rib fractures Left pneumothorax Acute hypoxic and hypercarbic respiratory failure intubated 06/05 for resp failure. - wean fio2 for goal spo2 > 90% Vent bundle Nebs Head of bed elevated - keep chest tube to suction - CXR in AM Cardiovascular: Elevated troponin NSTEMI with cardiogenic shock Septic shock new acute ischemic cardiomyopathy, EF 20% Trend troponins Status post 4 L crystalloid boluses Heparin drip ASA Renal: Acute kidney injury- improving Loja for hourly urine outputs Trend daily creatinine -- Strict I/Os FEN/GI: Acute protein calorie malnutritionsevere Lactic acidosis- persistent Severe anion gap metabolic acidosis N.p.o. while in shock ICU electrolyte protocol Status post 4 L crystalloid bolus Daily CMP, magnesium, phosphorus Heme/ID: Critical limb ischemia pelvic abscesses Gram negative yojana bacteremia Heparin drip Trend lactates continue zosyn, vancomycin 06/05 blood cultures 3/4 bottles Klebsiella, sensitivities to follow. repeat blood cultures today, 2/18 Daily CBC Watch closely for bleeding from the chest tube Endocrine: Hyperglycemia of critical illness -- SSI, medium scale, every 6 Prophylaxis: GI Prophylaxis Pepcid IV DVT Prophylaxis -- SCDs Heparin infusion Lines: 06/05 left radial arterial line 06/05 left subclavian triple-lumen catheter 06/05 Loja 06/05 left-sided 32 Kisw[place]ili chest tube Dispo: remain in ICU. Critically ill. This patient remains critically ill with one or more organ systems which are or may become a threat to life. I have spent in excess of 49 minutes discontinuously in the care and management of this patient. This time is exclusive of procedures, and includes, but is not limited to, evaluation of the patient, review of the medical record, discussions with family, consultants, nursing staff, or respiratory therapy, and documentation in the medical record.
--- NOTE | 2018-06-07 14:37 | P.PNGS ---
Subjective Interval history: Intubated/Sedated On Levophed and Milrinone Chest tube in place Physical Exam Vital signs: Vital Signs 06/06/18 14:35 06/06/18 15:00 06/06/18 15:35 Temperature 96.8 F L 97.0 F L 96.8 F L Pulse Rate 65 56 L 52 L Respiratory Rate 21 23 20 Blood Pressure 109/55 L 100/54 L Pulse Oximetry 97 97 97 06/06/18 16:00 06/06/18 16:35 06/06/18 17:00 Temperature 96.6 F L 96.4 F L 96.8 F L Pulse Rate 56 L 52 L 73 Respiratory Rate 20 20 20 Blood Pressure 106/57 L Pulse Oximetry 97 97 97 06/06/18 17:35 06/06/18 17:41 06/06/18 17:46 Temperature 97.3 F L Pulse Rate 64 57 L Respiratory Rate 20 20 20 Blood Pressure 102/55 L Pulse Oximetry 100 100 06/06/18 18:00 06/06/18 18:35 06/06/18 19:00 Temperature 97.3 F L 97.2 F L 96.8 F L Pulse Rate 53 L 52 L 52 L Respiratory Rate 20 26 H 29 H Blood Pressure 108/58 L Pulse Oximetry 100 100 100 06/06/18 19:35 06/06/18 19:58 06/06/18 20:00 Temperature 96.6 F L Pulse Rate 51 L 62 61 Respiratory Rate 29 H 20 35 H Blood Pressure 118/59 L Pulse Oximetry 100 100 100 06/06/18 20:35 06/06/18 21:00 06/06/18 21:35 Temperature 98.9 F Pulse Rate 86 48 L 50 L Respiratory Rate 23 21 Blood Pressure 126/64 125/61 Pulse Oximetry 100 99 99 06/06/18 22:00 06/06/18 22:35 06/06/18 23:00 Temperature 97.4 F L Pulse Rate 51 L 52 L 53 L Respiratory Rate 17 17 Blood Pressure 126/61 Pulse Oximetry 100 100 100 06/06/18 23:17 06/06/18 23:35 06/07/18 00:00 Temperature Pulse Rate 53 L 66 52 L Respiratory Rate 20 20 20 Blood Pressure 141/63 H Pulse Oximetry 100 100 100 06/07/18 00:35 06/07/18 01:00 06/07/18 01:35 Temperature Pulse Rate 48 L 49 L 47 L Respiratory Rate 20 20 20 Blood Pressure 128/59 L 130/60 Pulse Oximetry 100 100 100 06/07/18 02:00 06/07/18 02:35 06/07/18 03:00 Temperature Pulse Rate 50 L 49 L 48 L Respiratory Rate 20 Blood Pressure 142/65 H Pulse Oximetry 100 100 100 06/07/18 03:12 06/07/18 03:14 06/07/18 03:35 Temperature 97.5 F L Pulse Rate 50 L 53 L 49 L Respiratory Rate 20 Blood Pressure 178/84 H 139/62 139/64 Pulse Oximetry 100 100 100 06/07/18 03:49 06/07/18 04:00 06/07/18 04:35 Temperature Pulse Rate 49 L 80 47 L Respiratory Rate 20 17 Blood Pressure 120/59 L Pulse Oximetry 100 99 100 06/07/18 05:00 06/07/18 05:35 06/07/18 06:00 Temperature Pulse Rate 49 L 49 L 48 L Respiratory Rate 20 Blood Pressure 137/65 Pulse Oximetry 100 100 100 06/07/18 06:35 06/07/18 06:43 06/07/18 06:45 Temperature 95.7 F L 95.7 F L 95.7 F L Pulse Rate 48 L 52 L 59 L Respiratory Rate 25 H 24 20 Blood Pressure 129/60 79/46 L 123/61 Pulse Oximetry 100 97 96 06/07/18 06:46 06/07/18 07:00 06/07/18 07:01 Temperature 95.7 F L 95.7 F L 95.7 F L Pulse Rate 53 L 49 L 49 L Respiratory Rate 23 28 H 28 H Blood Pressure 134/68 135/69 Pulse Oximetry 100 100 100 06/07/18 07:16 06/07/18 07:31 06/07/18 07:46 Temperature 95.9 F L 95.9 F L 95.9 F L Pulse Rate 50 L 49 L 50 L Respiratory Rate 25 H 28 H 28 H Blood Pressure 134/63 133/63 141/65 H Pulse Oximetry 100 100 100 06/07/18 07:52 06/07/18 08:00 06/07/18 08:01 Temperature 95.5 F L 95.5 F L Pulse Rate 48 L 46 L Respiratory Rate 20 19 26 H Blood Pressure 138/60 Pulse Oximetry 100 100 100 06/07/18 08:16 06/07/18 08:31 06/07/18 08:46 Temperature 96.1 F L 95.9 F L Pulse Rate 68 48 L 48 L Respiratory Rate 21 28 H 27 H Blood Pressure 155/72 H 135/57 L 134/63 Pulse Oximetry 100 100 100 06/07/18 09:00 06/07/18 09:01 06/07/18 09:16 Temperature Pulse Rate 48 L 48 L 49 L Respiratory Rate 28 H 27 H 25 H Blood Pressure 147/70 H 144/61 H Pulse Oximetry 100 100 100 06/07/18 09:31 06/07/18 09:46 06/07/18 10:00 Temperature Pulse Rate 48 L 48 L 51 L Respiratory Rate 21 21 22 Blood Pressure 141/68 H 149/71 H Pulse Oximetry 100 100 100 06/07/18 10:01 06/07/18 10:16 06/07/18 10:31 Temperature Pulse Rate 45 L 47 L 47 L Respiratory Rate 27 H 33 H 28 H Blood Pressure 150/71 H 156/70 H 136/56 L Pulse Oximetry 100 100 100 06/07/18 10:46 06/07/18 11:00 06/07/18 11:01 Temperature Pulse Rate 46 L 47 L 47 L Respiratory Rate 34 H 31 H 33 H Blood Pressure 133/63 144/71 H Pulse Oximetry 100 100 100 06/07/18 11:11 06/07/18 11:16 06/07/18 11:31 Temperature Pulse Rate 68 44 L Respiratory Rate 20 23 29 H Blood Pressure 143/70 H 101/55 L Pulse Oximetry 100 100 100 06/07/18 11:46 06/07/18 12:00 06/07/18 12:01 Temperature 98.8 F Pulse Rate 64 69 61 Respiratory Rate 35 H 25 H 30 H Blood Pressure 125/62 122/64 Pulse Oximetry 100 06/07/18 12:16 06/07/18 12:31 06/07/18 12:39 Temperature Pulse Rate 56 L 58 L Respiratory Rate 17 10 L Blood Pressure 122/65 126/61 Pulse Oximetry 100 100 06/07/18 12:46 06/07/18 13:00 06/07/18 13:01 Temperature 97.4 F L Pulse Rate 77 74 79 Respiratory Rate 26 H 16 16 Blood Pressure 124/58 L 132/68 Pulse Oximetry 100 99 99 06/07/18 13:16 06/07/18 13:31 06/07/18 13:46 Temperature 95.7 F L 95.7 F L Pulse Rate 64 65 59 L Respiratory Rate 11 L 10 L 11 L Blood Pressure 118/61 116/57 L 120/60 Pulse Oximetry 99 98 99 06/07/18 14:00 06/07/18 14:01 Temperature Pulse Rate 79 80 Respiratory Rate 20 21 Blood Pressure 134/64 Pulse Oximetry 99 99 Intake & Output 06/06/18 06/07/18 06/07/18 18:59 06:59 18:59 Intake Total 1262.5 / 1262.5 1747.5 / 1747.5 149.5 / 149.5 Output Total 1650 / 1650 485 / 485 Balance -387.5 / -387.5 1262.5 / 1262.5 149.5 / 149.5 Weight 59.3 kg Intake: IV 1262.5 / 1262.5 1747.5 / 1747.5 149.5 / 149.5 Heparin/D5W 25,000 U/250 mL 25, 250 / 250 67 / 67 000 unit In 250 ml @ Per Protocol IV.CONT TITRATE PRN Rx #:[id number] Primacor Inj 20 MG In NS Inj 80 100 / 100 175 / 175 25 / 25 ML @ 0.375 MCG/KG/MIN 6.88 mls /hr IV.CONT .[id number] [facility] Rx#: [id number] Diprivan 1000 mg/100 ml Inj 1, 100 / 100 142.5 / 142.5 57.5 / 57.5 000 mg In 100 ml @ 5 MCG/KG/MIN 1.837 mls/hr IV.CONT TITRATE PRN Rx#:[id number] NS Inj 1,000 ML @ 75 mls/hr IV. 125 / 125 CONT .[id number] [facility] Rx#:[id number] Diflucan 400 mg Premix Bag 200 200 / 200 ML @ 100 mls/hr IV.SIG Q24H [facility] Rx#:[id number] Levophed-Dextrose 4 mg/250 ml 250 / 250 505 / 505 Drip 4 mg In 250 ml @ 2 MCG/MIN 7.5 mls/hr IV.SIG TITRATE PRN Rx#:[id number] Zosyn 3.375 GM Premix 3.375 gm 100 / 100 100 / 100 In 50 ml @ 100 mls/hr IV.SIG Q6H [facility] Rx#:[id number] KCl 40 mEq Premix Inj 40 meq In 200 / 200 100 ml @ 25 mls/hr IV.SIG Q2H [facility]N Rx#:[id number] Vancomycin Inj 1,000 MG In NS 250 / 250 Inj 250 ML @ 250 mls/hr IV.SIG Q12H [facility] Rx#:[id number] Vancomycin Inj 1,250 MG In NS 262.5 / 262.5 Inj 250 ML @ 250 mls/hr IV.SIG Q24H [facility] Rx#:[id number] fentaNYL 10 mcg/mL Premix Drip 183 / 183 67 / 67 2,500 mcg In 250 ml @ 50 MCG/HR 5 mls/hr IV.SIG TITRATE PRN Rx #:[id number] Output: Urine Amount (Catheter) 1500 / 1500 245 / 245 Indwelling Temp Sensing 1500 / 1500 245 / 245 Catheter Gastric Drainage 150 / 150 200 / 200 Orogastric Tube 150 / 150 200 / 200 Chest Tube Drainage 0 / 0 40 / 40 Left 0 / 0 40 / 40 Narrative: Alert and awake Abd: distended. Non tender Chest tube in place - Urinary Catheter Management Indwelling Temp Sensing Catheter Cath placed during this visit: no Results - Labs 06/07/18 05:55 06/07/18 05:55 Laboratory Results - last 24 hr 06/05/18 06/06/18 06/06/18 18:50 17:23 23:26 WBC RBC Hgb Hct MCV MCH MCHC RDW Plt Count MPV Neut % (Auto) Lymph % (Auto) Conway % (Auto) Eos % (Auto) Baso % (Auto) Neut # (Auto) Lymph # (Auto) Conway # (Auto) Eos # (Auto) Baso # (Auto) WBC Differential Differential Comment PT INR APTT Puncture Site Patient Temperature O2 Saturation ABG pH ABG pCO2 ABG pO2 ABG HCO3 ABG O2 Content ABG Base Excess ABG Methemoglobin Hemoglobin Carboxyhemoglobin O2 Delivery Device Vent Setting Inspired O2 Critical Value Sodium Potassium Chloride Carbon Dioxide Anion Gap BUN Creatinine Estimated GFR POC Glucose 146 H 200 H Random Glucose Calcium Phosphorus Magnesium Total Bilirubin AST ALT Alkaline Phosphatase Total Creatine Kinase B-Natriuretic Peptide Total Protein Albumin Urine Color Yellow Urine Clarity Hazy H Urine pH 5.0 Ur Specific Koppel 1.047 H Urine Protein 30 H Urine Glucose (UA) 50 Urine Ketones Trace H Urine Occult Blood Small H Urine Nitrate Negative Urine Bilirubin Negative Urine Urobilinogen Less than 2 Ur Leukocyte Esterase Large H Urine RBC 32 H Urine WBC Urine WBC Clumps Few H Ur Squamous Epith Cells <1 Urine Bacteria Few H Micro UA Comment Cath-culture ind Urine Culture Comments Cath-cult indicated 06/07/18 06/07/18 06/07/18 05:39 05:51 05:55 WBC RBC Hgb Hct MCV MCH MCHC RDW Plt Count MPV Neut % (Auto) Lymph % (Auto) Conway % (Auto) Eos % (Auto) Baso % (Auto) Neut # (Auto) Lymph # (Auto) Conway # (Auto) Eos # (Auto) Baso # (Auto) WBC Differential Differential Comment PT INR APTT Puncture Site Art line Patient Temperature 98.6 O2 Saturation 97 ABG pH 7.45 H ABG pCO2 30 L ABG pO2 186 H ABG HCO3 20 L ABG O2 Content 15.2 ABG Base Excess -3.4 L ABG Methemoglobin 1.2 Hemoglobin 10.8 L Carboxyhemoglobin 1.1 O2 Delivery Device Ventilator Vent Setting Prvc/ac Inspired O2 40 Critical Value No Sodium 142 Potassium 3.9 Chloride 112 H Carbon Dioxide 20.2 L Anion Gap 10 BUN 16 Creatinine 0.99 Estimated GFR 75 L POC Glucose 161 H Random Glucose 145 H D Calcium 7.9 L Phosphorus 2.8 Magnesium 1.9 Total Bilirubin 0.3 AST 26 ALT 18 Alkaline Phosphatase 61 Total Creatine Kinase 252 B-Natriuretic Peptide Total Protein 6.9 Albumin 2.3 L Urine Color Urine Clarity Urine pH Ur Specific Koppel Urine Protein Urine Glucose (UA) Urine Ketones Urine Occult Blood Urine Nitrate Urine Bilirubin Urine Urobilinogen Ur Leukocyte Esterase Urine RBC Urine WBC Urine WBC Clumps Ur Squamous Epith Cells Urine Bacteria Micro UA Comment Urine Culture Comments 06/07/18 06/07/18 06/07/18 05:55 05:55 05:55 WBC 21.8 H RBC 3.46 L Hgb 9.6 L Hct 29.2 L MCV 84.5 MCH 27.8 MCHC 32.9 RDW 18.8 H Plt Count 314 MPV 7.3 Neut % (Auto) 86.7 H Lymph % (Auto) 6.6 L Conway % (Auto) 6.6 Eos % (Auto) 0.0 Baso % (Auto) 0.1 Neut # (Auto) 18.9 H Lymph # (Auto) 1.4 Conway # (Auto) 1.4 H Eos # (Auto) 0.0 Baso # (Auto) 0.0 WBC Differential . Differential Comment Auto diff final PT 10.1 INR 1.0 APTT 35.7 H D Puncture Site Patient Temperature O2 Saturation ABG pH ABG pCO2 ABG pO2 ABG HCO3 ABG O2 Content ABG Base Excess ABG Methemoglobin Hemoglobin Carboxyhemoglobin O2 Delivery Device Vent Setting Inspired O2 Critical Value Sodium Potassium Chloride Carbon Dioxide Anion Gap BUN Creatinine Estimated GFR POC Glucose Random Glucose Calcium Phosphorus Magnesium Total Bilirubin AST ALT Alkaline Phosphatase Total Creatine Kinase B-Natriuretic Peptide 225 H Total Protein Albumin Urine Color Urine Clarity Urine pH Ur Specific Koppel Urine Protein Urine Glucose (UA) Urine Ketones Urine Occult Blood Urine Nitrate Urine Bilirubin Urine Urobilinogen Ur Leukocyte Esterase Urine RBC Urine WBC Urine WBC Clumps Ur Squamous Epith Cells Urine Bacteria Micro UA Comment Urine Culture Comments 06/07/18 13:42 WBC RBC Hgb Hct MCV MCH MCHC RDW Plt Count MPV Neut % (Auto) Lymph % (Auto) Conway % (Auto) Eos % (Auto) Baso % (Auto) Neut # (Auto) Lymph # (Auto) Conway # (Auto) Eos # (Auto) Baso # (Auto) WBC Differential Differential Comment PT INR APTT Puncture Site Patient Temperature O2 Saturation ABG pH ABG pCO2 ABG pO2 ABG HCO3 ABG O2 Content ABG Base Excess ABG Methemoglobin Hemoglobin Carboxyhemoglobin O2 Delivery Device Vent Setting Inspired O2 Critical Value Sodium Potassium Chloride Carbon Dioxide Anion Gap BUN Creatinine Estimated GFR POC Glucose 115 H Random Glucose Calcium Phosphorus Magnesium Total Bilirubin AST ALT Alkaline Phosphatase Total Creatine Kinase B-Natriuretic Peptide Total Protein Albumin Urine Color Urine Clarity Urine pH Ur Specific Koppel Urine Protein Urine Glucose (UA) Urine Ketones Urine Occult Blood Urine Nitrate Urine Bilirubin Urine Urobilinogen Ur Leukocyte Esterase Urine RBC Urine WBC Urine WBC Clumps Ur Squamous Epith Cells Urine Bacteria Micro UA Comment Urine Culture Comments - Imaging Imaging: ITS Impressions Aorta w/Runoff CTA 06/05/18 11:45 CONCLUSION: 1. Extensive peripheral vascular disease with multifocal areas of narrowing/ occlusion as above. Chest CT 06/05/18 11:45 CONCLUSION: 1. Small left-sided pneumothorax and hemothorax. 2. Acute left fifth rib fracture. 3. Emphysema. Chest X-Ray 06/06/18 05:00 CONCLUSION: Slightly improved aeration Assessment and Plan - Assessment (1) Diverticulitis of colon with perforation Code(s): K57.20 - Diverticulitis of large intestine with perforation and abscess without bleeding Status: Acute Plan: 67 year old male with recent fall---rib fractures/PTX; NETEMI; -Continues to require Levophed/Milrinone drips from BP support -Vent per CCM -Will get GI involved to scope patient once stable -Palliative consulted (2) Dilated cardiomyopathy Code(s): I42.0 - Dilated cardiomyopathy Status: Acute (3) Elevated troponin Code(s): R74.8 - Abnormal levels of other serum enzymes Status: Acute (4) Hypotension Code(s): I95.9 - Hypotension, unspecified Status: Acute (1) Diverticulitis of colon with perforation Qualifiers: Diverticulitis bleeding: without bleeding Qualified Code(s): K57.20 - Diverticulitis of large intestine with perforation and abscess without bleeding (4) Hypotension Qualifiers: Hypotension type: unspecified hypotension type Qualified Code(s): I95.9 - Hypotension, unspecified
--- NOTE | 2018-06-07 16:47 | ECG ---
Date Performed: 06/07/2018 Time Performed: 07:46:02 PTAGE: 67 years EKG: Sinus bradycardia Possible anterior infarct - age undetermined Inferior/lateral ST-T change s may be due to myocardial ischemia Low QRS voltages in limb leads Abnormal ECG Compared to PREVIOUS TRACING , loss of R-wave V3 with marked T-wave changes. Cannot rule out acute in jury. Clinical correlation strongly recommended. Could also represent electrolyte abnormality. PREVIO US TRACIN06/05/2018 10.59.46 DOCTOR: Hugo Still Interpretating Date/Time 06/07/2018 16:46:17
[2018-06-08] MEDS: Insulin NovoLIN Regular Correctional Sugar Inj SQ SCH ×3 (00:37→12:24)
[2018-06-08] MEDS: Milrinone Inj 20 MG in Sodium Chlor 0.9% Inj 80 ML IV.CONT SCH ×3 (00:57→13:43)
[2018-06-08] MEDS: Morphine Sulfate Inj 2 MG/ML Vial IV.PUSH PRN ×4 (02:05→21:26)
[2018-06-08] MEDS: Piperacil/Tazo 3.375 GM Premix 3.375 GM/50 ML PIGGYBACK IV.SIG SCH ×4 (02:38→21:25)
[2018-06-08] MEDS: Oral Hygiene Kit OROPHARYNG SCH ×3 (04:29→15:19)
[2018-06-08] MEDS: Chlorhexidine Gluconate 2% 1 Pack (2 Cloths) TOPICAL SCH (04:29)
[2018-06-08 05:12] LABS: ABG PCO2 40 mmHg (38-42); ABG PO2 67 mmHg (61-120)
[2018-06-08 06:48] LABS: Baso % (Auto) 0.1 % (0.0-2.0); Eos % (Auto) 0.2 % (0.0-4.0); Hematocrit 25.9 % (39.0-51.0); Hemoglobin 8.7 gm/dL (13.0-17.0); Lymph # (Auto) 2.1 th/mm3 (1.0-4.8); Lymph % (Auto) 19.2 % (9.0-44.0); Mean Corpuscular HGB Conc 33.6 % (32.0-36.0); Mean Corpuscular Hemoglobin 28.2 pg (27.0-34.0); Mean Corpuscular Volume 83.9 fL (80.0-100.0); Mean Platelet Volume 7.4 fL (7.0-11.0); Mono # (Auto) 0.5 th/mm3 (0.0-0.9); Mono % (Auto) 4.9 % (0.0-8.0); Neut # (Auto) 8.1 th/mm3 (1.8-7.7); Neut % (Auto) 75.6 % (16.0-70.0); Platelet Count 233 th/mm3 (150-450); Red Blood Count 3.09 mil/mm3 (4.50-5.90); Red Cell Distribution Width 18.9 % (11.6-17.2); White Blood Count 10.7 th/mm3 (4.0-11.0)
[2018-06-08 06:57] LABS: Prothrombin Time 10.6 sec (9.8-11.6)
[2018-06-08 07:16] LABS: Alanine Aminotransferase 16 U/L (12-78); Albumin 2.2 g/dL (3.4-5.0); Anion Gap 7 meq/L (5-15); Aspartate Aminotransferase 21 U/L (15-37); Blood Urea Nitrogen 11 mg/dL (7-18); Calcium 7.8 mg/dL (8.5-10.1); Carbon Dioxide 26.2 meq/L (21.0-32.0); Chloride 114 meq/L (98-107); Glomerular Filtration Rate Greater Than 89 mL/min (>89); Glucose,Random 69 mg/dL (74-106); Magnesium 1.9 mg/dL (1.5-2.5); Phosphorus 3.3 mg/dL (2.5-4.9); Potassium 3.3 meq/L (3.5-5.1); Sodium 147 meq/L (136-145)
[2018-06-08 07:19] LABS: Alkaline Phosphatase 53 U/L (45-117); Total Protein 6.1 g/dL (6.4-8.2)
--- NOTE | 2018-06-08 08:32 | P.PNCA ---
Subjective Interval history: Denies dyspnea, CP, dizziness, palpitations, abdominal pain, nausea. Medications and Allergies Active Medications: Active Cardiac Medications Aspirin (Aspirin Chew) 81 mg PO DAILY [facility] Last Admin: 06/07/18 09:47 Dose: Not Given Hydralazine HCl (Apresoline Inj) 10 mg IV.PUSH Q30M PRN PRN Reason: sbp > 160, dbp > 95 Heparin Sodium/Dextrose (Heparin/D5w 25,000 U/250 Ml) 25,000 unit in 250 mls @ 0 mls/hr IV.CONT TITRATE PRN; Protocol PRN Reason: Per Protocol Last Admin: 06/07/18 20:39 Dose: 1,000 units/hr, 10 mls/hr Milrinone Lactate 20 mg/ (Sodium Chloride) 100 mls @ 6.88 mls/hr IV.CONT .[id number] [facility] Last Admin: 06/08/18 02:38 Dose: Not Given Norepinephrine Bitartrate (Levophed-Dextrose 4 Mg/250 Ml Drip) 4 mg in 250 mls @ 7.5 mls/hr IV.SIG TITRATE PRN; Protocol PRN Reason: Per Protocol Last Titration: 06/07/18 10:31 Dose: 7 mcg/min, 26.25 mls/hr Vasopressin 40 unit/ Dextrose 100 mls @ 6 mls/hr IV.CONT TITRATE PRN; Protocol PRN Reason: Per Protocol Labetalol HCl (Trandate Inj) 10 mg IV.PUSH Q20M PRN PRN Reason: SBP > 160 DBP > 95 Allergies Allergy/AdvReac Type Severity Reaction Status Date / Time *MDRO Multi-Drug Resistant AdvReac Unknown Uncoded 02/20/16 09:24 Organism Physical Exam Vital signs: Vital Signs 06/07/18 08:31 06/07/18 08:46 06/07/18 09:00 Temperature 95.9 F L Pulse Rate 48 L 48 L 48 L Respiratory Rate 28 H 27 H 28 H Blood Pressure 135/57 L 134/63 Pulse Oximetry 100 100 100 06/07/18 09:01 06/07/18 09:16 06/07/18 09:31 Temperature Pulse Rate 48 L 49 L 48 L Respiratory Rate 27 H 25 H 21 Blood Pressure 147/70 H 144/61 H 141/68 H Pulse Oximetry 100 100 100 06/07/18 09:46 06/07/18 10:00 06/07/18 10:01 Temperature Pulse Rate 48 L 51 L 45 L Respiratory Rate 21 22 27 H Blood Pressure 149/71 H 150/71 H Pulse Oximetry 100 100 100 06/07/18 10:16 06/07/18 10:31 06/07/18 10:46 Temperature Pulse Rate 47 L 47 L 46 L Respiratory Rate 33 H 28 H 34 H Blood Pressure 156/70 H 136/56 L 133/63 Pulse Oximetry 100 100 100 06/07/18 11:00 06/07/18 11:01 06/07/18 11:11 Temperature Pulse Rate 47 L 47 L Respiratory Rate 31 H 33 H 20 Blood Pressure 144/71 H Pulse Oximetry 100 100 100 06/07/18 11:16 06/07/18 11:31 06/07/18 11:46 Temperature Pulse Rate 68 44 L 64 Respiratory Rate 23 29 H 35 H Blood Pressure 143/70 H 101/55 L 125/62 Pulse Oximetry 100 100 100 06/07/18 12:00 06/07/18 12:01 06/07/18 12:16 Temperature 98.8 F Pulse Rate 69 61 56 L Respiratory Rate 25 H 30 H 17 Blood Pressure 122/64 122/65 Pulse Oximetry 06/07/18 12:31 06/07/18 12:39 06/07/18 12:46 Temperature Pulse Rate 58 L 77 Respiratory Rate 10 L 26 H Blood Pressure 126/61 124/58 L Pulse Oximetry 100 100 100 06/07/18 13:00 06/07/18 13:01 06/07/18 13:16 Temperature 97.4 F L 95.7 F L Pulse Rate 74 79 64 Respiratory Rate 16 16 11 L Blood Pressure 132/68 118/61 Pulse Oximetry 99 99 99 06/07/18 13:31 06/07/18 13:46 06/07/18 14:00 Temperature 95.7 F L Pulse Rate 65 59 L 79 Respiratory Rate 10 L 11 L 20 Blood Pressure 116/57 L 120/60 Pulse Oximetry 98 99 99 06/07/18 14:01 06/07/18 14:16 06/07/18 14:19 Temperature Pulse Rate 80 74 62 Respiratory Rate 21 15 11 L Blood Pressure 134/64 133/66 130/65 Pulse Oximetry 99 98 99 02/18/19 14:46 06/07/18 15:00 06/07/18 15:01 Temperature Pulse Rate 59 L 69 70 Respiratory Rate 10 L 13 20 Blood Pressure 93/55 L 122/58 L Pulse Oximetry 98 99 99 06/07/18 15:16 06/07/18 15:31 06/07/18 15:46 Temperature Pulse Rate 66 79 78 Respiratory Rate 9 L 21 13 Blood Pressure 134/68 113/58 L 122/64 Pulse Oximetry 100 98 98 06/07/18 16:00 06/07/18 16:01 06/07/18 16:16 Temperature Pulse Rate 71 75 82 Respiratory Rate 14 20 17 Blood Pressure 130/60 122/61 Pulse Oximetry 98 98 99 06/07/18 16:31 06/07/18 16:46 06/07/18 17:00 Temperature Pulse Rate 79 84 75 Respiratory Rate 14 20 13 Blood Pressure 125/66 121/65 Pulse Oximetry 98 98 98 06/07/18 17:01 06/07/18 17:16 06/07/18 17:31 Temperature 97.6 F Pulse Rate 79 79 70 Respiratory Rate 16 19 19 Blood Pressure 109/59 L 116/57 L 114/59 L Pulse Oximetry 98 98 98 06/07/18 17:46 06/07/18 18:00 06/07/18 18:01 Temperature 97.8 F Pulse Rate 70 72 71 Respiratory Rate 17 20 15 Blood Pressure 117/68 117/63 Pulse Oximetry 98 98 98 06/07/18 18:16 06/07/18 18:31 06/07/18 18:46 Temperature Pulse Rate 72 69 81 Respiratory Rate 18 16 20 Blood Pressure 115/55 L 122/58 L 127/61 Pulse Oximetry 98 98 98 06/07/18 19:00 06/07/18 19:01 06/07/18 19:16 Temperature Pulse Rate 68 70 65 Respiratory Rate 25 H 26 H 21 Blood Pressure 115/59 L 120/62 Pulse Oximetry 98 98 98 06/07/18 19:31 06/07/18 19:43 06/07/18 19:46 Temperature 97.9 F Pulse Rate 75 71 Respiratory Rate 16 15 Blood Pressure 123/58 L 136/66 Pulse Oximetry 98 98 99 06/07/18 20:00 06/07/18 20:01 06/07/18 20:16 Temperature Pulse Rate 68 78 80 Respiratory Rate 18 23 16 Blood Pressure 125/69 131/67 Pulse Oximetry 98 97 98 06/07/18 20:31 06/07/18 20:46 06/07/18 21:00 Temperature Pulse Rate 71 73 92 H Respiratory Rate 19 16 26 H Blood Pressure 128/61 152/70 H Pulse Oximetry 98 98 96 06/07/18 21:01 06/07/18 21:16 06/07/18 21:31 Temperature Pulse Rate 91 H 86 82 Respiratory Rate 20 19 18 Blood Pressure 138/67 138/69 116/67 Pulse Oximetry 96 97 96 06/07/18 21:46 06/07/18 22:00 06/07/18 22:01 Temperature Pulse Rate 76 89 89 Respiratory Rate 17 17 21 Blood Pressure 118/62 113/57 L Pulse Oximetry 96 96 96 06/07/18 23:00 06/07/18 23:06 06/07/18 23:48 Temperature 97.4 F L Pulse Rate 79 72 67 Respiratory Rate 18 17 18 Blood Pressure 122/56 L Pulse Oximetry 96 97 06/08/18 00:00 06/08/18 00:37 06/08/18 00:45 Temperature Pulse Rate 94 H 81 90 Respiratory Rate 17 17 19 Blood Pressure 102/56 L 101/59 L Pulse Oximetry 96 95 95 06/08/18 00:58 06/08/18 01:00 06/08/18 01:13 Temperature Pulse Rate 87 90 85 Respiratory Rate 19 19 16 Blood Pressure 104/64 114/59 L Pulse Oximetry 94 L 94 L 94 L 06/08/18 01:28 06/08/18 01:43 06/08/18 02:00 Temperature Pulse Rate 92 H 88 81 Respiratory Rate 21 19 17 Blood Pressure 106/56 L 104/58 L Pulse Oximetry 95 96 95 06/08/18 02:13 06/08/18 02:28 06/08/18 02:38 Temperature Pulse Rate 83 72 Respiratory Rate 17 14 12 Blood Pressure 110/58 L 105/56 L Pulse Oximetry 95 96 06/08/18 02:43 06/08/18 02:58 06/08/18 03:00 Temperature Pulse Rate 71 79 73 Respiratory Rate 13 19 17 Blood Pressure 107/55 L 111/60 Pulse Oximetry 96 96 96 06/08/18 03:13 06/08/18 03:28 06/08/18 03:43 Temperature Pulse Rate 78 76 81 Respiratory Rate 17 15 17 Blood Pressure 111/55 L 114/58 L 109/56 L Pulse Oximetry 95 96 96 06/08/18 03:58 06/08/18 04:00 06/08/18 04:11 Temperature Pulse Rate 68 67 83 Respiratory Rate 15 15 17 Blood Pressure 101/59 L Pulse Oximetry 95 95 06/08/18 04:13 06/08/18 04:28 06/08/18 04:43 Temperature 97.5 F L Pulse Rate 71 81 79 Respiratory Rate 14 15 17 Blood Pressure 112/61 115/66 103/56 L Pulse Oximetry 96 96 94 L 06/08/18 04:58 06/08/18 05:00 06/08/18 05:13 Temperature Pulse Rate 80 89 82 Respiratory Rate 16 25 H 18 Blood Pressure 111/55 L 109/56 L Pulse Oximetry 94 L 95 94 L 06/08/18 05:28 06/08/18 05:43 06/08/18 05:58 Temperature Pulse Rate 76 74 108 H Respiratory Rate 15 15 25 H Blood Pressure 111/56 L 106/57 L 143/80 H Pulse Oximetry 94 L 95 93 L 06/08/18 06:00 06/08/18 07:42 Temperature Pulse Rate 109 H 78 Respiratory Rate 23 17 Blood Pressure Pulse Oximetry 91 L 94 L Intake & Output 06/07/18 06/08/18 06/08/18 18:59 06:59 18:59 Intake Total 549.5 / 549.5 1173 / 1173 Output Total 650 / 650 2250 / 2250 Balance -100.5 / -100.5 -1077 / -1077 Weight 56 kg Intake: IV 549.5 / 549.5 1173 / 1173 Heparin/D5W 25,000 U/250 mL 25, 173 / 173 000 unit In 250 ml @ Per Protocol IV.CONT TITRATE PRN Rx #:[id number] Primacor Inj 20 MG In NS Inj 80 125 / 125 100 / 100 ML @ 0.375 MCG/KG/MIN 6.88 mls /hr IV.CONT .[id number] [facility] Rx#: [id number] Diprivan 1000 mg/100 ml Inj 1, 57.5 / 57.5 100 / 100 000 mg In 100 ml @ 5 MCG/KG/MIN 1.837 mls/hr IV.CONT TITRATE PRN Rx#:[id number] Diflucan 400 mg Premix Bag 200 200 / 200 ML @ 100 mls/hr IV.SIG Q24H [facility] Rx#:[id number] Zosyn 3.375 GM Premix 3.375 gm 50 / 50 100 / 100 In 50 ml @ 100 mls/hr IV.SIG Q6H [facility] Rx#:[id number] Vancomycin Inj 1,000 MG In NS 250 / 250 250 / 250 Inj 250 ML @ 250 mls/hr IV.SIG Q12H [facility] Rx#:[id number] fentaNYL 10 mcg/mL Premix Drip 67 / 67 250 / 250 2,500 mcg In 250 ml @ 50 MCG/HR 5 mls/hr IV.SIG TITRATE PRN Rx #:[id number] Output: Stool 0 / 0 Urine Amount (Catheter) 650 / 650 1650 / 1650 Indwelling Temp Sensing 650 / 650 1650 / 1650 Catheter Gastric Drainage 600 / 600 Orogastric Tube 600 / 600 Chest Tube Drainage 0 / 0 Left 0 / 0 Other: Date of Last Bowel Movement 06/07/18 - Constitutional no acute distress - Routine Neck Exam Absent: JVD - Routine Respiratory Exam Comments: Clear lungs anteriorly. - Routine Cardiovascular Exam Present: RRR, S1, S2. Absent: murmur, gallop - Routine Abdominal Exam Present: soft. Absent: normoactive bowel sounds, tenderness - Routine Extremities Exam Absent: cyanosis, clubbing, edema - Urinary Catheter Management Indwelling Temp Sensing Catheter Cath placed during this visit: no Results 06/08/18 05:50 06/08/18 05:50 Cardiac Enzymes 06/06/18 06/07/18 06/07/18 Range/Units 12:07 05:55 05:55 AST 26 (15-37) U/L CK-MB (CK-2) 16.4 H (0.5-3.6) ng/mL Troponin I 0.79 H* (0.02-0.05) ng/mL B-Natriuretic Peptide 225 H (0-100) pg/mL 06/08/18 06/08/18 Range/Units 05:50 05:50 AST 21 (15-37) U/L CK-MB (CK-2) (0.5-3.6) ng/mL Troponin I (0.02-0.05) ng/mL B-Natriuretic Peptide 597 H (0-100) pg/mL Coagulation 06/06/18 06/07/18 06/07/18 Range/Units 08:55 05:55 05:55 PT 10.1 (9.8-11.6) sec APTT 54.9 H 35.7 H D (23.4-31.7) sec B-Natriuretic Peptide 225 H (0-100) pg/mL 06/07/18 06/08/18 06/08/18 Range/Units 19:15 01:20 05:50 PT (9.8-11.6) sec APTT 35.5 H 43.8 H D (23.4-31.7) sec B-Natriuretic Peptide 597 H (0-100) pg/mL 06/08/18 Range/Units 05:50 PT 10.6 (9.8-11.6) sec APTT 39.0 H (23.4-31.7) sec B-Natriuretic Peptide (0-100) pg/mL CBC 06/07/18 06/08/18 Range/Units 05:55 05:50 WBC 21.8 H 10.7 D (4.0-11.0) th/mm3 RBC 3.46 L 3.09 L (4.50-5.90) mil/mm3 Hgb 9.6 L 8.7 L (13.0-17.0) gm/dL Hct 29.2 L 25.9 L (39.0-51.0) % Plt Count 314 233 (150-450) th/mm3 Neut # (Auto) 18.9 H 8.1 H (1.8-7.7) th/mm3 Lymph # (Auto) 1.4 2.1 (1.0-4.8) th/mm3 [place] # (Auto) 1.4 H 0.5 (0.0-0.9) th/mm3 Eos # (Auto) 0.0 0.0 (0.0-0.4) th/mm3 Baso # (Auto) 0.0 0.0 (0.0-0.2) th/mm3 Comprehensive Metabolic Panel 06/07/18 06/08/18 Range/Units 05:55 05:50 Sodium 142 147 H (136-145) meq/L Potassium 3.9 3.3 L (3.5-5.1) meq/L Chloride 112 H 114 H (98-107) meq/L Carbon Dioxide 20.2 L 26.2 (21.0-32.0) meq/L BUN 16 11 (7-18) mg/dL Creatinine 0.99 0.71 (0.60-1.30) mg/dL Calcium 7.9 L 7.8 L (8.5-10.1) mg/dL AST 26 21 (15-37) U/L ALT 18 16 (12-78) U/L Alkaline Phosphatase 61 53 (45-117) U/L Total Protein 6.9 6.1 L D (6.4-8.2) g/dL Albumin 2.3 L 2.2 L (3.4-5.0) g/dL Intake and Output 06/07/18 06/08/18 06/08/18 22:59 06:59 14:59 Intake Total 673 / 673 600 / 600 Output Total 650 / 650 2250 / 2250 Balance -1650 / -1650 Intake: IV 673 / 673 600 / 600 Heparin/D5W 25,000 U/250 mL 25, 173 / 173 000 unit In 250 ml @ Per Protocol IV.CONT TITRATE PRN Rx #:[id number] Primacor Inj 20 MG In NS Inj 80 100 / 100 100 / 100 ML @ 0.375 MCG/KG/MIN 6.88 mls /hr IV.CONT .[id number] [facility] Rx#: [id number] Diprivan 1000 mg/100 ml Inj 1, 100 / 100 000 mg In 100 ml @ 5 MCG/KG/MIN 1.837 mls/hr IV.CONT TITRATE PRN Rx#:[id number] Diflucan 400 mg Premix Bag 200 200 / 200 ML @ 100 mls/hr IV.SIG Q24H [facility] Rx#:[id number] Zosyn 3.375 GM Premix 3.375 gm 50 / 50 50 / 50 In 50 ml @ 100 mls/hr IV.SIG Q6H [facility] Rx#:[id number] Vancomycin Inj 1,000 MG In NS 250 / 250 Inj 250 ML @ 250 mls/hr IV.SIG Q12H [facility] Rx#:[id number] fentaNYL 10 mcg/mL Premix Drip 250 / 250 2,500 mcg In 250 ml @ 50 MCG/HR 5 mls/hr IV.SIG TITRATE PRN Rx #:[id number] Output: Stool 0 / 0 Urine Amount (Catheter) 650 / 650 1650 / 1650 Indwelling Temp Sensing 650 / 650 1650 / 1650 Catheter Gastric Drainage 600 / 600 Orogastric Tube 600 / 600 Chest Tube Drainage 0 / 0 Left 0 / 0 Other: Date of Last Bowel Movement 06/07/18 Weight 56 kg Assessment and Plan - Assessment (1) Dilated cardiomyopathy Code(s): I42.0 - Dilated cardiomyopathy Status: Acute Plan: Severe dilated cardiomyopathy, EF 20% by echo this admission. Suspect he has underlying severe multivessel CAD though viral-mediated non-ischemic cardiomyopathy also possible. REC cath tomorrow. (2) Elevated troponin Code(s): R74.8 - Abnormal levels of other serum enzymes Status: Acute Plan: Overall minimally elevated troponin levels. Patient clinically stable. No definite angina symptoms. In light of his severe cardiomyopathy, recommend cath. - Plan Code Status: full code Discussed Condition With: patient
[2018-06-08] MEDS ORDERED: Pharmacy Ordered Lab Info OTHER SCH (08:45)
[2018-06-08] MEDS ORDERED: fentaNYL Citrate Inj 100 MCG/2 ML Ampul IV.PUSH SCH (08:45)
[2018-06-08] MEDS: Chlorhexidine 0.12% Oral Kit 15 ML UDC OROPHARYNG SCH (09:10)
[2018-06-08] MEDS: Heparin 10,000 UNITS/10 ML Vial (for IV use) IV.PUSH PRN (09:29)
[2018-06-08] MEDS: Famotidine PF Inj 20 MG/2 ML Vial IV.PUSH SCH ×2 (09:29→21:25)
[2018-06-08] MEDS: Vancomycin Inj 1,000 MG in Sodium Chlor 0.9% Inj 250 ML IV.SIG SCH ×2 (09:30→21:59)
--- NOTE | 2018-06-08 10:40 | P.PNGS ---
Subjective Interval history: Resting in bed No extubated Off levophed Physical Exam Vital signs: Vital Signs 06/07/18 10:46 06/07/18 11:00 06/07/18 11:01 Temperature Pulse Rate 46 L 47 L 47 L Respiratory Rate 34 H 31 H 33 H Blood Pressure 133/63 144/71 H Pulse Oximetry 100 100 100 06/07/18 11:11 06/07/18 11:16 06/07/18 11:31 Temperature Pulse Rate 68 44 L Respiratory Rate 20 23 29 H Blood Pressure 143/70 H 101/55 L Pulse Oximetry 100 100 100 06/07/18 11:46 06/07/18 12:00 06/07/18 12:01 Temperature 98.8 F Pulse Rate 64 69 61 Respiratory Rate 35 H 25 H 30 H Blood Pressure 125/62 122/64 Pulse Oximetry 100 06/07/18 12:16 06/07/18 12:31 06/07/18 12:39 Temperature Pulse Rate 56 L 58 L Respiratory Rate 17 10 L Blood Pressure 122/65 126/61 Pulse Oximetry 100 100 06/07/18 12:46 06/07/18 13:00 06/07/18 13:01 Temperature 97.4 F L Pulse Rate 77 74 79 Respiratory Rate 26 H 16 16 Blood Pressure 124/58 L 132/68 Pulse Oximetry 100 99 99 06/07/18 13:16 06/07/18 13:31 06/07/18 13:46 Temperature 95.7 F L 95.7 F L Pulse Rate 64 65 59 L Respiratory Rate 11 L 10 L 11 L Blood Pressure 118/61 116/57 L 120/60 Pulse Oximetry 99 98 99 06/07/18 14:00 06/07/18 14:01 06/07/18 14:16 Temperature Pulse Rate 79 80 74 Respiratory Rate 20 21 15 Blood Pressure 134/64 133/66 Pulse Oximetry 99 99 98 06/07/18 14:19 06/07/18 14:46 06/07/18 15:00 Temperature Pulse Rate 62 59 L 69 Respiratory Rate 11 L 10 L 13 Blood Pressure 130/65 93/55 L Pulse Oximetry 99 98 99 06/07/18 15:01 06/07/18 15:16 06/07/18 15:31 Temperature Pulse Rate 70 66 79 Respiratory Rate 20 9 L 21 Blood Pressure 122/58 L 134/68 113/58 L Pulse Oximetry 99 100 98 06/07/18 15:46 06/07/18 16:00 06/07/18 16:01 Temperature Pulse Rate 78 71 75 Respiratory Rate 13 14 20 Blood Pressure 122/64 130/60 Pulse Oximetry 98 98 98 06/07/18 16:16 06/07/18 16:31 06/07/18 16:46 Temperature Pulse Rate 82 79 84 Respiratory Rate 17 14 20 Blood Pressure 122/61 125/66 121/65 Pulse Oximetry 99 98 98 06/07/18 17:00 06/07/18 17:01 06/07/18 17:16 Temperature Pulse Rate 75 79 79 Respiratory Rate 13 16 19 Blood Pressure 109/59 L 116/57 L Pulse Oximetry 98 98 98 06/07/18 17:31 06/07/18 17:46 06/07/18 18:00 Temperature 97.6 F 97.8 F Pulse Rate 70 70 72 Respiratory Rate 19 17 20 Blood Pressure 114/59 L 117/68 Pulse Oximetry 98 98 98 06/07/18 18:01 06/07/18 18:16 06/07/18 18:31 Temperature Pulse Rate 71 72 69 Respiratory Rate 15 18 16 Blood Pressure 117/63 115/55 L 122/58 L Pulse Oximetry 98 98 98 06/07/18 18:46 06/07/18 19:00 06/07/18 19:01 Temperature Pulse Rate 81 68 70 Respiratory Rate 20 25 H 26 H Blood Pressure 127/61 115/59 L Pulse Oximetry 98 98 98 06/07/18 19:16 06/07/18 19:31 06/07/18 19:43 Temperature 97.9 F Pulse Rate 65 75 Respiratory Rate 21 16 Blood Pressure 120/62 123/58 L Pulse Oximetry 98 98 98 06/07/18 19:46 06/07/18 20:00 06/07/18 20:01 Temperature Pulse Rate 71 68 78 Respiratory Rate 15 18 23 Blood Pressure 136/66 125/69 Pulse Oximetry 99 98 97 06/07/18 20:16 06/07/18 20:31 02 20:46 Temperature Pulse Rate 80 71 73 Respiratory Rate 16 19 16 Blood Pressure 131/67 128/61 152/70 H Pulse Oximetry 98 98 98 06/07/18 21:00 06/07/18 21:01 06/07/18 21:16 Temperature Pulse Rate 92 H 91 H 86 Respiratory Rate 26 H 20 19 Blood Pressure 138/67 138/69 Pulse Oximetry 96 96 97 06/07/18 21:31 06/07/18 21:46 06/07/18 22:00 Temperature Pulse Rate 82 76 89 Respiratory Rate 18 17 17 Blood Pressure 116/67 118/62 Pulse Oximetry 96 96 96 06/07/18 22:01 06/07/18 23:00 06/07/18 23:06 Temperature 97.4 F L Pulse Rate 89 79 72 Respiratory Rate 21 18 17 Blood Pressure 113/57 L 122/56 L Pulse Oximetry 96 96 97 06/07/18 23:48 06/08/18 00:00 06/08/18 00:37 Temperature Pulse Rate 67 94 H 81 Respiratory Rate 18 17 17 Blood Pressure 102/56 L Pulse Oximetry 96 95 06/08/18 00:45 06/08/18 00:58 06/08/18 01:00 Temperature Pulse Rate 90 87 90 Respiratory Rate 19 19 19 Blood Pressure 101/59 L 104/64 Pulse Oximetry 95 94 L 94 L 06/08/18 01:13 06/08/18 01:28 06/08/18 01:43 Temperature Pulse Rate 85 92 H 88 Respiratory Rate 16 21 19 Blood Pressure 114/59 L 106/56 L 104/58 L Pulse Oximetry 94 L 95 96 06/08/18 02:00 06/08/18 02:13 06/08/18 02:28 Temperature Pulse Rate 81 83 72 Respiratory Rate 17 17 14 Blood Pressure 110/58 L 105/56 L Pulse Oximetry 95 95 96 06/08/18 02:38 06/08/18 02:43 06/08/18 02:58 Temperature Pulse Rate 71 79 Respiratory Rate 12 13 19 Blood Pressure 107/55 L 111/60 Pulse Oximetry 96 96 06/08/18 03:00 06/08/18 03:13 06/08/18 03:28 Temperature Pulse Rate 73 78 76 Respiratory Rate 17 17 15 Blood Pressure 111/55 L 114/58 L Pulse Oximetry 96 95 96 06/08/18 03:43 06/08/18 03:58 06/08/18 04:00 Temperature Pulse Rate 81 68 67 Respiratory Rate 17 15 15 Blood Pressure 109/56 L 101/59 L Pulse Oximetry 96 95 95 06/08/18 04:11 06/08/18 04:13 06/08/18 04:28 Temperature 97.5 F L Pulse Rate 83 71 81 Respiratory Rate 17 14 15 Blood Pressure 112/61 115/66 Pulse Oximetry 96 96 06/08/18 04:43 06/08/18 04:58 06/08/18 05:00 Temperature Pulse Rate 79 80 89 Respiratory Rate 17 16 25 H Blood Pressure 103/56 L 111/55 L Pulse Oximetry 94 L 94 L 95 06/08/18 05:13 06/08/18 05:28 06/08/18 05:43 Temperature Pulse Rate 82 76 74 Respiratory Rate 18 15 15 Blood Pressure 109/56 L 111/56 L 106/57 L Pulse Oximetry 94 L 94 L 95 06/08/18 05:58 06/08/18 06:00 06/08/18 07:42 Temperature Pulse Rate 108 H 109 H 78 Respiratory Rate 25 H 23 17 Blood Pressure 143/80 H Pulse Oximetry 93 L 91 L 94 L Intake & Output 06/07/18 06/08/18 06/08/18 18:59 06:59 18:59 Intake Total 549.5 / 549.5 1173 / 1173 Output Total 650 / 650 2250 / 2250 Balance -100.5 / -100.5 -1077 / -1077 Weight 56 kg Intake: IV 549.5 / 549.5 1173 / 1173 Heparin/D5W 25,000 U/250 mL 25, 173 / 173 000 unit In 250 ml @ Per Protocol IV.CONT TITRATE PRN Rx #:[id number] Primacor Inj 20 MG In NS Inj 80 125 / 125 100 / 100 ML @ 0.375 MCG/KG/MIN 6.88 mls /hr IV.CONT .[id number] [facility] Rx#: [id number] Diprivan 1000 mg/100 ml Inj 1, 57.5 / 57.5 100 / 100 000 mg In 100 ml @ 5 MCG/KG/MIN 1.837 mls/hr IV.CONT TITRATE PRN Rx#:[id number] Diflucan 400 mg Premix Bag 200 200 / 200 ML @ 100 mls/hr IV.SIG Q24H [facility] Rx#:[id number] Zosyn 3.375 GM Premix 3.375 gm 50 / 50 100 / 100 In 50 ml @ 100 mls/hr IV.SIG Q6H [facility] Rx#:[id number] Vancomycin Inj 1,000 MG In NS 250 / 250 250 / 250 Inj 250 ML @ 250 mls/hr IV.SIG Q12H [facility] Rx#:[id number] fentaNYL 10 mcg/mL Premix Drip 250 / 250 2,500 mcg In 250 ml @ 50 MCG/HR 5 mls/hr IV.SIG TITRATE PRN Rx #:[id number] Output: Stool 0 / 0 Urine Amount (Catheter) 650 / 650 1650 / 1650 Indwelling Temp Sensing 650 / 650 1650 / 1650 Catheter Gastric Drainage 600 / 600 Orogastric Tube 600 / 600 Chest Tube Drainage 0 / 0 Left 0 / 0 Other: Date of Last Bowel Movement 06/07/18 Narrative: Alert and awake Abd; soft; mildly distended; non tender - Urinary Catheter Management Indwelling Temp Sensing Catheter Cath placed during this visit: no Results - Labs 06/08/18 05:50 06/08/18 05:50 Laboratory Results - last 24 hr 06/07/18 06/07/18 06/07/18 13:42 17:17 19:15 WBC RBC Hgb Hct MCV MCH MCHC RDW Plt Count MPV Neut % (Auto) Lymph % (Auto) [place] % (Auto) Eos % (Auto) Baso % (Auto) Neut # (Auto) Lymph # (Auto) [place] # (Auto) Eos # (Auto) Baso # (Auto) WBC Differential Differential Comment PT INR APTT 35.5 H Puncture Site Patient Temperature O2 Saturation ABG pH ABG pCO2 ABG pO2 ABG HCO3 ABG O2 Content ABG Base Excess ABG Methemoglobin Hemoglobin Carboxyhemoglobin O2 Delivery Device Liter Flow Critical Value Sodium Potassium Chloride Carbon Dioxide Anion Gap BUN Creatinine Estimated GFR POC Glucose 115 H 83 Random Glucose Calcium Phosphorus Magnesium Total Bilirubin AST ALT Alkaline Phosphatase B-Natriuretic Peptide Total Protein Albumin 06/08/18 06/08/18 06/08/18 00:38 01:20 04:58 WBC RBC Hgb Hct MCV MCH MCHC RDW Plt Count MPV Neut % (Auto) Lymph % (Auto) [place] % (Auto) Eos % (Auto) Baso % (Auto) Neut # (Auto) Lymph # (Auto) [place] # (Auto) Eos # (Auto) Baso # (Auto) WBC Differential Differential Comment PT INR APTT 43.8 H D Puncture Site Right brachial Patient Temperature 98.6 O2 Saturation 91 ABG pH 7.40 ABG pCO2 40 ABG pO2 67 ABG HCO3 24 ABG O2 Content 10.9 L ABG Base Excess 0.0 ABG Methemoglobin 1.5 Hemoglobin 8.5 L Carboxyhemoglobin 1.4 O2 Delivery Device Nasal cannula Liter Flow 2.00 Critical Value No Sodium Potassium Chloride Carbon Dioxide Anion Gap BUN Creatinine Estimated GFR POC Glucose 78 Random Glucose Calcium Phosphorus Magnesium Total Bilirubin AST ALT Alkaline Phosphatase B-Natriuretic Peptide Total Protein Albumin 06/08/18 06/08/18 06/08/18 05:50 05:50 05:50 WBC 10.7 D RBC 3.09 L Hgb 8.7 L Hct 25.9 L MCV 83.9 MCH 28.2 MCHC 33.6 RDW 18.9 H Plt Count 233 MPV 7.4 Neut % (Auto) 75.6 H Lymph % (Auto) 19.2 [place] % (Auto) 4.9 Eos % (Auto) 0.2 Baso % (Auto) 0.1 Neut # (Auto) 8.1 H Lymph # (Auto) 2.1 [place] # (Auto) 0.5 Eos # (Auto) 0.0 Baso # (Auto) 0.0 WBC Differential . Differential Comment Auto diff final PT INR APTT Puncture Site Patient Temperature O2 Saturation ABG pH ABG pCO2 ABG pO2 ABG HCO3 ABG O2 Content ABG Base Excess ABG Methemoglobin Hemoglobin Carboxyhemoglobin O2 Delivery Device Liter Flow Critical Value Sodium 147 H Potassium 3.3 L Chloride 114 H Carbon Dioxide 26.2 Anion Gap 7 BUN 11 Creatinine 0.71 Estimated GFR Greater than 89 POC Glucose Random Glucose 69 L Calcium 7.8 L Phosphorus 3.3 Magnesium 1.9 Total Bilirubin 0.3 AST 21 ALT 16 Alkaline Phosphatase 53 B-Natriuretic Peptide 597 H Total Protein 6.1 L D Albumin 2.2 L 06/08/18 06/08/18 05:50 05:53 WBC RBC Hgb Hct MCV MCH MCHC RDW Plt Count MPV Neut % (Auto) Lymph % (Auto) [place] % (Auto) Eos % (Auto) Baso % (Auto) Neut # (Auto) Lymph # (Auto) [place] # (Auto) Eos # (Auto) Baso # (Auto) WBC Differential Differential Comment PT 10.6 INR 1.0 APTT 39.0 H Puncture Site Patient Temperature O2 Saturation ABG pH ABG pCO2 ABG pO2 ABG HCO3 ABG O2 Content ABG Base Excess ABG Methemoglobin Hemoglobin Carboxyhemoglobin O2 Delivery Device Liter Flow Critical Value Sodium Potassium Chloride Carbon Dioxide Anion Gap BUN Creatinine Estimated GFR POC Glucose 76 Random Glucose Calcium Phosphorus Magnesium Total Bilirubin AST ALT Alkaline Phosphatase B-Natriuretic Peptide Total Protein Albumin - Imaging Imaging: ITS Impressions Aorta w/Runoff CTA 06/05/18 11:45 CONCLUSION: 1. Extensive peripheral vascular disease with multifocal areas of narrowing/ occlusion as above. Chest CT 06/05/18 11:45 CONCLUSION: 1. Small left-sided pneumothorax and hemothorax. 2. Acute left fifth rib fracture. 3. Emphysema. Chest X-Ray 06/06/18 05:00 CONCLUSION: Slightly improved aeration Assessment and Plan - Assessment (1) Diverticulitis of colon with perforation Code(s): K57.20 - Diverticulitis of large intestine with perforation and abscess without bleeding Status: Acute Plan: 67 year old male with recent fall---rib fractures/PTX; NETEMI; -Continues to require Milrinone; off Levophed -Extubated -Heart cath planned for tomorrow -GI consulted--- will plan for cscope soon -Palliative following (2) Dilated cardiomyopathy Code(s): I42.0 - Dilated cardiomyopathy Status: Acute (3) Elevated troponin Code(s): R74.8 - Abnormal levels of other serum enzymes Status: Acute (4) Hypotension Code(s): I95.9 - Hypotension, unspecified Status: Acute (1) Diverticulitis of colon with perforation Qualifiers: Diverticulitis bleeding: without bleeding Qualified Code(s): K57.20 - Diverticulitis of large intestine with perforation and abscess without bleeding (4) Hypotension Qualifiers: Hypotension type: unspecified hypotension type Qualified Code(s): I95.9 - Hypotension, unspecified
[2018-06-08] MEDS: Potassium Chlor 20 mEq Premix 20 MEQ/100 ML PIGGYBACK IV.SIG PRN ×2 (12:23→14:36)
--- NOTE | 2018-06-08 13:06 | P.PNPAL ---
Reason for Visit Reason for visit: a. To assist with evaluation and management of symptoms including: dyspnea, pain b. To assist medical decision maker(s) with: better understanding of current medical conditions; weighing benefits/burdens of medical treatment options; making medical treatment decisions. Subjective Subjective/Interval History: Patient now off Levophed. O2 sats have been between 93 and 94 today, currently on 2 L and finishing breathing treatment. Cardiology recommending cardiac cath tomorrow. Patient seen in room no family at bedside. He is complaining of right leg pain. He says it was a 7 or 8 but that it improved after he got his morphine. He is unable to assign a number to the pain after his morphine but says it is improved. Patient says he is having "some procedure where they are going to look at my heart" tomorrow. I discussed cardiac catheterization with him. He was unaware of the purpose and details of the procedure. I asked him if he understood and he said "I wish my sister was here." I assured him I would update his sister and discuss This with her. readdressed CODE STATUS, but patient is unable to make a decision on this. Advance Directives Health Care Surrogate Name and Number: Leanna Minaya, Vinny potter, see important contacts Objective Vital Signs: Vital Signs 06/07/18 13:00 06/07/18 13:01 06/07/18 13:16 Temperature 97.4 F L 95.7 F L Pulse Rate 74 79 64 Respiratory Rate 16 16 11 L Blood Pressure 132/68 118/61 Pulse Oximetry 99 99 99 06/07/18 13:31 06/07/18 13:46 06/07/18 14:00 Temperature 95.7 F L Pulse Rate 65 59 L 79 Respiratory Rate 10 L 11 L 20 Blood Pressure 116/57 L 120/60 Pulse Oximetry 98 99 99 06/07/18 14:01 06/07/18 14:16 06/07/18 14:19 Temperature Pulse Rate 80 74 62 Respiratory Rate 21 15 11 L Blood Pressure 134/64 133/66 130/65 Pulse Oximetry 99 98 99 06/07/18 14:46 06/07/18 15:00 06/07/18 15:01 Temperature Pulse Rate 59 L 69 70 Respiratory Rate 10 L 13 20 Blood Pressure 93/55 L 122/58 L Pulse Oximetry 98 99 99 06/07/18 15:16 06/07/18 15:31 06/07/18 15:46 Temperature Pulse Rate 66 79 78 Respiratory Rate 9 L 21 13 Blood Pressure 134/68 113/58 L 122/64 Pulse Oximetry 100 98 98 06/07/18 16:00 06/07/18 16:01 06/07/18 16:16 Temperature Pulse Rate 71 75 82 Respiratory Rate 14 20 17 Blood Pressure 130/60 122/61 Pulse Oximetry 98 98 99 06/07/18 16:31 06/07/18 16:46 06/07/18 17:00 Temperature Pulse Rate 79 84 75 Respiratory Rate 14 20 13 Blood Pressure 125/66 121/65 Pulse Oximetry 98 98 98 06/07/18 17:01 06/07/18 17:16 06/07/18 17:31 Temperature 97.6 F Pulse Rate 79 79 70 Respiratory Rate 16 19 19 Blood Pressure 109/59 L 116/57 L 114/59 L Pulse Oximetry 98 98 98 06/07/18 17:46 06/07/18 18:00 06/07/18 18:01 Temperature 97.8 F Pulse Rate 70 72 71 Respiratory Rate 17 20 15 Blood Pressure 117/68 117/63 Pulse Oximetry 98 98 98 06/07/18 18:16 06/07/18 18:31 06/07/18 18:46 Temperature Pulse Rate 72 69 81 Respiratory Rate 18 16 20 Blood Pressure 115/55 L 122/58 L 127/61 Pulse Oximetry 98 98 98 06/07/18 19:00 06/07/18 19:01 06/07/18 19:16 Temperature Pulse Rate 68 70 65 Respiratory Rate 25 H 26 H 21 Blood Pressure 115/59 L 120/62 Pulse Oximetry 98 98 98 06/07/18 19:31 06/07/18 19:43 06/07/18 19:46 Temperature 97.9 F Pulse Rate 75 71 Respiratory Rate 16 15 Blood Pressure 123/58 L 136/66 Pulse Oximetry 98 98 99 06/07/18 20:00 06/07/18 20:01 06/07/18 20:16 Temperature Pulse Rate 68 78 80 Respiratory Rate 18 23 16 Blood Pressure 125/69 131/67 Pulse Oximetry 98 97 98 06/07/18 20:31 06/07/18 20:46 06/07/18 21:00 Temperature Pulse Rate 71 73 92 H Respiratory Rate 19 16 26 H Blood Pressure 128/61 152/70 H Pulse Oximetry 98 98 96 06/07/18 21:01 06/07/18 21:16 06/07/18 21:31 Temperature Pulse Rate 91 H 86 82 Respiratory Rate 20 19 18 Blood Pressure 138/67 138/69 116/67 Pulse Oximetry 96 97 96 06/07/18 21:46 06/07/18 22:00 06/07/18 22:01 Temperature Pulse Rate 76 89 89 Respiratory Rate 17 17 21 Blood Pressure 118/62 113/57 L Pulse Oximetry 96 96 96 06/07/18 23:00 06/07/18 23:06 06/07/18 23:48 Temperature 97.4 F L Pulse Rate 79 72 67 Respiratory Rate 18 17 18 Blood Pressure 122/56 L Pulse Oximetry 96 97 06/08/18 00:00 06/08/18 00:37 06/08/18 00:45 Temperature Pulse Rate 94 H 81 90 Respiratory Rate 17 17 19 Blood Pressure 102/56 L 101/59 L Pulse Oximetry 96 95 95 06/08/18 00:58 06/08/18 01:00 06/08/18 01:13 Temperature Pulse Rate 87 90 85 Respiratory Rate 19 19 16 Blood Pressure 104/64 114/59 L Pulse Oximetry 94 L 94 L 94 L 06/08/18 01:28 06/08/18 01:43 06/08/18 02:00 Temperature Pulse Rate 92 H 88 81 Respiratory Rate 21 19 17 Blood Pressure 106/56 L 104/58 L Pulse Oximetry 95 96 95 06/08/18 02:13 06/08/18 02:28 06/08/18 02:38 Temperature Pulse Rate 83 72 Respiratory Rate 17 14 12 Blood Pressure 110/58 L 105/56 L Pulse Oximetry 95 96 06/08/18 02:43 06/08/18 02:58 06/08/18 03:00 Temperature Pulse Rate 71 79 73 Respiratory Rate 13 19 17 Blood Pressure 107/55 L 111/60 Pulse Oximetry 96 96 96 06/08/18 03:13 06/08/18 03:28 06/08/18 03:43 Temperature Pulse Rate 78 76 81 Respiratory Rate 17 15 17 Blood Pressure 111/55 L 114/58 L 109/56 L Pulse Oximetry 95 96 96 06/08/18 03:58 06/08/18 04:00 06/08/18 04:11 Temperature Pulse Rate 68 67 83 Respiratory Rate 15 15 17 Blood Pressure 101/59 L Pulse Oximetry 95 95 06/08/18 04:13 06/08/18 04:28 06/08/18 04:43 Temperature 97.5 F L Pulse Rate 71 81 79 Respiratory Rate 14 15 17 Blood Pressure 112/61 115/66 103/56 L Pulse Oximetry 96 96 94 L 06/08/18 04:58 06/08/18 05:00 06/08/18 05:13 Temperature Pulse Rate 80 89 82 Respiratory Rate 16 25 H 18 Blood Pressure 111/55 L 109/56 L Pulse Oximetry 94 L 95 94 L 06/08/18 05:28 06/08/18 05:43 06/08/18 05:58 Temperature Pulse Rate 76 74 108 H Respiratory Rate 15 15 25 H Blood Pressure 111/56 L 106/57 L 143/80 H Pulse Oximetry 94 L 95 93 L 06/08/18 06:00 06/08/18 06:13 06/08/18 06:28 Temperature Pulse Rate 109 H 76 Respiratory Rate 23 15 Blood Pressure 117/59 L 114/60 Pulse Oximetry 91 L 93 L 06/08/18 06:43 06/08/18 06:58 06/08/18 07:13 Temperature Pulse Rate 85 84 83 Respiratory Rate 18 25 H 26 H Blood Pressure 110/57 L 116/60 115/61 Pulse Oximetry 94 L 94 L 94 L 06/08/18 07:28 06/08/18 07:42 06/08/18 07:43 Temperature Pulse Rate 77 78 79 Respiratory Rate 22 17 13 Blood Pressure 110/55 L 122/61 Pulse Oximetry 95 94 L 95 06/08/18 07:58 06/08/18 08:00 06/08/18 08:13 Temperature 97.9 F Pulse Rate 82 74 Respiratory Rate 23 20 Blood Pressure 114/60 109/57 L Pulse Oximetry 95 94 L 95 06/08/18 08:28 06/08/18 08:43 06/08/18 08:58 Temperature Pulse Rate 76 83 77 Respiratory Rate 22 27 H 18 Blood Pressure 120/61 119/66 118/58 L Pulse Oximetry 95 94 L 94 L 06/08/18 09:13 06/08/18 09:28 06/08/18 09:43 Temperature Pulse Rate 79 84 88 Respiratory Rate 21 25 H 24 Blood Pressure 119/61 111/58 L 143/72 H Pulse Oximetry 94 L 94 L 94 L 06/08/18 09:58 06/08/18 10:13 06/08/18 10:28 Temperature Pulse Rate 77 87 76 Respiratory Rate 17 29 H 25 H Blood Pressure 118/60 134/68 122/61 Pulse Oximetry 93 L 93 L 94 L 06/08/18 10:43 06/08/18 10:58 06/08/18 11:13 Temperature Pulse Rate 81 74 76 Respiratory Rate 18 15 13 Blood Pressure 119/58 L 111/56 L 136/62 Pulse Oximetry 94 L 95 95 06/08/18 11:28 06/08/18 11:43 06/08/18 11:51 Temperature Pulse Rate 68 93 H 102 H Respiratory Rate 12 21 17 Blood Pressure 113/56 L 143/83 H Pulse Oximetry 94 L 94 L Intake & Output 06/07/18 06/08/18 06/08/18 18:59 06:59 18:59 Intake Total 549.5 / 549.5 1173 / 1173 Output Total 650 / 650 2250 / 2250 Balance -100.5 / -100.5 -1077 / -1077 Weight 56 kg Intake: IV 549.5 / 549.5 1173 / 1173 Heparin/D5W 25,000 U/250 mL 25, 173 / 173 000 unit In 250 ml @ Per Protocol IV.CONT TITRATE PRN Rx #:[id number] Primacor Inj 20 MG In NS Inj 80 125 / 125 100 / 100 ML @ 0.375 MCG/KG/MIN 6.88 mls /hr IV.CONT .[id number] [facility] Rx#: [id number] Diprivan 1000 mg/100 ml Inj 1, 57.5 / 57.5 100 / 100 000 mg In 100 ml @ 5 MCG/KG/MIN 1.837 mls/hr IV.CONT TITRATE PRN Rx#:[id number] Diflucan 400 mg Premix Bag 200 200 / 200 ML @ 100 mls/hr IV.SIG Q24H [facility] Rx#:[id number] Zosyn 3.375 GM Premix 3.375 gm 50 / 50 100 / 100 In 50 ml @ 100 mls/hr IV.SIG Q6H [facility] Rx#:[id number] Vancomycin Inj 1,000 MG In NS 250 / 250 250 / 250 Inj 250 ML @ 250 mls/hr IV.SIG Q12H [facility] Rx#:[id number] fentaNYL 10 mcg/mL Premix Drip 250 / 250 2,500 mcg In 250 ml @ 50 MCG/HR 5 mls/hr IV.SIG TITRATE PRN Rx #:[id number] Output: Stool 0 / 0 Urine Amount (Catheter) 650 / 650 1650 / 1650 Indwelling Temp Sensing 650 / 650 1650 / 1650 Catheter Gastric Drainage 600 / 600 Orogastric Tube 600 / 600 Chest Tube Drainage 0 / 0 Left 0 / 0 Other: Date of Last Bowel Movement 06/07/18 Physical Exam: CONSTITUTIONAL/GENERAL: This is an thin male, doing breathin tx TUBES/LINES/DRAINS: paul, chest tube, PIV, central line SKIN: No jaundice, rashes, or lesions. +Ecchymoses on upper extremities. wound/ lesion partially bandaged LUE. Not diaphoretic. HEAD: Atraumatic. Normocephalic. EYES: Pupils equal and round and reactive. Extraocular motions intact. No scleral icterus. No injection or drainage. Fundi not examined. ENT: Hearing grossly normal. Nose without bleeding or purulent drainage. NECK: Trachea midline. Supple, nontender. CARDIOVASCULAR: RRR without murmurs, gallops, or rubs. No JVD. RESPIRATORY/CHEST: Symmetric, unlabored respirations. Clear to auscultation. Breath sounds equal bilaterally. No wheezes, rales, or rhonchi. GASTROINTESTINAL: Abdomen semi firm, non-tender, mildly distended. No hepato- splenomegaly, or palpable masses. No guarding. Bowel sounds present. GENITOURINARY: Without palpable bladder distension. Paul catheter in place. MUSCULOSKELETAL: Extremities without clubbing, cyanosis, or edema. No joint tenderness or effusion noted. No calf tenderness. No mottling or clubbing. NEUROLOGICAL: Awake and alert and oriented. Motor and sensory grossly within normal limits. Moves all extremities. PSYCHIATRIC: No obvious anxiety/depression. no apparent hallucinations or other psychotic thought process. Diagnostic Tests Laboratory: Laboratory Results - last 72 hr 06/05/18 06/05/18 06/05/18 11:42 16:35 16:35 WBC RBC Hgb Hct MCV MCH MCHC RDW Plt Count MPV Prelim Diff (Auto) Neut % (Auto) Lymph % (Auto) [place] % (Auto) Eos % (Auto) Baso % (Auto) Neut # (Auto) Lymph # (Auto) [place] # (Auto) Eos # (Auto) Baso # (Auto) WBC Differential Seg Neuts % (Manual) Band Neuts % (Manual) Lymphocytes % (Manual) Monocytes % (Manual) Myelocytes % (Man) Abs Neuts (Manual) Differential Comment Toxic Granulation Toxic Vacuolation Platelet Estimate Platelet Morphology PT INR APTT Puncture Site Patient Temperature O2 Saturation ABG pH ABG pCO2 ABG pO2 ABG HCO3 ABG O2 Content ABG Base Excess ABG Methemoglobin [place] Test Hemoglobin Carboxyhemoglobin O2 Delivery Device Liter Flow Vent Setting Inspired O2 Critical Value Sodium Potassium Chloride Carbon Dioxide Anion Gap BUN Creatinine Estimated GFR POC Glucose Random Glucose Lactic Acid 7.1 H* 3.4 H Calcium Phosphorus Magnesium Total Bilirubin AST ALT Alkaline Phosphatase Total Creatine Kinase 375 H CK-MB (CK-2) 4.9 H CK-MB (CK-2) % 1.3 Troponin I 1.12 H* B-Natriuretic Peptide Total Protein Albumin Urine Color Urine Clarity Urine pH Ur Specific [place] Urine Protein Urine Glucose (UA) Urine Ketones Urine Occult Blood Urine Nitrate Urine Bilirubin Urine Urobilinogen Ur Leukocyte Esterase Urine RBC Urine WBC Urine WBC Clumps Ur Squamous Epith Cells Urine Bacteria Micro UA Comment Ur Microscopic Review Urine Culture Comments Nasal Screen MRSA (PCR) Vancomycin Trough 06/05/18 06/05/18 06/05/18 16:37 16:37 17:55 WBC RBC Hgb Hct MCV MCH MCHC RDW Plt Count MPV Prelim Diff (Auto) Neut % (Auto) Lymph % (Auto) [place] % (Auto) Eos % (Auto) Baso % (Auto) Neut # (Auto) Lymph # (Auto) [place] # (Auto) Eos # (Auto) Baso # (Auto) WBC Differential Seg Neuts % (Manual) Band Neuts % (Manual) Lymphocytes % (Manual) Monocytes % (Manual) Myelocytes % (Man) Abs Neuts (Manual) Differential Comment Toxic Granulation Toxic Vacuolation Platelet Estimate Platelet Morphology PT INR APTT Puncture Site Art line Cancelled Patient Temperature 98.6 Cancelled O2 Saturation 97 Cancelled ABG pH 7.25 L* Cancelled ABG pCO2 39 Cancelled ABG pO2 334 H Cancelled ABG HCO3 17 L Cancelled ABG O2 Content 13.2 Cancelled ABG Base Excess -9.2 L Cancelled ABG Methemoglobin 1.3 Cancelled [place] Test Cancelled Hemoglobin 9.0 L Cancelled Carboxyhemoglobin 1.4 Cancelled O2 Delivery Device Ventilator Cancelled Liter Flow Cancelled Vent Setting 600/24/+5/1.0 Cancelled Inspired O2 100 Cancelled Critical Value Yes Cancelled Sodium Potassium Chloride Carbon Dioxide Anion Gap BUN Creatinine Estimated GFR POC Glucose 179 H Random Glucose Lactic Acid Calcium Phosphorus Magnesium Total Bilirubin AST ALT Alkaline Phosphatase Total Creatine Kinase CK-MB (CK-2) CK-MB (CK-2) % Troponin I B-Natriuretic Peptide Total Protein Albumin Urine Color Urine Clarity Urine pH Ur Specific [place] Urine Protein Urine Glucose (UA) Urine Ketones Urine Occult Blood Urine Nitrate Urine Bilirubin Urine Urobilinogen Ur Leukocyte Esterase Urine RBC Urine WBC Urine WBC Clumps Ur Squamous Epith Cells Urine Bacteria Micro UA Comment Ur Microscopic Review Urine Culture Comments Nasal Screen MRSA (PCR) Vancomycin Trough 06/05/18 06/05/18 06/05/18 18:50 18:50 20:11 WBC RBC Hgb Hct MCV MCH MCHC RDW Plt Count MPV Prelim Diff (Auto) Neut % (Auto) Lymph % (Auto) [place] % (Auto) Eos % (Auto) Baso % (Auto) Neut # (Auto) Lymph # (Auto) [place] # (Auto) Eos # (Auto) Baso # (Auto) WBC Differential Seg Neuts % (Manual) Band Neuts % (Manual) Lymphocytes % (Manual) Monocytes % (Manual) Myelocytes % (Man) Abs Neuts (Manual) Differential Comment Toxic Granulation Toxic Vacuolation Platelet Estimate Platelet Morphology PT INR APTT Puncture Site Patient Temperature O2 Saturation ABG pH ABG pCO2 ABG pO2 ABG HCO3 ABG O2 Content ABG Base Excess ABG Methemoglobin [place] Test Hemoglobin Carboxyhemoglobin O2 Delivery Device Liter Flow Vent Setting Inspired O2 Critical Value Sodium Potassium Chloride Carbon Dioxide Anion Gap BUN Creatinine Estimated GFR POC Glucose Random Glucose Lactic Acid 2.9 H Calcium Phosphorus Magnesium Total Bilirubin AST ALT Alkaline Phosphatase Total Creatine Kinase CK-MB (CK-2) CK-MB (CK-2) % Troponin I B-Natriuretic Peptide Total Protein Albumin Urine Color Yellow Urine Clarity Hazy H Urine pH 5.0 Ur Specific [place] 1.047 H Urine Protein 30 H Urine Glucose (UA) 50 Urine Ketones Trace H Urine Occult Blood Small H Urine Nitrate Negative Urine Bilirubin Negative Urine Urobilinogen Less than 2 Ur Leukocyte Esterase Large H Urine RBC 32 H Urine WBC Urine WBC Clumps Few H Ur Squamous Epith Cells <1 Urine Bacteria Few H Micro UA Comment Cath-culture ind Ur Microscopic Review Not Reportable Urine Culture Comments Cath-cult indicated Nasal Screen MRSA (PCR) Not detected Vancomycin Trough 06/05/18 06/05/18 06/05/18 20:56 22:06 22:06 WBC RBC Hgb Hct MCV MCH MCHC RDW Plt Count MPV Prelim Diff (Auto) Neut % (Auto) Lymph % (Auto) [place] % (Auto) Eos % (Auto) Baso % (Auto) Neut # (Auto) Lymph # (Auto) [place] # (Auto) Eos # (Auto) Baso # (Auto) WBC Differential Seg Neuts % (Manual) Band Neuts % (Manual) Lymphocytes % (Manual) Monocytes % (Manual) Myelocytes % (Man) Abs Neuts (Manual) Differential Comment Toxic Granulation Toxic Vacuolation Platelet Estimate Platelet Morphology PT INR APTT 123.9 H* D Puncture Site Art line Patient Temperature 98.6 O2 Saturation 97 ABG pH 7.42 ABG pCO2 23 L* ABG pO2 191 H ABG HCO3 15 L* ABG O2 Content 13.8 ABG Base Excess -9.1 L ABG Methemoglobin 1.1 [place] Test Hemoglobin 9.8 L Carboxyhemoglobin 1.3 O2 Delivery Device Ventilator Liter Flow Vent Setting Prvc/ac Inspired O2 50 Critical Value Yes Sodium Potassium Chloride Carbon Dioxide Anion Gap BUN Creatinine Estimated GFR POC Glucose Random Glucose Lactic Acid Calcium Phosphorus Magnesium Total Bilirubin AST ALT Alkaline Phosphatase Total Creatine Kinase 504 H CK-MB (CK-2) 11.7 H CK-MB (CK-2) % 2.3 Troponin I 1.40 H* B-Natriuretic Peptide Total Protein Albumin Urine Color Urine Clarity Urine pH Ur Specific [place] Urine Protein Urine Glucose (UA) Urine Ketones Urine Occult Blood Urine Nitrate Urine Bilirubin Urine Urobilinogen Ur Leukocyte Esterase Urine RBC Urine WBC Urine WBC Clumps Ur Squamous Epith Cells Urine Bacteria Micro UA Comment Ur Microscopic Review Urine Culture Comments Nasal Screen MRSA (PCR) Vancomycin Trough 06/05/18 06/05/18 06/06/18 22:39 22:46 02:17 WBC RBC Hgb Hct MCV MCH MCHC RDW Plt Count MPV Prelim Diff (Auto) Neut % (Auto) Lymph % (Auto) [place] % (Auto) Eos % (Auto) Baso % (Auto) Neut # (Auto) Lymph # (Auto) [place] # (Auto) Eos # (Auto) Baso # (Auto) WBC Differential Seg Neuts % (Manual) Band Neuts % (Manual) Lymphocytes % (Manual) Monocytes % (Manual) Myelocytes % (Man) Abs Neuts (Manual) Differential Comment Toxic Granulation Toxic Vacuolation Platelet Estimate Platelet Morphology PT INR APTT 52.3 H D Puncture Site Art line Patient Temperature 98.6 O2 Saturation 98 ABG pH 7.38 ABG pCO2 31 L ABG pO2 232 H ABG HCO3 18 L ABG O2 Content 14.6 ABG Base Excess -6.6 L ABG Methemoglobin 1.0 [place] Test Hemoglobin 10.3 L Carboxyhemoglobin 1.3 O2 Delivery Device Ventilator Liter Flow Vent Setting Prvc/ac Inspired O2 50 Critical Value No Sodium Potassium Chloride Carbon Dioxide Anion Gap BUN Creatinine Estimated GFR POC Glucose Random Glucose Lactic Acid 2.2 H Calcium Phosphorus Magnesium Total Bilirubin AST ALT Alkaline Phosphatase Total Creatine Kinase CK-MB (CK-2) CK-MB (CK-2) % Troponin I B-Natriuretic Peptide Total Protein Albumin Urine Color Urine Clarity Urine pH Ur Specific [place] Urine Protein Urine Glucose (UA) Urine Ketones Urine Occult Blood Urine Nitrate Urine Bilirubin Urine Urobilinogen Ur Leukocyte Esterase Urine RBC Urine WBC Urine WBC Clumps Ur Squamous Epith Cells Urine Bacteria Micro UA Comment Ur Microscopic Review Urine Culture Comments Nasal Screen MRSA (PCR) Vancomycin Trough 06/06/18 06/06/18 06/06/18 04:49 04:49 05:04 WBC RBC Hgb Hct MCV MCH MCHC RDW Plt Count MPV Prelim Diff (Auto) Neut % (Auto) Lymph % (Auto) [place] % (Auto) Eos % (Auto) Baso % (Auto) Neut # (Auto) Lymph # (Auto) [place] # (Auto) Eos # (Auto) Baso # (Auto) WBC Differential Seg Neuts % (Manual) Band Neuts % (Manual) Lymphocytes % (Manual) Monocytes % (Manual) Myelocytes % (Man) Abs Neuts (Manual) Differential Comment Toxic Granulation Toxic Vacuolation Platelet Estimate Platelet Morphology PT 11.5 INR 1.1 APTT Puncture Site Art line Patient Temperature 98.6 O2 Saturation 98 ABG pH 7.40 ABG pCO2 32 L ABG pO2 229 H ABG HCO3 19 L ABG O2 Content 14.7 ABG Base Excess -4.6 L ABG Methemoglobin 1.0 [place] Test Hemoglobin 10.3 L Carboxyhemoglobin 1.1 O2 Delivery Device Ventilator Liter Flow Vent Setting See comments Inspired O2 50 Critical Value No Sodium Potassium Chloride Carbon Dioxide Anion Gap BUN Creatinine Estimated GFR POC Glucose Random Glucose Lactic Acid Calcium Phosphorus Magnesium Total Bilirubin AST ALT Alkaline Phosphatase Total Creatine Kinase CK-MB (CK-2) CK-MB (CK-2) % Troponin I B-Natriuretic Peptide 1217 H Total Protein Albumin Urine Color Urine Clarity Urine pH Ur Specific [place] Urine Protein Urine Glucose (UA) Urine Ketones Urine Occult Blood Urine Nitrate Urine Bilirubin Urine Urobilinogen Ur Leukocyte Esterase Urine RBC Urine WBC Urine WBC Clumps Ur Squamous Epith Cells Urine Bacteria Micro UA Comment Ur Microscopic Review Urine Culture Comments Nasal Screen MRSA (PCR) Vancomycin Trough 06/06/18 06/06/18 06/06/18 06:11 06:57 08:55 WBC 20.6 H D RBC 3.70 L Hgb 10.4 L Hct 31.0 L MCV 83.9 MCH 28.2 MCHC 33.6 RDW 18.6 H Plt Count 329 MPV 7.2 Prelim Diff (Auto) Slide review pending Neut % (Auto) 92.7 H Lymph % (Auto) 4.8 L [place] % (Auto) 2.3 Eos % (Auto) 0.0 Baso % (Auto) 0.2 Neut # (Auto) 19.1 H Lymph # (Auto) 1.0 [place] # (Auto) 0.5 Eos # (Auto) 0.0 Baso # (Auto) 0.0 WBC Differential Manual diff final Seg Neuts % (Manual) 70 Band Neuts % (Manual) 18 H Lymphocytes % (Manual) 5 L Monocytes % (Manual) 6 Myelocytes % (Man) 1 H Abs Neuts (Manual) 18.3 H Differential Comment . Toxic Granulation 1+ H Toxic Vacuolation Present H Platelet Estimate Normal Platelet Morphology Normal PT INR APTT 54.9 H Puncture Site Patient Temperature O2 Saturation ABG pH ABG pCO2 ABG pO2 ABG HCO3 ABG O2 Content ABG Base Excess ABG Methemoglobin [place] Test Hemoglobin Carboxyhemoglobin O2 Delivery Device Liter Flow Vent Setting Inspired O2 Critical Value Sodium 142 Potassium 3.2 L Chloride 112 H D Carbon Dioxide 21.2 Anion Gap 9 BUN 10 Creatinine 0.76 Estimated GFR Greater than 89 POC Glucose Random Glucose 257 H D Lactic Acid Calcium 7.7 L D Phosphorus 2.4 L Magnesium 1.8 Total Bilirubin 0.5 AST 36 ALT 21 Alkaline Phosphatase 74 Total Creatine Kinase 577 H CK-MB (CK-2) 18.2 H CK-MB (CK-2) % 3.2 Troponin I 0.96 H* B-Natriuretic Peptide Total Protein 7.0 D Albumin 2.4 L D Urine Color Urine Clarity Urine pH Ur Specific [place] Urine Protein Urine Glucose (UA) Urine Ketones Urine Occult Blood Urine Nitrate Urine Bilirubin Urine Urobilinogen Ur Leukocyte Esterase Urine RBC Urine WBC Urine WBC Clumps Ur Squamous Epith Cells Urine Bacteria Micro UA Comment Ur Microscopic Review Urine Culture Comments Nasal Screen MRSA (PCR) Vancomycin Trough 06/06/18 06/06/18 06/06/18 11:43 12:07 17:23 WBC RBC Hgb Hct MCV MCH MCHC RDW Plt Count MPV Prelim Diff (Auto) Neut % (Auto) Lymph % (Auto) [place] % (Auto) Eos % (Auto) Baso % (Auto) Neut # (Auto) Lymph # (Auto) [place] # (Auto) Eos # (Auto) Baso # (Auto) WBC Differential Seg Neuts % (Manual) Band Neuts % (Manual) Lymphocytes % (Manual) Monocytes % (Manual) Myelocytes % (Man) Abs Neuts (Manual) Differential Comment Toxic Granulation Toxic Vacuolation Platelet Estimate Platelet Morphology PT INR APTT Puncture Site Patient Temperature O2 Saturation ABG pH ABG pCO2 ABG pO2 ABG HCO3 ABG O2 Content ABG Base Excess ABG Methemoglobin [place] Test Hemoglobin Carboxyhemoglobin O2 Delivery Device Liter Flow Vent Setting Inspired O2 Critical Value Sodium Potassium Chloride Carbon Dioxide Anion Gap BUN Creatinine Estimated GFR POC Glucose 193 H 146 H Random Glucose Lactic Acid Calcium Phosphorus Magnesium Total Bilirubin AST ALT Alkaline Phosphatase Total Creatine Kinase 520 H CK-MB (CK-2) 16.4 H CK-MB (CK-2) % 3.2 Troponin I 0.79 H* B-Natriuretic Peptide Total Protein Albumin Urine Color Urine Clarity Urine pH Ur Specific [place] Urine Protein Urine Glucose (UA) Urine Ketones Urine Occult Blood Urine Nitrate Urine Bilirubin Urine Urobilinogen Ur Leukocyte Esterase Urine RBC Urine WBC Urine WBC Clumps Ur Squamous Epith Cells Urine Bacteria Micro UA Comment Ur Microscopic Review Urine Culture Comments Nasal Screen MRSA (PCR) Vancomycin Trough 02/06/07/18 06/07/18 23:26 05:39 05:51 WBC RBC Hgb Hct MCV MCH MCHC RDW Plt Count MPV Prelim Diff (Auto) Neut % (Auto) Lymph % (Auto) [place] % (Auto) Eos % (Auto) Baso % (Auto) Neut # (Auto) Lymph # (Auto) [place] # (Auto) Eos # (Auto) Baso # (Auto) WBC Differential Seg Neuts % (Manual) Band Neuts % (Manual) Lymphocytes % (Manual) Monocytes % (Manual) Myelocytes % (Man) Abs Neuts (Manual) Differential Comment Toxic Granulation Toxic Vacuolation Platelet Estimate Platelet Morphology PT INR APTT Puncture Site Art line Patient Temperature 98.6 O2 Saturation 97 ABG pH 7.45 H ABG pCO2 30 L ABG pO2 186 H ABG HCO3 20 L ABG O2 Content 15.2 ABG Base Excess -3.4 L ABG Methemoglobin 1.2 [place] Test Hemoglobin 10.8 L Carboxyhemoglobin 1.1 O2 Delivery Device Ventilator Liter Flow Vent Setting Prvc/ac Inspired O2 40 Critical Value No Sodium Potassium Chloride Carbon Dioxide Anion Gap BUN Creatinine Estimated GFR POC Glucose 200 H 161 H Random Glucose Lactic Acid Calcium Phosphorus Magnesium Total Bilirubin AST ALT Alkaline Phosphatase Total Creatine Kinase CK-MB (CK-2) CK-MB (CK-2) % Troponin I B-Natriuretic Peptide Total Protein Albumin Urine Color Urine Clarity Urine pH Ur Specific [place] Urine Protein Urine Glucose (UA) Urine Ketones Urine Occult Blood Urine Nitrate Urine Bilirubin Urine Urobilinogen Ur Leukocyte Esterase Urine RBC Urine WBC Urine WBC Clumps Ur Squamous Epith Cells Urine Bacteria Micro UA Comment Ur Microscopic Review Urine Culture Comments Nasal Screen MRSA (PCR) Vancomycin Trough 06/07/18 06/07/18 06/07/18 05:55 05:55 05:55 WBC 21.8 H RBC 3.46 L Hgb 9.6 L Hct 29.2 L MCV 84.5 MCH 27.8 MCHC 32.9 RDW 18.8 H Plt Count 314 MPV 7.3 Prelim Diff (Auto) Neut % (Auto) 86.7 H Lymph % (Auto) 6.6 L [place] % (Auto) 6.6 Eos % (Auto) 0.0 Baso % (Auto) 0.1 Neut # (Auto) 18.9 H Lymph # (Auto) 1.4 [place] # (Auto) 1.4 H Eos # (Auto) 0.0 Baso # (Auto) 0.0 WBC Differential . Seg Neuts % (Manual) Band Neuts % (Manual) Lymphocytes % (Manual) Monocytes % (Manual) Myelocytes % (Man) Abs Neuts (Manual) Differential Comment Auto diff final Toxic Granulation Toxic Vacuolation Platelet Estimate Platelet Morphology PT 10.1 INR 1.0 APTT 35.7 H D Puncture Site Patient Temperature O2 Saturation ABG pH ABG pCO2 ABG pO2 ABG HCO3 ABG O2 Content ABG Base Excess ABG Methemoglobin [place] Test Hemoglobin Carboxyhemoglobin O2 Delivery Device Liter Flow Vent Setting Inspired O2 Critical Value Sodium 142 Potassium 3.9 Chloride 112 H Carbon Dioxide 20.2 L Anion Gap 10 BUN 16 Creatinine 0.99 Estimated GFR 75 L POC Glucose Random Glucose 145 H D Lactic Acid Calcium 7.9 L Phosphorus 2.8 Magnesium 1.9 Total Bilirubin 0.3 AST 26 ALT 18 Alkaline Phosphatase 61 Total Creatine Kinase 252 CK-MB (CK-2) CK-MB (CK-2) % Troponin I B-Natriuretic Peptide Total Protein 6.9 Albumin 2.3 L Urine Color Urine Clarity Urine pH Ur Specific [place] Urine Protein Urine Glucose (UA) Urine Ketones Urine Occult Blood Urine Nitrate Urine Bilirubin Urine Urobilinogen Ur Leukocyte Esterase Urine RBC Urine WBC Urine WBC Clumps Ur Squamous Epith Cells Urine Bacteria Micro UA Comment Ur Microscopic Review Urine Culture Comments Nasal Screen MRSA (PCR) Vancomycin Trough 06/07/18 06/07/18 06/07/18 05:55 13:42 17:17 WBC RBC Hgb Hct MCV MCH MCHC RDW Plt Count MPV Prelim Diff (Auto) Neut % (Auto) Lymph % (Auto) [place] % (Auto) Eos % (Auto) Baso % (Auto) Neut # (Auto) Lymph # (Auto) [place] # (Auto) Eos # (Auto) Baso # (Auto) WBC Differential Seg Neuts % (Manual) Band Neuts % (Manual) Lymphocytes % (Manual) Monocytes % (Manual) Myelocytes % (Man) Abs Neuts (Manual) Differential Comment Toxic Granulation Toxic Vacuolation Platelet Estimate Platelet Morphology PT INR APTT Puncture Site Patient Temperature O2 Saturation ABG pH ABG pCO2 ABG pO2 ABG HCO3 ABG O2 Content ABG Base Excess ABG Methemoglobin [place] Test Hemoglobin Carboxyhemoglobin O2 Delivery Device Liter Flow Vent Setting Inspired O2 Critical Value Sodium Potassium Chloride Carbon Dioxide Anion Gap BUN Creatinine Estimated GFR POC Glucose 115 H 83 Random Glucose Lactic Acid Calcium Phosphorus Magnesium Total Bilirubin AST ALT Alkaline Phosphatase Total Creatine Kinase CK-MB (CK-2) CK-MB (CK-2) % Troponin I B-Natriuretic Peptide 225 H Total Protein Albumin Urine Color Urine Clarity Urine pH Ur Specific [place] Urine Protein Urine Glucose (UA) Urine Ketones Urine Occult Blood Urine Nitrate Urine Bilirubin Urine Urobilinogen Ur Leukocyte Esterase Urine RBC Urine WBC Urine WBC Clumps Ur Squamous Epith Cells Urine Bacteria Micro UA Comment Ur Microscopic Review Urine Culture Comments Nasal Screen MRSA (PCR) Vancomycin Trough 06/07/18 06/08/18 06/08/18 19:15 00:38 01:20 WBC RBC Hgb Hct MCV MCH MCHC RDW Plt Count MPV Prelim Diff (Auto) Neut % (Auto) Lymph % (Auto) [place] % (Auto) Eos % (Auto) Baso % (Auto) Neut # (Auto) Lymph # (Auto) [place] # (Auto) Eos # (Auto) Baso # (Auto) WBC Differential Seg Neuts % (Manual) Band Neuts % (Manual) Lymphocytes % (Manual) Monocytes % (Manual) Myelocytes % (Man) Abs Neuts (Manual) Differential Comment Toxic Granulation Toxic Vacuolation Platelet Estimate Platelet Morphology PT INR APTT 35.5 H 43.8 H D Puncture Site Patient Temperature O2 Saturation ABG pH ABG pCO2 ABG pO2 ABG HCO3 ABG O2 Content ABG Base Excess ABG Methemoglobin [place] Test Hemoglobin Carboxyhemoglobin O2 Delivery Device Liter Flow Vent Setting Inspired O2 Critical Value Sodium Potassium Chloride Carbon Dioxide Anion Gap BUN Creatinine Estimated GFR POC Glucose 78 Random Glucose Lactic Acid Calcium Phosphorus Magnesium Total Bilirubin AST ALT Alkaline Phosphatase Total Creatine Kinase CK-MB (CK-2) CK-MB (CK-2) % Troponin I B-Natriuretic Peptide Total Protein Albumin Urine Color Urine Clarity Urine pH Ur Specific [place] Urine Protein Urine Glucose (UA) Urine Ketones Urine Occult Blood Urine Nitrate Urine Bilirubin Urine Urobilinogen Ur Leukocyte Esterase Urine RBC Urine WBC Urine WBC Clumps Ur Squamous Epith Cells Urine Bacteria Micro UA Comment Ur Microscopic Review Urine Culture Comments Nasal Screen MRSA (PCR) Vancomycin Trough 06/08/18 06/08/18 06/08/18 04:58 05:50 05:50 WBC 10.7 D RBC 3.09 L Hgb 8.7 L Hct 25.9 L MCV 83.9 MCH 28.2 MCHC 33.6 RDW 18.9 H Plt Count 233 MPV 7.4 Prelim Diff (Auto) Neut % (Auto) 75.6 H Lymph % (Auto) 19.2 [place] % (Auto) 4.9 Eos % (Auto) 0.2 Baso % (Auto) 0.1 Neut # (Auto) 8.1 H Lymph # (Auto) 2.1 [place] # (Auto) 0.5 Eos # (Auto) 0.0 Baso # (Auto) 0.0 WBC Differential . Seg Neuts % (Manual) Band Neuts % (Manual) Lymphocytes % (Manual) Monocytes % (Manual) Myelocytes % (Man) Abs Neuts (Manual) Differential Comment Auto diff final Toxic Granulation Toxic Vacuolation Platelet Estimate Platelet Morphology PT INR APTT Puncture Site Right brachial Patient Temperature 98.6 O2 Saturation 91 ABG pH 7.40 ABG pCO2 40 ABG pO2 67 ABG HCO3 24 ABG O2 Content 10.9 L ABG Base Excess 0.0 ABG Methemoglobin 1.5 [place] Test Hemoglobin 8.5 L Carboxyhemoglobin 1.4 O2 Delivery Device Nasal cannula Liter Flow 2.00 Vent Setting Inspired O2 Critical Value No Sodium 147 H Potassium 3.3 L Chloride 114 H Carbon Dioxide 26.2 Anion Gap 7 BUN 11 Creatinine 0.71 Estimated GFR Greater than 89 POC Glucose Random Glucose 69 L Lactic Acid Calcium 7.8 L Phosphorus 3.3 Magnesium 1.9 Total Bilirubin 0.3 AST 21 ALT 16 Alkaline Phosphatase 53 Total Creatine Kinase CK-MB (CK-2) CK-MB (CK-2) % Troponin I B-Natriuretic Peptide Total Protein 6.1 L D Albumin 2.2 L Urine Color Urine Clarity Urine pH Ur Specific [place] Urine Protein Urine Glucose (UA) Urine Ketones Urine Occult Blood Urine Nitrate Urine Bilirubin Urine Urobilinogen Ur Leukocyte Esterase Urine RBC Urine WBC Urine WBC Clumps Ur Squamous Epith Cells Urine Bacteria Micro UA Comment Ur Microscopic Review Urine Culture Comments Nasal Screen MRSA (PCR) Vancomycin Trough 06/08/18 06/08/18 06/08/18 05:50 05:50 05:53 WBC RBC Hgb Hct MCV MCH MCHC RDW Plt Count MPV Prelim Diff (Auto) Neut % (Auto) Lymph % (Auto) [place] % (Auto) Eos % (Auto) Baso % (Auto) Neut # (Auto) Lymph # (Auto) [place] # (Auto) Eos # (Auto) Baso # (Auto) WBC Differential Seg Neuts % (Manual) Band Neuts % (Manual) Lymphocytes % (Manual) Monocytes % (Manual) Myelocytes % (Man) Abs Neuts (Manual) Differential Comment Toxic Granulation Toxic Vacuolation Platelet Estimate Platelet Morphology PT 10.6 INR 1.0 APTT 39.0 H Puncture Site Patient Temperature O2 Saturation ABG pH ABG pCO2 ABG pO2 ABG HCO3 ABG O2 Content ABG Base Excess ABG Methemoglobin [place] Test Hemoglobin Carboxyhemoglobin O2 Delivery Device Liter Flow Vent Setting Inspired O2 Critical Value Sodium Potassium Chloride Carbon Dioxide Anion Gap BUN Creatinine Estimated GFR POC Glucose 76 Random Glucose Lactic Acid Calcium Phosphorus Magnesium Total Bilirubin AST ALT Alkaline Phosphatase Total Creatine Kinase CK-MB (CK-2) CK-MB (CK-2) % Troponin I B-Natriuretic Peptide 597 H Total Protein Albumin Urine Color Urine Clarity Urine pH Ur Specific [place] Urine Protein Urine Glucose (UA) Urine Ketones Urine Occult Blood Urine Nitrate Urine Bilirubin Urine Urobilinogen Ur Leukocyte Esterase Urine RBC Urine WBC Urine WBC Clumps Ur Squamous Epith Cells Urine Bacteria Micro UA Comment Ur Microscopic Review Urine Culture Comments Nasal Screen MRSA (PCR) Vancomycin Trough 06/08/18 06/08/18 10:30 12:03 WBC RBC Hgb Hct MCV MCH MCHC RDW Plt Count MPV Prelim Diff (Auto) Neut % (Auto) Lymph % (Auto) [place] % (Auto) Eos % (Auto) Baso % (Auto) Neut # (Auto) Lymph # (Auto) [place] # (Auto) Eos # (Auto) Baso # (Auto) WBC Differential Seg Neuts % (Manual) Band Neuts % (Manual) Lymphocytes % (Manual) Monocytes % (Manual) Myelocytes % (Man) Abs Neuts (Manual) Differential Comment Toxic Granulation Toxic Vacuolation Platelet Estimate Platelet Morphology PT INR APTT Puncture Site Patient Temperature O2 Saturation ABG pH ABG pCO2 ABG pO2 ABG HCO3 ABG O2 Content ABG Base Excess ABG Methemoglobin [place] Test Hemoglobin Carboxyhemoglobin O2 Delivery Device Liter Flow Vent Setting Inspired O2 Critical Value Sodium Potassium Chloride Carbon Dioxide Anion Gap BUN Creatinine Estimated GFR POC Glucose 67 L Random Glucose Lactic Acid Calcium Phosphorus Magnesium Total Bilirubin AST ALT Alkaline Phosphatase Total Creatine Kinase CK-MB (CK-2) CK-MB (CK-2) % Troponin I B-Natriuretic Peptide Total Protein Albumin Urine Color Urine Clarity Urine pH Ur Specific [place] Urine Protein Urine Glucose (UA) Urine Ketones Urine Occult Blood Urine Nitrate Urine Bilirubin Urine Urobilinogen Ur Leukocyte Esterase Urine RBC Urine WBC Urine WBC Clumps Ur Squamous Epith Cells Urine Bacteria Micro UA Comment Ur Microscopic Review Urine Culture Comments Nasal Screen MRSA (PCR) Vancomycin Trough 16.9 H Result Diagrams: 06/08/18 05:50 06/08/18 05:50 Microbiology: Microbiology 06/07/18 13:00 Aerobic Blood Culture - Preliminary Blood - Peripheral No growth in 1 day Anaerobic Blood Culture - Preliminary No growth in 1 day 06/07/18 13:07 Aerobic Blood Culture - Preliminary Blood - Peripheral No growth in 1 day Anaerobic Blood Culture - Preliminary No growth in 1 day 06/05/18 11:45 Aerobic Blood Culture - Preliminary Blood - Peripheral No growth in 3 days Anaerobic Blood Culture - Final Klebsiella pneumoniae 06/05/18 11:40 Aerobic Blood Culture - Final Blood - Peripheral Klebsiella pneumoniae Anaerobic Blood Culture - Final Klebsiella pneumoniae 06/05/18 18:50 Urine Culture - Final Catheterized Urine Klebsiella pneumoniae Imaging: ITS Impressions Aorta w/Runoff CTA 06/05/18 11:45 CONCLUSION: 1. Extensive peripheral vascular disease with multifocal areas of narrowing/ occlusion as above. Chest CT 06/05/18 11:45 CONCLUSION: 1. Small left-sided pneumothorax and hemothorax. 2. Acute left fifth rib fracture. 3. Emphysema. Chest X-Ray 06/06/18 05:00 CONCLUSION: Slightly improved aeration Procedures: 06/05 chest tube placed, intubated, art line placed, central line placed 06/07 self extubated Assessment and Plan - Disease Oriented Problem List (1) Intra-abdominal abscess (2) Pneumothorax (3) Dilated cardiomyopathy (4) Arterial occlusion (5) UTI (urinary tract infection), bacterial (6) Claudication of both lower extremities Pertinent Non-Medical Issues: Psychosocial: Pt has 2 sisters and 2 brothers, also a son who reportedly lives in [place] from whom he is estranged. 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 He is a [place] [employer]. Spiritual: pastoral care available Legal: patient is capacitated to make medical decisions however has poor insight. In the event he becomes incapacitated he has designated his Sister Leanna and alternately his brother Vinny as healthcare surrogate's. He is relying on his sister support, recommend shared decision making. of pt's 4 siblings. Ethical issues impacting care: none Important Contacts: brother Tracie Potter [phone] brother Vinny Potter [phone] Prognosis: 67 y/o male with COPD, PAD, diverticular abscesses who presented 06/05 for RLE pain and SOB. Found to have MD, ischemic RLE, persistent pelvic abscesses. Self extubated 06/07 and so far stable. Pt is critically ill and at risk for decline and further complications. Code Status: Full Code Plan: - LEGAL DECISION MAKER -patient is capacitated to make medical decisions however has poor insight. In the event he becomes incapacitated he has designated his Sister Leanna and alternately his brother Vinny as healthcare surrogate's. He is relying on his sister support, recommend shared decision making. - CODE STATUS- full code - GOALS - aggressive for now. pt open to continued palliative f/u. - SYMPTOMS - * dyspnea - multifactorial, hx COPD, recent MD, pneumothorax s/p chest tube, fractured rib. self extubated 06/07, sats in mid 90's. possibly for heart cath tomorrow * pain - RLE pain. denies ever having had abd pain. morphine seems effective. - d/w RN - Palliative care will continue to follow during hospital course as condition evolves, to assist patient/decision-maker with understanding of medical conditions, weighing benefits/burdens of treatment options, for clarification of goals of treatment. Additionally will assist with any symptoms of palliative concern Attestation Attestation: To help prompt me to consider important information that might be impacting today's encounter and assessment, information from prior notes written by myself or my colleagues may have been "brought forward" into today's note. My signature on this note, however, is an attestation that I personally performed the exam, history, and/or decision-making noted today, and, unless otherwise indicated, the interactions with patient, family, and staff as well as the review of records all occurred today. I also attest that the listed assessment and stated plan reflect my best clinical judgment today based on the combination of historical information, prior notes, and today's exam/ interactions. When time spent is documented, it refers only to time spent today by the signer, or if indicated, combined time spent today by collaborating physician/nurse practitioner.
--- NOTE | 2018-06-08 13:28 | P.CONGI ---
History of Present Illness Consult date: 06/08/18 Consult reason: Evaluation for colonic diverticular abscess versus malignancy Chief complaint: Acute Ischemic Attack, Rib Fx, Pneumothorax History of Present Illness: Patient is a 67-year-old male with history of severe PAD initially presented to the emergency room for shortness of breathing associated with severe right leg pain that caused the patient to trip and fall sustaining rib fracture. Subsequently patient had left apical pneumothorax with large amount of subcutaneous emphysema. 06/05/2018 patient had chest tube to address the issues of sided acute pneumothorax with respiratory failure. 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 Currently patient denies abdominal pain nausea vomiting blood in the stool. Last hospitalization April 30, 2018 was for perforated diverticular abscess. Patient stated that he never had colonoscopy or EGD done. our service is consulted for diverticular abscess versus malignancy. Review of Systems All other systems reviewed negative except as stated in HPI PMFSH - History History Provided By: Patient - Medical / Surgical Hx Neg / Unobtainable Medical Problems Denied: Unable to Obtain - Medical History Medical History: Medical History (Last Updated 06/07/18 @ 12:01 by EDUARDO Srivastava) Pelvic abscess Back pain PAD (peripheral artery disease) Smoking - Family History Family History: Family History (Last Updated 06/07/18 @ 10:40 by EDUARDO Srivastava) Father Lung cancer Mother Diverticulitis - Tobacco History Second Hand Smoke Exposure: Yes Tobacco Use In Past 30 Days: Yes Smoking Status: Current every day smoker Tobacco Type: Cigarettes - Alcohol History How Often Do You Have a Drink Containing Alcohol: 4 or more times a week - Substance Use History Substance History: No History of Abuse - Travel History Recent Travel in the [place] Within the Last 8 Weeks: No Recent Travel Out of the Country Within the Last 8 Weeks: No - Immunization History Tetanus Immunization: Unsure Hx Influenza Vaccine This Season: No Medications and Allergies Active Medications: Active Medications Acetaminophen (Tylenol) 650 mg PO Q6H PRN PRN Reason: TEMPERATURE > 101 F Albuterol (Duoneb Neb (Prn)) 1 ampul NEB Q2HR NEB PRN PRN Reason: WHEEZING Albuterol (Duoneb Neb (Nikkie)) 1 ampul NEB Q4HR NEB NIKKIE Last Admin: 06/08/18 11:50 Dose: 1 ampul Aspirin (Aspirin Chew) 81 mg PO DAILY NIKKIE Last Admin: 06/07/18 09:47 Dose: Not Given Bisacodyl (Dulcolax Supp) 10 mg RECTAL DAILY PRN PRN Reason: if no BM in last 24h Chlorhexidine Gluconate (Peridex 0.12% Oral Kit) 15 ml OROPHARYNG BID@0800, 2000 [facility] Last Admin: 06/08/18 09:10 Dose: Not Given Chlorhexidine Gluconate (Chlorhexidine 2% Cloth) 3 pack TOPICAL DAILY@0400 [facility] Stop: 06/11/18 03:59 Last Admin: 06/08/18 04:29 Dose: 3 pack Chlorhexidine Gluconate (Chlorhexidine 2% Cloth) 3 pack TOPICAL DAILY@0400 PRN PRN Reason: Extra cloth needed Stop: 06/11/18 03:59 Dextrose (D50w Vial) 50 ml IV.PUSH UNSCH PRN PRN Reason: PER HYPOGLYCEMIA PROTOCOL Last Admin: 06/08/18 12:22 Dose: 50 ml Diphenhydramine HCl (Benadryl Inj) 25 mg IV.PUSH HAM TRIMMER [facility] Stop: 06/12/18 08:59 Famotidine (Pepcid Pf Inj) 20 mg IV.PUSH Q12HR [facility] Last Admin: 06/08/18 09:29 Dose: 20 mg Fentanyl Citrate (Fentanyl Inj) 50 mcg IV.PUSH HAM TRIMMER [facility] Stop: 06/12/18 08:44 Glucagon (Glucagon Inj) 1 mg OTHER PRN PRN PRN Reason: for Hypoglycemia Protocol Haloperidol Lactate (Haldol Inj) 5 mg IV.PUSH Q1H PRN PRN Reason: AGITATION Heparin Sodium (Porcine) (Heparin Inj) 5,000 units IV.PUSH UNSCH PRN PRN Reason: aPTT < 25 Heparin Sodium (Porcine) (Heparin Inj) 2,500 units IV.PUSH UNSCH PRN PRN Reason: aPTT 25-39 Last Admin: 06/08/18 09:29 Dose: 2,500 units Hydralazine HCl (Apresoline Inj) 10 mg IV.PUSH Q30M PRN PRN Reason: sbp > 160, dbp > 95 Heparin Sodium/Dextrose (Heparin/D5w 25,000 U/250 Ml) 25,000 unit in 250 mls @ 0 mls/hr IV.CONT TITRATE PRN; Protocol PRN Reason: Per Protocol Last Titration: 06/08/18 09:46 Dose: 1,100 units/hr, 11 mls/hr Milrinone Lactate 20 mg/ (Sodium Chloride) 100 mls @ 6.88 mls/hr IV.CONT .[id number] NIKKIE Last Admin: 06/08/18 02:38 Dose: Not Given Fentanyl (Fentanyl 10 Mcg/Ml Premix Drip) 2,500 mcg in 250 mls @ 5 mls/hr IV.SIG TITRATE PRN; Protocol PRN Reason: Per Protocol Last Titration: 06/07/18 19:52 Dose: Infused Magnesium Sulfate 4 gm/ Sodium (Chloride) 100 mls @ 50 mls/hr IV.SIG UNSCH PRN PRN Reason: For Magnesium 0.9 - 1.1 mg/dL Magnesium Sulfate 2 gm/ Sodium (Chloride) 100 mls @ 50 mls/hr IV.SIG UNSCH PRN PRN Reason: For Magnesium 1.2 - 1.6 mg/dL Potassium Chloride (Kcl 40 Meq Premix Inj) 40 meq in 100 mls @ 25 mls/hr IV.SIG Q2H PRN PRN Reason: For Potassium 2.8 - 3.2 mEq/L Last Infusion: 06/06/18 18:00 Dose: Infused Potassium Chloride (Kcl 20 Meq Premix Inj) 20 meq in 100 mls @ 50 mls/hr IV.SIG Q2H PRN PRN Reason: For Potassium 3.3 - 3.5 mEq/L Last Admin: 06/08/18 12:23 Dose: 50 mls/hr Potassium Chloride (Kcl 40 Meq Premix Inj) 40 meq in 100 mls @ 25 mls/hr IV.SIG UNSCH PRN PRN Reason: For Potassium 3.3 - 3.5 mEq/L Potassium Chloride (Kcl 20 Meq Premix Inj) 20 meq in 100 mls @ 50 mls/hr IV.SIG Q2H PRN PRN Reason: For Potassium 2.8 - 3.2 mEq/L Potassium Phosphate 30 mmol/ (Sodium Chloride) 260 mls @ 42 mls/hr IV.SIG UNSCH PRN PRN Reason: SEE LABEL COMMENTS Propofol (Diprivan 1000 Mg/100 Ml Inj) 1,000 mg in 100 mls @ 1.837 mls/hr IV.CONT TITRATE PRN; Protocol PRN Reason: Per Protocol Last Titration: 06/07/18 19:52 Dose: Infused Sodium Phosphate 30 mmol/ (Sodium Chloride) 260 mls @ 42 mls/hr IV.SIG UNSCH PRN PRN Reason: For Phosphorus < 2.5 mg/dL Norepinephrine Bitartrate (Levophed-Dextrose 4 Mg/250 Ml Drip) 4 mg in 250 mls @ 7.5 mls/hr IV.SIG TITRATE PRN; Protocol PRN Reason: Per Protocol Last Titration: 06/07/18 10:31 Dose: 7 mcg/min, 26.25 mls/hr Vasopressin 40 unit/ Dextrose 100 mls @ 6 mls/hr IV.CONT TITRATE PRN; Protocol PRN Reason: Per Protocol Piperacillin/Tazobactam/Dextrose (Zosyn 3.375 Gm Premix) 3.375 gm in 50 mls @ 100 mls/hr IV.SIG Q6H NIKKIE Last Admin: 06/08/18 09:34 Dose: 100 mls/hr Fluconazole (Diflucan 400 Mg Premix Bag) 200 mls @ 100 mls/hr IV.SIG Q24H NIKKIE Last Infusion: 06/08/18 02:38 Dose: Infused Vancomycin HCl 1,000 mg/ (Sodium Chloride) 250 mls @ 250 mls/hr IV.SIG Q12H NIKKIE Last Admin: 06/08/18 09:30 Dose: 250 mls/hr Sodium Chloride (Ns Inj) 1,000 mls @ 30 mls/hr IV.CONT .Q24H NIKKIE Last Admin: 06/07/18 14:05 Dose: Not Given Sodium Chloride (Ns Inj) 1,000 mls @ 30 mls/hr IV.CONT .Q24H NIKKIE Insulin Human Regular (Novolin R Correctional Sugar Inj) 0 units SQ Q6HR NIKKIE; Protocol Last Admin: 06/08/18 12:24 Dose: Not Given Labetalol HCl (Trandate Inj) 10 mg IV.PUSH Q20M PRN PRN Reason: SBP > 160 DBP > 95 Lactulose (Lactulose Liq) 30 ml PO BID NIKKIE Last Admin: 06/07/18 09:48 Dose: Not Given Magnesium Oxide (Mag-Ox) 800 mg PO UNSCH PRN PRN Reason: For Magnesium 1.2 - 1.6 mg/dL Midazolam HCl (Versed Inj) 2 mg IV.PUSH Q1H PRN PRN Reason: sedation Last Admin: 06/06/18 12:00 Dose: 2 mg Midazolam HCl (Versed Inj) 1 mg IV.PUSH HAM TRIMMER [facility] Stop: 06/12/18 08:44 Miscellaneous Medication () 1 each OROPHARYNG 0000,0400,1200,1600 [facility] Last Admin: 06/08/18 12:26 Dose: Not Given Morphine Sulfate (Morphine Inj) 2 mg IV.PUSH Q3H PRN PRN Reason: Pain 1-10 Last Admin: 06/08/18 09:34 Dose: 2 mg Ondansetron HCl (Zofran Inj) 4 mg IV.PUSH Q6H PRN PRN Reason: NAUSEA OR VOMITING Pharmacy Profile Note (Vancomycin Consult Pharmacy) 1 each OTHER UNSCH PRN PRN Reason: Pharmacy to dose Polyethylene Glycol (Miralax) 17 gm PO BID [facility] Last Admin: 06/07/18 09:48 Dose: Not Given Potassium Chloride (Kcl Liq) 40 meq PO UNSCH PRN PRN Reason: Potassium level 3.3-3.5 mEq/L Potassium Chloride (Kcl Liq) 40 meq PO UNSCH PRN PRN Reason: POTASSIUM LESS THAN 3.5 Potassium Phosphate (K-Phos Original) 2,000 mg PO Q4H PRN PRN Reason: Phosphorus Less Than 2.5 mg/dL Potassium Phosphate (K-Phos Original) 2,000 mg PO UNSCH PRN PRN Reason: SEE LABEL COMMENTS Senna/Docusate Sodium (Antoinette-Colace) 1 tab PO BID [facility] Last Admin: 06/07/18 09:48 Dose: Not Given Sodium Chloride (Ns Flush) 2 ml IV.FLUSH UNSCH PRN PRN Reason: FLUSH AFTER USING IV ACCESS Terbutaline Sulfate (Brethine Inj) 1 mg SQ UNSCH PRN PRN Reason: For Extravasation Allergies Allergy/AdvReac Type Severity Reaction Status Date / Time *MDRO Multi-Drug Resistant AdvReac Unknown Uncoded 02/20/16 09:24 Organism Exam Vital signs: Vital Signs 06/07/18 12:46 06/07/18 13:00 06/07/18 13:01 Temperature 97.4 F L Pulse Rate 77 74 79 Respiratory Rate 26 H 16 16 Blood Pressure 124/58 L 132/68 Pulse Oximetry 100 99 99 06/07/18 13:16 06/07/18 13:31 06/07/18 13:46 Temperature 95.7 F L 95.7 F L Pulse Rate 64 65 59 L Respiratory Rate 11 L 10 L 11 L Blood Pressure 118/61 116/57 L 120/60 Pulse Oximetry 99 98 99 06/07/18 14:00 06/07/18 14:01 06/07/18 14:16 Temperature Pulse Rate 79 80 74 Respiratory Rate 20 21 15 Blood Pressure 134/64 133/66 Pulse Oximetry 99 99 98 06/07/18 14:19 06/07/18 14:46 06/07/18 15:00 Temperature Pulse Rate 62 59 L 69 Respiratory Rate 11 L 10 L 13 Blood Pressure 130/65 93/55 L Pulse Oximetry 99 98 99 06/07/18 15:01 06/07/18 15:16 06/07/18 15:31 Temperature Pulse Rate 70 66 79 Respiratory Rate 20 9 L 21 Blood Pressure 122/58 L 134/68 113/58 L Pulse Oximetry 99 100 98 06/07/18 15:46 06/07/18 16:00 06/07/18 16:01 Temperature Pulse Rate 78 71 75 Respiratory Rate 13 14 20 Blood Pressure 122/64 130/60 Pulse Oximetry 98 98 98 06/07/18 16:16 06/07/18 16:31 06/07/18 16:46 Temperature Pulse Rate 82 79 84 Respiratory Rate 17 14 20 Blood Pressure 122/61 125/66 121/65 Pulse Oximetry 99 98 98 06/07/18 17:00 06/07/18 17:01 06/07/18 17:16 Temperature Pulse Rate 75 79 79 Respiratory Rate 13 16 19 Blood Pressure 109/59 L 116/57 L Pulse Oximetry 98 98 98 06/07/18 17:31 06/07/18 17:46 06/07/18 18:00 Temperature 97.6 F 97.8 F Pulse Rate 70 70 72 Respiratory Rate 19 17 20 Blood Pressure 114/59 L 117/68 Pulse Oximetry 98 98 98 06/07/18 18:01 06/07/18 18:16 06/07/18 18:31 Temperature Pulse Rate 71 72 69 Respiratory Rate 15 18 16 Blood Pressure 117/63 115/55 L 122/58 L Pulse Oximetry 98 98 98 06/07/18 18:46 06/07/18 19:00 06/07/18 19:01 Temperature Pulse Rate 81 68 70 Respiratory Rate 20 25 H 26 H Blood Pressure 127/61 115/59 L Pulse Oximetry 98 98 98 06/07/18 19:16 06/07/18 19:31 06/07/18 19:43 Temperature 97.9 F Pulse Rate 65 75 Respiratory Rate 21 16 Blood Pressure 120/62 123/58 L Pulse Oximetry 98 98 98 06/07/18 19:46 06/07/18 20:00 06/07/18 20:01 Temperature Pulse Rate 71 68 78 Respiratory Rate 15 18 23 Blood Pressure 136/66 125/69 Pulse Oximetry 99 98 97 06/07/18 20:16 06/07/18 20:31 06/07/18 20:46 Temperature Pulse Rate 80 71 73 Respiratory Rate 16 19 16 Blood Pressure 131/67 128/61 152/70 H Pulse Oximetry 98 98 98 06/07/18 21:00 06/07/18 21:01 06/07/18 21:16 Temperature Pulse Rate 92 H 91 H 86 Respiratory Rate 26 H 20 19 Blood Pressure 138/67 138/69 Pulse Oximetry 96 96 97 06/07/18 21:31 06/07/18 21:46 06/07/18 22:00 Temperature Pulse Rate 82 76 89 Respiratory Rate 18 17 17 Blood Pressure 116/67 118/62 Pulse Oximetry 96 96 96 06/07/18 22:01 06/07/18 23:00 06/07/18 23:06 Temperature 97.4 F L Pulse Rate 89 79 72 Respiratory Rate 21 18 17 Blood Pressure 113/57 L 122/56 L Pulse Oximetry 96 96 97 06/07/18 23:48 06/08/18 00:00 06/08/18 00:37 Temperature Pulse Rate 67 94 H 81 Respiratory Rate 18 17 17 Blood Pressure 102/56 L Pulse Oximetry 96 95 06/08/18 00:45 06/08/18 00:58 06/08/18 01:00 Temperature Pulse Rate 90 87 90 Respiratory Rate 19 19 Blood Pressure 101/59 L 104/64 Pulse Oximetry 95 94 L 94 L 06/08/18 01:13 06/08/18 01:28 06/08/18 01:43 Temperature Pulse Rate 85 92 H 88 Respiratory Rate 16 21 19 Blood Pressure 114/59 L 106/56 L 104/58 L Pulse Oximetry 94 L 95 96 06/08/18 02:00 06/08/18 02:13 06/08/18 02:28 Temperature Pulse Rate 81 83 72 Respiratory Rate 17 17 14 Blood Pressure 110/58 L 105/56 L Pulse Oximetry 95 95 96 06/08/18 02:38 06/08/18 02:43 06/08/18 02:58 Temperature Pulse Rate 71 79 Respiratory Rate 12 13 19 Blood Pressure 107/55 L 111/60 Pulse Oximetry 96 96 06/08/18 03:00 06/08/18 03:13 06/08/18 03:28 Temperature Pulse Rate 73 78 76 Respiratory Rate 17 17 15 Blood Pressure 111/55 L 114/58 L Pulse Oximetry 96 95 96 06/08/18 03:43 06/08/18 03:58 06/08/18 04:00 Temperature Pulse Rate 81 68 67 Respiratory Rate 17 15 15 Blood Pressure 109/56 L 101/59 L Pulse Oximetry 96 95 95 06/08/18 04:11 06/08/18 04:13 06/08/18 04:28 Temperature 97.5 F L Pulse Rate 83 71 81 Respiratory Rate 17 14 15 Blood Pressure 112/61 115/66 Pulse Oximetry 96 96 06/08/18 04:43 06/08/18 04:58 06/08/18 05:00 Temperature Pulse Rate 79 80 89 Respiratory Rate 17 16 25 H Blood Pressure 103/56 L 111/55 L Pulse Oximetry 94 L 94 L 95 06/08/18 05:13 06/08/18 05:28 06/08/18 05:43 Temperature Pulse Rate 82 76 74 Respiratory Rate 18 15 15 Blood Pressure 109/56 L 111/56 L 106/57 L Pulse Oximetry 94 L 94 L 95 06/08/18 05:58 06/08/18 06:00 06/08/18 06:13 Temperature Pulse Rate 108 H 109 H Respiratory Rate 25 H 23 Blood Pressure 143/80 H 117/59 L Pulse Oximetry 93 L 91 L 06/08/18 06:28 06/08/18 06:43 06/08/18 06:58 Temperature Pulse Rate 76 85 84 Respiratory Rate 15 18 25 H Blood Pressure 114/60 110/57 L 116/60 Pulse Oximetry 93 L 94 L 94 L 06/08/18 07:13 06/08/18 07:28 06/08/18 07:42 Temperature Pulse Rate 83 77 78 Respiratory Rate 26 H 22 17 Blood Pressure 115/61 110/55 L Pulse Oximetry 94 L 95 94 L 06/08/18 07:43 06/08/18 07:58 06/08/18 08:00 Temperature Pulse Rate 79 82 Respiratory Rate 13 23 Blood Pressure 122/61 114/60 Pulse Oximetry 95 95 94 L 06/08/18 08:13 06/08/18 08:28 06/08/18 08:43 Temperature 97.9 F Pulse Rate 74 76 83 Respiratory Rate 20 22 27 H Blood Pressure 109/57 L 120/61 119/66 Pulse Oximetry 95 95 94 L 06/08/18 08:58 06/08/18 09:13 06/08/18 09:28 Temperature Pulse Rate 77 79 84 Respiratory Rate 18 21 25 H Blood Pressure 118/58 L 119/61 111/58 L Pulse Oximetry 94 L 94 L 94 L 06/08/18 09:43 06/08/18 09:58 06/08/18 10:13 Temperature Pulse Rate 88 77 87 Respiratory Rate 24 17 29 H Blood Pressure 143/72 H 118/60 134/68 Pulse Oximetry 94 L 93 L 93 L 06/08/18 10:28 06/08/18 10:43 06/08/18 10:58 Temperature Pulse Rate 76 81 74 Respiratory Rate 25 H 18 15 Blood Pressure 122/61 119/58 L 111/56 L Pulse Oximetry 94 L 94 L 95 06/08/18 11:13 06/08/18 11:28 06/08/18 11:43 Temperature Pulse Rate 76 68 93 H Respiratory Rate 13 12 21 Blood Pressure 136/62 113/56 L 143/83 H Pulse Oximetry 95 94 L 94 L 06/08/18 11:51 Temperature Pulse Rate 102 H Respiratory Rate 17 Blood Pressure Pulse Oximetry Intake & Output 06/07/18 06/08/18 06/08/18 18:59 06:59 18:59 Intake Total 549.5 / 549.5 1173 / 1173 Output Total 650 / 650 2250 / 2250 Balance -100.5 / -100.5 -1077 / -1077 Weight 56 kg Intake: IV 549.5 / 549.5 1173 / 1173 Heparin/D5W 25,000 U/250 mL 25, 173 / 173 000 unit In 250 ml @ Per Protocol IV.CONT TITRATE PRN Rx #:[id number] Primacor Inj 20 MG In NS Inj 80 125 / 125 100 / 100 ML @ 0.375 MCG/KG/MIN 6.88 mls /hr IV.CONT .[id number] NIKKIE Rx#: [id number] Diprivan 1000 mg/100 ml Inj 1, 57.5 / 57.5 100 / 100 000 mg In 100 ml @ 5 MCG/KG/MIN 1.837 mls/hr IV.CONT TITRATE PRN Rx#:[id number] Diflucan 400 mg Premix Bag 200 200 / 200 ML @ 100 mls/hr IV.SIG Q24H NIKKIE Rx#:[id number] Zosyn 3.375 GM Premix 3.375 gm 50 / 50 100 / 100 In 50 ml @ 100 mls/hr IV.SIG Q6H NIKKIE Rx#:[id number] Vancomycin Inj 1,000 MG In NS 250 / 250 250 / 250 Inj 250 ML @ 250 mls/hr IV.SIG Q12H NIKKIE Rx#:[id number] fentaNYL 10 mcg/mL Premix Drip 67 / 67 250 / 250 2,500 mcg In 250 ml @ 50 MCG/HR 5 mls/hr IV.SIG TITRATE PRN Rx #:[id number] Output: Stool 0 / 0 Urine Amount (Catheter) 650 / 650 1650 / 1650 Indwelling Temp Sensing 650 / 650 1650 / 1650 Catheter Gastric Drainage 600 / 600 Orogastric Tube 600 / 600 Chest Tube Drainage 0 / 0 Left 0 / 0 Other: Date of Last Bowel Movement 06/07/18 - Constitutional no acute distress, cachectic, chronically ill appearing - Routine HEENT Exam Head: Present: normocephalic, atraumatic - Routine Neck Exam Present: supple - Routine Respiratory Exam Present: decreased breath sounds, rales Comments: Left side rhonchi left lower base Patient had left chest tube attached to wall suction - Routine Cardiovascular Exam Present: RRR, S1, S2, tachycardia - Routine Abdominal Exam Present: soft, normoactive bowel sounds. Absent: tenderness, distended Comments: Patient has NGT to wall suction draining out brownish to reddish streak Patient is on heparin drip for the leg ischemia - Routine Extremities Exam Present: pulses intact, normal capillary refill - Routine Skin Exam Present: intact - Routine Neurological Exam Present: alert, oriented X3 Results - Labs CBC & Chem 7: 06/08/18 05:50 06/08/18 05:50 Labs: Laboratory Results - last 24 hr 06/07/18 06/07/18 06/07/18 13:42 17:17 19:15 WBC RBC Hgb Hct MCV MCH MCHC RDW Plt Count MPV Neut % (Auto) Lymph % (Auto) [place] % (Auto) Eos % (Auto) Baso % (Auto) Neut # (Auto) Lymph # (Auto) [place] # (Auto) Eos # (Auto) Baso # (Auto) WBC Differential Differential Comment PT INR APTT 35.5 H Puncture Site Patient Temperature O2 Saturation ABG pH ABG pCO2 ABG pO2 ABG HCO3 ABG O2 Content ABG Base Excess ABG Methemoglobin Hemoglobin Carboxyhemoglobin O2 Delivery Device Liter Flow Critical Value Sodium Potassium Chloride Carbon Dioxide Anion Gap BUN Creatinine Estimated GFR POC Glucose 115 H 83 Random Glucose Calcium Phosphorus Magnesium Total Bilirubin AST ALT Alkaline Phosphatase B-Natriuretic Peptide Total Protein Albumin Vancomycin Trough 06/08/18 06/08/18 06/08/18 00:38 01:20 04:58 WBC RBC Hgb Hct MCV MCH MCHC RDW Plt Count MPV Neut % (Auto) Lymph % (Auto) [place] % (Auto) Eos % (Auto) Baso % (Auto) Neut # (Auto) Lymph # (Auto) [place] # (Auto) Eos # (Auto) Baso # (Auto) WBC Differential Differential Comment PT INR APTT 43.8 H D Puncture Site Right brachial Patient Temperature 98.6 O2 Saturation 91 ABG pH 7.40 ABG pCO2 40 ABG pO2 67 ABG HCO3 24 ABG O2 Content 10.9 L ABG Base Excess 0.0 ABG Methemoglobin 1.5 Hemoglobin 8.5 L Carboxyhemoglobin 1.4 O2 Delivery Device Nasal cannula Liter Flow 2.00 Critical Value No Sodium Potassium Chloride Carbon Dioxide Anion Gap BUN Creatinine Estimated GFR POC Glucose 78 Random Glucose Calcium Phosphorus Magnesium Total Bilirubin AST ALT Alkaline Phosphatase B-Natriuretic Peptide Total Protein Albumin Vancomycin Trough 06/08/18 06/08/18 06/08/18 05:50 05:50 05:50 WBC 10.7 D RBC 3.09 L Hgb 8.7 L Hct 25.9 L MCV 83.9 MCH 28.2 MCHC 33.6 RDW 18.9 H Plt Count 233 MPV 7.4 Neut % (Auto) 75.6 H Lymph % (Auto) 19.2 [place] % (Auto) 4.9 Eos % (Auto) 0.2 Baso % (Auto) 0.1 Neut # (Auto) 8.1 H Lymph # (Auto) 2.1 [place] # (Auto) 0.5 Eos # (Auto) 0.0 Baso # (Auto) 0.0 WBC Differential . Differential Comment Auto diff final PT INR APTT Puncture Site Patient Temperature O2 Saturation ABG pH ABG pCO2 ABG pO2 ABG HCO3 ABG O2 Content ABG Base Excess ABG Methemoglobin Hemoglobin Carboxyhemoglobin O2 Delivery Device Liter Flow Critical Value Sodium 147 H Potassium 3.3 L Chloride 114 H Carbon Dioxide 26.2 Anion Gap 7 BUN 11 Creatinine 0.71 Estimated GFR Greater than 89 POC Glucose Random Glucose 69 L Calcium 7.8 L Phosphorus 3.3 Magnesium 1.9 Total Bilirubin 0.3 AST 21 ALT 16 Alkaline Phosphatase 53 B-Natriuretic Peptide 597 H Total Protein 6.1 L D Albumin 2.2 L Vancomycin Trough 06/08/18 06/08/18 06/08/18 05:50 05:53 10:30 WBC RBC Hgb Hct MCV MCH MCHC RDW Plt Count MPV Neut % (Auto) Lymph % (Auto) [place] % (Auto) Eos % (Auto) Baso % (Auto) Neut # (Auto) Lymph # (Auto) [place] # (Auto) Eos # (Auto) Baso # (Auto) WBC Differential Differential Comment PT 10.6 INR 1.0 APTT 39.0 H Puncture Site Patient Temperature O2 Saturation ABG pH ABG pCO2 ABG pO2 ABG HCO3 ABG O2 Content ABG Base Excess ABG Methemoglobin Hemoglobin Carboxyhemoglobin O2 Delivery Device Liter Flow Critical Value Sodium Potassium Chloride Carbon Dioxide Anion Gap BUN Creatinine Estimated GFR POC Glucose 76 Random Glucose Calcium Phosphorus Magnesium Total Bilirubin AST ALT Alkaline Phosphatase B-Natriuretic Peptide Total Protein Albumin Vancomycin Trough 16.9 H 06/08/18 12:03 WBC RBC Hgb Hct MCV MCH MCHC RDW Plt Count MPV Neut % (Auto) Lymph % (Auto) [place] % (Auto) Eos % (Auto) Baso % (Auto) Neut # (Auto) Lymph # (Auto) [place] # (Auto) Eos # (Auto) Baso # (Auto) WBC Differential Differential Comment PT INR APTT Puncture Site Patient Temperature O2 Saturation ABG pH ABG pCO2 ABG pO2 ABG HCO3 ABG O2 Content ABG Base Excess ABG Methemoglobin Hemoglobin Carboxyhemoglobin O2 Delivery Device Liter Flow Critical Value Sodium Potassium Chloride Carbon Dioxide Anion Gap BUN Creatinine Estimated GFR POC Glucose 67 L Random Glucose Calcium Phosphorus Magnesium Total Bilirubin AST ALT Alkaline Phosphatase B-Natriuretic Peptide Total Protein Albumin Vancomycin Trough Assessment and Plan (1) Diverticular disease Status: Acute Code(s): K57.90 - Diverticulosis of intestine, part unspecified , without perforation or abscess without bleeding (2) PAD (peripheral artery disease) Status: Acute Code(s): I73.9 - Peripheral vascular disease, unspecified (3) Pneumothorax Status: Acute Code(s): J93.9 - Pneumothorax, unspecified (4) Elevated troponin Status: Acute Code(s): R74.8 - Abnormal levels of other serum enzymes (5) Diverticulitis of colon with perforation Status: Acute Code(s): K57.20 - Diverticulitis of large intestine with perforation and abscess without bleeding - Plan 06/08/2018 Patient is a 67-year-old male with history of severe PAD initially presented to the emergency room for shortness of breathing associated with severe right leg pain that caused the patient to trip and fall sustaining rib fracture. Subsequently patient had left apical pneumothorax with large amount of subcutaneous emphysema. 06/05/2018 patient had chest tube to address the issues of sided acute pneumothorax with respiratory failure. 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 Currently patient denies abdominal pain nausea vomiting blood in the stool. Last hospitalization April 30, 2018 was for perforated diverticular abscess .patient stated that he never had colonoscopy or EGD done. our service is consulted for diverticular abscess versus malignancy. WBC 10.7 hemoglobin 8.7 hematocrit 25.9 platelet 233 INR [address] taken on 05/06/2018 with previous hospitalization for perforated diverticulitis showed the following 1. A percutaneous drain has been placed in one of the loculated fluid collections within the right anterior pelvis. This collection has improved status post drain placement. 2. Second moderate-sized loculated fluid collection within the left hemipelvis inferior to the thickened loop of sigmoid colon which measures 6.7 x 3.0 cm consistent with probable pericolic abscess3. Extensive inflammatory changes are still noted within the left hemipelvis. 4. Persistent thickening of the sigmoid colon consistent with acute colitis or diverticulitis. Mass with perforation remains in the differential also. 5. Thickening of the wall of the urinary bladder particularly anteriorly and to the left of midline in the region of the extensive pericolic changes suggesting cystitis. 6. Persistent mild ureteropelvicaliectasis on the left. 7. Enlarged prostate. 8. Tiny low-density lesions within the liver consistent with possible hepatic cysts. 9. Degenerative changes throughout the thoracolumbar spine. Assessment Diverticulitis of colon with history of perforation with last hospitalization last month -currently patient with NG tube to LIS, no abdominal pain, n/m Dilated cardiomyopathy -EF less than 20% Left pneumothorax -chest tube to wall suction Hypotension on milrinone Elevated troponin -patient is for heart catheterization in the morning Plan N.p.o. NG tube to low intermittent suction, to discontinue NG tube in the morning unless there are other indication PPI Electrolytes replacement per attending Continue IV antibiotics Continue milrinone Monitor labs Monitor for active bleeding Plan for EGD colonoscopy after cardiac clearance and when stable Supportive care Further recommendations to follow Patient seen and examined by myself and Dr. Hopkins and this note is written on his behalf - Attending Attestation Dr Hopkins (3) Pneumothorax Qualifiers: Pneumothorax type: traumatic Encounter type: initial encounter Qualified Code(s): S27.0XXA - Traumatic pneumothorax, initial encounter (5) Diverticulitis of colon with perforation Qualifiers: Diverticulitis bleeding: without bleeding Qualified Code(s): K57.20 - Diverticulitis of large intestine with perforation and abscess without bleeding
--- NOTE | 2018-06-08 14:08 | P.PNCC ---
Subjective Subjective Remarks/Hospital Course: Hospital Course: 67yM with history of severe PAD who presents after he had sudden onset right leg pain which caused him to fall, and then he began with sudden shortness of breath. In the emergency department, found to have left apical pneumothorax with large amount of subQ air, with rib fracture. In addition, severe PAD with occlusion of the right common femoral artery. Labs significant for trop 0.06, Lactate 7. patient denies chest pain. does endorse leg pain and shortness of breath. denies fever,chills. remainder of the ROS negative, although limited by his critical illness. Subjective: 06/06: discussed case with Dr. Oglesby from gen surg overnight- patient also has additional pelvic abscesses compounding his shock. blood cultures growing GNRs. We elected to hold off on draining abscesses yesterday due to acute cardiogenic shock in the setting of acute myocardial infarction as well as critical limb ischemia. Today, leg appears better perfused and lactate is starting to clear. remains on milrinone and norepinephrine infusions. BNP has risen from 30 to 1300. Cardiology recommends LHC during this admission, but waiting until shock resolves and more stable. remains critically ill today. 06/07: minimal improvements. remains in shock. bacteremic with Klebsiella, sensitivities pending. remains on milrinone at 0.5 mcg/kg/min, norepinephrine. lactate still elevated, although starting to clear. 06/08: Lying in bed no acute distress. Remains on milrinone at 0.5 mcg/kg/min. Urine output 2.3 L in 24 hours. Cardiac catheterization planned for tomorrow. Objective Vital Signs / I&O: Vital Signs 06/07/18 14:00 06/07/18 14:01 06/07/18 14:16 Temperature Pulse Rate 79 80 74 Respiratory Rate 20 21 15 Blood Pressure 134/64 133/66 Pulse Oximetry 99 99 98 06/07/18 14:19 06/07/18 14:46 06/07/18 15:00 Temperature Pulse Rate 62 59 L 69 Respiratory Rate 11 L 10 L 13 Blood Pressure 130/65 93/55 L Pulse Oximetry 99 98 99 06/07/18 15:01 06/07/18 15:16 06/07/18 15:31 Temperature Pulse Rate 70 66 79 Respiratory Rate 20 9 L 21 Blood Pressure 122/58 L 134/68 113/58 L Pulse Oximetry 99 100 98 06/07/18 15:46 06/07/18 16:00 06/07/18 16:01 Temperature Pulse Rate 78 71 75 Respiratory Rate 13 14 20 Blood Pressure 122/64 130/60 Pulse Oximetry 98 98 98 06/07/18 16:16 06/07/18 16:31 06/07/18 16:46 Temperature Pulse Rate 82 79 84 Respiratory Rate 17 14 20 Blood Pressure 122/61 125/66 121/65 Pulse Oximetry 99 98 98 06/07/18 17:00 06/07/18 17:01 06/07/18 17:16 Temperature Pulse Rate 75 79 79 Respiratory Rate 13 16 19 Blood Pressure 109/59 L 116/57 L Pulse Oximetry 98 98 98 06/07/18 17:31 06/07/18 17:46 06/07/18 18:00 Temperature 97.6 F 97.8 F Pulse Rate 70 70 72 Respiratory Rate 19 17 20 Blood Pressure 114/59 L 117/68 Pulse Oximetry 98 98 98 06/07/18 18:01 06/07/18 18:16 06/07/18 18:31 Temperature Pulse Rate 71 72 69 Respiratory Rate 15 18 16 Blood Pressure 117/63 115/55 L 122/58 L Pulse Oximetry 98 98 98 06/07/18 18:46 06/07/18 19:00 06/07/18 19:01 Temperature Pulse Rate 81 68 70 Respiratory Rate 20 25 H 26 H Blood Pressure 127/61 115/59 L Pulse Oximetry 98 98 98 06/07/18 19:16 06/07/18 19:31 06/07/18 19:43 Temperature 97.9 F Pulse Rate 65 75 Respiratory Rate 21 16 Blood Pressure 120/62 123/58 L Pulse Oximetry 98 98 98 06/07/18 19:46 06/07/18 20:00 06/07/18 20:01 Temperature Pulse Rate 71 68 78 Respiratory Rate 15 18 23 Blood Pressure 136/66 125/69 Pulse Oximetry 99 98 97 06/07/18 20:16 06/07/18 20:31 02 20:46 Temperature Pulse Rate 80 71 73 Respiratory Rate 16 19 16 Blood Pressure 131/67 128/61 152/70 H Pulse Oximetry 98 98 98 06/07/18 21:00 06/07/18 21:01 06/07/18 21:16 Temperature Pulse Rate 92 H 91 H 86 Respiratory Rate 26 H 20 19 Blood Pressure 138/67 138/69 Pulse Oximetry 96 96 97 06/07/18 21:31 06/07/18 21:46 06/07/18 22:00 Temperature Pulse Rate 82 76 89 Respiratory Rate 18 17 17 Blood Pressure 116/67 118/62 Pulse Oximetry 96 96 96 06/07/18 22:01 06/07/18 23:00 06/07/18 23:06 Temperature 97.4 F L Pulse Rate 89 79 72 Respiratory Rate 21 18 17 Blood Pressure 113/57 L 122/56 L Pulse Oximetry 96 96 97 06/07/18 23:48 06/08/18 00:00 06/08/18 00:37 Temperature Pulse Rate 67 94 H 81 Respiratory Rate 18 17 17 Blood Pressure 102/56 L Pulse Oximetry 96 95 06/08/18 00:45 06/08/18 00:58 06/08/18 01:00 Temperature Pulse Rate 90 87 90 Respiratory Rate 19 19 19 Blood Pressure 101/59 L 104/64 Pulse Oximetry 95 94 L 94 L 06/08/18 01:13 06/08/18 01:28 06/08/18 01:43 Temperature Pulse Rate 85 92 H 88 Respiratory Rate 16 21 19 Blood Pressure 114/59 L 106/56 L 104/58 L Pulse Oximetry 94 L 95 96 06/08/18 02:00 06/08/18 02:13 06/08/18 02:28 Temperature Pulse Rate 81 83 72 Respiratory Rate 17 17 14 Blood Pressure 110/58 L 105/56 L Pulse Oximetry 95 95 96 06/08/18 02:38 06/08/18 02:43 06/08/18 02:58 Temperature Pulse Rate 71 79 Respiratory Rate 12 13 19 Blood Pressure 107/55 L 111/60 Pulse Oximetry 96 96 06/08/18 03:00 06/08/18 03:13 06/08/18 03:28 Temperature Pulse Rate 73 78 76 Respiratory Rate 17 17 15 Blood Pressure 111/55 L 114/58 L Pulse Oximetry 96 95 96 06/08/18 03:43 06/08/18 03:58 06/08/18 04:00 Temperature Pulse Rate 81 68 67 Respiratory Rate 17 15 15 Blood Pressure 109/56 L 101/59 L Pulse Oximetry 96 95 95 06/08/18 04:11 06/08/18 04:13 06/08/18 04:28 Temperature 97.5 F L Pulse Rate 83 71 81 Respiratory Rate 17 14 15 Blood Pressure 112/61 115/66 Pulse Oximetry 96 96 06/08/18 04:43 06/08/18 04:58 06/08/18 05:00 Temperature Pulse Rate 79 80 89 Respiratory Rate 17 16 25 H Blood Pressure 103/56 L 111/55 L Pulse Oximetry 94 L 94 L 95 06/08/18 05:13 06/08/18 05:28 06/08/18 05:43 Temperature Pulse Rate 82 76 74 Respiratory Rate 18 15 15 Blood Pressure 109/56 L 111/56 L 106/57 L Pulse Oximetry 94 L 94 L 95 06/08/18 05:58 06/08/18 06:00 06/08/18 06:13 Temperature Pulse Rate 108 H 109 H Respiratory Rate 25 H 23 Blood Pressure 143/80 H 117/59 L Pulse Oximetry 93 L 91 L 06/08/18 06:28 06/08/18 06:43 06/08/18 06:58 Temperature Pulse Rate 76 85 84 Respiratory Rate 15 18 25 H Blood Pressure 114/60 110/57 L 116/60 Pulse Oximetry 93 L 94 L 94 L 06/08/18 07:13 06/08/18 07:28 06/08/18 07:42 Temperature Pulse Rate 83 77 78 Respiratory Rate 26 H 22 17 Blood Pressure 115/61 110/55 L Pulse Oximetry 94 L 95 94 L 06/08/18 07:43 06/08/18 07:58 06/08/18 08:00 Temperature Pulse Rate 79 82 Respiratory Rate 13 23 Blood Pressure 122/61 114/60 Pulse Oximetry 95 95 94 L 06/08/18 08:13 06/08/18 08:28 06/08/18 08:43 Temperature 97.9 F Pulse Rate 74 76 83 Respiratory Rate 20 22 27 H Blood Pressure 109/57 L 120/61 119/66 Pulse Oximetry 95 95 94 L 06/08/18 08:58 06/08/18 09:13 06/08/18 09:28 Temperature Pulse Rate 77 79 84 Respiratory Rate 18 21 25 H Blood Pressure 118/58 L 119/61 111/58 L Pulse Oximetry 94 L 94 L 94 L 06/08/18 09:43 06/08/18 09:58 06/08/18 10:13 Temperature Pulse Rate 88 77 87 Respiratory Rate 24 17 29 H Blood Pressure 143/72 H 118/60 134/68 Pulse Oximetry 94 L 93 L 93 L 06/08/18 10:28 06/08/18 10:43 06/08/18 10:58 Temperature Pulse Rate 76 81 74 Respiratory Rate 25 H 18 15 Blood Pressure 122/61 119/58 L 111/56 L Pulse Oximetry 94 L 94 L 95 06/08/18 11:13 06/08/18 11:28 06/08/18 11:43 Temperature Pulse Rate 76 68 93 H Respiratory Rate 13 12 21 Blood Pressure 136/62 113/56 L 143/83 H Pulse Oximetry 95 94 L 94 L 06/08/18 11:51 Temperature Pulse Rate 102 H Respiratory Rate 17 Blood Pressure Pulse Oximetry Intake & Output 06/07/18 06/08/18 06/08/18 18:59 06:59 18:59 Intake Total 549.5 / 549.5 1173 / 1173 150 / 150 Output Total 650 / 650 2250 / 2250 Balance -100.5 / -100.5 -1077 / -1077 150 / 150 Weight 56 kg Intake: IV 549.5 / 549.5 1173 / 1173 150 / 150 Heparin/D5W 25,000 U/250 mL 25, 173 / 173 000 unit In 250 ml @ Per Protocol IV.CONT TITRATE PRN Rx #:[id number] Primacor Inj 20 MG In NS Inj 80 125 / 125 100 / 100 100 / 100 ML @ 0.375 MCG/KG/MIN 6.88 mls /hr IV.CONT .[id number] [facility] Rx#: [id number] Diprivan 1000 mg/100 ml Inj 1, 57.5 / 57.5 100 / 100 000 mg In 100 ml @ 5 MCG/KG/MIN 1.837 mls/hr IV.CONT TITRATE PRN Rx#:[id number] Diflucan 400 mg Premix Bag 200 200 / 200 ML @ 100 mls/hr IV.SIG Q24H [facility] Rx#:[id number] Zosyn 3.375 GM Premix 3.375 gm 50 / 50 100 / 100 50 / 50 In 50 ml @ 100 mls/hr IV.SIG Q6H [facility] Rx#:[id number] Vancomycin Inj 1,000 MG In NS 250 / 250 250 / 250 Inj 250 ML @ 250 mls/hr IV.SIG Q12H [facility] Rx#:[id number] fentaNYL 10 mcg/mL Premix Drip 250 / 250 2,500 mcg In 250 ml @ 50 MCG/HR 5 mls/hr IV.SIG TITRATE PRN Rx #:[id number] Output: Stool 0 / 0 Urine Amount (Catheter) 650 / 650 1650 / 1650 Indwelling Temp Sensing 650 / 650 1650 / 1650 Catheter Gastric Drainage 600 / 600 Orogastric Tube 600 / 600 Chest Tube Drainage 0 / 0 Left 0 / 0 Other: Date of Last Bowel Movement 06/07/18 Result Diagrams: 06/08/18 05:50 06/08/18 05:50 Objective Remarks: GENERAL:Middle-age man who appears much older than stated age, lying in bed, intubated, sedated, critically ill. HEENT: Normocephalic. Atraumatic. Pupils equal, round, reactive, conjugate. Mucous membranes are moist NECK: Trachea is midline. JVD today. CHEST: equal chest rise. Subcu emphysema over the left anterior chest wall, improving. left chest tube with minimal serosanguinous output, to suction. no air leak. CARDIOVASCULAR: Tachycardic rate, regular rhythm. Sinus. milrinone at 0.5 mcg/ kg/min. ABDOMEN: Soft, nontender, nondistended. No guarding. MUSCULOSKELETAL: Radial pulses are 1+. Dopplerable signals in the bilateral lower extremities. improved perfusion no longer any demarkation of the LE perfusion. NEUROLOGICAL: RASS -2. Follows commands in all 4 extremities. No focal deficits. Assessment and Plan - Assessment and Plan Plan: Assessment: 67yM with left rib fracture, pneumothorax, and critical limb ischemia, complicated by shock, acute NSTEMI with cardiogenic shock, septic shock with Klebsiella bacteremia, pelvic abscesses. Critically ill with ongoing shock from multiple etiologies. He remains critically ill with guarded prognosis. Plan by systems: Neurologic: Acute metabolic encephalopathy - avoid sedatives - frequent neuro checks Respiratory: COPD Left sided rib fractures Left pneumothorax Acute hypoxic and hypercarbic respiratory failure intubated 06/05 for resp failure. Self extubated yesterday Nebs Head of bed elevated - keep chest tube to suction - CXR in AM Cardiovascular: NSTEMI with cardiogenic shock Septic shock new acute ischemic cardiomyopathy, EF 20% Trend troponins Status post 4 L crystalloid boluses Heparin drip ASA Milrinone at 0.5 mcg/kg/min Renal: Acute kidney injury- improving Loja for hourly urine outputs Trend daily creatinine -- Strict I/Os FEN/GI: Acute protein calorie malnutritionsevere Lactic acidosis- persistent Severe anion gap metabolic acidosis N.p.o. while in shock ICU electrolyte protocol Status post 4 L crystalloid bolus Daily CMP, magnesium, phosphorus Heme/ID: Critical limb ischemia pelvic abscesses Gram negative yojaan bacteremia Heparin drip Trend lactates continue zosyn, vancomycin 06/05 blood cultures 06/21 bottles Klebsiella pansensitive repeat blood cultures 06/07 Daily CBC Watch closely for bleeding from the chest tube Endocrine: Hyperglycemia of critical illness -- SSI, medium scale, every 6 Prophylaxis: GI Prophylaxis Pepcid IV DVT Prophylaxis -- SCDs Heparin infusion Lines: 06/05 left radial arterial line 06/05 left subclavian triple-lumen catheter 06/05 Loja 06/05 left-sided 32 [place] chest tube Dispo: remain in ICU. Critically ill. This patient remains critically ill with one or more organ systems which are or may become a threat to life. I have spent in excess of 35minutes discontinuously in the care and management of this patient. This time is exclusive of procedures, and includes, but is not limited to, evaluation of the patient, review of the medical record, discussions with family, consultants, nursing staff, or respiratory therapy, and documentation in the medical record.
[2018-06-08] MEDS ORDERED: Dextrose 5%/NaCl 0.9% Inj 1,000 ML IV.SIG SCH ×2 (14:45)
[2018-06-08] MEDS: Sod Chloride 0.9% Inj 1,000 ML IV.CONT SCH (15:18)
--- NOTE | 2018-06-08 20:52 | P.PNVS ---
Subjective Subjective/Hospital Course: extubated on pressors Objective Vital Signs / I&O: Vital Signs 06/07/18 21:00 06/07/18 21:01 06/07/18 21:16 Temperature Pulse Rate 92 H 91 H 86 Respiratory Rate 26 H 20 19 Blood Pressure 138/67 138/69 Pulse Oximetry 96 96 97 06/07/18 21:31 06/07/18 21:46 06/07/18 22:00 Temperature Pulse Rate 82 76 89 Respiratory Rate 18 17 17 Blood Pressure 116/67 118/62 Pulse Oximetry 96 96 96 06/07/18 22:01 06/07/18 23:00 06/07/18 23:06 Temperature 97.4 F L Pulse Rate 89 79 72 Respiratory Rate 21 18 17 Blood Pressure 113/57 L 122/56 L Pulse Oximetry 96 96 97 06/07/18 23:48 06/08/18 00:00 06/08/18 00:37 Temperature Pulse Rate 67 94 H 81 Respiratory Rate 18 17 17 Blood Pressure 102/56 L Pulse Oximetry 96 95 06/08/18 00:45 06/08/18 00:58 06/08/18 01:00 Temperature Pulse Rate 90 87 90 Respiratory Rate 19 19 19 Blood Pressure 101/59 L 104/64 Pulse Oximetry 95 94 L 94 L 06/08/18 01:13 06/08/18 01:28 06/08/18 01:43 Temperature Pulse Rate 85 92 H 88 Respiratory Rate 16 21 19 Blood Pressure 114/59 L 106/56 L 104/58 L Pulse Oximetry 94 L 95 96 06/08/18 02:00 06/08/18 02:13 06/08/18 02:28 Temperature Pulse Rate 81 83 72 Respiratory Rate 17 17 14 Blood Pressure 110/58 L 105/56 L Pulse Oximetry 95 95 96 06/08/18 02:38 06/08/18 02:43 06/08/18 02:58 Temperature Pulse Rate 71 79 Respiratory Rate 12 13 19 Blood Pressure 107/55 L 111/60 Pulse Oximetry 96 96 06/08/18 03:00 06/08/18 03:13 06/08/18 03:28 Temperature Pulse Rate 73 78 76 Respiratory Rate 17 17 15 Blood Pressure 111/55 L 114/58 L Pulse Oximetry 96 95 96 06/08/18 03:43 06/08/18 03:58 06/08/18 04:00 Temperature Pulse Rate 81 68 67 Respiratory Rate 17 15 15 Blood Pressure 109/56 L 101/59 L Pulse Oximetry 96 95 95 06/08/18 04:11 06/08/18 04:13 06/08/18 04:28 Temperature 97.5 F L Pulse Rate 83 71 81 Respiratory Rate 17 14 15 Blood Pressure 112/61 115/66 Pulse Oximetry 96 96 06/08/18 04:43 06/08/18 04:58 06/08/18 05:00 Temperature Pulse Rate 79 80 89 Respiratory Rate 17 16 25 H Blood Pressure 103/56 L 111/55 L Pulse Oximetry 94 L 94 L 95 06/08/18 05:13 06/08/18 05:28 06/08/18 05:43 Temperature Pulse Rate 82 76 74 Respiratory Rate 18 15 15 Blood Pressure 109/56 L 111/56 L 106/57 L Pulse Oximetry 94 L 94 L 95 06/08/18 05:58 06/08/18 06:00 06/08/18 06:13 Temperature Pulse Rate 108 H 109 H Respiratory Rate 25 H 23 Blood Pressure 143/80 H 117/59 L Pulse Oximetry 93 L 91 L 06/08/18 06:28 06/08/18 06:43 06/08/18 06:58 Temperature Pulse Rate 76 85 84 Respiratory Rate 15 18 25 H Blood Pressure 114/60 110/57 L 116/60 Pulse Oximetry 93 L 94 L 94 L 06/08/18 07:13 06/08/18 07:28 06/08/18 07:42 Temperature Pulse Rate 83 77 78 Respiratory Rate 26 H 22 17 Blood Pressure 115/61 110/55 L Pulse Oximetry 94 L 95 94 L 06/08/18 07:43 06/08/18 07:58 06/08/18 08:00 Temperature Pulse Rate 79 82 Respiratory Rate 13 23 Blood Pressure 122/61 114/60 Pulse Oximetry 95 95 94 L 06/08/18 08:13 06/08/18 08:28 06/08/18 08:43 Temperature 97.9 F Pulse Rate 74 76 83 Respiratory Rate 20 22 27 H Blood Pressure 109/57 L 120/61 119/66 Pulse Oximetry 95 95 94 L 06/08/18 08:58 06/08/18 09:13 06/08/18 09:28 Temperature Pulse Rate 77 79 84 Respiratory Rate 18 21 25 H Blood Pressure 118/58 L 119/61 111/58 L Pulse Oximetry 94 L 94 L 94 L 06/08/18 09:43 06/08/18 09:58 06/08/18 10:13 Temperature Pulse Rate 88 77 87 Respiratory Rate 24 17 29 H Blood Pressure 143/72 H 118/60 134/68 Pulse Oximetry 94 L 93 L 93 L 06/08/18 10:28 06/08/18 10:43 06/08/18 10:58 Temperature Pulse Rate 76 81 74 Respiratory Rate 25 H 18 15 Blood Pressure 122/61 119/58 L 111/56 L Pulse Oximetry 94 L 94 L 95 06/08/18 11:13 06/08/18 11:28 06/08/18 11:43 Temperature Pulse Rate 76 68 93 H Respiratory Rate 13 12 21 Blood Pressure 136/62 113/56 L 143/83 H Pulse Oximetry 95 94 L 94 L 06/08/18 11:51 06/08/18 12:00 06/08/18 13:00 Temperature Pulse Rate 102 H 92 H Respiratory Rate 17 22 Blood Pressure Pulse Oximetry 95 94 L 06/08/18 13:13 06/08/18 13:28 06/08/18 13:43 Temperature Pulse Rate 98 H 102 H 80 Respiratory Rate 21 29 H 26 H Blood Pressure 123/62 123/64 119/61 Pulse Oximetry 94 L 93 L 94 L 06/08/18 13:58 06/08/18 14:00 06/08/18 14:13 Temperature Pulse Rate 91 H 86 79 Respiratory Rate 27 H 22 14 Blood Pressure 118/60 115/58 L Pulse Oximetry 94 L 94 L 95 06/08/18 14:28 06/08/18 14:43 06/08/18 14:58 Temperature Pulse Rate 80 76 79 Respiratory Rate 28 H 31 H 29 H Blood Pressure 120/63 122/63 114/64 Pulse Oximetry 94 L 96 96 06/08/18 15:00 06/08/18 15:13 06/08/18 15:28 Temperature Pulse Rate 82 79 76 Respiratory Rate 26 H 28 H 27 H Blood Pressure 110/62 112/62 Pulse Oximetry 96 96 96 06/08/18 15:43 06/08/18 15:47 06/08/18 15:58 Temperature Pulse Rate 77 78 86 Respiratory Rate 21 17 23 Blood Pressure 118/63 106/59 L Pulse Oximetry 96 96 06/08/18 16:00 06/08/18 16:13 06/08/18 16:28 Temperature 98.7 F Pulse Rate 85 82 77 Respiratory Rate 26 H 23 20 Blood Pressure 112/61 104/57 L Pulse Oximetry 95 96 96 06/08/18 16:43 06/08/18 16:58 06/08/18 17:00 Temperature Pulse Rate 73 67 72 Respiratory Rate 14 17 20 Blood Pressure 107/55 L 101/59 L Pulse Oximetry 97 97 97 06/08/18 17:13 06/08/18 17:28 06/08/18 17:43 Temperature Pulse Rate 92 H 78 81 Respiratory Rate 23 19 37 H Blood Pressure 110/62 117/65 120/60 Pulse Oximetry 97 96 95 06/08/18 17:58 06/08/18 18:00 06/08/18 18:13 Temperature Pulse Rate 94 H 90 83 Respiratory Rate 26 H 20 17 Blood Pressure 154/84 H 138/63 Pulse Oximetry 96 95 95 06/08/18 18:28 06/08/18 18:43 06/08/18 18:58 Temperature Pulse Rate 76 69 68 Respiratory Rate 20 19 22 Blood Pressure 128/68 127/70 136/73 Pulse Oximetry 95 95 95 06/08/18 19:00 06/08/18 19:13 06/08/18 19:28 Temperature Pulse Rate 75 68 76 Respiratory Rate 23 17 24 Blood Pressure 116/63 144/69 H Pulse Oximetry 95 95 95 06/08/18 19:43 06/08/18 19:58 06/08/18 20:00 Temperature Pulse Rate 81 87 93 H Respiratory Rate 12 24 24 Blood Pressure 151/72 H 146/69 H Pulse Oximetry 96 97 97 06/08/18 20:03 Temperature Pulse Rate Respiratory Rate Blood Pressure Pulse Oximetry 96 Intake & Output 06/08/18 06/08/18 06/09/18 06:59 18:59 06:59 Intake Total 1173 / 1173 250 / 250 Output Total 2250 / 2250 2350 / 2350 Balance -1077 / -1077 -2100 / -2100 Weight 56 kg Intake: IV 1173 / 1173 250 / 250 Heparin/D5W 25,000 U/250 mL 25, 173 / 173 000 unit In 250 ml @ Per Protocol IV.CONT TITRATE PRN Rx #:[id number] Primacor Inj 20 MG In NS Inj 80 100 / 100 100 / 100 ML @ 0.375 MCG/KG/MIN 6.88 mls /hr IV.CONT .[id number] [place] Rx#: [id number] Diprivan 1000 mg/100 ml Inj 1, 100 / 100 000 mg In 100 ml @ 5 MCG/KG/MIN 1.837 mls/hr IV.CONT TITRATE PRN Rx#:[id number] Diflucan 400 mg Premix Bag 200 200 / 200 ML @ 100 mls/hr IV.SIG Q24H [place] Rx#:[id number] Zosyn 3.375 GM Premix 3.375 gm 100 / 100 50 / 50 In 50 ml @ 100 mls/hr IV.SIG Q6H [place] Rx#:[id number] KCl 20 mEq Premix Inj 20 meq In 100 / 100 100 ml @ 50 mls/hr IV.SIG Q2H PRN Rx#:[id number] Vancomycin Inj 1,000 MG In NS 250 / 250 Inj 250 ML @ 250 mls/hr IV.SIG Q12H ON LICENSE OF [facility] Rx#:[id number] fentaNYL 10 mcg/mL Premix Drip 250 / 250 2,500 mcg In 250 ml @ 50 MCG/HR 5 mls/hr IV.SIG TITRATE PRN Rx #:[id number] Oral 0 / 0 Output: Urine Amount (Catheter) 1650 / 1650 1999 Indwelling Temp Sensing 1650 / 1650 1999 Catheter Gastric Drainage 600 / 600 300 / 300 Orogastric Tube 600 / 600 300 / 300 Chest Tube Drainage 0 / 0 50 / 50 Left 0 / 0 50 / 50 Physical Exam: RLE viable monophasic PT signal Laboratory Results - last 24 hr 06/08/18 06/08/18 06/08/18 00:38 01:20 04:58 WBC RBC Hgb Hct MCV MCH MCHC RDW Plt Count MPV Neut % (Auto) Lymph % (Auto) Stevens % (Auto) Eos % (Auto) Baso % (Auto) Neut # (Auto) Lymph # (Auto) Stevens # (Auto) Eos # (Auto) Baso # (Auto) WBC Differential Differential Comment PT INR APTT 43.8 H D Puncture Site Right brachial Patient Temperature 98.6 O2 Saturation 91 ABG pH 7.40 ABG pCO2 40 ABG pO2 67 ABG HCO3 24 ABG O2 Content 10.9 L ABG Base Excess 0.0 ABG Methemoglobin 1.5 Hemoglobin 8.5 L Carboxyhemoglobin 1.4 O2 Delivery Device Nasal cannula Liter Flow 2.00 Critical Value No Sodium Potassium Chloride Carbon Dioxide Anion Gap BUN Creatinine Estimated GFR POC Glucose 78 Random Glucose Calcium Phosphorus Magnesium Total Bilirubin AST ALT Alkaline Phosphatase B-Natriuretic Peptide Total Protein Albumin Vancomycin Trough 06/08/18 06/08/18 06/08/18 05:50 05:50 05:50 WBC 10.7 D RBC 3.09 L Hgb 8.7 L Hct 25.9 L MCV 83.9 MCH 28.2 MCHC 33.6 RDW 18.9 H Plt Count 233 MPV 7.4 Neut % (Auto) 75.6 H Lymph % (Auto) 19.2 Stevens % (Auto) 4.9 Eos % (Auto) 0.2 Baso % (Auto) 0.1 Neut # (Auto) 8.1 H Lymph # (Auto) 2.1 Stevens # (Auto) 0.5 Eos # (Auto) 0.0 Baso # (Auto) 0.0 WBC Differential . Differential Comment Auto diff final PT INR APTT Puncture Site Patient Temperature O2 Saturation ABG pH ABG pCO2 ABG pO2 ABG HCO3 ABG O2 Content ABG Base Excess ABG Methemoglobin Hemoglobin Carboxyhemoglobin O2 Delivery Device Liter Flow Critical Value Sodium 147 H Potassium 3.3 L Chloride 114 H Carbon Dioxide 26.2 Anion Gap 7 BUN 11 Creatinine 0.71 Estimated GFR Greater than 89 POC Glucose Random Glucose 69 L Calcium 7.8 L Phosphorus 3.3 Magnesium 1.9 Total Bilirubin 0.3 AST 21 ALT 16 Alkaline Phosphatase 53 B-Natriuretic Peptide 597 H Total Protein 6.1 L D Albumin 2.2 L Vancomycin Trough 06/08/18 06/08/18 06/08/18 05:50 05:53 10:30 WBC RBC Hgb Hct MCV MCH MCHC RDW Plt Count MPV Neut % (Auto) Lymph % (Auto) Stevens % (Auto) Eos % (Auto) Baso % (Auto) Neut # (Auto) Lymph # (Auto) Stevens # (Auto) Eos # (Auto) Baso # (Auto) WBC Differential Differential Comment PT 10.6 INR 1.0 APTT 39.0 H Puncture Site Patient Temperature O2 Saturation ABG pH ABG pCO2 ABG pO2 ABG HCO3 ABG O2 Content ABG Base Excess ABG Methemoglobin Hemoglobin Carboxyhemoglobin O2 Delivery Device Liter Flow Critical Value Sodium Potassium Chloride Carbon Dioxide Anion Gap BUN Creatinine Estimated GFR POC Glucose 76 Random Glucose Calcium Phosphorus Magnesium Total Bilirubin AST ALT Alkaline Phosphatase B-Natriuretic Peptide Total Protein Albumin Vancomycin Trough 16.9 H 06/08/18 06/08/18 06/08/18 12:03 13:30 15:30 WBC RBC Hgb Hct MCV MCH MCHC RDW Plt Count MPV Neut % (Auto) Lymph % (Auto) Stevens % (Auto) Eos % (Auto) Baso % (Auto) Neut # (Auto) Lymph # (Auto) Stevens # (Auto) Eos # (Auto) Baso # (Auto) WBC Differential Differential Comment PT INR APTT 45.5 H Puncture Site Patient Temperature O2 Saturation ABG pH ABG pCO2 ABG pO2 ABG HCO3 ABG O2 Content ABG Base Excess ABG Methemoglobin Hemoglobin Carboxyhemoglobin O2 Delivery Device Liter Flow Critical Value Sodium Potassium Chloride Carbon Dioxide Anion Gap BUN Creatinine Estimated GFR POC Glucose 67 L 127 H Random Glucose Calcium Phosphorus Magnesium Total Bilirubin AST ALT Alkaline Phosphatase B-Natriuretic Peptide Total Protein Albumin Vancomycin Trough 06/08/18 17:53 WBC RBC Hgb Hct MCV MCH MCHC RDW Plt Count MPV Neut % (Auto) Lymph % (Auto) Stevens % (Auto) Eos % (Auto) Baso % (Auto) Neut # (Auto) Lymph # (Auto) Stevens # (Auto) Eos # (Auto) Baso # (Auto) WBC Differential Differential Comment PT INR APTT Puncture Site Patient Temperature O2 Saturation ABG pH ABG pCO2 ABG pO2 ABG HCO3 ABG O2 Content ABG Base Excess ABG Methemoglobin Hemoglobin Carboxyhemoglobin O2 Delivery Device Liter Flow Critical Value Sodium Potassium Chloride Carbon Dioxide Anion Gap BUN Creatinine Estimated GFR POC Glucose 83 Random Glucose Calcium Phosphorus Magnesium Total Bilirubin AST ALT Alkaline Phosphatase B-Natriuretic Peptide Total Protein Albumin Vancomycin Trough Microbiology 06/07/18 13:00 Aerobic Blood Culture - Preliminary Blood - Peripheral No growth in 1 day Anaerobic Blood Culture - Preliminary No growth in 1 day 06/07/18 13:07 Aerobic Blood Culture - Preliminary Blood - Peripheral No growth in 1 day Anaerobic Blood Culture - Preliminary No growth in 1 day 06/05/18 11:45 Aerobic Blood Culture - Preliminary Blood - Peripheral No growth in 3 days Anaerobic Blood Culture - Final Klebsiella pneumoniae 06/05/18 11:40 Aerobic Blood Culture - Final Blood - Peripheral Klebsiella pneumoniae Anaerobic Blood Culture - Final Klebsiella pneumoniae 06/05/18 18:50 Urine Culture - Final Catheterized Urine Klebsiella pneumoniae Assessment and Plan - Plan Shock/lactic acidosis Most likely cardiogenic Multiple intra-abdominal diverticular abscess. Left hemo/pneumothorax and rib fracture RLE CLI with rest pain No tissue loss plan revascularization after recovery from acute illness this was discussed with the patient and he understands Marcello Saez MD [id number]
[2018-06-08] MEDS: Heparin Drip 25,000 UNIT/250 ML BAG IV.CONT PRN (21:34)
[2018-06-09] MEDS: Insulin NovoLIN Regular Correctional Sugar Inj SQ SCH ×5 (00:24→18:37)
[2018-06-09] MEDS: Morphine Sulfate Inj 2 MG/ML Vial IV.PUSH PRN (00:34)
[2018-06-09] MEDS: Potassium Chlor 40 mEq Premix 40 MEQ/100 ML PIGGYBACK IV.SIG PRN (00:39)
[2018-06-09] MEDS: Piperacil/Tazo 3.375 GM Premix 3.375 GM/50 ML PIGGYBACK IV.SIG SCH ×4 (02:02→20:52)
[2018-06-09] MEDS: Milrinone Inj 20 MG in Sodium Chlor 0.9% Inj 80 ML IV.CONT SCH (03:10)
[2018-06-09] MEDS: Chlorhexidine Gluconate 2% 1 Pack (2 Cloths) TOPICAL SCH (04:28)
--- NOTE | 2018-06-09 05:08 | XR ---
EXAM DATE: 06/09/2018 4:55 AM EST AGE/SEX: 67 years / Male INDICATIONS: Shortness of breath. CLINICAL DATA: This is the patient's subsequent encounter. Patient reports that signs and symptoms h ave been present for 1 week and indicates a pain score of Nonresponsive. MEDICAL/SURGICAL HISTORY: . Peripheral artery disease. Perforated diverticular abscess. None. [place] [facility] [place]. . FINDINGS: A single AP view of the chest demonstrates the lungs to be symmetrically aerated with continued impro vement in the right perihilar infiltrates seen previously. Linear atelectatic changes above the left hemidiaphragm. Heart size is normal. I believe the patient has been extubated. Nasogastric tube trave rses the GE junction and extends off the inferior aspect of the image. Left subclavian central venous catheter is unchanged in position. Left thoracostomy tube without pneumothorax. Lateral rib fracture s through the left mid chest. CONCLUSION: 1. Continued improvement in the airspace consolidation previously seen in the right perihilar and ri ght basilar distribution. Some developing linear atelectasis above the left hemidiaphragm. 2. I believe the patient has been extubated. Remaining life support tubes are stable in position inc luding the left thoracostomy tube without pneumothorax. 3. Left lateral rib fractures with associated regional emphysematous changes in the soft tissues abo ut the chest. Electronically signed by: Doug Hood MD Board Certified Radiologist 06/09/2018 5:07 AM EST
[2018-06-09 06:31] LABS: Baso # (Auto) 0.1 th/mm3 (0.0-0.2); Baso % (Auto) 0.7 % (0.0-2.0); Eos # (Auto) 0.1 th/mm3 (0.0-0.4); Eos % (Auto) 1.3 % (0.0-4.0); Hematocrit 29.3 % (39.0-51.0); Hemoglobin 9.6 gm/dL (13.0-17.0); Lymph # (Auto) 2.2 th/mm3 (1.0-4.8); Mean Corpuscular HGB Conc 32.8 % (32.0-36.0); Mean Corpuscular Hemoglobin 27.6 pg (27.0-34.0); Mean Corpuscular Volume 84.2 fL (80.0-100.0); Mean Platelet Volume 7.3 fL (7.0-11.0); Mono # (Auto) 0.5 th/mm3 (0.0-0.9); Mono % (Auto) 6.5 % (0.0-8.0); Neut # (Auto) 5.3 th/mm3 (1.8-7.7); Neut % (Auto) 64.5 % (16.0-70.0); Platelet Count 272 th/mm3 (150-450); Red Blood Count 3.48 mil/mm3 (4.50-5.90); Red Cell Distribution Width 18.9 % (11.6-17.2); White Blood Count 8.2 th/mm3 (4.0-11.0)
[2018-06-09 06:39] LABS: INR 1.1 Ratio; Prothrombin Time 10.8 sec (9.8-11.6)
[2018-06-09 07:11] LABS: Alanine Aminotransferase 18 U/L (12-78); Albumin 2.3 g/dL (3.4-5.0); Alkaline Phosphatase 57 U/L (45-117); Anion Gap 7 meq/L (5-15); Aspartate Aminotransferase 17 U/L (15-37); Blood Urea Nitrogen 7 mg/dL (7-18); Calcium 8.2 mg/dL (8.5-10.1); Carbon Dioxide 26.9 meq/L (21.0-32.0); Chloride 110 meq/L (98-107); Glomerular Filtration Rate Greater Than 89 mL/min (>89); Glucose,Random 89 mg/dL (74-106); Magnesium 1.8 mg/dL (1.5-2.5); Phosphorus 4.4 mg/dL (2.5-4.9); Potassium 3.7 meq/L (3.5-5.1); Sodium 144 meq/L (136-145); Total Protein 6.5 g/dL (6.4-8.2)
[2018-06-09] MEDS: Famotidine PF Inj 20 MG/2 ML Vial IV.PUSH SCH ×2 (08:43→20:55)
[2018-06-09] MEDS: Heparin 10,000 UNITS/10 ML Vial (for IV use) IV.PUSH PRN (08:43)
[2018-06-09] MEDS ORDERED: Sod Chloride 0.9% Inj 1,000 ML IV.CONT SCH ×2 (08:45→17:15)
[2018-06-09] MEDS: Vancomycin Inj 1,000 MG in Sodium Chlor 0.9% Inj 250 ML IV.SIG SCH ×2 (10:53→21:36)
--- NOTE | 2018-06-09 11:23 | P.PNGS ---
Subjective Interval history: [facility] Exam Vital signs: Vital Signs 06/08/18 11:28 06/08/18 11:43 06/08/18 11:51 Temperature Pulse Rate 68 93 H 102 H Respiratory Rate 12 21 17 Blood Pressure 113/56 L 143/83 H Pulse Oximetry 94 L 94 L 06/08/18 12:00 06/08/18 13:00 06/08/18 13:13 Temperature Pulse Rate 92 H 98 H Respiratory Rate 22 21 Blood Pressure 123/62 Pulse Oximetry 95 94 L 94 L 06/08/18 13:28 06/08/18 13:43 06/08/18 13:58 Temperature Pulse Rate 102 H 80 91 H Respiratory Rate 29 H 26 H 27 H Blood Pressure 123/64 119/61 118/60 Pulse Oximetry 93 L 94 L 94 L 06/08/18 14:00 06/08/18 14:13 06/08/18 14:28 Temperature Pulse Rate 86 79 80 Respiratory Rate 22 14 28 H Blood Pressure 115/58 L 120/63 Pulse Oximetry 94 L 95 94 L 06/08/18 14:43 06/08/18 14:58 06/08/18 15:00 Temperature Pulse Rate 76 79 82 Respiratory Rate 31 H 29 H 26 H Blood Pressure 122/63 114/64 Pulse Oximetry 96 96 96 06/08/18 15:13 06/08/18 15:28 06/08/18 15:43 Temperature Pulse Rate 79 76 77 Respiratory Rate 28 H 27 H 21 Blood Pressure 110/62 112/62 118/63 Pulse Oximetry 96 96 96 06/08/18 15:47 06/08/18 15:58 06/08/18 16:00 Temperature 98.7 F Pulse Rate 78 86 85 Respiratory Rate 17 23 26 H Blood Pressure 106/59 L Pulse Oximetry 96 95 06/08/18 16:13 06/08/18 16:28 06/08/18 16:43 Temperature Pulse Rate 82 77 73 Respiratory Rate 23 20 14 Blood Pressure 112/61 104/57 L 107/55 L Pulse Oximetry 96 96 97 06/08/18 16:58 06/08/18 17:00 06/08/18 17:13 Temperature Pulse Rate 67 72 92 H Respiratory Rate 17 20 23 Blood Pressure 101/59 L 110/62 Pulse Oximetry 97 97 97 06/08/18 17:28 06/08/18 17:43 06/08/18 17:58 Temperature Pulse Rate 78 81 94 H Respiratory Rate 19 37 H 26 H Blood Pressure 117/65 120/60 154/84 H Pulse Oximetry 96 95 96 06/08/18 18:00 06/08/18 18:13 06/08/18 18:28 Temperature Pulse Rate 90 83 76 Respiratory Rate 20 17 20 Blood Pressure 138/63 128/68 Pulse Oximetry 95 95 95 06/08/18 18:43 06/08/18 18:58 06/08/18 19:00 Temperature Pulse Rate 69 68 75 Respiratory Rate 19 22 23 Blood Pressure 127/70 136/73 Pulse Oximetry 95 95 95 06/08/18 19:13 06/08/18 19:28 06/08/18 19:43 Temperature Pulse Rate 68 76 81 Respiratory Rate 17 24 12 Blood Pressure 116/63 144/69 H 151/72 H Pulse Oximetry 95 95 96 06/08/18 19:58 06/08/18 20:00 06/08/18 20:03 Temperature Pulse Rate 87 93 H Respiratory Rate 24 24 Blood Pressure 146/69 H Pulse Oximetry 97 97 96 06/08/18 20:13 06/08/18 20:28 06/08/18 20:43 Temperature Pulse Rate 85 83 79 Respiratory Rate 20 Blood Pressure 129/68 128/70 122/63 Pulse Oximetry 95 96 96 06/08/18 20:58 06/08/18 21:00 06/08/18 21:13 Temperature Pulse Rate 82 83 85 Respiratory Rate 20 23 26 H Blood Pressure 130/70 127/64 Pulse Oximetry 96 96 95 06/08/18 21:28 06/08/18 21:43 06/08/18 21:58 Temperature Pulse Rate 92 H 74 68 Respiratory Rate 19 19 12 Blood Pressure 135/73 123/64 110/55 L Pulse Oximetry 96 96 96 06/08/18 22:00 06/08/18 22:01 06/08/18 22:13 Temperature Pulse Rate 67 64 Respiratory Rate 12 13 12 Blood Pressure 106/57 L Pulse Oximetry 95 96 06/08/18 22:28 06/08/18 22:43 06/08/18 22:58 Temperature Pulse Rate 69 66 62 Respiratory Rate 12 23 22 Blood Pressure 112/59 L 110/56 L 110/59 L Pulse Oximetry 96 96 96 06/08/18 23:00 06/08/18 23:13 06/08/18 23:28 Temperature Pulse Rate 63 75 65 Respiratory Rate 20 21 16 Blood Pressure 128/61 116/61 Pulse Oximetry 96 97 97 06/08/18 23:34 06/08/18 23:43 06/08/18 23:58 Temperature 97.6 F Pulse Rate 64 80 89 Respiratory Rate 16 12 26 H Blood Pressure 130/64 140/68 Pulse Oximetry 97 94 L 06/09/18 00:00 06/09/18 00:13 06/09/18 00:28 Temperature 97.6 F Pulse Rate 84 82 66 Respiratory Rate 23 18 11 L Blood Pressure 127/61 111/59 L Pulse Oximetry 96 96 96 06/09/18 00:43 06/09/18 00:58 06/09/18 01:00 Temperature Pulse Rate 71 67 66 Respiratory Rate 14 13 11 L Blood Pressure 112/58 L 106/56 L Pulse Oximetry 96 96 96 06/09/18 01:13 06/09/18 01:28 06/09/18 01:43 Temperature Pulse Rate 65 64 67 Respiratory Rate 11 L 11 L 11 L Blood Pressure 105/55 L 107/58 L 111/57 L Pulse Oximetry 96 96 96 06/09/18 01:58 06/09/18 02:00 06/09/18 02:02 Temperature Pulse Rate 67 66 Respiratory Rate 12 12 13 Blood Pressure 117/70 Pulse Oximetry 97 97 06/09/18 02:13 06/09/18 02:28 06/09/18 02:43 Temperature Pulse Rate 64 82 59 L Respiratory Rate 12 Blood Pressure 119/68 157/76 H 116/55 L Pulse Oximetry 97 98 97 06/09/18 02:58 06/09/18 03:00 06/09/18 03:13 Temperature Pulse Rate 63 64 66 Respiratory Rate 13 Blood Pressure 111/57 L 120/55 L Pulse Oximetry 97 97 97 06/09/18 03:28 06/09/18 03:36 06/09/18 03:43 Temperature Pulse Rate 64 60 63 Respiratory Rate 17 21 11 L Blood Pressure 111/58 L 125/68 Pulse Oximetry 97 98 06/09/18 03:58 06/09/18 04:00 06/09/18 04:13 Temperature 97.7 F Pulse Rate 67 79 63 Respiratory Rate 12 18 13 Blood Pressure 125/58 L 108/54 L Pulse Oximetry 97 97 97 06/09/18 04:22 06/09/18 04:28 06/09/18 04:43 Temperature Pulse Rate 62 70 Respiratory Rate 15 17 12 Blood Pressure 128/60 131/66 Pulse Oximetry 96 98 06/09/18 04:58 06/09/18 05:00 06/09/18 05:13 Temperature Pulse Rate 62 66 62 Respiratory Rate 11 L 23 20 Blood Pressure 115/59 L 124/63 Pulse Oximetry 97 97 97 06/09/18 05:28 06/09/18 05:43 06/09/18 05:58 Temperature Pulse Rate 66 63 63 Respiratory Rate 12 11 L 16 Blood Pressure 119/62 117/63 113/63 Pulse Oximetry 98 98 97 06/09/18 06:00 06/09/18 07:56 Temperature Pulse Rate 82 75 Respiratory Rate 19 17 Blood Pressure Pulse Oximetry 98 98 Intake & Output 06/08/18 06/09/18 06/09/18 18:59 06:59 18:59 Intake Total 550 / 550 1265 / 1265 Output Total 2350 / 2350 1999 Balance -1800 / -1800 -735 / -735 Weight 57.2 kg Intake: IV 550 / 550 1265 / 1265 Heparin/D5W 25,000 U/250 mL 25, 354 / 354 000 unit In 250 ml @ Per Protocol IV.CONT TITRATE PRN Rx #:[id number] Primacor Inj 20 MG In NS Inj 80 100 / 100 100 / 100 ML @ 0.375 MCG/KG/MIN 6.88 mls /hr IV.CONT .[id number] [facility] Rx#: [id number] D5W/Normal Saline Inj 1,000 ML 171 / 171 @ 50 mls/hr IV.SIG .Q20H [facility] Rx #:[id number] Diflucan 400 mg Premix Bag 200 200 / 200 ML @ 100 mls/hr IV.SIG Q24H [facility] Rx#:[id number] Zosyn 3.375 GM Premix 3.375 gm 100 / 100 100 / 100 In 50 ml @ 100 mls/hr IV.SIG Q6H [facility] Rx#:[id number] KCl 20 mEq Premix Inj 20 meq In 100 / 100 100 ml @ 50 mls/hr IV.SIG Q2H PRN Rx#:[id number] KCl 40 mEq Premix Inj 40 meq In 90 / 90 100 ml @ 25 mls/hr IV.SIG UNSCH PRN Rx#:[id number] Vancomycin Inj 1,000 MG In NS 250 / 250 250 / 250 Inj 250 ML @ 250 mls/hr IV.SIG Q12H [facility] Rx#:[id number] Oral 0 / 0 Output: Urine Amount (Catheter) 1999 1600 / 1600 Indwelling Temp Sensing 1999 / 1600 Catheter Gastric Drainage 300 / 300 400 / 400 Orogastric Tube 300 / 300 400 / 400 Chest Tube Drainage 50 / 50 0 / 0 Left 50 / 50 0 / 0 Narrative: Alert and awake Abd: soft; mildly distended to palpation; non tender - Urinary Catheter Management Indwelling Temp Sensing Catheter Cath placed during this visit: no Results - Labs 06/09/18 06:15 06/09/18 06:15 Laboratory Results - last 24 hr 06/08/18 06/08/18 06/08/18 10:30 12:03 13:30 WBC RBC Hgb Hct MCV MCH MCHC RDW Plt Count MPV Neut % (Auto) Lymph % (Auto) [place] % (Auto) Eos % (Auto) Baso % (Auto) Neut # (Auto) Lymph # (Auto) [place] # (Auto) Eos # (Auto) Baso # (Auto) WBC Differential Differential Comment PT INR APTT Sodium Potassium Chloride Carbon Dioxide Anion Gap BUN Creatinine Estimated GFR POC Glucose 67 L 127 H Random Glucose Calcium Phosphorus Magnesium Total Bilirubin AST ALT Alkaline Phosphatase Total Protein Albumin Vancomycin Trough 16.9 H 06/08/18 06/08/18 06/08/18 15:30 17:53 21:37 WBC RBC Hgb Hct MCV MCH MCHC RDW Plt Count MPV Neut % (Auto) Lymph % (Auto) [place] % (Auto) Eos % (Auto) Baso % (Auto) Neut # (Auto) Lymph # (Auto) [place] # (Auto) Eos # (Auto) Baso # (Auto) WBC Differential Differential Comment PT INR APTT 45.5 H 43.7 H Sodium Potassium Chloride Carbon Dioxide Anion Gap BUN Creatinine Estimated GFR POC Glucose 83 Random Glucose Calcium Phosphorus Magnesium Total Bilirubin AST ALT Alkaline Phosphatase Total Protein Albumin Vancomycin Trough 06/08/18 06/08/18 06/09/18 21:37 23:59 06:15 WBC 8.2 RBC 3.48 L Hgb 9.6 L Hct 29.3 L MCV 84.2 MCH 27.6 MCHC 32.8 RDW 18.9 H Plt Count 272 MPV 7.3 Neut % (Auto) 64.5 Lymph % (Auto) 27.0 [place] % (Auto) 6.5 Eos % (Auto) 1.3 Baso % (Auto) 0.7 Neut # (Auto) 5.3 Lymph # (Auto) 2.2 [place] # (Auto) 0.5 Eos # (Auto) 0.1 Baso # (Auto) 0.1 WBC Differential . Differential Comment Auto diff final PT INR APTT Sodium Potassium 3.3 L Chloride Carbon Dioxide Anion Gap BUN Creatinine Estimated GFR POC Glucose 88 Random Glucose Calcium Phosphorus Magnesium Total Bilirubin AST ALT Alkaline Phosphatase Total Protein Albumin Vancomycin Trough 06/09/18 06/09/18 06/09/18 06:15 06:15 06:15 WBC RBC Hgb Hct MCV MCH MCHC RDW Plt Count MPV Neut % (Auto) Lymph % (Auto) [place] % (Auto) Eos % (Auto) Baso % (Auto) Neut # (Auto) Lymph # (Auto) [place] # (Auto) Eos # (Auto) Baso # (Auto) WBC Differential Differential Comment PT 10.8 INR 1.1 APTT 35.5 H Sodium 144 Potassium 3.7 Chloride 110 H Carbon Dioxide 26.9 Anion Gap 7 BUN 7 Creatinine 0.69 Estimated GFR Greater than 89 POC Glucose Random Glucose 89 Calcium 8.2 L Phosphorus 4.4 D Magnesium 1.8 Total Bilirubin 0.4 AST 17 ALT 18 Alkaline Phosphatase 57 Total Protein 6.5 Albumin 2.3 L Vancomycin Trough - Imaging Imaging: ITS Impressions Aorta w/Runoff CTA 06/05/18 11:45 CONCLUSION: 1. Extensive peripheral vascular disease with multifocal areas of narrowing/ occlusion as above. Chest CT 06/05/18 11:45 CONCLUSION: 1. Small left-sided pneumothorax and hemothorax. 2. Acute left fifth rib fracture. 3. Emphysema. Chest X-Ray 06/09/18 06:00 CONCLUSION: 1. Continued improvement in the airspace consolidation previously seen in the right perihilar and right basilar distribution. Some developing linear atelectasis above the left hemidiaphragm. 2. I believe the patient has been extubated. Remaining life support tubes are stable in position including the left thoracostomy tube without pneumothorax. 3. Left lateral rib fractures with associated regional emphysematous changes in the soft tissues about the chest. Assessment and Plan - Assessment (1) Diverticulitis of colon with perforation Code(s): K57.20 - Diverticulitis of large intestine with perforation and abscess without bleeding Status: Acute Plan: 67 year old male with recent fall---rib fractures/PTX; NETEMI; -Continues to require Milrinone; off Levophed -Stable on NC -Heart cath planned for today -GI consulted--- will plan for cscope soon---possibly as early as tomorrow -Palliative following (2) Dilated cardiomyopathy Code(s): I42.0 - Dilated cardiomyopathy Status: Acute (3) Elevated troponin Code(s): R74.8 - Abnormal levels of other serum enzymes Status: Acute (4) Hypotension Code(s): I95.9 - Hypotension, unspecified Status: Acute (1) Diverticulitis of colon with perforation Qualifiers: Diverticulitis bleeding: without bleeding Qualified Code(s): K57.20 - Diverticulitis of large intestine with perforation and abscess without bleeding (4) Hypotension Qualifiers: Hypotension type: unspecified hypotension type Qualified Code(s): I95.9 - Hypotension, unspecified
--- NOTE | 2018-06-09 13:58 | P.PNCA ---
Subjective Interval history: Denies CP, dyspnea, dizziness, palpitations. Medications and Allergies Active Medications: Active Cardiac Medications Aspirin (Aspirin Chew) 81 mg PO DAILY [facility] Last Admin: 06/07/18 09:47 Dose: Not Given Hydralazine HCl (Apresoline Inj) 10 mg IV.PUSH Q30M PRN PRN Reason: sbp > 160, dbp > 95 Heparin Sodium/Dextrose (Heparin/D5w 25,000 U/250 Ml) 25,000 unit in 250 mls @ 0 mls/hr IV.CONT TITRATE PRN; Protocol PRN Reason: Per Protocol Last Titration: 06/09/18 08:53 Dose: 1,200 units/hr, 12 mls/hr Milrinone Lactate 20 mg/ (Sodium Chloride) 100 mls @ 6.88 mls/hr IV.CONT .[id number] [facility] Last Admin: 06/09/18 03:10 Dose: 0.5 mcg/kg/min, 9.18 mls/hr Norepinephrine Bitartrate (Levophed-Dextrose 4 Mg/250 Ml Drip) 4 mg in 250 mls @ 7.5 mls/hr IV.SIG TITRATE PRN; Protocol PRN Reason: Per Protocol Last Titration: 06/07/18 10:31 Dose: 7 mcg/min, 26.25 mls/hr Vasopressin 40 unit/ Dextrose 100 mls @ 6 mls/hr IV.CONT TITRATE PRN; Protocol PRN Reason: Per Protocol Allergies Allergy/AdvReac Type Severity Reaction Status Date / Time *MDRO Multi-Drug Resistant AdvReac Unknown Uncoded 02/20/16 09:24 Organism Physical Exam Vital signs: Vital Signs 06/08/18 13:58 06/08/18 14:00 06/08/18 14:13 Temperature Pulse Rate 91 H 86 79 Respiratory Rate 27 H 22 14 Blood Pressure 118/60 115/58 L Pulse Oximetry 94 L 94 L 95 06/08/18 14:28 06/08/18 14:43 06/08/18 14:58 Temperature Pulse Rate 80 76 79 Respiratory Rate 28 H 31 H 29 H Blood Pressure 120/63 122/63 114/64 Pulse Oximetry 94 L 96 96 06/08/18 15:00 06/08/18 15:13 06/08/18 15:28 Temperature Pulse Rate 82 79 76 Respiratory Rate 26 H 28 H 27 H Blood Pressure 110/62 112/62 Pulse Oximetry 96 96 96 06/08/18 15:43 06/08/18 15:47 06/08/18 15:58 Temperature Pulse Rate 77 78 86 Respiratory Rate 21 17 23 Blood Pressure 118/63 106/59 L Pulse Oximetry 96 96 06/08/18 16:00 06/08/18 16:13 06/08/18 16:28 Temperature 98.7 F Pulse Rate 85 82 77 Respiratory Rate 26 H 23 20 Blood Pressure 112/61 104/57 L Pulse Oximetry 95 96 96 06/08/18 16:43 06/08/18 16:58 06/08/18 17:00 Temperature Pulse Rate 73 67 72 Respiratory Rate 14 17 20 Blood Pressure 107/55 L 101/59 L Pulse Oximetry 97 97 97 06/08/18 17:13 06/08/18 17:28 06/08/18 17:43 Temperature Pulse Rate 92 H 78 81 Respiratory Rate 23 19 37 H Blood Pressure 110/62 117/65 120/60 Pulse Oximetry 97 96 95 06/08/18 17:58 06/08/18 18:00 06/08/18 18:13 Temperature Pulse Rate 94 H 90 83 Respiratory Rate 26 H 20 17 Blood Pressure 154/84 H 138/63 Pulse Oximetry 96 95 95 06/08/18 18:28 06/08/18 18:43 06/08/18 18:58 Temperature Pulse Rate 76 69 68 Respiratory Rate 20 19 22 Blood Pressure 128/68 127/70 136/73 Pulse Oximetry 95 95 95 06/08/18 19:00 06/08/18 19:13 06/08/18 19:28 Temperature Pulse Rate 75 68 76 Respiratory Rate 23 17 24 Blood Pressure 116/63 144/69 H Pulse Oximetry 95 95 95 06/08/18 19:43 06/08/18 19:58 06/08/18 20:00 Temperature Pulse Rate 81 87 93 H Respiratory Rate 12 24 24 Blood Pressure 151/72 H 146/69 H Pulse Oximetry 96 97 97 06/08/18 20:03 06/08/18 20:13 06/08/18 20:28 Temperature Pulse Rate 85 83 Respiratory Rate Blood Pressure 129/68 128/70 Pulse Oximetry 96 95 96 06/08/18 20:43 06/08/18 20:58 06/08/18 21:00 Temperature Pulse Rate 79 82 83 Respiratory Rate 20 20 23 Blood Pressure 122/63 130/70 Pulse Oximetry 96 96 96 06/08/18 21:13 06/08/18 21:28 06/08/18 21:43 Temperature Pulse Rate 85 92 H 74 Respiratory Rate 26 H 19 19 Blood Pressure 127/64 135/73 123/64 Pulse Oximetry 95 96 96 06/08/18 21:58 06/08/18 22:00 06/08/18 22:01 Temperature Pulse Rate 68 67 Respiratory Rate 12 12 13 Blood Pressure 110/55 L Pulse Oximetry 96 95 06/08/18 22:13 06/08/18 22:28 06/08/18 22:43 Temperature Pulse Rate 64 69 66 Respiratory Rate 12 12 23 Blood Pressure 106/57 L 112/59 L 110/56 L Pulse Oximetry 96 96 96 06/08/18 22:58 06/08/18 23:00 06/08/18 23:13 Temperature Pulse Rate 62 63 75 Respiratory Rate 22 20 21 Blood Pressure 110/59 L 128/61 Pulse Oximetry 96 96 97 06/08/18 23:28 06/08/18 23:34 06/08/18 23:43 Temperature 97.6 F Pulse Rate 65 64 80 Respiratory Rate 16 16 12 Blood Pressure 116/61 130/64 Pulse Oximetry 97 97 06/08/18 23:58 06/09/18 00:00 06/09/18 00:13 Temperature 97.6 F Pulse Rate 89 84 82 Respiratory Rate 26 H 23 18 Blood Pressure 140/68 127/61 Pulse Oximetry 94 L 96 96 06/09/18 00:28 06/09/18 00:43 06/09/18 00:58 Temperature Pulse Rate 66 71 67 Respiratory Rate 11 L 14 13 Blood Pressure 111/59 L 112/58 L 106/56 L Pulse Oximetry 96 96 96 06/09/18 01:00 06/09/18 01:13 06/09/18 01:28 Temperature Pulse Rate 66 65 64 Respiratory Rate 11 L 11 L 11 L Blood Pressure 105/55 L 107/58 L Pulse Oximetry 96 96 96 06/09/18 01:43 06/09/18 01:58 06/09/18 02:00 Temperature Pulse Rate 67 67 66 Respiratory Rate 11 L 12 12 Blood Pressure 111/57 L 117/70 Pulse Oximetry 96 97 97 06/09/18 02:02 06/09/18 02:13 06/09/18 02:28 Temperature Pulse Rate 64 82 Respiratory Rate 13 12 Blood Pressure 119/68 157/76 H Pulse Oximetry 97 98 06/09/18 02:43 06/09/18 02:58 06/09/18 03:00 Temperature Pulse Rate 59 L 63 64 Respiratory Rate Blood Pressure 116/55 L 111/57 L Pulse Oximetry 97 97 97 06/09/18 03:13 06/09/18 03:28 06/09/18 03:36 Temperature Pulse Rate 66 64 60 Respiratory Rate 13 17 21 Blood Pressure 120/55 L 111/58 L Pulse Oximetry 97 97 06/09/18 03:43 06/09/18 03:58 06/09/18 04:00 Temperature Pulse Rate 63 67 79 Respiratory Rate 11 L 12 18 Blood Pressure 125/68 125/58 L Pulse Oximetry 98 97 97 06/09/18 04:13 06/09/18 04:22 06/09/18 04:28 Temperature 97.7 F Pulse Rate 63 62 Respiratory Rate 13 15 17 Blood Pressure 108/54 L 128/60 Pulse Oximetry 97 96 06/09/18 04:43 06/09/18 04:58 06/09/18 05:00 Temperature Pulse Rate 70 62 66 Respiratory Rate 12 11 L 23 Blood Pressure 131/66 115/59 L Pulse Oximetry 98 97 97 06/09/18 05:13 06/09/18 05:28 06/09/18 05:43 Temperature Pulse Rate 62 66 63 Respiratory Rate 20 12 11 L Blood Pressure 124/63 119/62 117/63 Pulse Oximetry 97 98 98 06/09/18 05:58 06/09/18 06:00 06/09/18 07:43 Temperature Pulse Rate 63 82 Respiratory Rate 16 19 Blood Pressure 113/63 122/60 Pulse Oximetry 97 98 06/09/18 07:45 06/09/18 07:56 06/09/18 07:58 Temperature Pulse Rate 72 75 80 Respiratory Rate 24 17 9 L Blood Pressure 145/67 H Pulse Oximetry 97 98 98 06/09/18 08:00 06/09/18 08:13 06/09/18 08:15 Temperature 97.4 F L Pulse Rate 83 71 69 Respiratory Rate 17 21 18 Blood Pressure 132/57 L Pulse Oximetry 99 97 97 06/09/18 08:28 06/09/18 08:30 06/09/18 08:43 Temperature Pulse Rate 67 67 81 Respiratory Rate 11 L 11 L 22 Blood Pressure 129/61 134/66 Pulse Oximetry 97 97 96 06/09/18 08:45 06/09/18 08:58 06/09/18 09:00 Temperature Pulse Rate 94 H 97 H 77 Respiratory Rate 25 H 17 19 Blood Pressure 142/72 H Pulse Oximetry 94 L 97 97 06/09/18 09:13 06/09/18 09:15 06/09/18 09:28 Temperature Pulse Rate 77 71 71 Respiratory Rate 18 19 18 Blood Pressure 132/62 122/56 L Pulse Oximetry 96 96 96 06/09/18 09:30 06/09/18 09:43 06/09/18 09:45 Temperature Pulse Rate 66 67 66 Respiratory Rate 14 11 L 11 L Blood Pressure 109/55 L Pulse Oximetry 96 96 96 06/09/18 09:58 06/09/18 10:00 06/09/18 10:13 Temperature Pulse Rate 79 70 75 Respiratory Rate 23 21 19 Blood Pressure 134/63 142/63 H Pulse Oximetry 96 97 96 06/09/18 10:15 06/09/18 10:28 06/09/18 10:30 Temperature Pulse Rate 86 73 70 Respiratory Rate 23 22 29 H Blood Pressure 129/62 Pulse Oximetry 96 97 97 06/09/18 10:43 06/09/18 10:45 06/09/18 10:58 Temperature Pulse Rate 74 76 75 Respiratory Rate 24 20 26 H Blood Pressure 147/70 H 136/65 Pulse Oximetry 97 97 97 06/09/18 11:00 06/09/18 11:13 06/09/18 11:15 Temperature Pulse Rate 72 100 H 90 Respiratory Rate 20 33 H 26 H Blood Pressure 145/75 H Pulse Oximetry 97 97 97 06/09/18 11:28 06/09/18 11:30 06/09/18 11:43 Temperature Pulse Rate 85 81 83 Respiratory Rate 20 29 H 29 H Blood Pressure 148/83 H 149/83 H Pulse Oximetry 94 L 94 L 97 06/09/18 11:45 06/09/18 12:44 Temperature 97.3 F L Pulse Rate 81 80 Respiratory Rate 30 H 17 Blood Pressure Pulse Oximetry 98 Intake & Output 06/08/18 06/09/18 06/09/18 18:59 06:59 18:59 Intake Total 550 / 550 1265 / 1265 300 / 300 Output Total 2350 / 2350 1999 Balance -1800 / -1800 -735 / -735 300 / 300 Weight 57.2 kg Intake: IV 550 / 550 1265 / 1265 300 / 300 Heparin/D5W 25,000 U/250 mL 25, 354 / 354 000 unit In 250 ml @ Per Protocol IV.CONT TITRATE PRN Rx #:[id number] Primacor Inj 20 MG In NS Inj 80 100 / 100 100 / 100 ML @ 0.375 MCG/KG/MIN 6.88 mls /hr IV.CONT .[id number] [facility] Rx#: [id number] D5W/Normal Saline Inj 1,000 ML 171 / 171 @ 50 mls/hr IV.SIG .Q20H [facility] Rx #:[id number] Diflucan 400 mg Premix Bag 200 200 / 200 ML @ 100 mls/hr IV.SIG Q24H [facility] Rx#:[id number] Zosyn 3.375 GM Premix 3.375 gm 100 / 100 100 / 100 50 / 50 In 50 ml @ 100 mls/hr IV.SIG Q6H [facility] Rx#:[id number] KCl 20 mEq Premix Inj 20 meq In 100 / 100 100 ml @ 50 mls/hr IV.SIG Q2H PRN Rx#:[id number] KCl 40 mEq Premix Inj 40 meq In 90 / 90 100 ml @ 25 mls/hr IV.SIG UNSCH PRN Rx#:[id number] Vancomycin Inj 1,000 MG In NS 250 / 250 250 / 250 250 / 250 Inj 250 ML @ 250 mls/hr IV.SIG Q12H [facility] Rx#:[id number] Oral 0 / 0 Output: Urine Amount (Catheter) 1999 1600 / 1600 Indwelling Temp Sensing 1999 1600 / 1600 Catheter Gastric Drainage 300 / 300 400 / 400 Orogastric Tube 300 / 300 400 / 400 Chest Tube Drainage 50 / 50 0 / 0 Left 50 / 50 0 / 0 - Constitutional no acute distress - Routine Neck Exam Absent: JVD - Routine Respiratory Exam Comments: Clear lungs anteriorly. - Routine Cardiovascular Exam Present: RRR, S1, S2. Absent: murmur, gallop - Routine Abdominal Exam Present: soft, normoactive bowel sounds. Absent: tenderness - Routine Extremities Exam Absent: cyanosis, clubbing, edema - Urinary Catheter Management Indwelling Temp Sensing Catheter Cath placed during this visit: no Results 06/09/18 06:15 06/09/18 06:15 Cardiac Enzymes 06/08/18 06/08/18 06/09/18 Range/Units 05:50 05:50 06:15 AST 21 17 (15-37) U/L B-Natriuretic Peptide 597 H (0-100) pg/mL Coagulation 06/07/18 06/08/18 06/08/18 Range/Units 19:15 01:20 05:50 PT (9.8-11.6) sec APTT 35.5 H 43.8 H D (23.4-31.7) sec B-Natriuretic Peptide 597 H (0-100) pg/mL 06/08/18 06/08/18 06/08/18 Range/Units 05:50 15:30 21:37 PT 10.6 (9.8-11.6) sec APTT 39.0 H 45.5 H 43.7 H (23.4-31.7) sec B-Natriuretic Peptide (0-100) pg/mL 06/09/18 06/09/18 Range/Units 06:15 06:15 PT 10.8 (9.8-11.6) sec APTT 35.5 H (23.4-31.7) sec B-Natriuretic Peptide (0-100) pg/mL CBC 06/08/18 06/09/18 Range/Units 05:50 06:15 WBC 10.7 D 8.2 (4.0-11.0) th/mm3 RBC 3.09 L 3.48 L (4.50-5.90) mil/mm3 Hgb 8.7 L 9.6 L (13.0-17.0) gm/dL Hct 25.9 L 29.3 L (39.0-51.0) % Plt Count 233 272 (150-450) th/mm3 Neut # (Auto) 8.1 H 5.3 (1.8-7.7) th/mm3 Lymph # (Auto) 2.1 2.2 (1.0-4.8) th/mm3 Woods # (Auto) 0.5 0.5 (0.0-0.9) th/mm3 Eos # (Auto) 0.0 0.1 (0.0-0.4) th/mm3 Baso # (Auto) 0.0 0.1 (0.0-0.2) th/mm3 Comprehensive Metabolic Panel 06/08/18 06/08/18 06/09/18 Range/Units 05:50 21:37 06:15 Sodium 147 H 144 (136-145) meq/L Potassium 3.3 L 3.3 L 3.7 (3.5-5.1) meq/L Chloride 114 H 110 H (98-107) meq/L Carbon Dioxide 26.2 26.9 (21.0-32.0) meq/L BUN 11 7 (7-18) mg/dL Creatinine 0.71 0.69 (0.60-1.30) mg/dL Calcium 7.8 L 8.2 L (8.5-10.1) mg/dL AST 21 17 (15-37) U/L ALT 16 18 (12-78) U/L Alkaline Phosphatase 53 57 (45-117) U/L Total Protein 6.1 L D 6.5 (6.4-8.2) g/dL Albumin 2.2 L 2.3 L (3.4-5.0) g/dL Intake and Output 06/08/18 06/09/18 06/09/18 22:59 06:59 14:59 Intake Total 300 / 300 965 / 965 300 / 300 Output Total 2350 / 2350 1999 / 1999 Balance -2049 / -2049 -1035 / -1035 300 / 300 Intake: IV 300 / 300 965 / 965 300 / 300 Heparin/D5W 25,000 U/250 mL 25, 250 / 250 104 / 104 000 unit In 250 ml @ Per Protocol IV.CONT TITRATE PRN Rx #:[id number] Primacor Inj 20 MG In NS Inj 80 100 / 100 ML @ 0.375 MCG/KG/MIN 6.88 mls /hr IV.CONT .[id number] [facility] Rx#: [id number] D5W/Normal Saline Inj 1,000 ML 171 / 171 @ 50 mls/hr IV.SIG .Q20H [facility] Rx #:[id number] Diflucan 400 mg Premix Bag 200 200 / 200 ML @ 100 mls/hr IV.SIG Q24H [facility] Rx#:[id number] Zosyn 3.375 GM Premix 3.375 gm 50 / 50 50 / 50 50 / 50 In 50 ml @ 100 mls/hr IV.SIG Q6H [facility] Rx#:[id number] KCl 40 mEq Premix Inj 40 meq In 90 / 90 100 ml @ 25 mls/hr IV.SIG UNSCH PRN Rx#:[id number] Vancomycin Inj 1,000 MG In NS 250 / 250 250 / 250 Inj 250 ML @ 250 mls/hr IV.SIG Q12H [facility] Rx#:[id number] Oral 0 / 0 Output: Urine Amount (Catheter) 1999 1600 / 1600 Indwelling Temp Sensing 1999 1600 / 1600 Catheter Gastric Drainage 300 / 300 400 / 400 Orogastric Tube 300 / 300 400 / 400 Chest Tube Drainage 50 / 50 0 / 0 Left 50 / 50 0 / 0 Other: Weight 57.2 kg - Imaging and Cardiology Imaging: Impressions Chest X-Ray 06/09/18 06:00 CONCLUSION: 1. Continued improvement in the airspace consolidation previously seen in the right perihilar and right basilar distribution. Some developing linear atelectasis above the left hemidiaphragm. 2. I believe the patient has been extubated. Remaining life support tubes are stable in position including the left thoracostomy tube without pneumothorax. 3. Left lateral rib fractures with associated regional emphysematous changes in the soft tissues about the chest. Assessment and Plan - Assessment (1) Dilated cardiomyopathy Code(s): I42.0 - Dilated cardiomyopathy Status: Acute Plan: Severe dilated cardiomyopathy, EF 20% by echo this admission. Suspect he has underlying severe multivessel CAD though viral-mediated non-ischemic cardiomyopathy also possible. REC cath today, initiate beta adam/MARILUZ-I therapy. (2) Elevated troponin Code(s): R74.8 - Abnormal levels of other serum enzymes Status: Acute Plan: Overall minimally elevated troponin levels. Patient clinically stable. No definite angina symptoms. In light of his severe cardiomyopathy, recommend cath today. Continue daily aspirin. - Plan Code Status: full code Discussed Condition With: patient and brother and sister, at length
--- NOTE | 2018-06-09 14:50 | P.PNCC ---
Subjective Subjective Remarks/Hospital Course: Hospital Course: 67yM with history of severe PAD who presents after he had sudden onset right leg pain which caused him to fall, and then he began with sudden shortness of breath. In the emergency department, found to have left apical pneumothorax with large amount of subQ air, with rib fracture. In addition, severe PAD with occlusion of the right common femoral artery. Labs significant for trop 0.06, Lactate 7. patient denies chest pain. does endorse leg pain and shortness of breath. denies fever,chills. remainder of the ROS negative, although limited by his critical illness. Subjective: 06/06: discussed case with Dr. Oglesby from gen surg overnight- patient also has additional pelvic abscesses compounding his shock. blood cultures growing GNRs. We elected to hold off on draining abscesses yesterday due to acute cardiogenic shock in the setting of acute myocardial infarction as well as critical limb ischemia. Today, leg appears better perfused and lactate is starting to clear. remains on milrinone and norepinephrine infusions. BNP has risen from 30 to 1300. Cardiology recommends LHC during this admission, but waiting until shock resolves and more stable. remains critically ill today. 06/07: minimal improvements. remains in shock. bacteremic with Klebsiella, sensitivities pending. remains on milrinone at 0.5 mcg/kg/min, norepinephrine. lactate still elevated, although starting to clear. 06/08: Lying in bed no acute distress. Remains on milrinone at 0.5 mcg/kg/min. Urine output 2.3 L in 24 hours. Cardiac catheterization planned for tomorrow. 06/09: Remains on heparin and milrinone. Clinically slowly improving. Cardiac catheterization planned for today. Dr. Sarabia to discuss with patient. Objective Vital Signs / I&O: Vital Signs 06/08/18 14:58 06/08/18 15:00 06/08/18 15:13 Temperature Pulse Rate 79 82 79 Respiratory Rate 29 H 26 H 28 H Blood Pressure 114/64 110/62 Pulse Oximetry 96 96 96 06/08/18 15:28 06/08/18 15:43 06/08/18 15:47 Temperature Pulse Rate 76 77 78 Respiratory Rate 27 H 21 17 Blood Pressure 112/62 118/63 Pulse Oximetry 96 96 06/08/18 15:58 06/08/18 16:00 06/08/18 16:13 Temperature 98.7 F Pulse Rate 86 85 82 Respiratory Rate 23 26 H 23 Blood Pressure 106/59 L 112/61 Pulse Oximetry 96 95 96 06/08/18 16:28 06/08/18 16:43 06/08/18 16:58 Temperature Pulse Rate 77 73 67 Respiratory Rate 20 14 17 Blood Pressure 104/57 L 107/55 L 101/59 L Pulse Oximetry 96 97 97 06/08/18 17:00 06/08/18 17:13 06/08/18 17:28 Temperature Pulse Rate 72 92 H 78 Respiratory Rate 20 23 19 Blood Pressure 110/62 117/65 Pulse Oximetry 97 97 96 06/08/18 17:43 06/08/18 17:58 06/08/18 18:00 Temperature Pulse Rate 81 94 H 90 Respiratory Rate 37 H 26 H 20 Blood Pressure 120/60 154/84 H Pulse Oximetry 95 96 95 06/08/18 18:13 06/08/18 18:28 06/08/18 18:43 Temperature Pulse Rate 83 76 69 Respiratory Rate 17 20 19 Blood Pressure 138/63 128/68 127/70 Pulse Oximetry 95 95 95 06/08/18 18:58 06/08/18 19:00 06/08/18 19:13 Temperature Pulse Rate 68 75 68 Respiratory Rate 22 23 17 Blood Pressure 136/73 116/63 Pulse Oximetry 95 95 95 06/08/18 19:28 06/08/18 19:43 06/08/18 19:58 Temperature Pulse Rate 76 81 87 Respiratory Rate 24 12 24 Blood Pressure 144/69 H 151/72 H 146/69 H Pulse Oximetry 95 96 97 06/08/18 20:00 06/08/18 20:03 06/08/18 20:13 Temperature Pulse Rate 93 H 85 Respiratory Rate 24 Blood Pressure 129/68 Pulse Oximetry 97 96 95 06/08/18 20:28 06/08/18 20:43 06/08/18 20:58 Temperature Pulse Rate 83 79 82 Respiratory Rate 20 20 Blood Pressure 128/70 122/63 130/70 Pulse Oximetry 96 96 96 06/08/18 21:00 06/08/18 21:13 06/08/18 21:28 Temperature Pulse Rate 83 85 92 H Respiratory Rate 23 26 H 19 Blood Pressure 127/64 135/73 Pulse Oximetry 96 95 96 06/08/18 21:43 06/08/18 21:58 06/08/18 22:00 Temperature Pulse Rate 74 68 67 Respiratory Rate 19 12 12 Blood Pressure 123/64 110/55 L Pulse Oximetry 96 96 95 06/08/18 22:01 06/08/18 22:13 06/08/18 22:28 Temperature Pulse Rate 64 69 Respiratory Rate 13 12 12 Blood Pressure 106/57 L 112/59 L Pulse Oximetry 96 96 06/08/18 22:43 06/08/18 22:58 06/08/18 23:00 Temperature Pulse Rate 66 62 63 Respiratory Rate 23 22 20 Blood Pressure 110/56 L 110/59 L Pulse Oximetry 96 96 96 06/08/18 23:13 06/08/18 23:28 06/08/18 23:34 Temperature Pulse Rate 75 65 64 Respiratory Rate 21 16 16 Blood Pressure 128/61 116/61 Pulse Oximetry 97 97 06/08/18 23:43 06/08/18 23:58 06/09/18 00:00 Temperature 97.6 F Pulse Rate 80 89 84 Respiratory Rate 12 26 H 23 Blood Pressure 130/64 140/68 Pulse Oximetry 97 94 L 96 06/09/18 00:13 06/09/18 00:28 06/09/18 00:43 Temperature 97.6 F Pulse Rate 82 66 71 Respiratory Rate 18 11 L 14 Blood Pressure 127/61 111/59 L 112/58 L Pulse Oximetry 96 96 96 06/09/18 00:58 06/09/18 01:00 06/09/18 01:13 Temperature Pulse Rate 67 66 65 Respiratory Rate 13 11 L 11 L Blood Pressure 106/56 L 105/55 L Pulse Oximetry 96 96 96 06/09/18 01:28 06/09/18 01:43 06/09/18 01:58 Temperature Pulse Rate 64 67 67 Respiratory Rate 11 L 11 L 12 Blood Pressure 107/58 L 111/57 L 117/70 Pulse Oximetry 96 96 97 06/09/18 02:00 06/09/18 02:02 06/09/18 02:13 Temperature Pulse Rate 66 64 Respiratory Rate 12 13 Blood Pressure 119/68 Pulse Oximetry 97 97 06/09/18 02:28 06/09/18 02:43 06/09/18 02:58 Temperature Pulse Rate 82 59 L 63 Respiratory Rate 12 Blood Pressure 157/76 H 116/55 L 111/57 L Pulse Oximetry 98 97 97 06/09/18 03:00 06/09/18 03:13 06/09/18 03:28 Temperature Pulse Rate 64 66 64 Respiratory Rate 13 17 Blood Pressure 120/55 L 111/58 L Pulse Oximetry 97 97 97 06/09/18 03:36 06/09/18 03:43 06/09/18 03:58 Temperature Pulse Rate 60 63 67 Respiratory Rate 21 11 L 12 Blood Pressure 125/68 125/58 L Pulse Oximetry 98 97 06/09/18 04:00 06/09/18 04:13 06/09/18 04:22 Temperature 97.7 F Pulse Rate 79 63 Respiratory Rate 18 13 15 Blood Pressure 108/54 L Pulse Oximetry 97 97 06/09/18 04:28 06/09/18 04:43 06/09/18 04:58 Temperature Pulse Rate 62 70 62 Respiratory Rate 17 12 11 L Blood Pressure 128/60 131/66 115/59 L Pulse Oximetry 96 98 97 06/09/18 05:00 06/09/18 05:13 06/09/18 05:28 Temperature Pulse Rate 66 62 66 Respiratory Rate 23 20 12 Blood Pressure 124/63 119/62 Pulse Oximetry 97 97 98 06/09/18 05:43 06/09/18 05:58 06/09/18 06:00 Temperature Pulse Rate 63 63 82 Respiratory Rate 11 L 16 19 Blood Pressure 117/63 113/63 Pulse Oximetry 98 97 98 06/09/18 07:43 06/09/18 07:45 06/09/18 07:56 Temperature Pulse Rate 72 75 Respiratory Rate 24 17 Blood Pressure 122/60 Pulse Oximetry 97 98 06/09/18 07:58 06/09/18 08:00 06/09/18 08:13 Temperature 97.4 F L Pulse Rate 80 83 71 Respiratory Rate 9 L 17 21 Blood Pressure 145/67 H 132/57 L Pulse Oximetry 98 99 97 06/09/18 08:15 06/09/18 08:28 06/09/18 08:30 Temperature Pulse Rate 69 67 67 Respiratory Rate 18 11 L 11 L Blood Pressure 129/61 Pulse Oximetry 97 97 97 06/09/18 08:43 06/09/18 08:45 06/09/18 08:58 Temperature Pulse Rate 81 94 H 97 H Respiratory Rate 22 25 H 17 Blood Pressure 134/66 142/72 H Pulse Oximetry 96 94 L 97 06/09/18 09:00 06/09/18 09:13 06/09/18 09:15 Temperature Pulse Rate 77 77 71 Respiratory Rate 19 18 19 Blood Pressure 132/62 Pulse Oximetry 97 96 96 06/09/18 09:28 06/09/18 09:30 06/09/18 09:43 Temperature Pulse Rate 71 66 67 Respiratory Rate 18 14 11 L Blood Pressure 122/56 L 109/55 L Pulse Oximetry 96 96 96 06/09/18 09:45 06/09/18 09:58 06/09/18 10:00 Temperature Pulse Rate 66 79 70 Respiratory Rate 11 L 23 21 Blood Pressure 134/63 Pulse Oximetry 96 96 97 06/09/18 10:13 06/09/18 10:15 06/09/18 10:28 Temperature Pulse Rate 75 86 73 Respiratory Rate 19 23 22 Blood Pressure 142/63 H 129/62 Pulse Oximetry 96 96 97 06/09/18 10:30 06/09/18 10:43 06/09/18 10:45 Temperature Pulse Rate 70 74 76 Respiratory Rate 29 H 24 20 Blood Pressure 147/70 H Pulse Oximetry 97 97 97 06/09/18 10:58 06/09/18 11:00 06/09/18 11:13 Temperature Pulse Rate 75 72 100 H Respiratory Rate 26 H 20 33 H Blood Pressure 136/65 145/75 H Pulse Oximetry 97 97 97 06/09/18 11:15 06/09/18 11:28 06/09/18 11:30 Temperature Pulse Rate 90 85 81 Respiratory Rate 26 H 20 29 H Blood Pressure 148/83 H Pulse Oximetry 97 94 L 94 L 06/09/18 11:43 06/09/18 11:45 06/09/18 12:44 Temperature 97.3 F L Pulse Rate 83 81 80 Respiratory Rate 29 H 30 H 17 Blood Pressure 149/83 H Pulse Oximetry 97 98 Intake & Output 06/08/18 06/09/18 06/09/18 18:59 06:59 18:59 Intake Total 550 / 550 1265 / 1265 300 / 300 Output Total 2350 / 2350 1999 / 1999 Balance -1800 / -1800 -735 / -735 300 / 300 Weight 57.2 kg Intake: IV 550 / 550 1265 / 1265 300 / 300 Heparin/D5W 25,000 U/250 mL 25, 354 / 354 000 unit In 250 ml @ Per Protocol IV.CONT TITRATE PRN Rx #:[id number] Primacor Inj 20 MG In NS Inj 80 100 / 100 100 / 100 ML @ 0.375 MCG/KG/MIN 6.88 mls /hr IV.CONT .[id number] [facility] Rx#: [id number] D5W/Normal Saline Inj 1,000 ML 171 / 171 @ 50 mls/hr IV.SIG .Q20H [facility] Rx #:[id number] Diflucan 400 mg Premix Bag 200 200 / 200 ML @ 100 mls/hr IV.SIG Q24H [place] Rx#:[id number] Zosyn 3.375 GM Premix 3.375 gm 100 / 100 100 / 100 50 / 50 In 50 ml @ 100 mls/hr IV.SIG Q6H [facility] Rx#:[id number] KCl 20 mEq Premix Inj 20 meq In 100 / 100 100 ml @ 50 mls/hr IV.SIG Q2H PRN Rx#:[id number] KCl 40 mEq Premix Inj 40 meq In 90 / 90 100 ml @ 25 mls/hr IV.SIG UNSCH PRN Rx#:[id number] Vancomycin Inj 1,000 MG In NS 250 / 250 250 / 250 250 / 250 Inj 250 ML @ 250 mls/hr IV.SIG Q12H [facility] Rx#:[id number] Oral 0 / 0 Output: Urine Amount (Catheter) 1999 1600 / 1600 Indwelling Temp Sensing 1999 1600 / 1600 Catheter Gastric Drainage 300 / 300 400 / 400 Orogastric Tube 300 / 300 400 / 400 Chest Tube Drainage 50 / 50 0 / 0 Left 50 / 50 0 / 0 Result Diagrams: 06/09/18 06:15 06/09/18 06:15 Objective Remarks: GENERAL:Middle-age man who appears older than stated age, lying in bed, intubated, sedated, critically ill. HEENT: Normocephalic. Atraumatic. Pupils equal, round, reactive, conjugate. Mucous membranes are moist NECK: Trachea is midline. JVD today. CHEST: equal chest rise. Subcu emphysema over the left anterior chest wall, improving. left chest tube with minimal serosanguinous output, to suction. no air leak. CARDIOVASCULAR: Tachycardic rate, regular rhythm. Sinus. milrinone at 0.5 mcg/ kg/min. ABDOMEN: Soft, nontender, nondistended. No guarding. MUSCULOSKELETAL: Radial pulses are 1+. Dopplerable signals in the bilateral lower extremities. improved perfusion no longer any demarkation of the LE perfusion. NEUROLOGICAL: Alert awake oriented. Follows commands in all 4 extremities. No focal deficits. Assessment and Plan - Assessment and Plan Plan: Assessment: 67yM with left rib fracture, pneumothorax, and critical limb ischemia, complicated by shock, acute NSTEMI with cardiogenic shock, septic shock with Klebsiella bacteremia, pelvic abscesses. Critically ill with ongoing shock from multiple etiologies. He remains critical. Plan by systems: Neurologic: Acute metabolic encephalopathy - avoid sedatives - frequent neuro checks Respiratory: COPD Left sided rib fractures Left pneumothorax Acute hypoxic and hypercarbic respiratory failure intubated 06/05 for resp failure. Self extubated 06/07 Nebs Head of bed elevated - keep chest tube to suction - CXR today shows no pneumothorax Cardiovascular: NSTEMI with cardiogenic shock Septic shock new acute ischemic cardiomyopathy, EF 20% Trend troponins Status post 4 L crystalloid boluses Heparin drip ASA Milrinone at 0.5 mcg/kg/min Plan for cardiac catheterization today Renal: Acute kidney injury- improving Loja for hourly urine outputs Trend daily creatinine -- Strict I/Os Urine output excellent FEN/GI: Acute protein calorie malnutritionsevere Lactic acidosis-improved Severe anion gap metabolic acidosis-improved ICU electrolyte protocol Status post 4 L crystalloid bolus Daily CMP, magnesium, phosphorus Start diet if cleared by general surgery, after cardiac catheterization Heme/ID: Critical limb ischemia pelvic abscesses Klebsiella bacteremia Heparin drip Trend lactates continue zosyn, vancomycin 06/05 blood cultures 06/21 bottles Klebsiella pansensitive repeat blood cultures 06/07 Daily CBC Watch closely for bleeding from the chest tube Endocrine: Hyperglycemia of critical illness -- SSI, medium scale, every 6 Prophylaxis: GI Prophylaxis Pepcid IV DVT Prophylaxis -- SCDs Heparin infusion Lines: 06/05 left radial arterial line 06/05 left subclavian triple-lumen catheter 06/05 Loja 06/05 left-sided 32 [place] chest tube Dispo: remain in ICU. Critically ill. This patient remains critically ill with one or more organ systems which are or may become a threat to life. I have spent in excess of 35minutes discontinuously in the care and management of this patient. This time is exclusive of procedures, and includes, but is not limited to, evaluation of the patient, review of the medical record, discussions with family, consultants, nursing staff, or respiratory therapy, and documentation in the medical record.
--- NOTE | 2018-06-09 15:26 | P.PNGI ---
Subjective Interval history: Patient laying in bed comfortably awake and alert Family at bedside No abdominal pain no nausea vomiting NGT to the left nare to LIS Patient is going for heart catheterization today Physical Exam Vital signs: Vital Signs 06/08/18 15:28 06/08/18 15:43 06/08/18 15:47 Temperature Pulse Rate 76 77 78 Respiratory Rate 27 H 21 17 Blood Pressure 112/62 118/63 Pulse Oximetry 96 96 06/08/18 15:58 06/08/18 16:00 06/08/18 16:13 Temperature 98.7 F Pulse Rate 86 85 82 Respiratory Rate 23 26 H 23 Blood Pressure 106/59 L 112/61 Pulse Oximetry 96 95 96 06/08/18 16:28 06/08/18 16:43 06/08/18 16:58 Temperature Pulse Rate 77 73 67 Respiratory Rate 20 14 17 Blood Pressure 104/57 L 107/55 L 101/59 L Pulse Oximetry 96 97 97 06/08/18 17:00 06/08/18 17:13 06/08/18 17:28 Temperature Pulse Rate 72 92 H 78 Respiratory Rate 20 23 19 Blood Pressure 110/62 117/65 Pulse Oximetry 97 97 96 06/08/18 17:43 06/08/18 17:58 06/08/18 18:00 Temperature Pulse Rate 81 94 H 90 Respiratory Rate 37 H 26 H 20 Blood Pressure 120/60 154/84 H Pulse Oximetry 95 96 95 06/08/18 18:13 06/08/18 18:28 06/08/18 18:43 Temperature Pulse Rate 83 76 69 Respiratory Rate 17 20 19 Blood Pressure 138/63 128/68 127/70 Pulse Oximetry 95 95 95 06/08/18 18:58 06/08/18 19:00 06/08/18 19:13 Temperature Pulse Rate 68 75 68 Respiratory Rate 22 23 17 Blood Pressure 136/73 116/63 Pulse Oximetry 95 95 95 06/08/18 19:28 06/08/18 19:43 06/08/18 19:58 Temperature Pulse Rate 76 81 87 Respiratory Rate 24 12 24 Blood Pressure 144/69 H 151/72 H 146/69 H Pulse Oximetry 95 96 97 06/08/18 20:00 06/08/18 20:03 06/08/18 20:13 Temperature Pulse Rate 93 H 85 Respiratory Rate 24 Blood Pressure 129/68 Pulse Oximetry 97 96 95 06/08/18 20:28 06/08/18 20:43 06/08/18 20:58 Temperature Pulse Rate 83 79 82 Respiratory Rate 20 20 Blood Pressure 128/70 122/63 130/70 Pulse Oximetry 96 96 96 06/08/18 21:00 06/08/18 21:13 06/08/18 21:28 Temperature Pulse Rate 83 85 92 H Respiratory Rate 23 26 H 19 Blood Pressure 127/64 135/73 Pulse Oximetry 96 95 96 06/08/18 21:43 06/08/18 21:58 06/08/18 22:00 Temperature Pulse Rate 74 68 67 Respiratory Rate 19 12 12 Blood Pressure 123/64 110/55 L Pulse Oximetry 96 96 95 06/08/18 22:01 06/08/18 22:13 06/08/18 22:28 Temperature Pulse Rate 64 69 Respiratory Rate 13 12 12 Blood Pressure 106/57 L 112/59 L Pulse Oximetry 96 96 06/08/18 22:43 06/08/18 22:58 06/08/18 23:00 Temperature Pulse Rate 66 62 63 Respiratory Rate 23 22 20 Blood Pressure 110/56 L 110/59 L Pulse Oximetry 96 96 96 06/08/18 23:13 06/08/18 23:28 06/08/18 23:34 Temperature Pulse Rate 75 65 64 Respiratory Rate 21 16 16 Blood Pressure 128/61 116/61 Pulse Oximetry 97 97 06/08/18 23:43 06/08/18 23:58 06/09/18 00:00 Temperature 97.6 F Pulse Rate 80 89 84 Respiratory Rate 12 26 H 23 Blood Pressure 130/64 140/68 Pulse Oximetry 97 94 L 96 06/09/18 00:13 06/09/18 00:28 06/09/18 00:43 Temperature 97.6 F Pulse Rate 82 66 71 Respiratory Rate 18 11 L 14 Blood Pressure 127/61 111/59 L 112/58 L Pulse Oximetry 96 96 96 06/09/18 00:58 06/09/18 01:00 06/09/18 01:13 Temperature Pulse Rate 67 66 65 Respiratory Rate 13 11 L 11 L Blood Pressure 106/56 L 105/55 L Pulse Oximetry 96 96 96 06/09/18 01:28 06/09/18 01:43 06/09/18 01:58 Temperature Pulse Rate 64 67 67 Respiratory Rate 11 L 11 L 12 Blood Pressure 107/58 L 111/57 L 117/70 Pulse Oximetry 96 96 97 06/09/18 02:00 06/09/18 02:02 06/09/18 02:13 Temperature Pulse Rate 66 64 Respiratory Rate 12 13 Blood Pressure 119/68 Pulse Oximetry 97 97 06/09/18 02:28 06/09/18 02:43 06/09/18 02:58 Temperature Pulse Rate 82 59 L 63 Respiratory Rate 12 Blood Pressure 157/76 H 116/55 L 111/57 L Pulse Oximetry 98 97 97 06/09/18 03:00 06/09/18 03:13 06/09/18 03:28 Temperature Pulse Rate 64 66 64 Respiratory Rate 13 17 Blood Pressure 120/55 L 111/58 L Pulse Oximetry 97 97 97 06/09/18 03:36 06/09/18 03:43 06/09/18 03:58 Temperature Pulse Rate 60 63 67 Respiratory Rate 21 11 L 12 Blood Pressure 125/68 125/58 L Pulse Oximetry 98 97 06/09/18 04:00 06/09/18 04:13 06/09/18 04:22 Temperature 97.7 F Pulse Rate 79 63 Respiratory Rate 18 13 15 Blood Pressure 108/54 L Pulse Oximetry 97 97 06/09/18 04:28 06/09/18 04:43 06/09/18 04:58 Temperature Pulse Rate 62 70 62 Respiratory Rate 17 12 11 L Blood Pressure 128/60 131/66 115/59 L Pulse Oximetry 96 98 97 06/09/18 05:00 06/09/18 05:13 06/09/18 05:28 Temperature Pulse Rate 66 62 66 Respiratory Rate 23 20 12 Blood Pressure 124/63 119/62 Pulse Oximetry 97 97 98 06/09/18 05:43 06/09/18 05:58 06/09/18 06:00 Temperature Pulse Rate 63 63 82 Respiratory Rate 11 L 16 19 Blood Pressure 117/63 113/63 Pulse Oximetry 98 97 98 06/09/18 07:43 06/09/18 07:45 06/09/18 07:56 Temperature Pulse Rate 72 75 Respiratory Rate 24 17 Blood Pressure 122/60 Pulse Oximetry 97 98 06/09/18 07:58 06/09/18 08:00 06/09/18 08:13 Temperature 97.4 F L Pulse Rate 80 83 71 Respiratory Rate 9 L 17 21 Blood Pressure 145/67 H 132/57 L Pulse Oximetry 98 99 97 06/09/18 08:15 06/09/18 08:28 06/09/18 08:30 Temperature Pulse Rate 69 67 67 Respiratory Rate 18 11 L 11 L Blood Pressure 129/61 Pulse Oximetry 97 97 97 06/09/18 08:43 06/09/18 08:45 06/09/18 08:58 Temperature Pulse Rate 81 94 H 97 H Respiratory Rate 22 25 H 17 Blood Pressure 134/66 142/72 H Pulse Oximetry 96 94 L 97 06/09/18 09:00 06/09/18 09:13 06/09/18 09:15 Temperature Pulse Rate 77 77 71 Respiratory Rate 19 18 19 Blood Pressure 132/62 Pulse Oximetry 97 96 96 06/09/18 09:28 06/09/18 09:30 06/09/18 09:43 Temperature Pulse Rate 71 66 67 Respiratory Rate 18 14 11 L Blood Pressure 122/56 L 109/55 L Pulse Oximetry 96 96 96 06/09/18 09:45 06/09/18 09:58 06/09/18 10:00 Temperature Pulse Rate 66 79 70 Respiratory Rate 11 L 23 21 Blood Pressure 134/63 Pulse Oximetry 96 96 97 06/09/18 10:13 06/09/18 10:15 06/09/18 10:28 Temperature Pulse Rate 75 86 73 Respiratory Rate 19 23 22 Blood Pressure 142/63 H 129/62 Pulse Oximetry 96 96 97 06/09/18 10:30 06/09/18 10:43 06/09/18 10:45 Temperature Pulse Rate 70 74 76 Respiratory Rate 29 H 24 20 Blood Pressure 147/70 H Pulse Oximetry 97 97 97 06/09/18 10:58 06/09/18 11:00 06/09/18 11:13 Temperature Pulse Rate 75 72 100 H Respiratory Rate 26 H 20 33 H Blood Pressure 136/65 145/75 H Pulse Oximetry 97 97 97 06/09/18 11:15 06/09/18 11:28 06/09/18 11:30 Temperature Pulse Rate 90 85 81 Respiratory Rate 26 H 20 29 H Blood Pressure 148/83 H Pulse Oximetry 97 94 L 94 L 06/09/18 11:43 06/09/18 11:45 06/09/18 12:44 Temperature 97.3 F L Pulse Rate 83 81 80 Respiratory Rate 29 H 30 H 17 Blood Pressure 149/83 H Pulse Oximetry 97 98 Intake & Output 06/08/18 06/09/18 06/09/18 18:59 06:59 18:59 Intake Total 550 / 550 1265 / 1265 300 / 300 Output Total 2350 / 2350 1999 Balance -1800 / -1800 -735 / -735 300 / 300 Weight 57.2 kg Intake: IV 550 / 550 1265 / 1265 300 / 300 Heparin/D5W 25,000 U/250 mL 25, 354 / 354 000 unit In 250 ml @ Per Protocol IV.CONT TITRATE PRN Rx #:[id number] Primacor Inj 20 MG In NS Inj 80 100 / 100 100 / 100 ML @ 0.375 MCG/KG/MIN 6.88 mls /hr IV.CONT .[id number] [facility] Rx#: [id number] D5W/Normal Saline Inj 1,000 ML 171 / 171 @ 50 mls/hr IV.SIG .Q20H [facility] Rx #:[id number] Diflucan 400 mg Premix Bag 200 200 / 200 ML @ 100 mls/hr IV.SIG Q24H [facility] Rx#:[id number] Zosyn 3.375 GM Premix 3.375 gm 100 / 100 100 / 100 50 / 50 In 50 ml @ 100 mls/hr IV.SIG Q6H [facility] Rx#:[id number] KCl 20 mEq Premix Inj 20 meq In 100 / 100 100 ml @ 50 mls/hr IV.SIG Q2H PRN Rx#:[id number] KCl 40 mEq Premix Inj 40 meq In 90 / 90 100 ml @ 25 mls/hr IV.SIG UNSCH PRN Rx#:[id number] Vancomycin Inj 1,000 MG In NS 250 / 250 250 / 250 250 / 250 Inj 250 ML @ 250 mls/hr IV.SIG Q12H [facility] Rx#:[id number] Oral 0 / 0 Output: Urine Amount (Catheter) 1999 Indwelling Temp Sensing 1999 Catheter Gastric Drainage 300 / 300 400 / 400 Orogastric Tube 300 / 300 400 / 400 Chest Tube Drainage 50 / 50 0 / 0 Left 50 / 50 0 / 0 - Constitutional no acute distress - Routine HEENT Exam Head: Present: normocephalic, atraumatic - Routine Neck Exam Present: supple - Routine Respiratory Exam Comments: Left chest tube to left lateral chest attached to wall suction Status post left rib fracture with pneumothorax - Routine Cardiovascular Exam Present: RRR, S1, S2 - Routine Abdominal Exam Present: soft, normoactive bowel sounds, tenderness. Absent: distended Comments: Mild tenderness on palpation NG tube left nare low intermittent suction draining out whitish greenish drainage - Routine Extremities Exam Present: pulses intact, normal capillary refill - Routine Neurological Exam Present: alert, oriented X3 - Urinary Catheter Management Indwelling Temp Sensing Catheter Cath placed during this visit: no Results - Labs CBC & Chem 7: 06/09/18 06:15 06/09/18 06:15 Laboratory Results - last 24 hr 06/08/18 06/08/18 06/08/18 15:30 17:53 21:37 WBC RBC Hgb Hct MCV MCH MCHC RDW Plt Count MPV Neut % (Auto) Lymph % (Auto) [place] % (Auto) Eos % (Auto) Baso % (Auto) Neut # (Auto) Lymph # (Auto) [place] # (Auto) Eos # (Auto) Baso # (Auto) WBC Differential Differential Comment PT INR APTT 45.5 H 43.7 H Sodium Potassium Chloride Carbon Dioxide Anion Gap BUN Creatinine Estimated GFR POC Glucose 83 Random Glucose Calcium Phosphorus Magnesium Total Bilirubin AST ALT Alkaline Phosphatase Total Protein Albumin 06/08/18 06/08/18 06/09/18 21:37 23:59 06:15 WBC 8.2 RBC 3.48 L Hgb 9.6 L Hct 29.3 L MCV 84.2 MCH 27.6 MCHC 32.8 RDW 18.9 H Plt Count 272 MPV 7.3 Neut % (Auto) 64.5 Lymph % (Auto) 27.0 [place] % (Auto) 6.5 Eos % (Auto) 1.3 Baso % (Auto) 0.7 Neut # (Auto) 5.3 Lymph # (Auto) 2.2 [place] # (Auto) 0.5 Eos # (Auto) 0.1 Baso # (Auto) 0.1 WBC Differential . Differential Comment Auto diff final PT INR APTT Sodium Potassium 3.3 L Chloride Carbon Dioxide Anion Gap BUN Creatinine Estimated GFR POC Glucose 88 Random Glucose Calcium Phosphorus Magnesium Total Bilirubin AST ALT Alkaline Phosphatase Total Protein Albumin 02/06/09/18 06/09/18 06:15 06:15 06:15 WBC RBC Hgb Hct MCV MCH MCHC RDW Plt Count MPV Neut % (Auto) Lymph % (Auto) [place] % (Auto) Eos % (Auto) Baso % (Auto) Neut # (Auto) Lymph # (Auto) [place] # (Auto) Eos # (Auto) Baso # (Auto) WBC Differential Differential Comment PT 10.8 INR 1.1 APTT 35.5 H Sodium 144 Potassium 3.7 Chloride 110 H Carbon Dioxide 26.9 Anion Gap 7 BUN 7 Creatinine 0.69 Estimated GFR Greater than 89 POC Glucose Random Glucose 89 Calcium 8.2 L Phosphorus 4.4 D Magnesium 1.8 Total Bilirubin 0.4 AST 17 ALT 18 Alkaline Phosphatase 57 Total Protein 6.5 Albumin 2.3 L 06/09/18 12:17 WBC RBC Hgb Hct MCV MCH MCHC RDW Plt Count MPV Neut % (Auto) Lymph % (Auto) [place] % (Auto) Eos % (Auto) Baso % (Auto) Neut # (Auto) Lymph # (Auto) [place] # (Auto) Eos # (Auto) Baso # (Auto) WBC Differential Differential Comment PT INR APTT Sodium Potassium Chloride Carbon Dioxide Anion Gap BUN Creatinine Estimated GFR POC Glucose 85 Random Glucose Calcium Phosphorus Magnesium Total Bilirubin AST ALT Alkaline Phosphatase Total Protein Albumin Microbiology 06/07/18 13:00 Blood - Peripheral Aerobic Blood Culture - Preliminary No growth in 2 days 06/07/18 13:00 Blood - Peripheral Anaerobic Blood Culture - Preliminary No growth in 2 days 06/07/18 13:07 Blood - Peripheral Aerobic Blood Culture - Preliminary No growth in 2 days 06/07/18 13:07 Blood - Peripheral Anaerobic Blood Culture - Preliminary No growth in 2 days 06/05/18 11:45 Blood - Peripheral Aerobic Blood Culture - Preliminary No growth in 4 days 06/05/18 11:45 Blood - Peripheral Anaerobic Blood Culture - Final Klebsiella pneumoniae - Imaging Impressions Chest X-Ray 06/09/18 06:00 CONCLUSION: 1. Continued improvement in the airspace consolidation previously seen in the right perihilar and right basilar distribution. Some developing linear atelectasis above the left hemidiaphragm. 2. I believe the patient has been extubated. Remaining life support tubes are stable in position including the left thoracostomy tube without pneumothorax. 3. Left lateral rib fractures with associated regional emphysematous changes in the soft tissues about the chest. Assessment and Plan (1) Diverticular disease Status: Acute Code(s): K57.90 - Diverticulosis of intestine, part unspecified , without perforation or abscess without bleeding (2) PAD (peripheral artery disease) Status: Acute Code(s): I73.9 - Peripheral vascular disease, unspecified (3) Pneumothorax Status: Acute Code(s): J93.9 - Pneumothorax, unspecified (4) Elevated troponin Status: Acute Code(s): R74.8 - Abnormal levels of other serum enzymes (5) Diverticulitis of colon with perforation Status: Acute Code(s): K57.20 - Diverticulitis of large intestine with perforation and abscess without bleeding - Plan 06/08/2018 Patient is a 67-year-old male with history of severe PAD initially presented to the emergency room for shortness of breathing associated with severe right leg pain that caused the patient to trip and fall sustaining rib fracture. Subsequently patient had left apical pneumothorax with large amount of subcutaneous emphysema. 06/05/2018 patient had chest tube to address the issues of sided acute pneumothorax with respiratory failure. 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 Currently patient denies abdominal pain nausea vomiting blood in the stool. Last hospitalization April 30, 2018 was for perforated diverticular abscess .patient stated that he never had colonoscopy or EGD done. our service is consulted for diverticular abscess versus malignancy. WBC 10.7 hemoglobin 8.7 hematocrit 25.9 platelet 233 INR [address] taken on 05/06/2018 with previous hospitalization for perforated diverticulitis showed the following 1. A percutaneous drain has been placed in one of the loculated fluid collections within the right anterior pelvis. This collection has improved status post drain placement. 2. Second moderate-sized loculated fluid collection within the left hemipelvis inferior to the thickened loop of sigmoid colon which measures 6.7 x 3.0 cm consistent with probable pericolic abscess3. Extensive inflammatory changes are still noted within the left hemipelvis. 4. Persistent thickening of the sigmoid colon consistent with acute colitis or diverticulitis. Mass with perforation remains in the differential also. 5. Thickening of the wall of the urinary bladder particularly anteriorly and to the left of midline in the region of the extensive pericolic changes suggesting cystitis. 6. Persistent mild ureteropelvicaliectasis on the left. 7. Enlarged prostate. 8. Tiny low-density lesions within the liver consistent with possible hepatic cysts. 9. Degenerative changes throughout the thoracolumbar spine. Assessment Diverticulitis of colon with history of perforation with last hospitalization last month -currently patient with NG tube to LIS, no abdominal pain, n/m Dilated cardiomyopathy -EF less than 20% Left pneumothorax -chest tube to wall suction Hypotension on milrinone Elevated troponin -patient is for heart catheterization in the morning 06/09/2018 Assessment Status post fall with left rib fracture with pneumothorax -patient with chest tube to suction History of diverticular abscess with perforation -NG tube to the left nare low intermittent suction draining out greenish drainage Elevated troponin -patient is going for heart cath today Hypertension on milrinone Status post cardiac catheterization today with 2 cardiac stents to LAD by Dr. Sarabia Plan N.p.o. Plan to DC NG tube today after heart cath Can give p.o. medications by mouth Plavix Continue PPI Electrolytes replacement per attending Continue IV antibiotics Continue milrinone Monitor labs Monitor for active bleeding In light of recent 2 cardiac stents to the LAD patient does not need any active GI intervention will do EGD colonoscopy electively in 3 months GI will signed off Supportive care Reconsult as needed Patient seen and examined by myself and Dr. Hopkins and this note is written on his behalf - Attending Attestation Dr Hopkins (3) Pneumothorax Qualifiers: Pneumothorax type: traumatic Encounter type: initial encounter Qualified Code(s): S27.0XXA - Traumatic pneumothorax, initial encounter (5) Diverticulitis of colon with perforation Qualifiers: Diverticulitis bleeding: without bleeding Qualified Code(s): K57.20 - Diverticulitis of large intestine with perforation and abscess without bleeding
[2018-06-09] MEDS ORDERED: Heparin/NS PF Inj 1,000 ML ONE (15:45)
[2018-06-09] MEDS ORDERED: Heparin 10,000 UNITS/10 ML Vial (for IV use) ONE (15:46)
[2018-06-09] MEDS ORDERED: fentaNYL Citrate Inj 100 MCG/2 ML Ampul ONE (16:04)
--- NOTE | 2018-06-09 16:46 | P.PNPAL ---
Brief telephone conversation with Sister Leanna to provide brief update. Pt gone for cath.
[2018-06-09] MEDS ORDERED: Tirofiban Inj 12,500 MCG/250 ML PLAST..BAG ONE (16:55)
[2018-06-09] MEDS ORDERED: Tirofiban Inj 12,500 MCG/250 ML PLAST..BAG IV.CONT SCH ×3 (17:00→19:00)
[2018-06-09] MEDS ORDERED: Misc Info for Pharmacy OTHER STA (17:14)
--- NOTE | 2018-06-09 17:17 | CATHPROC ---
evocatal HIS Report Study Information Study Number Admission Scheduled Start Study Start [id number] Jun 05 2018 3:23PM 06/09/2018 Jun 09 2018 3:14PM [place] [facility] Cardiac Catheterization Admit Source Facility Department Emergency department [facility] [facility] Physician and Clinical Staff Initial Isma Schrader Project Development Coordinator Montana Chiu,JABARI Recorder Elena Edwards,RT(R) Scrub Oleksandr Strange,RT(R) Procedures Performed Procedure Location (Site) Vessel Name Angiogram LV LV Ventricle Coronary Angiograms LCA Left Coronary Coronary Angiograms RCA Right Coronary L Heart Cath PTCA LAD Mid Left Coronary Stent LAD Mid Left Coronary Wire insertion Radial (right) Radial Art. Equipment Time Car Framer Description Size Mfg Part Number Used/Scraped TRANSDUCER, TRLongxun Changtian TechnologyAVE [id number] 16:07 ALEJO MONROE * Used W/STOCKCOCK *[id number] 534-545T *[id number] 670-002-00 *[id number] 670-004-00 *[id number] 534-520T *[id number] 534-523T *[id number] PIGTAIL ANG. 145 INFINITI 534-652S CATHETER *[id number] 670-054-00 *7434654 670-056-00 *[id number] 16:07 MALLINCKRODT SYRINGE, ANGIOMAT 150ML 150ML *[id number] Used 2SUB MEDICAL CONCEPT DRAPE, RADIAL FEMORAL FULL 16:07 * [id number] *[id number] Used DEVELOPMENT BODY [id number] 16:07 [employer]fruits BLANKET,WARM AIR CCL * Used *[id number] 16:07 [employer] PACK, CCL CUSTOM * Used *[id number] 16:07 [employer]ruits SUPPORT, ARTERIAL ADULT 73427 *0077395 Used [id number] 16:07 [employer] PACER PEN, SKIN DUAL W/ RULER * Used *[id number] BALLOON, 2.75 X 15MM [id number] 16:43 MEDTRONIC 15MM Used EUPHORA *[id number] 16:53 MEDTRONIC STENT, 2.75 12 INTEGRITY 2.75 12 Used *4951059 [id number] 16:49 MEDTRONIC STENT, 2.75 18 INTEGRITY 2.75 18 Used *[id number] [id number] 16:46 Lookback 30 PRAKASH INDEFLATOR Used *[id number] BAND, RADIAL COMPRESSION TR [id number] 16:59 [email or web address] MEDICAL 24CM Used SHORT 24 *[id number] 16:20 [email or web address] MEDICAL PACK, ANGIOPLASTY TUOHY KIT * [id number] Used SHEATH, FR6 RADIAL PRELUDE 16:07 Lookback FR 6 [id number] Used EASE 11CM [id number] 16:33 [email or web address] MEDICAL WIRE, EXCHANGE 260CM 3MMJ 260CM Used *[id number] 16:07 [email or web address] MEDICAL WIRE, EXCHANGE 260CM 3MMJ 260CM Used *[id number] 16:07 NAMIC MANIFOLD, 4 PORT * Used *[id number] 16:07 NYCOMED OMNIPAQUE, 350 MG, 150ML 150ML [id number] Used 17:00 NYCOMED OMNIPAQUE, 350 MG, 150ML 150ML [id number] Used 16:19 NYCOMED OMNIPAQUE, 350 MG, 50ML 50ML [id number] Used [id number] 16:37 [employer]OLCANO PRIME WIRE, VERRATA 185CM 185CM Used *[id number] Equipment Model, Serial, Lot Number and Expiration Data Description Model Number Serial Number Lot Number Expiration Date PRIME WIRE, VERRATA 185CM [id number] [id number] 03-19-2021 STENT, 2.75 12 INTEGRITY [id number] STENT, 2.75 18 INTEGRITY [id number] 08-04-2019 History: Allergies Allergy Reaction *MDRO Multi-Drug Resistant Organism History: Risk Factors Family History of Hypertension Dyslipidemia Previous CO Previous Heart Failure Premature CAD Yes Yes Yes Yes No Prior Valve Prior PCI Prior CABG Surgery No No No Cerebrovascular Peripheral Artery Chronic Lung On Dialysis Diabetes Disease Disease Disease No No Yes Yes No History: Other Current Smoker Method Packs a Day Years Used Pack Years Yes Cigarettes 1 50 50 Labs Hgb (g/dl) Hct (%) WBC (l/cumm) Platelets (thousands) 11.60-17.00 35.00-51.00 4.00-11.00 150.00-450.00 9.6 29.3 8.2 272 Glucose (mg/dl) BUN (mg/dl) Creatinine (mg/dl) BUN:Creatinine (1:x) 74.00-106.00 7.00-18.00 0.50-1.30 10.00-20.00 89 7 0.6 11.7 Na (meq/l) K (meq/l) 136.00-145.00 3.50-5.10 144 3.7 CPK-MB (ng/ML) 0.50-3.60 Not Drawn Medication Medication Total Dose (Bolus/Oral) Medication Total Dosage/Unit 1% XYLOCAINE 5 mL AGGRASTAT BOLUS 29 mL FENTANYL 50 mcg HEPARIN 3400 units NTG (IC) 100 mcg RADIAL COCKTAIL 5 mL (Bolus) VERSED 1 mg Medications (Bolus/Oral) Medication Time Given Dosage/Unit Administered By Reason VERSED 06/09/2018 4:05:45 PM 1 mg Montana Chiu 1 mg VERSED given in lab by Montana Chiu RN in Left shoulder via Peripheral IV. Ordered by Isma Sarabia. FENTANYL 06/09/2018 4:05:55 PM 50 mcg Montana Chiu 50 mcg FENTANYL given in lab by Montana Chiu RN in Left shoulder via Peripheral IV. Ordered by Isma Gramajo. 1% XYLOCAINE 06/09/2018 4:06:14 PM 5 mL Isam Sarabia 5 mL 1% XYLOCAINE given in lab by Isma Sarabia in Right Radial via Subcutaneous. Ordered by Clinton Sarabia enn. Ntg 200mcg Verapamil 2.5mg Heparin RADIAL COCKTAIL 06/09/2018 4:06:50 PM 5 mL (Bolus) Isma Sarabia 2500U 5 mL (Bolus) RADIAL COCKTAIL given in lab by Isma Sarabia in Right Radial via Radial. Using [Solution Name]. Ordered by Isma Sarabai. Reason: Ntg 200mcg Verapamil 2.5mg Heparin 2500U. HEPARIN 06/09/2018 4:25:11 PM 3400 units Montana Chiu 3400 units HEPARIN given in lab by Montana Chiu RN in Left shoulder via Peripheral IV. Ordered by Isma Sarabia. NTG (IC) 06/09/2018 4:50:08 PM 100 mcg Isma Sarabia 100 mcg NTG (IC) given in lab by Isma Sarabia in Right Radial via Intra-coronary. Ordered by [place] Sarabia. AGGRASTAT BOLUS 06/09/2018 5:08:07 PM 29 mL Montana Chiu 29 mL AGGRASTAT BOLUS given in lab by Montana Chiu RN in Left shoulder via Peripheral IV. Ordered by Isma Sarabia. Medication (Drip) Medication Time Given Dosage/Unit Concentration/Unit Diluent (ml) Linda on AGGRASTAT DRIP 06/09/2018 5:09:48 PM 0.154 mcg/kg/min 12.5 mg 250 NaCl .9 0.154 mcg/kg/min AGGRASTAT DRIP given in lab by Montana Chiu RN in Left shoulder via Peripheral IV . Pump/Drip Flow = 10.5 ml/hr using NaCl .9 with a concentration of 12.5 mg in 250 ml. Ordered by Isma Sarabia. IV Solutions 06/09/2018 3:24:22 PM 50 mL (IV) NaCl .9 IV Solutions given in lab by Montana Chiu RN in Left shoulder via Peripheral IV. Pump/Drip Flow us ing NaCl .9. Initial Case Assessment Cardiovascular Chest Pain 0 Edema Present Skin color Skin None Normal Warm Dry Circulatory - Right Pulses Radial 3 Scale (0,1,2,3,4,d) Circulatory - Left Pulses Radial Scale (0,1,2,3,4,d) Neurological State Oriented to time-place- Alert Moves all extremities person Chronological Log Time Study Chronological Log 15:24:05 Patient arrived via Bed. 15:24:06 Patient Name, D.O.B, / Armband Verified By R.N. 15:24:07 Consent signed by the physician and the patient and verified by the [employer] staff. 15:24:07 Pre-op and post- op instructions given; patient acknowledges understanding of instructions . 15:24:09 Anesthesia at bedside. Assumes care of patient. 15:24:10 Presedation assessment performed by [employer] RN. 15:24:11 Allens test performed on the right radial and ulnar artery. 15:24:14 Immediate Presedation assesment performed by physician. 15:24:15 Patient has been NPO for More than 6Hrs. 15:24:16 Skin Breakdown- 15:24:17 Patient Warmer Placed on the Table. 15:24:19 Morenita Prominences Protected 15:24:21 A # 20 IV was noted in the Antecubital (right). Grade = 0 15:24:21 A central line IV was noted in the Subclav. Vein (Lft.) 15:24:21 A # 20 IV was noted in the Antecubital (left). Grade = 0 15:24:22 IV Solutions given in lab by Montana Chiu RN in Left shoulder via Peripheral IV. Pump/D rip Flow using NaCl .9. 15:24:23 History and physical on the chart or being dictated. Assessment: Initial Case, Chest Pain=0, Edema=None, Color=Normal, Skin = Warm, Dry Right Pulses: Radial=3 15:24:28 Left Pulses: Harvinder Ped=1, Femoral=2 Neurological: State=Alert, Ox3, ROGERS 15:47:48 Reference ECG taken 15:52:10 Right Radial and groin(s) prepped with 2% chlorhexidine, and draped after a 3 min. waiting time. Vitals capture started with the following parameters, Patient=Adult, Interval=5 min, Initial Pr gdvsqj=556 mmHg, :57:18 Deflation Rate=5 mmHg, Cuff placed on Left Arm 15:57: MD paged 15::56 HR=94 bpm, HTMT=291/81 mmhg, SpO2=97.0 %, Resp=15 B/min 15:: Pressure channel 1 zeroed. 15:58:28 MD responded 16:02:56 MD arrived. 16:02:59 HR=98 bpm, TYEB=032/78 mmhg, SpO2=96.0 %, Resp=19 B/min Time Out. Correct patient, correct procedure, correct physician, labs, allergies, and equipment verified with farm labor contractor 16:05:40 team present. Fire risk assesment completed (see hard stop sheet for coding). Time Out Conc urred by MD and individual staff in procedure. 16:05:45 1 mg VERSED given in lab by Montana Chiu, RN in Left shoulder via Peripheral IV. Ordered by Isma Sarabia. 16:05:55 50 mcg FENTANYL given in lab by Montana Chiu, JABARI in Left shoulder via Peripheral IV. Orde red by Isma Sarabia. 16:06:11 Case Start 16:06:14 5 mL 1% XYLOCAINE given in lab by Isma Sarabia in Right Radial via Subcutaneous. Ordered by Isma Sarabia. 16:06:21 Access site was Right Radial Artery . A SHEATH, FR6 RADIAL PRELUDE EASE 11CM FR 6 was advanced into the Radial (right) using the Perc utaneous 16:06:33 technique. 5 mL (Bolus) RADIAL COCKTAIL given in lab by Isma Sarabia in Right Radial via Radial. Using [So lution Name]. Ordered 16:06:50 by Isma Sarabia. Reason: Ntg 200mcg Verapamil 2.5mg Heparin 2500U. 16:07:52 VP=403 bpm, SVRN=959/78 mmhg, SpO2=95.0 %, Resp=17 B/min A JL 4.0 INFINITI CATHETER FR 5 was advanced over a wire. OMNIPAQUE, 350 MG, 150ML 150ML was us ed for 16:08:17 injections. Recorded Pressure: Ao, YS=868, Condition=Condition 1 16:09:20 (Aorta) Ao 114/65/88 16:10:14 The LCA was injected and visualized at various angles. OMNIPAQUE, 350 MG, 150ML 150ML used . After removing the current catheter a JR 5.0 INFINITI CATHETER FR 5 was advanced over a WIRE, E XCHANGE 260CM 16:10:44 3MMJ 260CM. 16:12:45 The RCA was injected and visualized at various angles. OMNIPAQUE, 350 MG, 150ML 150ML used . 16:12:53 HZ=635 bpm, XUTM=938/66 mmhg, SpO2=92.0 %, Resp=13 B/min After removing the current catheter a AL 1 INFINITI CATHETER FR 5 was advanced over a WIRE, EXC HANGE 260CM 16:13:55 3MMJ 260CM. After removing the current catheter a PIGTAIL ANG. 145 INFINITI CATHETER FR 6 was advanced over a WIRE, 16:16:09 EXCHANGE 260CM 3MMJ 260CM. 16:17:52 TI=234 bpm, XPVF=628/59 mmhg, SpO2=93.0 %, Resp=15 B/min Recorded Pressure: LV, HM=563, Condition=Condition 1 16:17:56 (Left Ventricle) LV 118/1/6 16:19:17 The LV was injected at 12 cc/sec for a total of 40. OMNIPAQUE, 350 MG, 50ML 50ML used. Recorded Pressure: LV, Ao, CI=569, Condition=Condition 1 16:19:56 (Left Ventricle) LV 110/3/2, (Aorta) Ao 109/53/78 After removing the current catheter a JL 3.5 GUIDE CATHETER FR 6 was advanced over a WIRE, EXCH BRIANNE 260CM 16:22:19 3MMJ 260CM. 16:22:51 HR=98 bpm, MCKE=877/66 mmhg, SpO2=93.0 %, Resp=17 B/min After removing the current catheter a XB 3.5 GUIDE CATHETER FR 6 was advanced over a WIRE, EXCH BRIANNE 260CM 16:24:43 3MMJ 260CM. 16:25:11 3400 units HEPARIN given in lab by Montana Chiu, JABARI in Left shoulder via Peripheral IV. O rdered by Isma Sarabia. 16:26:41 Pressure channel 1 zeroed. After removing the current catheter a XB 4.0 GUIDE CATHETER FR 6 was advanced over a WIRE, EXCH BRIANNE 260CM 16:27:17 3MMJ 260CM. 16:27:54 HR=98 bpm, VXRL=889/66 mmhg, SpO2=95.0 %, Resp=14 B/min 16:32:55 HR=98 bpm, BRAD=674/66 mmhg, SpO2=95.0 %, Resp=16 B/min After removing the current catheter a JL 4.0 GUIDE CATHETER FR 6 was advanced over a WIRE, EXCH BRIANNE 260CM 16:32:59 3MMJ 260CM. 16:37:10 A PRIME WIRE, VERRATA 185CM 185CM was inserted via Radial (right). 16:37:57 HR=93 bpm, VTLU=299/62 mmhg, SpO2=97.0 %, Resp=17 B/min 16:40:37 Flow Wire was was placed in the LAD Mid. The IFR measures 0.77. 16:42:56 HR=96 bpm, LBMU=753/68 mmhg, SpO2=99.0 %, Resp=24 B/min A BALLOON, 2.75 X 15MM EUPHORA 15MM was inserted over PRIME WIRE, VERRATA 185CM 185CM via the R adial 16:44:24 (right). A BALLOON, 2.75 X 15MM EUPHORA 15MM over a PRIME WIRE, VERRATA 185CM 185CM in the LAD Mid was i nflated 16:45:35 using a 30 PRAKASH INDEFLATOR at 8 prakash for 30 sec. 16:47:55 HR=96 bpm, NKRP=965/66 mmhg, SpO2=98.0 %, Resp=19 B/min 16:49:31 Balloon Removed. 16:50:08 100 mcg NTG (IC) given in lab by Isma Sarabia in Right Radial via Intra-coronary. Ordered b y Isma Sarabia. An STENT, 2.75 18 INTEGRITY 2.75 18 Bare Metal Stent was inserted through a JL 4.0 GUIDE CATHET ER FR 6 over a 16:50:46 PRIME WIRE, VERRATA 185CM 185CM. A STENT, 2.75 18 INTEGRITY 2.75 18 was deployed using a 30 PRAKASH INDEFLATOR at 11 atmospheres for 30 seconds in 16:51:05 the LAD Mid. 16:52:45 Delivery device removed 16:52:54 GA=985 bpm, WOSW=983/75 mmhg, SpO2=97.0 %, Resp=18 B/min An STENT, 2.75 12 INTEGRITY 2.75 12 Bare Metal Stent was inserted through a JL 4.0 GUIDE CATHET ER FR 6 over a 16:53:37 PRIME WIRE, VERRATA 185CM 185CM. A STENT, 2.75 12 INTEGRITY 2.75 12 was deployed using a 30 PRAKASH INDEFLATOR at 11 atmospheres for 30 seconds in 16:55:07 the LAD Mid. 16:56:36 Delivery device removed 16:57:15 Activated Clotting Time Drawn 16:57:39 Wire removed 16:57:42 Catheter was removed 16:58:29 Case End (Physician broke scrub) 16:58:32 HR=97 bpm, QVPV=755/67 mmhg, SpO2=97.0 %, Resp=15 B/min Radial Compression Device Used. 13 mLs of air placed in BAND, RADIAL COMPRESSION TR SHORT 24 24 CM. Affected 16:58:57 hand 98 % O2 saturation. 17:02:16 ACT (Normal Range 90-180) = 271 17:03:33 HR=82 bpm, IKUZ=688/69 mmhg, SpO2=96.0 %, Resp=15 B/min 17:07:59 HR=88 bpm, DRGM=622/71 mmhg, SpO2=98.0 %, Resp=16 B/min 29 mL AGGRASTAT BOLUS given in lab by Montana Chiu, RN in Left shoulder via Peripheral IV. Or dered by No, 17:08:07 Isma. 0.154 mcg/kg/min AGGRASTAT DRIP given in lab by Montana Chiu, RN in Left shoulder via Periphe ral IV. Pump/Drip 17:09:48 Flow = 10.5 ml/hr using NaCl .9 with a concentration of 12.5 mg in 250 ml. Ordered by Clinton Sarabia enn. 17:13:02 Vitals capture stopped. 17:16:24 No case complications noted. 17:16:27 Cine recording checked. 17:16:30 Bedside Report will be given. 17:16:30 Implantable Device card placed in patient's chart. 17:16:32 A Left Heart Cath was performed. 17:16:33 Patient moved to [facility] End Study - Contrast Media Used In Study Contrast Total Opened (mL) Total Used (mL) Total Wasted (mL) Omnipaque 350 350 150 200 End Study - Maximum Contrast Load Max Contrast Load (mL) 475.0 End Study - Radiation Exposure Fluoro Time Fluoro Dose (mGy) Cine Dose (uGym2) (minutes) 14.2 1082 7319 End Study - Patient Disposition Complications Transferred To Interventional Outcome No Critical Care Bed successful
--- NOTE | 2018-06-09 17:45 | MA ---
cc: Isma Sarabia MD DATE: 06/09/2018 PROCEDURE: Left heart catheterization, selective coronary angiography, left ventriculography, instant wave free ratio (IFR) measurement of the mid LAD, angioplasty and stent of the mid LAD. PROCEDURE: The patient was brought to the cardiac catheterization laboratory in a fasting state after having signed informed consent. The right radial region was prepped and draped as per policy and anesthetized with 1% lidocaine. Arterial access was obtained via the right radial artery and a 6-American sheath was placed. Coronary arteriography was performed using 5-American Morro left 3.5 and Morro right 5.0 catheters. Left ventriculography was done using a standard 6-American pigtail. Percutaneous coronary intervention and IFR measurement was done as described below. There were no apparent immediate complications. A radial artery compression band was applied to his right wrist at the end of the case to achieve good hemostasis. HEMODYNAMIC DATA: Left ventricle 110 with an end diastolic pressure of less than 10. Aorta 109/53 with a mean of 78. CORONARY ARTERIOGRAPHY: The degree of disease in the left main is difficult to quantify as the origin of the left circumflex could not be accurately determined. The distal left main may have up to 20% stenosis. The left anterior descending is a relatively large vessel with an area of diffuse disease in its midportion resulting in up to eccentric 65% stenosis. A medium size first diagonal has 60% ostial stenosis. Small second and third diagonals have minimal luminal irregularities. The left circumflex appears to be totally occluded at its origin. We are unable to find the origin of the left circumflex. Aortic root injection was also done with an Amplatz left 1.0 catheter. The left circumflex does not appear to have anomalous origin from the right coronary or arise from a separate ostium on the left coronary cusp.The left circumflex is also not seen during left ventriculography. The right coronary artery is a medium size dominant vessel with diffuse proximal disease resulting up to 20-25% stenosis. The rest of the right coronary has minimal luminal irregularities. LEFT VENTRICULOGRAPHY: Contrast injection of the left ventricle reveals no segmental wall motion abnormalities. Ejection fraction is estimated at 55%. PERCUTANEOUS CORONARY INTERVENTION DESCRIPTION: : Heparin 60 units per kilogram was administered to achieve an ACT > 250. Aggrastat eventually was given as per protocol. Using a 6-American Morro left 4.0 guiding catheter, the ostium of the left main was reengaged. A pressure wire was normalized and then advanced distal to the left anterior descending disease. The IFR was measured at 0.77. Therefore, I decided to intervene on the mid LAD disease. Predilation was done using a 2.75 mm Euphora balloon catheter. Stenting was done using a 2.75 x 18 mm bare-metal Integrity stent. At this point, disease more proximal was more pronounced. Therefore, another overlapping stent was placed, a 2.75 x 12 mm bare-metal Integrity. Final angiography shows overall good results with reduction of the initial diffuse disease to roughly 0% residual with no definite evidence for dissection or distal embolization. The patient tolerated the procedure well. There were no apparent, immediate complications. CONCLUSIONS: 1. 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 2. Status post IFR measurement of the mid LAD confirming the presence of hemodynamically significant disease, now status post angioplasty and stent x 2 of this region. 3. Normal left ventricular function with estimated ejection fraction of 55%. MD MAIKOL Huerta/mary , 05:11 PM , 05:19 PM ELLEN
[2018-06-09] MEDS ORDERED: Metoprolol Inj 5 MG/5 ML Vial IV.PUSH SCH (18:00)
[2018-06-09] MEDS ORDERED: Dextrose 5%/NaCl 0.9% Inj 1,000 ML IV.SIG SCH (18:45)
[2018-06-09] MEDS ORDERED: Iohexol 350 MG/ML 100 ML Vial (for Cath Lab) IVCONTRAST ONE (19:06)
[2018-06-09] MEDS ORDERED: Iohexol 350 MG/ML 50 ML Vial (for Cath Lab) IVCONTRAST ONE (19:06)
[2018-06-10] MEDS: Insulin NovoLIN Regular Correctional Sugar Inj SQ SCH ×4 (00:09→20:23)
[2018-06-10] MEDS: Piperacil/Tazo 3.375 GM Premix 3.375 GM/50 ML PIGGYBACK IV.SIG SCH ×3 (01:20→13:27)
[2018-06-10] MEDS: Chlorhexidine Gluconate 2% 1 Pack (2 Cloths) TOPICAL SCH (03:32)
[2018-06-10 04:46] LABS: Baso # (Auto) 0.1 th/mm3 (0.0-0.2); Baso % (Auto) 0.8 % (0.0-2.0); Eos # (Auto) 0.3 th/mm3 (0.0-0.4); Eos % (Auto) 3.6 % (0.0-4.0); Hematocrit 32.5 % (39.0-51.0); Hemoglobin 10.9 gm/dL (13.0-17.0); Lymph # (Auto) 2.1 th/mm3 (1.0-4.8); Lymph % (Auto) 24.3 % (9.0-44.0); Mean Corpuscular HGB Conc 33.6 % (32.0-36.0); Mean Corpuscular Hemoglobin 27.8 pg (27.0-34.0); Mean Platelet Volume 7.2 fL (7.0-11.0); Mono # (Auto) 0.6 th/mm3 (0.0-0.9); Mono % (Auto) 7.3 % (0.0-8.0); Neut # (Auto) 5.5 th/mm3 (1.8-7.7); Platelet Count 319 th/mm3 (150-450); Red Blood Count 3.92 mil/mm3 (4.50-5.90); Red Cell Distribution Width 18.2 % (11.6-17.2); White Blood Count 8.5 th/mm3 (4.0-11.0)
[2018-06-10 05:12] LABS: Alanine Aminotransferase 18 U/L (12-78); Albumin 2.4 g/dL (3.4-5.0); Anion Gap 8 meq/L (5-15); Aspartate Aminotransferase 15 U/L (15-37); Blood Urea Nitrogen 6 mg/dL (7-18); Calcium 8.3 mg/dL (8.5-10.1); Carbon Dioxide 26.5 meq/L (21.0-32.0); Chloride 108 meq/L (98-107); Cholesterol 113 mg/dL (120-200); Glomerular Filtration Rate Greater Than 89 mL/min (>89); Glucose,Random 101 mg/dL (74-106); Magnesium 1.8 mg/dL (1.5-2.5); Potassium 3.5 meq/L (3.5-5.1); Sodium 142 meq/L (136-145); Triglycerides 107 mg/dL (42-150)
[2018-06-10 05:16] LABS: Alkaline Phosphatase 67 U/L (45-117); Chol/HDL Ratio 2.94 Ratio; HDL Cholesterol 38.4 mg/dL (40.0-60.0); LDL Cholesterol,Calculated 53 mg/dL (0-99); Phosphorus 3.5 mg/dL (2.5-4.9); Total Protein 6.7 g/dL (6.4-8.2)
[2018-06-10 05:17] LABS: INR 1.1 Ratio; Prothrombin Time 11.2 sec (9.8-11.6)
[2018-06-10 05:18] LABS: Creatine Kinase 46 U/L (39-308)
[2018-06-10] MEDS: Potassium Chlor 40 mEq Premix 40 MEQ/100 ML PIGGYBACK IV.SIG PRN (05:50)
--- NOTE | 2018-06-10 07:11 | P.PNCA ---
Subjective Interval history: Denies CP, wrist pain, dyspnea, dizziness, palpitations. Slept some. Medications and Allergies Active Medications: Active Cardiac Medications Aspirin (Aspirin Chew) 81 mg PO DAILY [facility] Last Admin: 06/07/18 09:47 Dose: Not Given Carvedilol (Coreg) 3.125 mg PO BID [facility] Last Admin: 06/09/18 20:56 Dose: 3.125 mg Clopidogrel Bisulfate (Plavix) 75 mg PO DAILY [facility] Tirofiban/Sodium Chloride (Aggrastat Inj) 12,500 mcg in 250 mls @ 0 mls/hr IV.CONT .Q0M [facility]; Protocol Stop: 06/10/18 18:59 Labetalol HCl (Trandate Inj) 10 mg IV.PUSH Q20M PRN PRN Reason: SBP > 160 DBP > 95 Allergies Allergy/AdvReac Type Severity Reaction Status Date / Time *MDRO Multi-Drug Resistant AdvReac Unknown Uncoded 02/20/16 09:24 Organism Physical Exam Vital signs: Vital Signs 06/09/18 07:43 06/09/18 07:45 06/09/18 07:56 Temperature Pulse Rate 72 75 Respiratory Rate 24 17 Blood Pressure 122/60 Pulse Oximetry 97 98 06/09/18 07:58 06/09/18 08:00 06/09/18 08:13 Temperature 97.4 F L Pulse Rate 80 83 71 Respiratory Rate 9 L 17 21 Blood Pressure 145/67 H 132/57 L Pulse Oximetry 98 99 97 06/09/18 08:15 06/09/18 08:28 06/09/18 08:30 Temperature Pulse Rate 69 67 67 Respiratory Rate 18 11 L 11 L Blood Pressure 129/61 Pulse Oximetry 97 97 97 06/09/18 08:43 06/09/18 08:45 06/09/18 08:58 Temperature Pulse Rate 81 94 H 97 H Respiratory Rate 22 25 H 17 Blood Pressure 134/66 142/72 H Pulse Oximetry 96 94 L 97 06/09/18 09:00 06/09/18 09:13 06/09/18 09:15 Temperature Pulse Rate 77 77 71 Respiratory Rate 19 18 19 Blood Pressure 132/62 Pulse Oximetry 97 96 96 06/09/18 09:28 06/09/18 09:30 06/09/18 09:43 Temperature Pulse Rate 71 66 67 Respiratory Rate 18 14 11 L Blood Pressure 122/56 L 109/55 L Pulse Oximetry 96 96 96 06/09/18 09:45 06/09/18 09:58 06/09/18 10:00 Temperature Pulse Rate 66 79 70 Respiratory Rate 11 L 23 21 Blood Pressure 134/63 Pulse Oximetry 96 96 97 06/09/18 10:13 06/09/18 10:15 06/09/18 10:28 Temperature Pulse Rate 75 86 73 Respiratory Rate 19 23 22 Blood Pressure 142/63 H 129/62 Pulse Oximetry 96 96 97 06/09/18 10:30 06/09/18 10:43 06/09/18 10:45 Temperature Pulse Rate 70 74 76 Respiratory Rate 29 H 24 20 Blood Pressure 147/70 H Pulse Oximetry 97 97 97 06/09/18 10:58 06/09/18 11:00 06/09/18 11:13 Temperature Pulse Rate 75 72 100 H Respiratory Rate 26 H 20 33 H Blood Pressure 136/65 145/75 H Pulse Oximetry 97 97 97 06/09/18 11:15 06/09/18 11:28 06/09/18 11:30 Temperature Pulse Rate 90 85 81 Respiratory Rate 26 H 20 29 H Blood Pressure 148/83 H Pulse Oximetry 97 94 L 94 L 06/09/18 11:43 06/09/18 11:45 06/09/18 11:58 Temperature 97.3 F L Pulse Rate 83 81 87 Respiratory Rate 29 H 30 H 29 H Blood Pressure 149/83 H 144/76 H Pulse Oximetry 97 98 98 06/09/18 12:00 06/09/18 12:13 06/09/18 12:28 Temperature Pulse Rate 80 98 H 82 Respiratory Rate 23 23 24 Blood Pressure 144/76 H 139/78 Pulse Oximetry 97 96 97 06/09/18 12:43 06/09/18 12:44 06/09/18 12:49 Temperature Pulse Rate 95 H 80 86 Respiratory Rate 27 H 17 21 Blood Pressure 162/119 H 141/72 H Pulse Oximetry 96 06/09/18 12:58 06/09/18 13:00 06/09/18 13:13 Temperature Pulse Rate 91 H 96 H 108 H Respiratory Rate 18 25 H 20 Blood Pressure 137/72 141/78 H Pulse Oximetry 95 95 94 L 06/09/18 13:28 06/09/18 13:43 06/09/18 13:58 Temperature Pulse Rate 91 H 89 86 Respiratory Rate 23 23 24 Blood Pressure 128/64 136/71 139/80 Pulse Oximetry 92 L 93 L 92 L 06/09/18 14:00 06/09/18 14:13 06/09/18 14:28 Temperature Pulse Rate 88 92 H 94 H Respiratory Rate 33 H 24 23 Blood Pressure 127/67 121/64 Pulse Oximetry 94 L 94 L 06/09/18 14:43 06/09/18 14:58 06/09/18 15:00 Temperature Pulse Rate 84 90 83 Respiratory Rate 22 21 27 H Blood Pressure 125/68 135/70 Pulse Oximetry 95 95 95 06/09/18 15:13 06/09/18 17:18 06/09/18 17:32 Temperature Pulse Rate 103 H 88 87 Respiratory Rate 30 H 16 18 Blood Pressure 142/76 H 134/63 Pulse Oximetry 95 06/09/18 17:45 06/09/18 18:00 06/09/18 18:15 Temperature 97.3 F L Pulse Rate 78 85 92 H Respiratory Rate 20 18 28 H Blood Pressure 153/72 H 139/62 137/69 Pulse Oximetry 95 96 06/09/18 18:30 06/09/18 18:45 06/09/18 19:00 Temperature Pulse Rate 86 81 90 Respiratory Rate 33 H 24 25 H Blood Pressure 136/65 153/70 H 154/75 H Pulse Oximetry 93 L 84 L 06/09/18 19:15 06/09/18 19:30 06/09/18 19:45 Temperature Pulse Rate 82 79 78 Respiratory Rate 22 23 21 Blood Pressure 140/71 134/75 145/68 H Pulse Oximetry 98 98 06/09/18 20:00 06/09/18 20:15 06/09/18 20:29 Temperature 97.5 F L Pulse Rate 75 76 78 Respiratory Rate 28 H 31 H 22 Blood Pressure 127/59 L 126/68 Pulse Oximetry 99 99 96 06/09/18 20:30 06/09/18 20:45 06/09/18 21:00 Temperature Pulse Rate 78 84 84 Respiratory Rate 28 H 28 H 38 H Blood Pressure 147/74 H 140/66 154/74 H Pulse Oximetry 100 97 97 06/09/18 21:15 06/09/18 21:30 06/09/18 21:45 Temperature Pulse Rate 97 H 86 75 Respiratory Rate 29 H 22 15 Blood Pressure 145/67 H 132/63 127/60 Pulse Oximetry 95 97 96 06/09/18 21:59 06/09/18 22:00 06/09/18 22:15 Temperature Pulse Rate 70 70 67 Respiratory Rate 14 14 14 Blood Pressure 131/62 119/58 L Pulse Oximetry 95 95 06/09/18 22:30 06/09/18 22:45 06/09/18 22:59 Temperature Pulse Rate 64 75 67 Respiratory Rate 14 34 H 15 Blood Pressure 124/61 154/72 H Pulse Oximetry 96 96 96 06/09/18 23:00 06/09/18 23:15 06/09/18 23:30 Temperature Pulse Rate 67 65 70 Respiratory Rate 15 14 17 Blood Pressure 140/67 135/65 136/71 Pulse Oximetry 96 97 96 06/09/18 23:45 06/09/18 23:59 06/10/18 00:00 Temperature 98 F Pulse Rate 68 80 80 Respiratory Rate 15 18 18 Blood Pressure 138/77 148/77 H Pulse Oximetry 97 97 97 06/10/18 00:15 06/10/18 00:30 06/10/18 00:45 Temperature Pulse Rate 71 73 71 Respiratory Rate 20 18 19 Blood Pressure 146/79 H 148/77 H 142/69 H Pulse Oximetry 98 98 96 06/10/18 01:00 06/10/18 01:15 06/10/18 01:30 Temperature Pulse Rate 74 74 73 Respiratory Rate 23 23 18 Blood Pressure 149/72 H 139/67 135/65 Pulse Oximetry 96 95 94 L 06/10/18 01:45 06/10/18 02:00 06/10/18 02:15 Temperature Pulse Rate 71 62 76 Respiratory Rate 20 15 44 H Blood Pressure 131/66 131/57 L 135/64 Pulse Oximetry 96 96 95 06/10/18 02:30 06/10/18 02:45 06/10/18 03:00 Temperature Pulse Rate 59 L 61 63 Respiratory Rate 28 H 29 H 30 H Blood Pressure 126/56 L 133/64 135/63 Pulse Oximetry 94 L 95 95 06/10/18 03:15 06/10/18 03:30 06/10/18 03:45 Temperature Pulse Rate 71 62 67 Respiratory Rate 20 21 22 Blood Pressure 152/72 H 137/67 127/71 Pulse Oximetry 97 96 96 06/10/18 04:00 06/10/18 04:15 06/10/18 04:30 Temperature 98.2 F Pulse Rate 65 68 71 Respiratory Rate 24 23 29 H Blood Pressure 139/69 143/72 H 150/74 H Pulse Oximetry 96 97 96 06/10/18 04:45 06/10/18 05:00 06/10/18 05:02 Temperature Pulse Rate 85 80 Respiratory Rate 21 Blood Pressure 184/91 H 164/74 H Pulse Oximetry 96 95 92 L 06/10/18 05:15 06/10/18 05:30 06/10/18 05:45 Temperature Pulse Rate 66 73 68 Respiratory Rate 22 21 23 Blood Pressure 144/70 H 142/73 H 141/70 H Pulse Oximetry 92 L 93 L 06/10/18 06:00 06/10/18 06:15 06/10/18 06:30 Temperature Pulse Rate 68 65 59 L Respiratory Rate 21 20 22 Blood Pressure 135/71 142/73 H 132/66 Pulse Oximetry 93 L 93 L 93 L Intake & Output 06/09/18 06/10/18 06/10/18 18:59 06:59 18:59 Intake Total 375 / 375 550 / 550 Output Total 1650 / 1650 1480 / 1480 Balance -1275 / -1275 -930 / -930 Weight 53.1 kg Intake: IV 350 / 350 550 / 550 Diflucan 400 mg Premix Bag 200 200 / 200 ML @ 100 mls/hr IV.SIG Q24H [facility] Rx#:[id number] Zosyn 3.375 GM Premix 3.375 gm 100 / 100 100 / 100 In 50 ml @ 100 mls/hr IV.SIG Q6H [facility] Rx#:[id number] Vancomycin Inj 1,000 MG In NS 250 / 250 250 / 250 Inj 250 ML @ 250 mls/hr IV.SIG Q12H [facility] Rx#:[id number] Oral 25 / 25 Output: Urine Amount (Catheter) 1400 / 1400 1450 / 1450 Indwelling Temp Sensing 1400 / 1400 Catheter Indwelling Urethral Catheter 1450 / 1450 Gastric Drainage 200 / 200 Orogastric Tube 200 / 200 Chest Tube Drainage 50 / 50 30 / 30 Left 50 / 50 30 / 30 - Constitutional no acute distress - Routine Neck Exam Absent: JVD - Routine Respiratory Exam Comments: Clear lungs anteriorly. - Routine Cardiovascular Exam Present: RRR, S1, S2. Absent: murmur, gallop - Routine Abdominal Exam Present: soft. Absent: tenderness - Routine Extremities Exam Absent: edema - Urinary Catheter Management Indwelling Urethral Catheter Cath placed during this visit: no Indwelling Temp Sensing Catheter Cath placed during this visit: no Results 06/10/18 04:30 06/10/18 04:30 Cardiac Enzymes 06/08/18 06/08/18 06/09/18 Range/Units 05:50 05:50 06:15 AST 21 17 (15-37) U/L B-Natriuretic Peptide 597 H (0-100) pg/mL 06/10/18 Range/Units 04:30 AST 15 (15-37) U/L B-Natriuretic Peptide (0-100) pg/mL Coagulation 06/08/18 06/08/18 06/08/18 Range/Units 05:50 15:30 21:37 PT (9.8-11.6) sec APTT 45.5 H 43.7 H (23.4-31.7) sec B-Natriuretic Peptide 597 H (0-100) pg/mL 06/09/18 06/09/18 06/10/18 Range/Units 06:15 06:15 04:30 PT 10.8 11.2 (9.8-11.6) sec APTT 35.5 H (23.4-31.7) sec B-Natriuretic Peptide (0-100) pg/mL Lipids 06/10/18 Range/Units 04:30 Triglycerides 107 (42-150) mg/dL Cholesterol 113 L (120-200) mg/dL HDL Cholesterol 38.4 L (40.0-60.0) mg/dL Cholesterol/HDL Ratio 2.94 Ratio CBC 06/09/18 06/10/18 Range/Units 06:15 04:30 WBC 8.2 8.5 (4.0-11.0) th/mm3 RBC 3.48 L 3.92 L (4.50-5.90) mil/mm3 Hgb 9.6 L 10.9 L (13.0-17.0) gm/dL Hct 29.3 L 32.5 L (39.0-51.0) % Plt Count 272 319 (150-450) th/mm3 Neut # (Auto) 5.3 5.5 (1.8-7.7) th/mm3 Lymph # (Auto) 2.2 2.1 (1.0-4.8) th/mm3 [place] # (Auto) 0.5 0.6 (0.0-0.9) th/mm3 Eos # (Auto) 0.1 0.3 (0.0-0.4) th/mm3 Baso # (Auto) 0.1 0.1 (0.0-0.2) th/mm3 Comprehensive Metabolic Panel 06/08/18 06/08/18 06/09/18 Range/Units 05:50 21:37 06:15 Sodium 147 H 144 (136-145) meq/L Potassium 3.3 L 3.3 L 3.7 (3.5-5.1) meq/L Chloride 114 H 110 H (98-107) meq/L Carbon Dioxide 26.2 26.9 (21.0-32.0) meq/L BUN 11 7 (7-18) mg/dL Creatinine 0.71 0.69 (0.60-1.30) mg/dL Calcium 7.8 L 8.2 L (8.5-10.1) mg/dL AST 21 17 (15-37) U/L ALT 16 18 (12-78) U/L Alkaline Phosphatase 53 57 (45-117) U/L Total Protein 6.1 L D 6.5 (6.4-8.2) g/dL Albumin 2.2 L 2.3 L (3.4-5.0) g/dL 06/10/18 Range/Units 04:30 Sodium 142 (136-145) meq/L Potassium 3.5 (3.5-5.1) meq/L Chloride 108 H (98-107) meq/L Carbon Dioxide 26.5 (21.0-32.0) meq/L BUN 6 L (7-18) mg/dL Creatinine 0.74 (0.60-1.30) mg/dL Calcium 8.3 L (8.5-10.1) mg/dL AST 15 (15-37) U/L ALT 18 (12-78) U/L Alkaline Phosphatase 67 (45-117) U/L Total Protein 6.7 (6.4-8.2) g/dL Albumin 2.4 L (3.4-5.0) g/dL Intake and Output 06/09/18 06/10/18 06/10/18 22:59 06:59 14:59 Intake Total 325 / 325 250 / 250 Output Total 1650 / 1650 1480 / 1480 Balance -1325 / -1325 -1230 / -1230 Intake: IV 300 / 300 250 / 250 Diflucan 400 mg Premix Bag 200 200 / 200 ML @ 100 mls/hr IV.SIG Q24H [facility] Rx#:[id number] Zosyn 3.375 GM Premix 3.375 gm 50 / 50 50 / 50 In 50 ml @ 100 mls/hr IV.SIG Q6H [facility] Rx#:[id number] Vancomycin Inj 1,000 MG In NS 250 / 250 Inj 250 ML @ 250 mls/hr IV.SIG Q12H [facility] Rx#:[id number] Oral 25 / 25 Output: Urine Amount (Catheter) 1400 / 1400 1450 / 1450 Indwelling Temp Sensing 1400 / 1400 Catheter Indwelling Urethral Catheter 1450 / 1450 Gastric Drainage 200 / 200 Orogastric Tube 200 / 200 Chest Tube Drainage 50 / 50 30 / 30 Left 50 / 50 30 / 30 Other: Weight 53.1 kg - Imaging and Cardiology Imaging: Impressions Chest X-Ray 06/09/18 06:00 CONCLUSION: 1. Continued improvement in the airspace consolidation previously seen in the right perihilar and right basilar distribution. Some developing linear atelectasis above the left hemidiaphragm. 2. I believe the patient has been extubated. Remaining life support tubes are stable in position including the left thoracostomy tube without pneumothorax. 3. Left lateral rib fractures with associated regional emphysematous changes in the soft tissues about the chest. Assessment and Plan - Assessment (1) Dilated cardiomyopathy Code(s): I42.0 - Dilated cardiomyopathy Status: Acute Plan: Severe dilated cardiomyopathy, EF 20% by echo this admission. EF however remarkably 55-60% on cath yesterday. 2 vessel CAD on cath yesterday likely does not account for the transient drop in left ventricular function. Recommend continue beta adam, add MARILUZ-[id number]. OK to proceed with any GI or vascular procedures from my standpoint. Will f/u patient in the office. (2) Coronary artery disease Code(s): I25.10 - Atherosclerotic heart disease of [place] coronary artery without angina pectoris Status: Chronic Plan: Occluded, probably small, left circumflex not amenable to PCI, severe mid LAD disease stented x 2, mild RCA disease, EF 55% on cath yesterday. Recommend continue Plavix for 4 weeks, aspirin forever. Right radial arteriotomy site stable. - Plan Code Status: full code Discussed Condition With: patient (2) Coronary artery disease Qualifiers: Coronary Disease-Associated Artery/Lesion type: [place] artery [place] vs. transplanted heart: [place] heart Associated angina: without angina Qualified Code(s): I25.10 - Atherosclerotic heart disease of [place] coronary artery without angina pectoris
[2018-06-10] MEDS ORDERED: Pharmacy Ordered Lab Info OTHER ONE (08:45)
[2018-06-10] MEDS: Famotidine PF Inj 20 MG/2 ML Vial IV.PUSH SCH ×2 (08:57→22:03)
[2018-06-10] MEDS: Vancomycin Inj 1,000 MG in Sodium Chlor 0.9% Inj 250 ML IV.SIG SCH ×2 (09:13→10:47)
--- NOTE | 2018-06-10 12:31 | P.PNGS ---
Subjective Interval history: Resting in bed No complaints Physical Exam Vital signs: Vital Signs 06/09/18 12:28 06/09/18 12:43 06/09/18 12:44 Temperature Pulse Rate 82 95 H 80 Respiratory Rate 24 27 H 17 Blood Pressure 139/78 162/119 H Pulse Oximetry 97 06/09/18 12:49 06/09/18 12:58 06/09/18 13:00 Temperature Pulse Rate 86 91 H 96 H Respiratory Rate 21 18 25 H Blood Pressure 141/72 H 137/72 Pulse Oximetry 96 95 95 06/09/18 13:13 06/09/18 13:28 06/09/18 13:43 Temperature Pulse Rate 108 H 91 H 89 Respiratory Rate 20 23 23 Blood Pressure 141/78 H 128/64 136/71 Pulse Oximetry 94 L 92 L 93 L 06/09/18 13:58 06/09/18 14:00 06/09/18 14:13 Temperature Pulse Rate 86 88 92 H Respiratory Rate 24 33 H 24 Blood Pressure 139/80 127/67 Pulse Oximetry 92 L 94 L 94 L 06/09/18 14:28 06/09/18 14:43 06/09/18 14:58 Temperature Pulse Rate 94 H 84 90 Respiratory Rate 23 22 21 Blood Pressure 121/64 125/68 135/70 Pulse Oximetry 95 95 06/09/18 15:00 06/09/18 15:13 06/09/18 17:18 Temperature Pulse Rate 83 103 H 88 Respiratory Rate 27 H 30 H 16 Blood Pressure 142/76 H Pulse Oximetry 95 95 06/09/18 17:32 06/09/18 17:45 06/09/18 18:00 Temperature 97.3 F L Pulse Rate 87 78 85 Respiratory Rate 18 20 18 Blood Pressure 134/63 153/72 H 139/62 Pulse Oximetry 95 96 06/09/18 18:15 06/09/18 18:30 06/09/18 18:45 Temperature Pulse Rate 92 H 86 81 Respiratory Rate 28 H 33 H 24 Blood Pressure 137/69 136/65 153/70 H Pulse Oximetry 93 L 84 L 06/09/18 19:00 06/09/18 19:15 06/09/18 19:30 Temperature Pulse Rate 90 82 79 Respiratory Rate 25 H 22 23 Blood Pressure 154/75 H 140/71 134/75 Pulse Oximetry 98 06/09/18 19:45 06/09/18 20:00 06/09/18 20:15 Temperature 97.5 F L Pulse Rate 78 75 76 Respiratory Rate 21 28 H 31 H Blood Pressure 145/68 H 127/59 L 126/68 Pulse Oximetry 98 99 99 06/09/18 20:29 06/09/18 20:30 06/09/18 20:45 Temperature Pulse Rate 78 78 84 Respiratory Rate 22 28 H 28 H Blood Pressure 147/74 H 140/66 Pulse Oximetry 96 100 97 06/09/18 21:00 06/09/18 21:15 06/09/18 21:30 Temperature Pulse Rate 84 97 H 86 Respiratory Rate 38 H 29 H 22 Blood Pressure 154/74 H 145/67 H 132/63 Pulse Oximetry 97 95 97 06/09/18 21:45 06/09/18 21:59 06/09/18 22:00 Temperature Pulse Rate 75 70 70 Respiratory Rate 15 14 14 Blood Pressure 127/60 131/62 Pulse Oximetry 96 95 06/09/18 22:15 06/09/18 22:30 06/09/18 22:45 Temperature Pulse Rate 67 64 75 Respiratory Rate 14 14 34 H Blood Pressure 119/58 L 124/61 154/72 H Pulse Oximetry 95 96 96 06/09/18 22:59 06/09/18 23:00 06/09/18 23:15 Temperature Pulse Rate 67 67 65 Respiratory Rate 15 15 14 Blood Pressure 140/67 135/65 Pulse Oximetry 96 96 97 06/09/18 23:30 06/09/18 23:45 06/09/18 23:59 Temperature Pulse Rate 70 68 80 Respiratory Rate 17 15 18 Blood Pressure 136/71 138/77 Pulse Oximetry 96 97 97 06/10/18 00:00 06/10/18 00:15 06/10/18 00:30 Temperature 98 F Pulse Rate 80 71 73 Respiratory Rate 18 20 18 Blood Pressure 148/77 H 146/79 H 148/77 H Pulse Oximetry 97 98 98 06/10/18 00:45 06/10/18 01:00 06/10/18 01:15 Temperature Pulse Rate 71 74 74 Respiratory Rate 19 23 23 Blood Pressure 142/69 H 149/72 H 139/67 Pulse Oximetry 96 96 95 06/10/18 01:30 06/10/18 01:45 02/21/19 02:00 Temperature Pulse Rate 73 71 62 Respiratory Rate 18 20 15 Blood Pressure 135/65 131/66 131/57 L Pulse Oximetry 94 L 96 96 06/10/18 02:15 06/10/18 02:30 06/10/18 02:45 Temperature Pulse Rate 76 59 L 61 Respiratory Rate 44 H 28 H 29 H Blood Pressure 135/64 126/56 L 133/64 Pulse Oximetry 95 94 L 95 06/10/18 03:00 06/10/18 03:15 06/10/18 03:30 Temperature Pulse Rate 63 71 62 Respiratory Rate 30 H 20 21 Blood Pressure 135/63 152/72 H 137/67 Pulse Oximetry 95 97 96 06/10/18 03:45 06/10/18 04:00 06/10/18 04:15 Temperature 98.2 F Pulse Rate 67 65 68 Respiratory Rate 22 24 23 Blood Pressure 127/71 139/69 143/72 H Pulse Oximetry 96 96 97 06/10/18 04:30 06/10/18 04:45 06/10/18 05:00 Temperature Pulse Rate 71 85 80 Respiratory Rate 29 H 21 Blood Pressure 150/74 H 184/91 H Pulse Oximetry 96 96 95 06/10/18 05:02 06/10/18 05:15 06/10/18 05:30 Temperature Pulse Rate 66 73 Respiratory Rate 22 21 Blood Pressure 164/74 H 144/70 H 142/73 H Pulse Oximetry 92 L 92 L 06/10/18 05:45 06/10/18 06:00 06/10/18 06:15 Temperature Pulse Rate 68 68 65 Respiratory Rate 23 21 20 Blood Pressure 141/70 H 135/71 142/73 H Pulse Oximetry 93 L 93 L 93 L 06/10/18 06:30 06/10/18 06:45 06/10/18 07:00 Temperature Pulse Rate 59 L 72 68 Respiratory Rate 22 16 24 Blood Pressure 132/66 146/71 H 142/67 H Pulse Oximetry 93 L 93 L 93 L 06/10/18 07:15 06/10/18 07:30 06/10/18 07:45 Temperature Pulse Rate 79 62 62 Respiratory Rate 22 18 21 Blood Pressure 140/73 130/64 141/76 H Pulse Oximetry 92 L 93 L 93 L 06/10/18 08:00 06/10/18 08:15 06/10/18 08:30 Temperature 98.2 F Pulse Rate 59 L 59 L 60 Respiratory Rate 15 24 30 H Blood Pressure 132/62 128/58 L 127/63 Pulse Oximetry 93 L 93 L 92 L 06/10/18 08:45 06/10/18 09:00 06/10/18 09:15 Temperature Pulse Rate 62 67 66 Respiratory Rate 24 32 H 19 Blood Pressure 123/55 L 149/67 H 150/70 H Pulse Oximetry 92 L 93 L 93 L 06/10/18 09:30 06/10/18 09:45 06/10/18 10:00 Temperature Pulse Rate 72 66 69 Respiratory Rate 19 21 26 H Blood Pressure 148/71 H 135/65 147/72 H Pulse Oximetry 93 L 93 L 92 L 06/10/18 10:15 06/10/18 10:30 06/10/18 10:45 Temperature Pulse Rate 70 67 67 Respiratory Rate 22 19 23 Blood Pressure 139/68 141/72 H 135/63 Pulse Oximetry 93 L 92 L 92 L 06/10/18 11:00 06/10/18 11:15 06/10/18 11:30 Temperature Pulse Rate 68 73 66 Respiratory Rate 25 H 25 H 20 Blood Pressure 131/59 L 162/71 H 144/71 H Pulse Oximetry 92 L 93 L 92 L Intake & Output 06/09/18 06/10/18 06/10/18 18:59 06:59 18:59 Intake Total 375 / 375 550 / 550 50 / 50 Output Total 1650 / 1650 1480 / 1480 Balance -1275 / -1275 -930 / -930 50 / 50 Weight 53.1 kg Intake: IV 350 / 350 550 / 550 50 / 50 Diflucan 400 mg Premix Bag 200 200 / 200 ML @ 100 mls/hr IV.SIG Q24H [facility] Rx#:[id number] Zosyn 3.375 GM Premix 3.375 gm 100 / 100 100 / 100 50 / 50 In 50 ml @ 100 mls/hr IV.SIG Q6H [facility] Rx#:[id number] Vancomycin Inj 1,000 MG In NS 250 / 250 250 / 250 Inj 250 ML @ 250 mls/hr IV.SIG Q12H [facility] Rx#:[id number] Oral 25 / 25 Output: Urine Amount (Catheter) 1400 / 1400 1450 / 1450 Indwelling Temp Sensing 1400 / 1400 Catheter Indwelling Urethral Catheter 1450 / 1450 Gastric Drainage 200 / 200 Orogastric Tube 200 / 200 Chest Tube Drainage 50 / 50 30 / 30 Left 50 / 50 30 / 30 Narrative: Alert and awake ABd: soft; non tender non distended LEFT chest tube in place - Urinary Catheter Management Indwelling Urethral Catheter Cath placed during this visit: no Indwelling Temp Sensing Catheter Cath placed during this visit: no Results - Labs 06/10/18 04:30 06/10/18 04:30 Laboratory Results - last 24 hr 06/09/18 06/09/18 06/10/18 18:09 23:56 04:30 WBC RBC Hgb Hct MCV MCH MCHC RDW Plt Count MPV Prelim Diff (Auto) Neut % (Auto) Lymph % (Auto) [place] % (Auto) Eos % (Auto) Baso % (Auto) Neut # (Auto) Lymph # (Auto) [place] # (Auto) Eos # (Auto) Baso # (Auto) WBC Differential Diff Scan Differential Comment PT 11.2 INR 1.1 Sodium Potassium Chloride Carbon Dioxide Anion Gap BUN Creatinine Estimated GFR POC Glucose 78 72 Random Glucose Calcium Phosphorus Magnesium Total Bilirubin AST ALT Alkaline Phosphatase Total Creatine Kinase Total Protein Albumin Triglycerides Cholesterol LDL Cholesterol, Calc HDL Cholesterol Cholesterol/HDL Ratio Vancomycin Trough 06/10/18 06/10/18 06/10/18 04:30 04:30 05:46 WBC 8.5 RBC 3.92 L Hgb 10.9 L Hct 32.5 L MCV 83.0 MCH 27.8 MCHC 33.6 RDW 18.2 H Plt Count 319 MPV 7.2 Prelim Diff (Auto) Slide review pending Neut % (Auto) 64.0 Lymph % (Auto) 24.3 [place] % (Auto) 7.3 Eos % (Auto) 3.6 Baso % (Auto) 0.8 Neut # (Auto) 5.5 Lymph # (Auto) 2.1 [place] # (Auto) 0.6 Eos # (Auto) 0.3 Baso # (Auto) 0.1 WBC Differential . Diff Scan Auto diff confirmed Differential Comment . PT INR Sodium 142 Potassium 3.5 Chloride 108 H Carbon Dioxide 26.5 Anion Gap 8 BUN 6 L Creatinine 0.74 Estimated GFR Greater than 89 POC Glucose 103 Random Glucose 101 Calcium 8.3 L Phosphorus 3.5 Magnesium 1.8 Total Bilirubin 0.6 AST 15 ALT 18 Alkaline Phosphatase 67 Total Creatine Kinase 46 Total Protein 6.7 Albumin 2.4 L Triglycerides 107 Cholesterol 113 L LDL Cholesterol, Calc 53 HDL Cholesterol 38.4 L Cholesterol/HDL Ratio 2.94 Vancomycin Trough 06/10/18 08:45 WBC RBC Hgb Hct MCV MCH MCHC RDW Plt Count MPV Prelim Diff (Auto) Neut % (Auto) Lymph % (Auto) [place] % (Auto) Eos % (Auto) Baso % (Auto) Neut # (Auto) Lymph # (Auto) [place] # (Auto) Eos # (Auto) Baso # (Auto) WBC Differential Diff Scan Differential Comment PT INR Sodium Potassium Chloride Carbon Dioxide Anion Gap BUN Creatinine Estimated GFR POC Glucose Random Glucose Calcium Phosphorus Magnesium Total Bilirubin AST ALT Alkaline Phosphatase Total Creatine Kinase Total Protein Albumin Triglycerides Cholesterol LDL Cholesterol, Calc HDL Cholesterol Cholesterol/HDL Ratio Vancomycin Trough 20.5 H - Imaging Imaging: ITS Impressions Aorta w/Runoff CTA 06/05/18 11:45 CONCLUSION: 1. Extensive peripheral vascular disease with multifocal areas of narrowing/ occlusion as above. Chest CT 06/05/18 11:45 CONCLUSION: 1. Small left-sided pneumothorax and hemothorax. 2. Acute left fifth rib fracture. 3. Emphysema. Chest X-Ray 06/09/18 06:00 CONCLUSION: 1. Continued improvement in the airspace consolidation previously seen in the right perihilar and right basilar distribution. Some developing linear atelectasis above the left hemidiaphragm. 2. I believe the patient has been extubated. Remaining life support tubes are stable in position including the left thoracostomy tube without pneumothorax. 3. Left lateral rib fractures with associated regional emphysematous changes in the soft tissues about the chest. Assessment and Plan - Assessment (1) Diverticulitis of colon with perforation Code(s): K57.20 - Diverticulitis of large intestine with perforation and abscess without bleeding Status: Acute Plan: 67 year old male with recent fall---rib fractures/PTX; NETEMI; -S/p cardiac cath -Stable on NC -GI following---planning for colonoscopy as outpatient -No surgical interventions planned for now ---okay for diet my GS standpoint -Dr. Oglesby discussed with Dr. Hopkins -Palliative following (2) Dilated cardiomyopathy Code(s): I42.0 - Dilated cardiomyopathy Status: Acute (3) Elevated troponin Code(s): R74.8 - Abnormal levels of other serum enzymes Status: Acute (4) Hypotension Code(s): I95.9 - Hypotension, unspecified Status: Acute (1) Diverticulitis of colon with perforation Qualifiers: Diverticulitis bleeding: without bleeding Qualified Code(s): K57.20 - Diverticulitis of large intestine with perforation and abscess without bleeding (4) Hypotension Qualifiers: Hypotension type: unspecified hypotension type Qualified Code(s): I95.9 - Hypotension, unspecified
[2018-06-10] MEDS ORDERED: Dextrose 5%/NaCl 0.9% Inj 1,000 ML IV.SIG SCH (14:30)
--- NOTE | 2018-06-10 16:55 | P.PNCC ---
Subjective Subjective Remarks/Hospital Course: Hospital Course: 67yM with history of severe PAD who presents after he had sudden onset right leg pain which caused him to fall, and then he began with sudden shortness of breath. In the emergency department, found to have left apical pneumothorax with large amount of subQ air, with rib fracture. In addition, severe PAD with occlusion of the right common femoral artery. Labs significant for trop 0.06, Lactate 7. patient denies chest pain. does endorse leg pain and shortness of breath. denies fever,chills. remainder of the ROS negative, although limited by his critical illness. Subjective: 06/06: discussed case with Dr. Oglesby from gen surg overnight- patient also has additional pelvic abscesses compounding his shock. blood cultures growing GNRs. We elected to hold off on draining abscesses yesterday due to acute cardiogenic shock in the setting of acute myocardial infarction as well as critical limb ischemia. Today, leg appears better perfused and lactate is starting to clear. remains on milrinone and norepinephrine infusions. BNP has risen from 30 to 1300. Cardiology recommends LHC during this admission, but waiting until shock resolves and more stable. remains critically ill today. 06/07: minimal improvements. remains in shock. bacteremic with Klebsiella, sensitivities pending. remains on milrinone at 0.5 mcg/kg/min, norepinephrine. lactate still elevated, although starting to clear. 06/08: Lying in bed no acute distress. Remains on milrinone at 0.5 mcg/kg/min. Urine output 2.3 L in 24 hours. Cardiac catheterization planned for tomorrow. 06/09: Remains on heparin and milrinone. Clinically slowly improving. Cardiac catheterization planned for today. Dr. Sarabia to discuss with patient. 06/10: Underwent cardiac cath yesterday. 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 Status post angioplasty and stent x 2 to LAD. LV gram Normal left ventricular function with estimated ejection fraction of 55% . Hemodynamically stable. Will check place chest tube to waterseal. Clamp after midnight removed there is no pneumothorax in a.m. Objective Vital Signs / I&O: Vital Signs 06/09/18 17:18 06/09/18 17:32 06/09/18 17:45 Temperature Pulse Rate 88 87 78 Respiratory Rate 16 18 20 Blood Pressure 134/63 153/72 H Pulse Oximetry 95 06/09/18 18:00 02/20/19 18:15 06/09/18 18:30 Temperature 97.3 F L Pulse Rate 85 92 H 86 Respiratory Rate 18 28 H 33 H Blood Pressure 139/62 137/69 136/65 Pulse Oximetry 96 93 L 06/09/18 18:45 06/09/18 19:00 06/09/18 19:15 Temperature Pulse Rate 81 90 82 Respiratory Rate 24 25 H 22 Blood Pressure 153/70 H 154/75 H 140/71 Pulse Oximetry 84 L 06/09/18 19:30 06/09/18 19:45 06/09/18 20:00 Temperature 97.5 F L Pulse Rate 79 78 75 Respiratory Rate 23 21 28 H Blood Pressure 134/75 145/68 H 127/59 L Pulse Oximetry 98 98 99 06/09/18 20:15 06/09/18 20:29 06/09/18 20:30 Temperature Pulse Rate 76 78 78 Respiratory Rate 31 H 22 28 H Blood Pressure 126/68 147/74 H Pulse Oximetry 99 96 100 06/09/18 20:45 06/09/18 21:00 06/09/18 21:15 Temperature Pulse Rate 84 84 97 H Respiratory Rate 28 H 38 H 29 H Blood Pressure 140/66 154/74 H 145/67 H Pulse Oximetry 97 97 95 06/09/18 21:30 06/09/18 21:45 06/09/18 21:59 Temperature Pulse Rate 86 75 70 Respiratory Rate 22 15 14 Blood Pressure 132/63 127/60 Pulse Oximetry 97 96 06/09/18 22:00 06/09/18 22:15 06/09/18 22:30 Temperature Pulse Rate 70 67 64 Respiratory Rate 14 14 14 Blood Pressure 131/62 119/58 L 124/61 Pulse Oximetry 95 95 96 06/09/18 22:45 06/09/18 22:59 06/09/18 23:00 Temperature Pulse Rate 75 67 67 Respiratory Rate 34 H 15 15 Blood Pressure 154/72 H 140/67 Pulse Oximetry 96 96 96 06/09/18 23:15 06/09/18 23:30 06/09/18 23:45 Temperature Pulse Rate 65 70 68 Respiratory Rate 14 17 15 Blood Pressure 135/65 136/71 138/77 Pulse Oximetry 97 96 97 06/09/18 23:59 06/10/18 00:00 06/10/18 00:15 Temperature 98 F Pulse Rate 80 80 71 Respiratory Rate 18 18 20 Blood Pressure 148/77 H 146/79 H Pulse Oximetry 97 97 98 06/10/18 00:30 06/10/18 00:45 06/10/18 01:00 Temperature Pulse Rate 73 71 74 Respiratory Rate 18 19 23 Blood Pressure 148/77 H 142/69 H 149/72 H Pulse Oximetry 98 96 96 06/10/18 01:15 06/10/18 01:30 06/10/18 01:45 Temperature Pulse Rate 74 73 71 Respiratory Rate 23 18 20 Blood Pressure 139/67 135/65 131/66 Pulse Oximetry 95 94 L 96 06/10/18 02:00 06/10/18 02:15 06/10/18 02:30 Temperature Pulse Rate 62 76 59 L Respiratory Rate 15 44 H 28 H Blood Pressure 131/57 L 135/64 126/56 L Pulse Oximetry 96 95 94 L 06/10/18 02:45 06/10/18 03:00 06/10/18 03:15 Temperature Pulse Rate 61 63 71 Respiratory Rate 29 H 30 H 20 Blood Pressure 133/64 135/63 152/72 H Pulse Oximetry 95 95 97 06/10/18 03:30 06/10/18 03:45 06/10/18 04:00 Temperature 98.2 F Pulse Rate 62 67 65 Respiratory Rate 21 22 24 Blood Pressure 137/67 127/71 139/69 Pulse Oximetry 96 96 96 06/10/18 04:15 06/10/18 04:30 06/10/18 04:45 Temperature Pulse Rate 68 71 85 Respiratory Rate 23 29 H Blood Pressure 143/72 H 150/74 H 184/91 H Pulse Oximetry 97 96 96 06/10/18 05:00 06/10/18 05:02 06/10/18 05:15 Temperature Pulse Rate 80 66 Respiratory Rate 21 22 Blood Pressure 164/74 H 144/70 H Pulse Oximetry 95 92 L 06/10/18 05:30 06/10/18 05:45 06/10/18 06:00 Temperature Pulse Rate 73 68 68 Respiratory Rate 21 23 21 Blood Pressure 142/73 H 141/70 H 135/71 Pulse Oximetry 92 L 93 L 93 L 06/10/18 06:15 06/10/18 06:30 02/21/19 06:45 Temperature Pulse Rate 65 59 L 72 Respiratory Rate 20 22 16 Blood Pressure 142/73 H 132/66 146/71 H Pulse Oximetry 93 L 93 L 93 L 06/10/18 07:00 06/10/18 07:15 06/10/18 07:30 Temperature Pulse Rate 68 79 62 Respiratory Rate 24 22 18 Blood Pressure 142/67 H 140/73 130/64 Pulse Oximetry 93 L 92 L 93 L 06/10/18 07:45 06/10/18 08:00 06/10/18 08:15 Temperature 98.2 F Pulse Rate 62 59 L 59 L Respiratory Rate 21 15 24 Blood Pressure 141/76 H 132/62 128/58 L Pulse Oximetry 93 L 93 L 93 L 06/10/18 08:30 06/10/18 08:45 06/10/18 09:00 Temperature Pulse Rate 60 62 67 Respiratory Rate 30 H 24 32 H Blood Pressure 127/63 123/55 L 149/67 H Pulse Oximetry 92 L 92 L 93 L 06/10/18 09:15 06/10/18 09:30 06/10/18 09:45 Temperature Pulse Rate 66 72 66 Respiratory Rate 19 19 21 Blood Pressure 150/70 H 148/71 H 135/65 Pulse Oximetry 93 L 93 L 93 L 06/10/18 10:00 06/10/18 10:15 06/10/18 10:30 Temperature Pulse Rate 69 70 67 Respiratory Rate 26 H 22 19 Blood Pressure 147/72 H 139/68 141/72 H Pulse Oximetry 92 L 93 L 92 L 06/10/18 10:45 06/10/18 11:00 06/10/18 11:15 Temperature Pulse Rate 67 68 73 Respiratory Rate 23 25 H 25 H Blood Pressure 135/63 131/59 L 162/71 H Pulse Oximetry 92 L 92 L 93 L 06/10/18 11:30 06/10/18 11:45 06/10/18 12:00 Temperature 97.8 F Pulse Rate 66 67 67 Respiratory Rate 20 26 H 26 H Blood Pressure 144/71 H 137/66 135/61 Pulse Oximetry 92 L 92 L 92 L 06/10/18 12:15 06/10/18 12:30 06/10/18 12:45 Temperature Pulse Rate 65 63 69 Respiratory Rate 24 27 H 23 Blood Pressure 136/63 130/63 138/70 Pulse Oximetry 92 L 92 L 92 L 06/10/18 13:00 06/10/18 13:15 06/10/18 13:30 Temperature Pulse Rate 84 75 Respiratory Rate 26 H 29 H 23 Blood Pressure 145/71 H 123/67 116/61 Pulse Oximetry 95 92 L 93 L 06/10/18 13:45 06/10/18 14:00 06/10/18 14:15 Temperature Pulse Rate 100 H 98 H 82 Respiratory Rate 31 H 34 H 24 Blood Pressure 128/71 103/54 L 77/49 L Pulse Oximetry 92 L 91 L 90 L 06/10/18 14:23 06/10/18 14:30 06/10/18 14:45 Temperature Pulse Rate 89 84 97 H Respiratory Rate 25 H 27 H 33 H Blood Pressure 83/53 L 82/51 L Pulse Oximetry 89 L 93 L 81 L 06/10/18 15:00 06/10/18 15:15 06/10/18 15:30 Temperature Pulse Rate 74 70 70 Respiratory Rate 24 26 H 27 H Blood Pressure 101/54 L 107/54 L 121/59 L Pulse Oximetry 95 96 96 06/10/18 15:45 06/10/18 16:00 06/10/18 16:15 Temperature 98.3 F Pulse Rate 75 73 75 Respiratory Rate 24 25 H 27 H Blood Pressure 142/65 H 117/56 L 126/63 Pulse Oximetry 97 97 96 Intake & Output 06/09/18 06/10/18 06/10/18 18:59 06:59 18:59 Intake Total 375 / 375 550 / 550 50 / 50 Output Total 1650 / 1650 1480 / 1480 Balance -1275 / -1275 -930 / -930 50 / 50 Weight 53.1 kg Intake: IV 350 / 350 550 / 550 50 / 50 Diflucan 400 mg Premix Bag 200 200 / 200 ML @ 100 mls/hr IV.SIG Q24H [facility] Rx#:[id number] Zosyn 3.375 GM Premix 3.375 gm 100 / 100 100 / 100 50 / 50 In 50 ml @ 100 mls/hr IV.SIG Q6H [facility] Rx#:[id number] Vancomycin Inj 1,000 MG In NS 250 / 250 250 / 250 Inj 250 ML @ 250 mls/hr IV.SIG Q12H [facility] Rx#:[id number] Oral 25 / 25 Output: Urine Amount (Catheter) 1400 / 1400 1450 / 1450 Indwelling Temp Sensing 1400 / 1400 Catheter Indwelling Urethral Catheter 1450 / 1450 Gastric Drainage 200 / 200 Orogastric Tube 200 / 200 Chest Tube Drainage 50 / 50 30 / 30 Left 50 / 50 30 / 30 Other: Date of Last Bowel Movement 06/10/18 Result Diagrams: 06/10/18 04:30 06/10/18 04:30 Objective Remarks: GENERAL:Middle-age man who appears older than stated age, lying in bed, alert awake oriented HEENT: Normocephalic. Atraumatic. Pupils equal, round, reactive, conjugate. Mucous membranes are moist NECK: Trachea is midline. JVD today. CHEST: equal chest rise. Subcu emphysema over the left anterior chest wall, improving. left chest tube with minimal serosanguinous output, to suction. no air leak. CARDIOVASCULAR: S1-S2 normal had been weaned off milrinone ABDOMEN: Soft, nontender, nondistended. No guarding. MUSCULOSKELETAL: Radial pulses are 1+. Dopplerable signals in the bilateral lower extremities. improved perfusion no longer any demarkation of the LE perfusion. NEUROLOGICAL: Alert awake oriented. Follows commands in all 4 extremities. No focal deficits. Assessment and Plan - Assessment and Plan Plan: Assessment: 67yM with left rib fracture, pneumothorax, and critical limb ischemia, shock, acute NSTEMI with cardiogenic shock, septic shock with Klebsiella bacteremia, pelvic abscesses. Critically ill but stable Plan by systems: Neurologic: Acute metabolic encephalopathy-resolved - avoid sedatives - frequent neuro checks Respiratory: COPD Left sided rib fractures Left pneumothorax Acute hypoxic and hypercarbic respiratory failure intubated 06/05 for resp failure. Self extubated 06/07 Nebs Head of bed elevated - keep chest tube to water seal and clamp at midnight -If chest x-ray no pneumothorax, will remove chest tube in a.m. Cardiovascular: NSTEMI with cardiogenic shock-resolved Septic shock new acute ischemic cardiomyopathy Status post cardiac catheterization LAD stent x2 LV gram showed EF 55% Heparin drip-changed to subcu heparin ASA Cardiology Dr. Sarabia Renal: Acute kidney injury-resolved Trend daily creatinine -- Strict I/Os Urine output excellent FEN/GI: Acute protein calorie malnutritionsevere Lactic acidosis-improved ICU electrolyte protocol Status post 4 L crystalloid bolus. Daily CMP, magnesium, phosphorus Cardiac diet Heme/ID: Critical limb ischemia pelvic abscesses Klebsiella bacteremia Heparin drip. Trend lactates On Zosyn, vancomycin. Consolidate to Rocephin 06/05 blood cultures 06/21 bottles Klebsiella pansensitive repeat blood cultures 06/07 Daily CBC Watch closely for bleeding Endocrine: Hyperglycemia of critical illness -- SSI, medium scale, every 6 Prophylaxis: GI Prophylaxis Pepcid IV DVT Prophylaxis -- SCDs Heparin infusion Lines: 06/05 left radial arterial line 06/05 left subclavian triple-lumen catheter 06/05 Loja 06/05 left-sided 32 Maltese chest tube Dispo: level 2 Consult hospitalist to assume care in a.m. transfer to [facility] with telemetry
[2018-06-10] MEDS ORDERED: Vancomycin Inj 750 MG in Sodium Chlor 0.9% Inj 250 ML IV.SIG SCH (17:00)
[2018-06-11] MEDS: Insulin NovoLIN Regular Correctional Sugar Inj SQ SCH ×4 (00:10→18:49)
--- NOTE | 2018-06-11 03:59 | XR ---
EXAM DATE: 06/11/2018 3:52 AM EST AGE/SEX: 67 years / Male INDICATIONS: Shortness of breath, possible respiratory disease. CLINICAL DATA: This is the patient's subsequent encounter. Patient reports that signs and symptoms h ave been present for 1 week and indicates a pain score of Nonresponsive. MEDICAL/SURGICAL HISTORY: . Peripheral artery disease. Perforated diverticular abscess. None. COMPARISON: [facility] [place], CHEST 1V SINGLE AP, 06/09/2018. . FINDINGS: A single AP view of the chest demonstrates a left thoracostomy tube. Left subclavian central line. No pneumothoraces. No infiltrates or effusions. Heart is normal in size. Left-sided rib fractures are s table. Degenerative changes involving the left AC joint. CONCLUSION: Clear lungs. No pneumothorax. Electronically signed by: Michael Ruiz MD Board Certified Radiologist 06/11/2018 3:58 AM EST
[2018-06-11 05:00] LABS: Baso # (Auto) 0.1 th/mm3 (0.0-0.2); Baso % (Auto) 0.7 % (0.0-2.0); Eos # (Auto) 0.6 th/mm3 (0.0-0.4); Eos % (Auto) 5.9 % (0.0-4.0); Hematocrit 32.6 % (39.0-51.0); Hemoglobin 10.6 gm/dL (13.0-17.0); Lymph # (Auto) 2.6 th/mm3 (1.0-4.8); Lymph % (Auto) 26.5 % (9.0-44.0); Mean Corpuscular HGB Conc 32.7 % (32.0-36.0); Mean Corpuscular Hemoglobin 27.6 pg (27.0-34.0); Mean Corpuscular Volume 84.3 fL (80.0-100.0); Mean Platelet Volume 7.3 fL (7.0-11.0); Mono # (Auto) 0.9 th/mm3 (0.0-0.9); Neut # (Auto) 5.7 th/mm3 (1.8-7.7); Neut % (Auto) 57.9 % (16.0-70.0); Platelet Count 319 th/mm3 (150-450); Red Blood Count 3.86 mil/mm3 (4.50-5.90); Red Cell Distribution Width 18.2 % (11.6-17.2); White Blood Count 9.9 th/mm3 (4.0-11.0)
[2018-06-11 05:13] LABS: INR 1.1 Ratio; Prothrombin Time 11.2 sec (9.8-11.6)
[2018-06-11 05:34] LABS: Albumin 2.4 g/dL (3.4-5.0); Anion Gap 7 meq/L (5-15); Aspartate Aminotransferase 12 U/L (15-37); Blood Urea Nitrogen 7 mg/dL (7-18); Calcium 8.4 mg/dL (8.5-10.1); Carbon Dioxide 26.4 meq/L (21.0-32.0); Chloride 110 meq/L (98-107); Glomerular Filtration Rate Greater Than 89 mL/min (>89); Glucose,Random 78 mg/dL (74-106); Magnesium 1.7 mg/dL (1.5-2.5); Potassium 3.4 meq/L (3.5-5.1); Sodium 143 meq/L (136-145)
[2018-06-11 05:35] LABS: Alanine Aminotransferase 17 U/L (12-78)
[2018-06-11 05:37] LABS: Alkaline Phosphatase 66 U/L (45-117); Total Protein 6.5 g/dL (6.4-8.2)
--- NOTE | 2018-06-11 09:50 | MB ---
cc: Elliott Gallagher MD DATE: 06/11/2018 REASON FOR CONSULTATION: COPD. HISTORY OF PRESENT ILLNESS: Mr. Potter is a 67-year-old male who presents with acute pneumothorax and rib fracture, which had since resolved. The patient had evidence of sepsis with a pelvic abscess treated with antibiotic therapy with improvement. The patient is now alert and appears in no acute distress. He has no cough, no expectoration, fever, chills, or hemoptysis. PAST MEDICAL HISTORY: 1. COPD. 2. Severe peripheral vascular disease. 3. Coronary artery disease, post stent placement. 4. Renal insufficiency. 5. Status post pneumothorax as mentioned above. SOCIAL HISTORY: Remote smoking history. Has long heavy smoking history, continues to smoke up until the time of presentation. Drinks alcohol socially. Does not use drugs. CURRENT MEDICATIONS: Include nebulized albuterol, carvedilol, Plavix, Vasotec, Pepcid, Diflucan. ALLERGIES: NONE KNOWN TO MEDICATION. FAMILY HISTORY: Noncontributory. REVIEW OF SYSTEMS: A 12-point review of systems as per HPI and past history, otherwise negative. PHYSICAL EXAMINATION: VITAL SIGNS: Temperature 98, pulse 60, respirations 20, blood pressure 130/60, oxygen saturation 96% on O2 nasal cannula. HEENT: Unremarkable. Eyes without icterus. NECK: Without adenopathy or thyroid enlargement. Central trachea. CHEST: Few scattered rhonchi at bases. CARDIAC: PMI not appreciated. S1 and S2 audible. ABDOMEN: Lax, bowel sounds audible. EXTREMITIES: No clubbing, cyanosis. No edema. Some discoloration of both legs noted. DIAGNOSTIC DATA: LABS: White count 9.9, hemoglobin 10.6, platelets 319,000. INR 1.1. Arterial blood gas 11/05/2017, pH 7.40, pCO2 of 40, pO2 67. Sodium 143, potassium 3.4, BUN 7, creatinine 7. Chest x-ray clear. IMPRESSION: 1. Chronic obstructive pulmonary disease. 2. Respiratory failure. 3. Peripheral vascular disease. 4. Coronary artery disease. PLAN: The patient will be maintained on oxygen therapy as needed. I will obtain a pulmonary function when possible. In view of the recent pneumothorax, we will give him time for appropriate healing before proceeding. The patient has obviously improved since hospitalization. He is to be transferred to the medical floor and increase his ambulation. Will follow his care along with you; and depending on progress, proceed further. Elliott Gallagher MD WWW/amara , 09:24 AM , 09:34 AM
[2018-06-11] MEDS: Famotidine PF Inj 20 MG/2 ML Vial IV.PUSH SCH (10:30)
[2018-06-11] MEDS: Potassium Chlor 20 mEq Premix 20 MEQ/100 ML PIGGYBACK IV.SIG PRN ×2 (11:06→13:18)
--- NOTE | 2018-06-11 11:07 | P.PNGS ---
Subjective Interval history: Resting in bed No issues overnight Doesn't like the food that much Physical Exam Vital signs: Vital Signs 06/10/18 11:15 06/10/18 11:30 06/10/18 11:45 Temperature Pulse Rate 73 66 67 Respiratory Rate 25 H 20 26 H Blood Pressure 162/71 H 144/71 H 137/66 Pulse Oximetry 93 L 92 L 92 L 06/10/18 12:00 06/10/18 12:15 06/10/18 12:30 Temperature 97.8 F Pulse Rate 67 65 63 Respiratory Rate 26 H 24 27 H Blood Pressure 135/61 136/63 130/63 Pulse Oximetry 92 L 92 L 92 L 06/10/18 12:45 06/10/18 13:00 06/10/18 13:15 Temperature Pulse Rate 69 84 Respiratory Rate 23 26 H 29 H Blood Pressure 138/70 145/71 H 123/67 Pulse Oximetry 92 L 95 92 L 06/10/18 13:30 06/10/18 13:45 06/10/18 14:00 Temperature Pulse Rate 75 100 H 98 H Respiratory Rate 23 31 H 34 H Blood Pressure 116/61 128/71 103/54 L Pulse Oximetry 93 L 92 L 91 L 06/10/18 14:15 06/10/18 14:23 06/10/18 14:30 Temperature Pulse Rate 82 89 84 Respiratory Rate 24 25 H 27 H Blood Pressure 77/49 L 83/53 L 82/51 L Pulse Oximetry 90 L 89 L 93 L 06/10/18 14:45 06/10/18 15:00 06/10/18 15:15 Temperature Pulse Rate 97 H 74 70 Respiratory Rate 33 H 24 26 H Blood Pressure 101/54 L 107/54 L Pulse Oximetry 81 L 95 96 06/10/18 15:30 06/10/18 15:45 06/10/18 16:00 Temperature 98.3 F Pulse Rate 70 75 73 Respiratory Rate 27 H 24 25 H Blood Pressure 121/59 L 142/65 H 117/56 L Pulse Oximetry 96 97 97 06/10/18 16:15 06/10/18 16:30 06/10/18 16:45 Temperature Pulse Rate 75 64 65 Respiratory Rate 27 H 19 20 Blood Pressure 126/63 102/53 L 100/54 L Pulse Oximetry 96 94 L 94 L 06/10/18 17:00 06/10/18 17:15 06/10/18 17:30 Temperature Pulse Rate 71 67 65 Respiratory Rate 27 H 23 28 H Blood Pressure 121/60 117/57 L 116/58 L Pulse Oximetry 96 95 95 06/10/18 17:45 06/10/18 18:00 06/10/18 18:15 Temperature Pulse Rate 67 68 69 Respiratory Rate 41 H 35 H 29 H Blood Pressure 126/59 L 127/59 L 115/56 L Pulse Oximetry 95 96 95 06/10/18 18:30 06/10/18 18:45 06/10/18 19:00 Temperature Pulse Rate 71 69 83 Respiratory Rate 28 H 32 H 38 H Blood Pressure 125/57 L 119/61 150/73 H Pulse Oximetry 95 96 85 L 06/10/18 19:15 06/10/18 19:30 06/10/18 19:45 Temperature Pulse Rate 69 69 69 Respiratory Rate 37 H 30 H 29 H Blood Pressure 123/60 122/58 L 112/55 L Pulse Oximetry 95 95 95 06/10/18 20:00 06/10/18 20:15 06/10/18 20:23 Temperature 98.7 F Pulse Rate 69 65 Respiratory Rate 27 H 26 H Blood Pressure 108/51 L 115/57 L Pulse Oximetry 94 L 95 97 06/10/18 20:30 06/10/18 20:45 06/10/18 21:00 Temperature Pulse Rate 65 69 72 Respiratory Rate 25 H 38 H 26 H Blood Pressure 112/55 L 123/58 L 120/57 L Pulse Oximetry 96 96 94 L 06/10/18 21:15 06/10/18 21:30 06/10/18 21:45 Temperature Pulse Rate 65 65 70 Respiratory Rate 38 H 32 H 26 H Blood Pressure 132/60 128/60 135/64 Pulse Oximetry 93 L 94 L 94 L 06/10/18 22:00 06/10/18 22:15 06/10/18 22:30 Temperature Pulse Rate 67 69 75 Respiratory Rate 28 H 30 H 26 H Blood Pressure 148/66 H 133/63 145/65 H Pulse Oximetry 95 96 96 06/10/18 22:45 06/10/18 23:00 06/10/18 23:02 Temperature Pulse Rate 73 69 68 Respiratory Rate 23 30 H 29 H Blood Pressure 137/63 131/60 124/58 L Pulse Oximetry 97 95 95 06/11/18 00:00 06/11/18 00:02 06/11/18 01:00 Temperature 98.1 F Pulse Rate 64 64 70 Respiratory Rate 23 21 24 Blood Pressure 128/58 L Pulse Oximetry 95 95 97 06/11/18 01:02 06/11/18 02:00 06/11/18 02:02 Temperature Pulse Rate 63 58 L 57 L Respiratory Rate 8 L 18 17 Blood Pressure 119/56 L 111/55 L Pulse Oximetry 96 97 97 06/11/18 03:00 06/11/18 03:02 06/11/18 04:00 Temperature 98.2 F 98.2 F Pulse Rate 65 60 66 Respiratory Rate 18 23 21 Blood Pressure 129/62 Pulse Oximetry 95 95 96 06/11/18 04:02 06/11/18 05:00 06/11/18 05:02 Temperature Pulse Rate 64 64 65 Respiratory Rate 19 30 H 34 H Blood Pressure 133/63 116/57 L Pulse Oximetry 95 95 95 06/11/18 06:00 06/11/18 06:02 06/11/18 07:00 Temperature Pulse Rate 65 65 69 Respiratory Rate 23 29 H 38 H Blood Pressure 143/66 H Pulse Oximetry 95 95 96 06/11/18 07:02 06/11/18 08:00 06/11/18 09:00 Temperature 98.1 F Pulse Rate 66 64 62 Respiratory Rate 23 22 Blood Pressure 139/64 132/63 144/61 H Pulse Oximetry 96 96 95 06/11/18 10:00 Temperature Pulse Rate 65 Respiratory Rate 23 Blood Pressure 107/53 L Pulse Oximetry 95 Intake & Output 06/10/18 06/11/18 06/11/18 18:59 06:59 18:59 Intake Total 980 / 980 200 / 200 240 / 240 Output Total 1000 / 1000 900 / 900 100 / 100 Balance -20 / -20 -700 / -700 140 / 140 Weight 53.3 kg Intake: IV 100 / 100 200 / 200 Diflucan 400 mg Premix Bag 200 200 / 200 ML @ 100 mls/hr IV.SIG Q24H [facility] Rx#:[id number] Zosyn 3.375 GM Premix 3.375 gm 100 / 100 In 50 ml @ 100 mls/hr IV.SIG Q6H [facility] Rx#:[id number] Oral 880 / 880 240 / 240 Output: Stool 100 / 100 Urine Amount (Catheter) 1000 / 1000 900 / 900 Indwelling Urethral Catheter 1000 / 1000 900 / 900 Other: Date of Last Bowel Movement 06/10/18 06/10/18 06/11/18 # Bowel Movements 3 2 Narrative: Alert and awake CT removed Abd: soft; non tender non distended - Urinary Catheter Management Indwelling Urethral Catheter Cath placed during this visit: no Indwelling Temp Sensing Catheter Cath placed during this visit: no Results - Labs 06/11/18 04:40 06/11/18 04:40 Laboratory Results - last 24 hr 06/10/18 06/10/18 06/10/18 12:07 19:17 23:44 WBC RBC Hgb Hct MCV MCH MCHC RDW Plt Count MPV Neut % (Auto) Lymph % (Auto) [place] % (Auto) Eos % (Auto) Baso % (Auto) Neut # (Auto) Lymph # (Auto) [place] # (Auto) Eos # (Auto) Baso # (Auto) WBC Differential Differential Comment PT INR Sodium Potassium Chloride Carbon Dioxide Anion Gap BUN Creatinine Estimated GFR POC Glucose 79 99 120 H Random Glucose Calcium Phosphorus Magnesium Total Bilirubin AST ALT Alkaline Phosphatase Total Protein Albumin 06/11/18 06/11/18 06/11/18 04:40 04:40 04:40 WBC 9.9 RBC 3.86 L Hgb 10.6 L Hct 32.6 L MCV 84.3 MCH 27.6 MCHC 32.7 RDW 18.2 H Plt Count 319 MPV 7.3 Neut % (Auto) 57.9 Lymph % (Auto) 26.5 [place] % (Auto) 9.0 H Eos % (Auto) 5.9 H Baso % (Auto) 0.7 Neut # (Auto) 5.7 Lymph # (Auto) 2.6 [place] # (Auto) 0.9 Eos # (Auto) 0.6 H Baso # (Auto) 0.1 WBC Differential . Differential Comment Auto diff final PT 11.2 INR 1.1 Sodium 143 Potassium 3.4 L Chloride 110 H Carbon Dioxide 26.4 Anion Gap 7 BUN 7 Creatinine 0.69 Estimated GFR Greater than 89 POC Glucose Random Glucose 78 Calcium 8.4 L Phosphorus 3.0 Magnesium 1.7 Total Bilirubin 0.3 AST 12 L ALT 17 Alkaline Phosphatase 66 Total Protein 6.5 Albumin 2.4 L 06/11/18 05:55 WBC RBC Hgb Hct MCV MCH MCHC RDW Plt Count MPV Neut % (Auto) Lymph % (Auto) [place] % (Auto) Eos % (Auto) Baso % (Auto) Neut # (Auto) Lymph # (Auto) [place] # (Auto) Eos # (Auto) Baso # (Auto) WBC Differential Differential Comment PT INR Sodium Potassium Chloride Carbon Dioxide Anion Gap BUN Creatinine Estimated GFR POC Glucose 83 Random Glucose Calcium Phosphorus Magnesium Total Bilirubin AST ALT Alkaline Phosphatase Total Protein Albumin - Imaging Imaging: ITS Impressions Aorta w/Runoff CTA 06/05/18 11:45 CONCLUSION: 1. Extensive peripheral vascular disease with multifocal areas of narrowing/ occlusion as above. Chest CT 06/05/18 11:45 CONCLUSION: 1. Small left-sided pneumothorax and hemothorax. 2. Acute left fifth rib fracture. 3. Emphysema. Chest X-Ray 06/11/18 06:00 CONCLUSION: Clear lungs. No pneumothorax. Assessment and Plan - Assessment (1) Diverticulitis of colon with perforation Code(s): K57.20 - Diverticulitis of large intestine with perforation and abscess without bleeding Status: Acute Plan: 67 year old male with recent fall---rib fractures/PTX; NETEMI; -S/p cardiac cath -Stable on NC -GI following---planning for colonoscopy as outpatient -No surgical interventions planned for now (2) Dilated cardiomyopathy Code(s): I42.0 - Dilated cardiomyopathy Status: Acute (3) Elevated troponin Code(s): R74.8 - Abnormal levels of other serum enzymes Status: Acute (4) Hypotension Code(s): I95.9 - Hypotension, unspecified Status: Acute (1) Diverticulitis of colon with perforation Qualifiers: Diverticulitis bleeding: without bleeding Qualified Code(s): K57.20 - Diverticulitis of large intestine with perforation and abscess without bleeding (4) Hypotension Qualifiers: Hypotension type: unspecified hypotension type Qualified Code(s): I95.9 - Hypotension, unspecified
--- NOTE | 2018-06-11 16:17 | P.PNIM ---
Subjective Interval history: Patient reports no chest pain or shortness of breath. No palpitations. No significant abdominal pain at this time. Tolerating food however not eating much. Physical Exam Vital signs: Vital Signs 06/10/18 16:15 06/10/18 16:30 06/10/18 16:45 Temperature Pulse Rate 75 64 65 Respiratory Rate 27 H 19 20 Blood Pressure 126/63 102/53 L 100/54 L Pulse Oximetry 96 94 L 94 L 06/10/18 17:00 06/10/18 17:15 06/10/18 17:30 Temperature Pulse Rate 71 67 65 Respiratory Rate 27 H 23 28 H Blood Pressure 121/60 117/57 L 116/58 L Pulse Oximetry 96 95 95 06/10/18 17:45 06/10/18 18:00 06/10/18 18:15 Temperature Pulse Rate 67 68 69 Respiratory Rate 41 H 35 H 29 H Blood Pressure 126/59 L 127/59 L 115/56 L Pulse Oximetry 95 96 95 06/10/18 18:30 06/10/18 18:45 06/10/18 19:00 Temperature Pulse Rate 71 69 83 Respiratory Rate 28 H 32 H 38 H Blood Pressure 125/57 L 119/61 150/73 H Pulse Oximetry 95 96 85 L 06/10/18 19:15 06/10/18 19:30 06/10/18 19:45 Temperature Pulse Rate 69 69 69 Respiratory Rate 37 H 30 H 29 H Blood Pressure 123/60 122/58 L 112/55 L Pulse Oximetry 95 95 95 06/10/18 20:00 06/10/18 20:15 06/10/18 20:23 Temperature 98.7 F Pulse Rate 69 65 Respiratory Rate 27 H 26 H Blood Pressure 108/51 L 115/57 L Pulse Oximetry 94 L 95 97 06/10/18 20:30 06/10/18 20:45 06/10/18 21:00 Temperature Pulse Rate 65 69 72 Respiratory Rate 25 H 38 H 26 H Blood Pressure 112/55 L 123/58 L 120/57 L Pulse Oximetry 96 96 94 L 06/10/18 21:15 06/10/18 21:30 06/10/18 21:45 Temperature Pulse Rate 65 65 70 Respiratory Rate 38 H 32 H 26 H Blood Pressure 132/60 128/60 135/64 Pulse Oximetry 93 L 94 L 94 L 06/10/18 22:00 02/21/19 22:15 06/10/18 22:30 Temperature Pulse Rate 67 69 75 Respiratory Rate 28 H 30 H 26 H Blood Pressure 148/66 H 133/63 145/65 H Pulse Oximetry 95 96 96 06/10/18 22:45 06/10/18 23:00 06/10/18 23:02 Temperature Pulse Rate 73 69 68 Respiratory Rate 23 30 H 29 H Blood Pressure 137/63 131/60 124/58 L Pulse Oximetry 97 95 95 06/11/18 00:00 06/11/18 00:02 06/11/18 01:00 Temperature 98.1 F Pulse Rate 64 64 70 Respiratory Rate 23 21 24 Blood Pressure 128/58 L Pulse Oximetry 95 95 97 06/11/18 01:02 06/11/18 02:00 06/11/18 02:02 Temperature Pulse Rate 63 58 L 57 L Respiratory Rate 8 L 18 17 Blood Pressure 119/56 L 111/55 L Pulse Oximetry 96 97 97 06/11/18 03:00 06/11/18 03:02 06/11/18 04:00 Temperature 98.2 F 98.2 F Pulse Rate 65 60 66 Respiratory Rate 18 23 21 Blood Pressure 129/62 Pulse Oximetry 95 95 96 06/11/18 04:02 06/11/18 05:00 06/11/18 05:02 Temperature Pulse Rate 64 64 65 Respiratory Rate 19 30 H 34 H Blood Pressure 133/63 116/57 L Pulse Oximetry 95 95 95 06/11/18 06:00 06/11/18 06:02 06/11/18 07:00 Temperature Pulse Rate 65 65 69 Respiratory Rate 23 29 H 38 H Blood Pressure 143/66 H Pulse Oximetry 95 95 96 06/11/18 07:02 06/11/18 07:45 06/11/18 08:00 Temperature 98.1 F Pulse Rate 66 64 Respiratory Rate 23 Blood Pressure 139/64 132/63 Pulse Oximetry 96 96 95 06/11/18 09:00 06/11/18 10:00 06/11/18 11:00 Temperature Pulse Rate 62 65 72 Respiratory Rate 22 23 22 Blood Pressure 144/61 H 107/53 L 136/62 Pulse Oximetry 95 95 95 06/11/18 12:00 06/11/18 13:00 Temperature 98.3 F Pulse Rate 65 56 L Respiratory Rate 22 16 Blood Pressure 128/60 103/50 L Pulse Oximetry 96 94 L Intake & Output 06/10/18 06/11/18 06/11/18 18:59 06:59 18:59 Intake Total 1080 / 1080 200 / 200 340 / 340 Output Total 1000 / 1000 900 / 900 685 / 685 Balance 80 / 80 -700 / -700 -345 / -345 Weight 53.3 kg Intake: IV 200 / 200 200 / 200 100 / 100 Diflucan 400 mg Premix Bag 200 200 / 200 ML @ 100 mls/hr IV.SIG Q24H [facility] Rx#:[id number] Zosyn 3.375 GM Premix 3.375 gm 100 / 100 In 50 ml @ 100 mls/hr IV.SIG Q6H [facility] Rx#:[id number] KCl 20 mEq Premix Inj 20 meq In 100 / 100 100 ml @ 50 mls/hr IV.SIG Q2H PRN Rx#:[id number] KCl 40 mEq Premix Inj 40 meq In 100 / 100 100 ml @ 25 mls/hr IV.SIG UNSCH PRN Rx#:[id number] Oral 880 / 880 240 / 240 Output: Stool 225 / 225 Urine Amount (Catheter) 1000 / 1000 900 / 900 460 / 460 Indwelling Urethral Catheter 1000 / 1000 900 / 900 460 / 460 Other: Date of Last Bowel Movement 06/10/18 06/10/18 06/11/18 # Bowel Movements 3 2 Narrative: Elderly male laying in bed in no acute distress Cardiovascular regular rate and rhythm Lungs relatively clear to auscultation bilaterally Abdomen soft nontender nondistended positive bowel sounds Loja in place Left subclavian line in place Extremities, no edema 1+ right PT pulse 1+ left PT pulse Neurological exam alert and oriented x3, does move bilateral upper and lower extremities but with generalized weakness Urinary Catheter Management Indwelling Urethral Catheter: Cath placed during this visit: yes, but has since been removed by the nurse Reason for continuing: Decision to DC catheter Removal date: 06/11/18 Removal time: 15:35 Indwelling Temp Sensing Catheter: Cath placed during this visit: no Reason for continuing: Hourly intake/output Results Labs CBC & Chem 7: 06/11/18 04:40 06/11/18 04:40 Labs: Microbiology 06/07/18 13:00 Blood - Peripheral Aerobic Blood Culture - Preliminary No growth in 4 days 06/07/18 13:00 Blood - Peripheral Anaerobic Blood Culture - Preliminary No growth in 4 days 06/07/18 13:07 Blood - Peripheral Aerobic Blood Culture - Preliminary No growth in 4 days 06/07/18 13:07 Blood - Peripheral Anaerobic Blood Culture - Preliminary No growth in 4 days Imaging Imaging: Impressions Chest X-Ray 06/11/18 06:00 CONCLUSION: Clear lungs. No pneumothorax. Assessment and Plan Plan 67-year-old white male with recent fall sustaining left rib fractures, pneumothorax, critical limb ischemia, cardiogenic shock, and having acute non- ST elevation MO, septic shock with Klebsiella bacteremia, pelvic abscesses Acute sepsis metabolic encephalopathy has resolved, patient now alert and oriented x3 Diverticulitis with perforated colon -per general surgery evaluation continue IV antibiotics and antifungal IV Diflucan and no surgical intervention planned at this time. GI is following ; recommended colonoscopy as an outpatient in 3 months Patient tolerating diet Non-ST elevation myocardial infarction status post cardiac catheterization with stent placement, currently on aspirin and Plavix Dilated cardiomyopathy with EF of 20%, MARILUZ inhibitor added to regimen per cardiology, Coreg COPD with left-sided rib fractures History of left pneumothorax as post chest tube and removal Acute hypoxic and hypercapnic respiratory failure, status post intubation 06/05 and self extubated 06/07 Chest tube removed Pulmonary following DuoNeb, wean off O2 as tolerated, currently 94% room air History of septic shockresolved Klebsiella bacteremiapatient was on Zosyn and transition to ceftriaxone through 06/13 for 10-day treatment Klebsiella urinary tract infectioncontinue with ceftriaxone, discontinue Loja catheter Acute protein calorie malnutrition severesupplement to diet dietitian consultation Acute kidney injuryresolved Right lower extremity critical limb ischemia/peripheral vascular diseaseno tissue loss, plan revascularization after recover from this acute illness per vascular surgeon, continue aspirin Plavix Discharge Loja catheter, discharge central line Transfer out of intensive care unit Likely will need rehab placement PT OT evaluation
[2018-06-11] MEDS ORDERED: Acetaminophen 325 MG Tablet PO PRN (16:19)
[2018-06-11] MEDS ORDERED: Naloxone Inj 0.4 MG/ML Vial IV.PUSH PRN (16:19)
--- NOTE | 2018-06-11 16:52 | P.PNPAL ---
Reason for Visit Reason for visit: a. To assist with evaluation and management of symptoms including: dyspnea, pain b. To assist medical decision maker(s) with: better understanding of current medical conditions; weighing benefits/burdens of medical treatment options; making medical treatment decisions. Subjective Subjective/Interval History: Patient had heart cath 06/10 which found an occluded left circumflex, S/P angioplasty and stent x2 in the LAD, now with ejection fraction 55%. GI recommending outpatient colonoscopy. Chest x-ray improving. Seen in room, Sister Leanna at bedside. Provided brief medical update. Patient complaining of residual numbness in his right leg but says the pain is "not bad ", unable to further qualify or quantify. He has no other complaints. Advance Directives Health Care Surrogate Name and Number: Leanna Minaya, Vinny potter, see important contacts Objective Vital Signs: Vital Signs 06/10/18 17:00 06/10/18 17:15 06/10/18 17:30 Temperature Pulse Rate 71 67 65 Respiratory Rate 27 H 23 28 H Blood Pressure 121/60 117/57 L 116/58 L Pulse Oximetry 96 95 95 06/10/18 17:45 06/10/18 18:00 06/10/18 18:15 Temperature Pulse Rate 67 68 69 Respiratory Rate 41 H 35 H 29 H Blood Pressure 126/59 L 127/59 L 115/56 L Pulse Oximetry 95 96 95 06/10/18 18:30 06/10/18 18:45 06/10/18 19:00 Temperature Pulse Rate 71 69 83 Respiratory Rate 28 H 32 H 38 H Blood Pressure 125/57 L 119/61 150/73 H Pulse Oximetry 95 96 85 L 06/10/18 19:15 06/10/18 19:30 06/10/18 19:45 Temperature Pulse Rate 69 69 69 Respiratory Rate 37 H 30 H 29 H Blood Pressure 123/60 122/58 L 112/55 L Pulse Oximetry 95 95 95 06/10/18 20:00 06/10/18 20:15 06/10/18 20:23 Temperature 98.7 F Pulse Rate 69 65 Respiratory Rate 27 H 26 H Blood Pressure 108/51 L 115/57 L Pulse Oximetry 94 L 95 97 06/10/18 20:30 06/10/18 20:45 06/10/18 21:00 Temperature Pulse Rate 65 69 72 Respiratory Rate 25 H 38 H 26 H Blood Pressure 112/55 L 123/58 L 120/57 L Pulse Oximetry 96 96 94 L 06/10/18 21:15 06/10/18 21:30 06/10/18 21:45 Temperature Pulse Rate 65 65 70 Respiratory Rate 38 H 32 H 26 H Blood Pressure 132/60 128/60 135/64 Pulse Oximetry 93 L 94 L 94 L 06/10/18 22:00 06/10/18 22:15 06/10/18 22:30 Temperature Pulse Rate 67 69 75 Respiratory Rate 28 H 30 H 26 H Blood Pressure 148/66 H 133/63 145/65 H Pulse Oximetry 95 96 96 06/10/18 22:45 06/10/18 23:00 06/10/18 23:02 Temperature Pulse Rate 73 69 68 Respiratory Rate 23 30 H 29 H Blood Pressure 137/63 131/60 124/58 L Pulse Oximetry 97 95 95 06/11/18 00:00 06/11/18 00:02 06/11/18 01:00 Temperature 98.1 F Pulse Rate 64 64 70 Respiratory Rate 23 21 24 Blood Pressure 128/58 L Pulse Oximetry 95 95 97 06/11/18 01:02 06/11/18 02:00 06/11/18 02:02 Temperature Pulse Rate 63 58 L 57 L Respiratory Rate 8 L 18 17 Blood Pressure 119/56 L 111/55 L Pulse Oximetry 96 97 97 06/11/18 03:00 06/11/18 03:02 06/11/18 04:00 Temperature 98.2 F 98.2 F Pulse Rate 65 60 66 Respiratory Rate 18 23 21 Blood Pressure 129/62 Pulse Oximetry 95 95 96 06/11/18 04:02 06/11/18 05:00 06/11/18 05:02 Temperature Pulse Rate 64 64 65 Respiratory Rate 19 30 H 34 H Blood Pressure 133/63 116/57 L Pulse Oximetry 95 95 95 06/11/18 06:00 06/11/18 06:02 06/11/18 07:00 Temperature Pulse Rate 65 65 69 Respiratory Rate 23 29 H 38 H Blood Pressure 143/66 H Pulse Oximetry 95 95 96 06/11/18 07:02 06/11/18 07:45 06/11/18 08:00 Temperature 98.1 F Pulse Rate 66 64 Respiratory Rate 23 Blood Pressure 139/64 132/63 Pulse Oximetry 96 96 95 02/22/19 09:00 06/11/18 10:00 06/11/18 11:00 Temperature Pulse Rate 62 65 72 Respiratory Rate 22 23 22 Blood Pressure 144/61 H 107/53 L 136/62 Pulse Oximetry 95 95 95 06/11/18 12:00 06/11/18 13:00 Temperature 98.3 F Pulse Rate 65 56 L Respiratory Rate 22 16 Blood Pressure 128/60 103/50 L Pulse Oximetry 96 94 L Intake & Output 06/10/18 06/11/18 06/11/18 18:59 06:59 18:59 Intake Total 1080 / 1080 200 / 200 340 / 340 Output Total 1000 / 1000 900 / 900 685 / 685 Balance 80 / 80 -700 / -700 -345 / -345 Weight 53.3 kg Intake: IV 200 / 200 200 / 200 100 / 100 Diflucan 400 mg Premix Bag 200 200 / 200 ML @ 100 mls/hr IV.SIG Q24H [facility] Rx#:[id number] Zosyn 3.375 GM Premix 3.375 gm 100 / 100 In 50 ml @ 100 mls/hr IV.SIG Q6H [facility] Rx#:[id number] KCl 20 mEq Premix Inj 20 meq In 100 / 100 100 ml @ 50 mls/hr IV.SIG Q2H PRN Rx#:[id number] KCl 40 mEq Premix Inj 40 meq In 100 / 100 100 ml @ 25 mls/hr IV.SIG UNSCH PRN Rx#:[id number] Oral 880 / 880 240 / 240 Output: Stool 225 / 225 Urine Amount (Catheter) 1000 / 1000 900 / 900 460 / 460 Indwelling Urethral Catheter 1000 / 1000 900 / 900 460 / 460 Other: Date of Last Bowel Movement 06/10/18 06/10/18 06/11/18 # Bowel Movements 3 2 Physical Exam: CONSTITUTIONAL/GENERAL: This is an thin male pt in NAD TUBES/LINES/DRAINS: paul, chest tube, PIV SKIN: No jaundice, rashes, or lesions. +Ecchymoses on upper extremities. wound/ lesion partially bandaged LUE. Not diaphoretic. HEAD: Atraumatic. Normocephalic. EYES: Pupils equal and round and reactive. Extraocular motions intact. No scleral icterus. No injection or drainage. Fundi not examined. ENT: Hearing grossly normal. Nose without bleeding or purulent drainage. NECK: Trachea midline. Supple, nontender. CARDIOVASCULAR: RRR without murmurs, gallops, or rubs. No JVD. RESPIRATORY/CHEST: Symmetric, unlabored respirations. rhonchi heard lower lung cortez GASTROINTESTINAL: Abdomen soft, non-tender, mildly distended. No hepato- splenomegaly, or palpable masses. No guarding. Bowel sounds present. GENITOURINARY: Without palpable bladder distension. Paul catheter in place. MUSCULOSKELETAL: Extremities without clubbing, cyanosis, or edema. No joint tenderness or effusion noted. No calf tenderness. No mottling or clubbing. NEUROLOGICAL: Awake and alert and oriented. Motor and sensory grossly within normal limits. Moves all extremities. strength RLE 4/5 PSYCHIATRIC: No obvious anxiety/depression. no apparent hallucinations or other psychotic thought process. Diagnostic Tests Laboratory: Laboratory Results - last 72 hr 06/08/18 06/08/18 06/08/18 17:53 21:37 21:37 WBC RBC Hgb Hct MCV MCH MCHC RDW Plt Count MPV Prelim Diff (Auto) Neut % (Auto) Lymph % (Auto) Tucker % (Auto) Eos % (Auto) Baso % (Auto) Neut # (Auto) Lymph # (Auto) Tucker # (Auto) Eos # (Auto) Baso # (Auto) WBC Differential Diff Scan Differential Comment PT INR APTT 43.7 H Sodium Potassium 3.3 L Chloride Carbon Dioxide Anion Gap BUN Creatinine Estimated GFR POC Glucose 83 Random Glucose Calcium Phosphorus Magnesium Total Bilirubin AST ALT Alkaline Phosphatase Total Creatine Kinase Total Protein Albumin Triglycerides Cholesterol LDL Cholesterol, Calc HDL Cholesterol Cholesterol/HDL Ratio Vancomycin Trough 06/08/18 06/09/18 06/09/18 23:59 06:15 06:15 WBC 8.2 RBC 3.48 L Hgb 9.6 L Hct 29.3 L MCV 84.2 MCH 27.6 MCHC 32.8 RDW 18.9 H Plt Count 272 MPV 7.3 Prelim Diff (Auto) Neut % (Auto) 64.5 Lymph % (Auto) 27.0 Tucker % (Auto) 6.5 Eos % (Auto) 1.3 Baso % (Auto) 0.7 Neut # (Auto) 5.3 Lymph # (Auto) 2.2 Tucker # (Auto) 0.5 Eos # (Auto) 0.1 Baso # (Auto) 0.1 WBC Differential . Diff Scan Differential Comment Auto diff final PT 10.8 INR 1.1 APTT Sodium Potassium Chloride Carbon Dioxide Anion Gap BUN Creatinine Estimated GFR POC Glucose 88 Random Glucose Calcium Phosphorus Magnesium Total Bilirubin AST ALT Alkaline Phosphatase Total Creatine Kinase Total Protein Albumin Triglycerides Cholesterol LDL Cholesterol, Calc HDL Cholesterol Cholesterol/HDL Ratio Vancomycin Trough 06/09/18 06/09/18 06/09/18 06:15 06:15 12:17 WBC RBC Hgb Hct MCV MCH MCHC RDW Plt Count MPV Prelim Diff (Auto) Neut % (Auto) Lymph % (Auto) Tucker % (Auto) Eos % (Auto) Baso % (Auto) Neut # (Auto) Lymph # (Auto) Tucker # (Auto) Eos # (Auto) Baso # (Auto) WBC Differential Diff Scan Differential Comment PT INR APTT 35.5 H Sodium 144 Potassium 3.7 Chloride 110 H Carbon Dioxide 26.9 Anion Gap 7 BUN 7 Creatinine 0.69 Estimated GFR Greater than 89 POC Glucose 85 Random Glucose 89 Calcium 8.2 L Phosphorus 4.4 D Magnesium 1.8 Total Bilirubin 0.4 AST 17 ALT 18 Alkaline Phosphatase 57 Total Creatine Kinase Total Protein 6.5 Albumin 2.3 L Triglycerides Cholesterol LDL Cholesterol, Calc HDL Cholesterol Cholesterol/HDL Ratio Vancomycin Trough 06/09/18 06/09/18 06/10/18 18:09 23:56 04:30 WBC RBC Hgb Hct MCV MCH MCHC RDW Plt Count MPV Prelim Diff (Auto) Neut % (Auto) Lymph % (Auto) Tucker % (Auto) Eos % (Auto) Baso % (Auto) Neut # (Auto) Lymph # (Auto) Tucker # (Auto) Eos # (Auto) Baso # (Auto) WBC Differential Diff Scan Differential Comment PT 11.2 INR 1.1 APTT Sodium Potassium Chloride Carbon Dioxide Anion Gap BUN Creatinine Estimated GFR POC Glucose 78 72 Random Glucose Calcium Phosphorus Magnesium Total Bilirubin AST ALT Alkaline Phosphatase Total Creatine Kinase Total Protein Albumin Triglycerides Cholesterol LDL Cholesterol, Calc HDL Cholesterol Cholesterol/HDL Ratio Vancomycin Trough 06/10/18 06/10/18 06/10/18 04:30 04:30 05:46 WBC 8.5 RBC 3.92 L Hgb 10.9 L Hct 32.5 L MCV 83.0 MCH 27.8 MCHC 33.6 RDW 18.2 H Plt Count 319 MPV 7.2 Prelim Diff (Auto) Slide review pending Neut % (Auto) 64.0 Lymph % (Auto) 24.3 Tucker % (Auto) 7.3 Eos % (Auto) 3.6 Baso % (Auto) 0.8 Neut # (Auto) 5.5 Lymph # (Auto) 2.1 Tucker # (Auto) 0.6 Eos # (Auto) 0.3 Baso # (Auto) 0.1 WBC Differential . Diff Scan Auto diff confirmed Differential Comment . PT INR APTT Sodium 142 Potassium 3.5 Chloride 108 H Carbon Dioxide 26.5 Anion Gap 8 BUN 6 L Creatinine 0.74 Estimated GFR Greater than 89 POC Glucose 103 Random Glucose 101 Calcium 8.3 L Phosphorus 3.5 Magnesium 1.8 Total Bilirubin 0.6 AST 15 ALT 18 Alkaline Phosphatase 67 Total Creatine Kinase 46 Total Protein 6.7 Albumin 2.4 L Triglycerides 107 Cholesterol 113 L LDL Cholesterol, Calc 53 HDL Cholesterol 38.4 L Cholesterol/HDL Ratio 2.94 Vancomycin Trough 06/10/18 06/10/18 06/10/18 08:45 12:07 19:17 WBC RBC Hgb Hct MCV MCH MCHC RDW Plt Count MPV Prelim Diff (Auto) Neut % (Auto) Lymph % (Auto) Tucker % (Auto) Eos % (Auto) Baso % (Auto) Neut # (Auto) Lymph # (Auto) Tucker # (Auto) Eos # (Auto) Baso # (Auto) WBC Differential Diff Scan Differential Comment PT INR APTT Sodium Potassium Chloride Carbon Dioxide Anion Gap BUN Creatinine Estimated GFR POC Glucose 79 99 Random Glucose Calcium Phosphorus Magnesium Total Bilirubin AST ALT Alkaline Phosphatase Total Creatine Kinase Total Protein Albumin Triglycerides Cholesterol LDL Cholesterol, Calc HDL Cholesterol Cholesterol/HDL Ratio Vancomycin Trough 20.5 H 06/10/18 06/11/18 06/11/18 23:44 04:40 04:40 WBC 9.9 RBC 3.86 L Hgb 10.6 L Hct 32.6 L MCV 84.3 MCH 27.6 MCHC 32.7 RDW 18.2 H Plt Count 319 MPV 7.3 Prelim Diff (Auto) Neut % (Auto) 57.9 Lymph % (Auto) 26.5 Tucker % (Auto) 9.0 H Eos % (Auto) 5.9 H Baso % (Auto) 0.7 Neut # (Auto) 5.7 Lymph # (Auto) 2.6 Tucker # (Auto) 0.9 Eos # (Auto) 0.6 H Baso # (Auto) 0.1 WBC Differential . Diff Scan Differential Comment Auto diff final PT INR APTT Sodium 143 Potassium 3.4 L Chloride 110 H Carbon Dioxide 26.4 Anion Gap 7 BUN 7 Creatinine 0.69 Estimated GFR Greater than 89 POC Glucose 120 H Random Glucose 78 Calcium 8.4 L Phosphorus 3.0 Magnesium 1.7 Total Bilirubin 0.3 AST 12 L ALT 17 Alkaline Phosphatase 66 Total Creatine Kinase Total Protein 6.5 Albumin 2.4 L Triglycerides Cholesterol LDL Cholesterol, Calc HDL Cholesterol Cholesterol/HDL Ratio Vancomycin Trough 06/11/18 06/11/18 06/11/18 04:40 05:55 11:35 WBC RBC Hgb Hct MCV MCH MCHC RDW Plt Count MPV Prelim Diff (Auto) Neut % (Auto) Lymph % (Auto) Tucker % (Auto) Eos % (Auto) Baso % (Auto) Neut # (Auto) Lymph # (Auto) Tucker # (Auto) Eos # (Auto) Baso # (Auto) WBC Differential Diff Scan Differential Comment PT 11.2 INR 1.1 APTT Sodium Potassium Chloride Carbon Dioxide Anion Gap BUN Creatinine Estimated GFR POC Glucose 83 104 Random Glucose Calcium Phosphorus Magnesium Total Bilirubin AST ALT Alkaline Phosphatase Total Creatine Kinase Total Protein Albumin Triglycerides Cholesterol LDL Cholesterol, Calc HDL Cholesterol Cholesterol/HDL Ratio Vancomycin Trough Result Diagrams: 06/11/18 04:40 06/11/18 04:40 Microbiology: Microbiology 06/07/18 13:00 Aerobic Blood Culture - Preliminary Blood - Peripheral No growth in 4 days Anaerobic Blood Culture - Preliminary No growth in 4 days 06/07/18 13:07 Aerobic Blood Culture - Preliminary Blood - Peripheral No growth in 4 days Anaerobic Blood Culture - Preliminary No growth in 4 days 06/05/18 11:45 Aerobic Blood Culture - Final Blood - Peripheral No growth in 5 days Anaerobic Blood Culture - Final Klebsiella pneumoniae Imaging: ITS Impressions Aorta w/Runoff CTA 06/05/18 11:45 CONCLUSION: 1. Extensive peripheral vascular disease with multifocal areas of narrowing/ occlusion as above. Chest CT 06/05/18 11:45 CONCLUSION: 1. Small left-sided pneumothorax and hemothorax. 2. Acute left fifth rib fracture. 3. Emphysema. Chest X-Ray 06/11/18 06:00 CONCLUSION: Clear lungs. No pneumothorax. Procedures: 06/05 chest tube placed, intubated, art line placed, central line placed 06/07 self extubated 06/10 heart cath Assessment and Plan - Disease Oriented Problem List (1) Intra-abdominal abscess (2) Pneumothorax (3) Dilated cardiomyopathy (4) Arterial occlusion (5) UTI (urinary tract infection), bacterial (6) Claudication of both lower extremities Pertinent Non-Medical Issues: Psychosocial: Pt has 2 sisters and 2 brothers, also a son who reportedly lives in [place] from whom he is estranged. 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 Spiritual: pastoral care available Legal: patient is capacitated to make medical decisions however has poor insight. In the event he becomes incapacitated he has designated his Sister Leanna and alternately his brother Vinny as healthcare surrogate's. He is relying on his sister support, recommend shared decision making. of pt's 4 siblings. Ethical issues impacting care: none Important Contacts: brother Tracie Potter [phone] brother Vinny [place] [phone] Prognosis: 67 y/o male with COPD, PAD, diverticular abscesses who presented 06/05 for RLE pain and SOB. Found to have PR, ischemic RLE, persistent pelvic abscesses. Self extubated 06/07 and so far stable. Now s/p heart cath with angioplasty and stenting, EF 55%. He seems to be improving from prior critically ill state, however still at risk for complications and set backs. Code Status: Full Code Plan: - LEGAL DECISION MAKER -patient is capacitated to make medical decisions however has poor insight. In the event he becomes incapacitated he has designated his Sister Leanna and alternately his brother Vinny as healthcare surrogate's. He is relying on his sister support, recommend shared decision making. - CODE STATUS- full code - GOALS - aggressive for now. pt open to continued palliative f/u. - SYMPTOMS - * dyspnea - multifactorial, hx COPD, recent PR, pneumothorax s/p chest tube, fractured rib. self extubated 06/07, so far doing well. s/p heart cath, angioplasty and stenting, EF 55%. * pain - RLE pain. denies ever having had abd pain. morphine seems effective. - d/w RN - Palliative care will continue to follow during hospital course as condition evolves, to assist patient/decision-maker with understanding of medical conditions, weighing benefits/burdens of treatment options, for clarification of goals of treatment. Additionally will assist with any symptoms of palliative concern Attestation Attestation: To help prompt me to consider important information that might be impacting today's encounter and assessment, information from prior notes written by myself or my colleagues may have been "brought forward" into today's note. My signature on this note, however, is an attestation that I personally performed the exam, history, and/or decision-making noted today, and, unless otherwise indicated, the interactions with patient, family, and staff as well as the review of records all occurred today. I also attest that the listed assessment and stated plan reflect my best clinical judgment today based on the combination of historical information, prior notes, and today's exam/ interactions. When time spent is documented, it refers only to time spent today by the signer, or if indicated, combined time spent today by collaborating physician/nurse practitioner.
[2018-06-11] MEDS: Famotidine 20 MG Tablet PO SCH (20:38)
[2018-06-12] MEDS: Insulin NovoLIN Regular Correctional Sugar Inj SQ SCH ×4 (02:59→18:25)
[2018-06-12] MEDS ORDERED: Pharmacy Ordered Lab Info OTHER ONE (04:45)
--- NOTE | 2018-06-12 06:40 | XR ---
EXAM DATE: 06/12/2018 6:13 AM EST AGE/SEX: 67 years / Male INDICATIONS: Shortness of breath, respiratory distress. CLINICAL DATA: This is the patient's subsequent encounter. Patient reports that signs and symptoms h ave been present for 1 week and indicates a pain score of 5/10. MEDICAL/SURGICAL HISTORY: Peripheral artery disease. None. [place] [facility] [place]. . FINDINGS: A single AP view of the chest demonstrates interval removal of a left thoracostomy tube. There is a t iny left apical pneumothorax. Lungs are clear without infiltrate or effusion. Heart is normal in size . Left-sided rib fractures. CONCLUSION: Tiny left apical pneumothorax following left thoracostomy tube removal. Electronically signed by: Michael Ruiz MD Board Certified Radiologist 06/12/2018 6:39 AM EST
[2018-06-12] MEDS: Famotidine 20 MG Tablet PO SCH ×2 (08:53→22:09)
--- NOTE | 2018-06-12 13:58 | P.PN ---
Subjective Interval history: ALERT NO SOB Physical Exam Vital signs: Vital Signs 06/11/18 14:02 06/11/18 16:00 06/11/18 18:13 Temperature 98.3 F 98.3 F Pulse Rate 72 70 Respiratory Rate 23 18 Blood Pressure 132/59 L 131/61 123/70 Pulse Oximetry 98 95 06/11/18 20:00 06/11/18 23:27 06/11/18 23:40 Temperature 98.6 F 98.3 F Pulse Rate 71 68 Respiratory Rate 18 18 Blood Pressure 128/67 121/65 Pulse Oximetry 96 95 96 06/12/18 04:00 06/12/18 07:00 06/12/18 07:58 Temperature 98.3 F 97.7 F Pulse Rate 61 64 Respiratory Rate 18 16 Blood Pressure 108/51 L 119/63 Pulse Oximetry 96 96 06/12/18 08:00 06/12/18 09:00 06/12/18 10:00 Temperature Pulse Rate 64 64 66 Respiratory Rate Blood Pressure Pulse Oximetry 96 06/12/18 11:00 06/12/18 11:29 06/12/18 12:00 Temperature 97.9 F Pulse Rate 63 67 68 Respiratory Rate 16 Blood Pressure 123/59 L Pulse Oximetry 98 06/12/18 13:00 Temperature Pulse Rate 62 Respiratory Rate Blood Pressure Pulse Oximetry Intake & Output 06/11/18 06/12/18 06/12/18 18:59 06:59 18:59 Intake Total 1090 / 1090 680 / 680 Output Total 885 / 885 500 / 500 Balance 205 / 205 180 / 180 Weight 53 kg Intake: IV 200 / 200 200 / 200 Diflucan 400 mg Premix Bag 200 200 / 200 ML @ 100 mls/hr IV.SIG Q24H [facility] Rx#:[id number] KCl 20 mEq Premix Inj 20 meq In 100 / 100 100 ml @ 50 mls/hr IV.SIG Q2H [facility] Rx#:[id number] Rocephin Inj 1,000 MG In NS Inj 100 / 100 100 ML @ 200 mls/hr IV.SIG Q24H [facility] Rx#:[id number] Oral 890 / 890 480 / 480 Output: Urine 200 / 200 500 / 500 Stool 225 / 225 Urine Amount (Catheter) 460 / 460 Indwelling Urethral Catheter 460 / 460 Other: # Voids 1 Date of Last Bowel Movement 06/11/18 06/11/18 06/11/18 # Bowel Movements 0 Narrative: Alert and awake CT removed Abd: soft; non tender non distended - Urinary Catheter Management Indwelling Urethral Catheter Cath placed during this visit: yes, but has since been removed by the nurse Reason for continuing: Decision to DC catheter Removal date: 06/11/18 Removal time: 15:35 Indwelling Temp Sensing Catheter Cath placed during this visit: no Reason for continuing: Hourly intake/output Results - Labs CBC & Chem 7: 06/11/18 04:40 06/11/18 04:40 Laboratory Results - last 24 hr 06/11/18 06/11/18 06/12/18 18:11 23:54 11:47 POC Glucose 184 H 108 99 Microbiology 06/07/18 13:00 Blood - Peripheral Aerobic Blood Culture - Final No growth in 5 days 06/07/18 13:00 Blood - Peripheral Anaerobic Blood Culture - Final No growth in 5 days 06/07/18 13:07 Blood - Peripheral Aerobic Blood Culture - Final No growth in 5 days 06/07/18 13:07 Blood - Peripheral Anaerobic Blood Culture - Final No growth in 5 days - Imaging Impressions Chest X-Ray 06/12/18 06:00 CONCLUSION: Tiny left apical pneumothorax following left thoracostomy tube removal. Assessment and Plan - Plan PNEUMOTHORAX, RESOLVED CXRAY TINY RESIDUAL COPD PLAN BRONCHODILATOR THERAPY INCREASE ACTIVITY
--- NOTE | 2018-06-12 16:01 | P.PNIM ---
Subjective Interval history: The patient is in the chair, feels tired. Has some chest pain at the left side, dressing in place CDI. Patient says he does not have much appetite however trying to eat more today. No fever or chills. Improving some today. Physical Exam Vital signs: Vital Signs 06/11/18 16:00 06/11/18 18:13 06/11/18 20:00 Temperature 98.3 F 98.3 F 98.6 F Pulse Rate 72 70 71 Respiratory Rate 23 18 18 Blood Pressure 131/61 123/70 128/67 Pulse Oximetry 98 95 96 06/11/18 23:27 06/11/18 23:40 06/12/18 04:00 Temperature 98.3 F 98.3 F Pulse Rate 68 Respiratory Rate 18 18 Blood Pressure 121/65 108/51 L Pulse Oximetry 95 96 96 06/12/18 07:00 06/12/18 07:58 06/12/18 08:00 Temperature 97.7 F Pulse Rate 61 64 64 Respiratory Rate 16 Blood Pressure 119/63 Pulse Oximetry 96 96 06/12/18 09:00 06/12/18 10:00 06/12/18 11:00 Temperature Pulse Rate 64 66 63 Respiratory Rate Blood Pressure Pulse Oximetry 06/12/18 11:29 06/12/18 12:00 06/12/18 13:00 Temperature 97.9 F Pulse Rate 67 68 62 Respiratory Rate 16 Blood Pressure 123/59 L Pulse Oximetry 98 96 06/12/18 14:00 06/12/18 15:41 Temperature 98.0 F Pulse Rate 54 L 60 Respiratory Rate 16 Blood Pressure 115/57 L Pulse Oximetry 98 Intake & Output 06/11/18 06/12/18 06/12/18 18:59 06:59 18:59 Intake Total 1090 / 1090 680 / 680 Output Total 885 / 885 500 / 500 Balance 205 / 205 180 / 180 Weight 53 kg Intake: IV 200 / 200 200 / 200 Diflucan 400 mg Premix Bag 200 200 / 200 ML @ 100 mls/hr IV.SIG Q24H [facility] Rx#:[id number] KCl 20 mEq Premix Inj 20 meq In 100 / 100 100 ml @ 50 mls/hr IV.SIG Q2H PRN Rx#:[id number] Rocephin Inj 1,000 MG In NS Inj 100 / 100 100 ML @ 200 mls/hr IV.SIG Q24H [facility] Rx#:[id number] Oral 890 / 890 480 / 480 Output: Urine 200 / 200 500 / 500 Stool 225 / 225 Urine Amount (Catheter) 460 / 460 Indwelling Urethral Catheter 460 / 460 Other: # Voids 1 Date of Last Bowel Movement 06/11/18 06/11/18 06/12/18 # Bowel Movements 0 Narrative: GENERAL: Very pleasant 67-year-old male, well-nourished well-developed appears in not acute distress. SKIN: Pale. Warm and dry. CARDIOVASCULAR: Regular rate and rhythm. RESPIRATORY: No accessory muscle use. Clear to auscultation. Dressing left chest cdi. Breath sounds equal bilaterally. GASTROINTESTINAL: Abdomen soft, non-tender, nondistended. Hepatic and splenic margins not palpable. MUSCULOSKELETAL: Extremities without clubbing, cyanosis, or edema. No obvious deformities. NEUROLOGICAL: Awake and alert. No obvious cranial nerve deficits. Motor grossly within normal limits. Five out of 5 muscle strength in the arms and legs. Normal speech. PSYCHIATRIC: Appropriate mood and affect; insight and judgment normal.Elderly male laying in bed in no acute distress Urinary Catheter Management Indwelling Urethral Catheter: Cath placed during this visit: yes, but has since been removed by the nurse Reason for continuing: Decision to DC catheter Removal date: 06/11/18 Removal time: 15:35 Indwelling Temp Sensing Catheter: Cath placed during this visit: no Reason for continuing: Hourly intake/output Results Labs CBC & Chem 7: 06/11/18 04:40 06/11/18 04:40 Labs: Microbiology 06/07/18 13:00 Blood - Peripheral Aerobic Blood Culture - Final No growth in 5 days 06/07/18 13:00 Blood - Peripheral Anaerobic Blood Culture - Final No growth in 5 days 06/07/18 13:07 Blood - Peripheral Aerobic Blood Culture - Final No growth in 5 days 06/07/18 13:07 Blood - Peripheral Anaerobic Blood Culture - Final No growth in 5 days Imaging Imaging: Impressions Chest X-Ray 06/12/18 06:00 CONCLUSION: Tiny left apical pneumothorax following left thoracostomy tube removal. Assessment and Plan Plan 67-year-old white male with recent fall sustaining left rib fractures, pneumothorax, critical limb ischemia, cardiogenic shock, and having acute non- ST elevation [place], septic shock with Klebsiella bacteremia, pelvic abscesses Acute sepsis metabolic encephalopathy has resolved, patient is alert and oriented x3 Diverticulitis with perforated colon -per general surgery evaluation continue IV antibiotics and antifungal IV Diflucan and no surgical intervention planned at this time. GI is following ; recommended colonoscopy as an outpatient in 3 months Patient tolerating diet Non-ST elevation myocardial infarction status post cardiac catheterization with stent placement, currently on aspirin and Plavix Dilated cardiomyopathy with EF of 20%, MARILUZ inhibitor added to regimen per cardiology, Coreg COPD with left-sided rib fractures History of left pneumothorax as post chest tube and removal Acute hypoxic and hypercapnic respiratory failure, status post intubation 06/05 and self extubated 06/07 Chest tube removed Pulmonary following DuoNeb, wean off O2 as tolerated, currently 94% room air History of septic shockresolved Klebsiella bacteremiapatient was on Zosyn and transition to ceftriaxone through 06/13 for 10-day treatment Klebsiella urinary tract infectioncontinue with ceftriaxone, discontinue Loja catheter Acute protein calorie malnutrition severesupplement to diet dietitian consultation Acute kidney injuryresolved Right lower extremity critical limb ischemia/peripheral vascular diseaseno tissue loss, plan revascularization after recover from this acute illness per vascular surgeon, continue aspirin Plavix Discharge Loja catheter, discharge central line PT OT evaluation Recommends home with home health Progress Note: Quality VTE Deep Vein Thrombosis/Pulmonary Embolism Present on Admission: No
--- NOTE | 2018-06-12 16:03 | P.DCO ---
Physical Therapy Order: Evaluate and treat Home Health Nursing Order: Medical education, Signs/symptoms of disease process, Medication education-adverse effect and Nursing assessment with vital signs Case Management Consult Case Management Consult-Home Health: Yes I have seen patient Cornell Potter on 06/12/18. My clinical findings support the need for the requested home health care services because: Limited mobility due to disease progression and Patient has SOB I certify that my clinical findings support that this patient is homebound because: Post-op weakness and Unsteady gait/balance
[2018-06-13] MEDS: Insulin NovoLIN Regular Correctional Sugar Inj SQ SCH ×4 (06:01→18:17)
[2018-06-13] MEDS: Famotidine 20 MG Tablet PO SCH ×2 (09:22→22:03)
--- NOTE | 2018-06-13 12:13 | P.PNIM ---
Subjective Interval history: The patient is at the margin of the bed, complains of diarrhea 2x. Some chest pain. Not much coughing. No fever or chills. No nausea or vomiting. Eating fairly well. Has pain in his right leg with ambulation. Physical Exam Vital signs: Vital Signs 06/12/18 13:00 06/12/18 14:00 06/12/18 15:00 Temperature Pulse Rate 62 54 L 61 Respiratory Rate Blood Pressure Pulse Oximetry 96 06/12/18 15:41 06/12/18 16:00 06/12/18 17:00 Temperature 98.0 F Pulse Rate 60 60 74 Respiratory Rate 16 Blood Pressure 115/57 L Pulse Oximetry 98 06/12/18 18:00 06/12/18 19:00 06/12/18 20:00 Temperature 97.9 F Pulse Rate 62 66 63 Respiratory Rate 20 Blood Pressure 121/66 Pulse Oximetry 98 06/12/18 21:00 06/12/18 22:00 06/12/18 23:00 Temperature Pulse Rate 65 62 65 Respiratory Rate Blood Pressure Pulse Oximetry 06/13/18 00:00 06/13/18 01:00 06/13/18 02:00 Temperature 98.2 F Pulse Rate 63 61 60 Respiratory Rate 18 Blood Pressure 105/62 Pulse Oximetry 97 06/13/18 03:00 06/13/18 04:00 06/13/18 05:00 Temperature 98 F Pulse Rate 52 L 50 L 63 Respiratory Rate 18 Blood Pressure 111/64 Pulse Oximetry 96 06/13/18 05:57 06/13/18 07:00 06/13/18 08:00 Temperature 97.3 F L Pulse Rate 62 58 L 64 Respiratory Rate 16 Blood Pressure 97/57 L Pulse Oximetry 98 06/13/18 09:00 06/13/18 09:19 06/13/18 10:00 Temperature Pulse Rate 70 58 L 70 Respiratory Rate Blood Pressure 122/65 Pulse Oximetry 95 06/13/18 12:00 Temperature 98.2 F Pulse Rate 65 Respiratory Rate 16 Blood Pressure 100/51 L Pulse Oximetry 94 L Intake & Output 06/12/18 06/13/18 06/13/18 18:59 06:59 18:59 Intake Total 1160 / 1160 680 / 680 Output Total 550 / 550 600 / 600 Balance 610 / 610 80 / 80 Weight 52.8 kg Intake: IV 100 / 100 200 / 200 Diflucan 400 mg Premix Bag 200 200 / 200 ML @ 100 mls/hr IV.SIG Q24H [facility] Rx#:[id number] Rocephin Inj 1,000 MG In NS Inj 100 / 100 100 ML @ 200 mls/hr IV.SIG Q24H [facility] Rx#:[id number] Oral 1060 / 1060 480 / 480 Output: Urine 550 / 550 600 / 600 Other: Date of Last Bowel Movement 06/12/18 06/12/18 06/13/18 # Bowel Movements 2 0 Narrative: GENERAL: Very pleasant 67-year-old male, well-nourished well-developed appears in not acute distress. SKIN: Pale. Warm and dry. CARDIOVASCULAR: Regular rate and rhythm. RESPIRATORY: No accessory muscle use. Clear to auscultation. Dressing left chest cdi. Breath sounds equal bilaterally. GASTROINTESTINAL: Abdomen soft, non-tender, nondistended. Hepatic and splenic margins not palpable. MUSCULOSKELETAL: Extremities without clubbing, cyanosis, or edema. No obvious deformities. NEUROLOGICAL: Awake and alert. No obvious cranial nerve deficits. Motor grossly within normal limits. Five out of 5 muscle strength in the arms and legs. Normal speech. PSYCHIATRIC: Appropriate mood and affect; insight and judgment normal. Urinary Catheter Management Indwelling Urethral Catheter: Cath placed during this visit: yes, but has since been removed by the nurse Reason for continuing: Decision to DC catheter Removal date: 06/11/18 Removal time: 15:35 Indwelling Temp Sensing Catheter: Cath placed during this visit: no Reason for continuing: Hourly intake/output Results Labs CBC & Chem 7: 06/11/18 04:40 06/11/18 04:40 Labs: Microbiology 06/07/18 13:00 Blood - Peripheral Aerobic Blood Culture - Final No growth in 5 days 06/07/18 13:00 Blood - Peripheral Anaerobic Blood Culture - Final No growth in 5 days 06/07/18 13:07 Blood - Peripheral Aerobic Blood Culture - Final No growth in 5 days 06/07/18 13:07 Blood - Peripheral Anaerobic Blood Culture - Final No growth in 5 days Assessment and Plan Plan 67-year-old white male with recent fall sustaining left rib fractures, pneumothorax, critical limb ischemia, cardiogenic shock, and having acute non- ST elevation [place], septic shock with Klebsiella bacteremia, pelvic abscesses Acute sepsis metabolic encephalopathy has resolved, patient is alert and oriented x3 Diverticulitis with perforated colon -per general surgery evaluation continue IV antibiotics and antifungal IV Diflucan and no surgical intervention planned at this time. GI is following ; recommended colonoscopy as an outpatient in 3 months Patient tolerating diet Patient is with diarrhea. Will Check C. difficile. Add Lactinex. Non-ST elevation myocardial infarction status post cardiac catheterization with stent placement, currently on aspirin and Plavix Dilated cardiomyopathy with EF of 20%, MARILUZ inhibitor added to regimen per cardiology, Coreg COPD with left-sided rib fractures History of left pneumothorax as post chest tube and removal Acute hypoxic and hypercapnic respiratory failure, status post intubation 06/05 and self extubated 06/07 Chest tube removed Pulmonary following DuoNeb, wean off O2 as tolerated, currently 94% room air History of septic shockresolved Klebsiella bacteremiapatient was on Zosyn and transition to ceftriaxone through 06/13 for 10-day treatment Klebsiella urinary tract infectioncontinue with ceftriaxone, discontinue Loja catheter Acute protein calorie malnutrition severesupplement to diet dietitian consultation Acute kidney injuryresolved Right lower extremity critical limb ischemia/peripheral vascular diseaseno tissue loss, plan revascularization after recover from this acute illness per vascular surgeon, continue aspirin Plavix Discharge Loja catheter, discharge central line PT OT evaluation Recommends home with home health Possible discharge in 1-2 days if continues to improve Progress Note: Quality VTE Deep Vein Thrombosis/Pulmonary Embolism Present on Admission: No
[2018-06-13] MEDS: Lactobacillus Acidophilus/L. Spores Tablet PO SCH ×2 (15:00→22:03)
--- NOTE | 2018-06-13 17:39 | P.PN ---
Subjective Interval history: ALERT NAD NO SOB Physical Exam Vital signs: Vital Signs 06/12/18 18:00 06/12/18 19:00 06/12/18 20:00 Temperature 97.9 F Pulse Rate 62 66 63 Respiratory Rate 20 Blood Pressure 121/66 Pulse Oximetry 98 06/12/18 21:00 06/12/18 22:00 06/12/18 23:00 Temperature Pulse Rate 65 62 65 Respiratory Rate Blood Pressure Pulse Oximetry 06/13/18 00:00 06/13/18 01:00 06/13/18 02:00 Temperature 98.2 F Pulse Rate 63 61 60 Respiratory Rate 18 Blood Pressure 105/62 Pulse Oximetry 97 06/13/18 03:00 06/13/18 04:00 06/13/18 05:00 Temperature 98 F Pulse Rate 52 L 50 L 63 Respiratory Rate 18 Blood Pressure 111/64 Pulse Oximetry 96 06/13/18 05:57 06/13/18 07:00 06/13/18 08:00 Temperature 97.3 F L Pulse Rate 62 58 L 64 Respiratory Rate 16 Blood Pressure 97/57 L Pulse Oximetry 98 06/13/18 09:00 06/13/18 09:19 06/13/18 09:30 Temperature Pulse Rate 70 58 L Respiratory Rate Blood Pressure 122/65 Pulse Oximetry 95 100 06/13/18 10:00 06/13/18 11:00 06/13/18 12:00 Temperature 98.2 F Pulse Rate 70 64 62 Respiratory Rate 16 Blood Pressure 100/51 L Pulse Oximetry 94 L 06/13/18 13:00 06/13/18 14:00 06/13/18 15:00 Temperature Pulse Rate 64 66 69 Respiratory Rate Blood Pressure Pulse Oximetry 06/13/18 16:00 06/13/18 17:00 Temperature 97.8 F Pulse Rate 68 70 Respiratory Rate 16 Blood Pressure 118/67 Pulse Oximetry 98 Intake & Output 06/12/18 06/13/18 06/13/18 18:59 06:59 18:59 Intake Total 1160 / 1160 680 / 680 920 / 920 Output Total 550 / 550 600 / 600 450 / 450 Balance 610 / 610 80 / 80 470 / 470 Weight 52.8 kg Intake: IV 100 / 100 200 / 200 Diflucan 400 mg Premix Bag 200 200 / 200 ML @ 100 mls/hr IV.SIG Q24H [facility] Rx#:[id number] Rocephin Inj 1,000 MG In NS Inj 100 / 100 100 ML @ 200 mls/hr IV.SIG Q24H [facility] Rx#:[id number] Oral 1060 / 1060 480 / 480 920 / 920 Output: Urine 550 / 550 600 / 600 450 / 450 Other: Date of Last Bowel Movement 06/12/18 06/12/18 06/13/18 # Bowel Movements 2 0 2 Narrative: Alert and awake CT removed Abd: soft; non tender non distended - Urinary Catheter Management Indwelling Urethral Catheter Cath placed during this visit: yes, but has since been removed by the nurse Reason for continuing: Decision to DC catheter Removal date: 06/11/18 Removal time: 15:35 Indwelling Temp Sensing Catheter Cath placed during this visit: no Reason for continuing: Hourly intake/output Results - Labs CBC & Chem 7: 06/11/18 04:40 06/11/18 04:40 Laboratory Results - last 24 hr 06/12/18 06/12/18 06/13/18 18:20 20:42 11:52 POC Glucose 128 H 92 102 06/13/18 16:53 POC Glucose 96 Assessment and Plan - Plan PNEUMOTHORAX, RESOLVED CXRAY TINY RESIDUAL COPD PLAN BRONCHODILATOR THERAPY INCREASE ACTIVITY
[2018-06-14] MEDS: Insulin NovoLIN Regular Correctional Sugar Inj SQ SCH ×2 (00:52→05:53)
[2018-06-14] MEDS: Famotidine 20 MG Tablet PO SCH (08:11)
[2018-06-14] MEDS: Lactobacillus Acidophilus/L. Spores Tablet PO SCH (08:11)
--- NOTE | 2018-06-14 10:42 | P.DS ---
DS: Providers Date of admission: 06/05/18 15:23 Primary care physician: UNKNOWN Consults: 06/05/18 14:16 Consult to General Surgery Routine Consulting Provider: Luis Antonio Mackey Preferred Director Informatics:: Luis Antonio Mackey Reason for Consultation: rib fracture, pneumothorax, talked with dr mackey Notified:: Service Spoke with:: Keiko Date Notified:: 06/05/18 Time Notified:: 14:47 Ordering Provider: RAÚL 06/05/18 14:18 Consult to Vascular Surgery Routine Consulting Provider: Marcello Saez Reason for Consultation: arterial occlusion Notified:: Physician Spoke with:: Dr Saez Date Notified:: 06/05/18 Time Notified:: 14:42 Ordering Provider: RAÚL 06/05/18 16:20 Consult to Palliative Care Routine Consulting Provider: Miguel Marion Reason for Consultation: goals of care Notified:: Service Spoke with:: Chad Date Notified:: 06/05/18 Time Notified:: 16:46 Ordering Provider: WILLIAN 06/05/18 17:21 Consult to Cardiology Stat Consulting Provider: Isma Harrison For STAT consult, spoke directly to:: hilda harrison Does the patient have a Relief Cook who follows them?: No Preferred Payroll Director:: Service Girl Physician Reason for Consultation: acute NSTEMI with cardiogenic shock Notified:: Service Spoke with:: Ally Date Notified:: 06/05/18 Time Notified:: 17:36 Ordering Provider: WILLIAN 06/06/18 09:52 HUB Only Consult Order Routine Consulting Provider: [facility] [employer],Insurance 06/07/18 16:31 Consult to Gastroenterology Routine Consulting Provider: Kevin Hopkins V Reason for Consultation: eval for colonoscopy; diverticular abscess vs malignancy Notified:: Office Spoke with:: Shyam Date Notified:: 06/07/18 Time Notified:: 16:35 Ordering Provider: EFRA 06/10/18 16:50 Consult to Hospitalist Routine Consulting Provider: Marcello Ortiz Reason for Consultation: Assume care in am 06/11/18 Notified:: Service Spoke with:: SHERLEY Date Notified:: 06/10/18 Time Notified:: 17:01 Ordering Provider: CRISTEL 06/10/18 16:55 Consult to Pulmonology Routine Consulting Provider: Elliott Gallagher Reason for Consultation: Resp insuff, pneumohtorax, chest tube managment Notified:: Service Spoke with:: SHERLEY Date Notified:: 06/10/18 Time Notified:: 17:00 Ordering Provider: CRISTEL Brief History from admission: 67yM with history of severe PAD who presents after he had sudden onset right leg pain which caused him to fall, and then he began with sudden shortness of breath. In the emergency department, found to have left apical pneumothorax with large amount of subQ air, with rib fracture. In addition, severe PAD with occlusion of the right common femoral artery. Labs significant for trop 0.06, Lactate 7. patient denies chest pain. does endorse leg pain and shortness of breath. denies fever,chills. remainder of the ROS negative, although limited by his critical illness. DS: Summary 67-year-old white male with recent fall sustaining left rib fractures, pneumothorax, critical limb ischemia, cardiogenic shock, and having acute non- ST elevation OH, septic shock with Klebsiella bacteremia, pelvic abscesses. Acute sepsis metabolic encephalopathy has resolved, patient is alert and oriented x3, back at his baseline. Diverticulitis with perforated colon -per general surgery evaluation continue IV antibiotics and antifungal IV Diflucan and no surgical intervention planned at this time. GI is following ; recommended colonoscopy as an outpatient in 3 months Patient tolerating diet Patient is with diarrhea. C. difficile is negative. Add Lactinex. Non-ST elevation myocardial infarction status post cardiac catheterization with stent placement, currently on aspirin and Plavix Dilated cardiomyopathy with EF of 20%, MARILUZ inhibitor added to regimen per cardiology, Coreg COPD with left-sided rib fractures History of left pneumothorax as post chest tube and removal Acute hypoxic and hypercapnic respiratory failure, status post intubation 06/05 and self extubated 06/07 Chest tube removed Pulmonary following DuoNeb, wean off O2 as tolerated, currently 94% room air History of septic shockresolved Klebsiella bacteremiapatient was on Zosyn and transition to ceftriaxone through 06/13 for 10-day treatment Klebsiella urinary tract infectioncontinue with ceftriaxone, discontinue Loja catheter Acute protein calorie malnutrition severesupplement to diet dietitian consultation Acute kidney injuryresolved Right lower extremity critical limb ischemia/peripheral vascular diseaseno tissue loss, plan revascularization after recover from this acute illness per vascular surgeon, continue aspirin Plavix Patient improved significantly DC [facility] to follow up as OP with PCP and consultants Time Spent with Patient Total time spent providing and/or coordinating discharge services: > 30 min Quality: VTE Deep Vein Thrombosis/Pulmonary Embolism Present on Admission: No Exam Narrative Exam Narrative: GENERAL: Very pleasant 67-year-old male, well-nourished well- developed appears in not acute distress. SKIN: Warm and dry. CARDIOVASCULAR: Regular rate and rhythm. RESPIRATORY: No accessory muscle use. Clear to auscultation. Dressing left chest cdi. Breath sounds equal bilaterally. GASTROINTESTINAL: Abdomen soft, non-tender, nondistended. Hepatic and splenic margins not palpable. MUSCULOSKELETAL: Extremities without clubbing, cyanosis, or edema. No obvious deformities. NEUROLOGICAL: Awake and alert. No obvious cranial nerve deficits. Motor grossly within normal limits. Normal speech. PSYCHIATRIC: Appropriate mood and affect; insight and judgment normal. Results Labs on day of discharge: Labs from last 24 hours 06/14/18 06/13/18 06/13/18 00:07 20:42 16:53 POC Glucose 121 H 96 Stl C.difficile DNA Amp Negative St C. diff Tox Epid 027 Negative 06/13/18 11:52 POC Glucose 102 Stl C.difficile DNA Amp St C. diff Tox Epid 027 Impressions ITS Impressions Aorta w/Runoff CTA 06/05/18 11:45 CONCLUSION: 1. Extensive peripheral vascular disease with multifocal areas of narrowing/ occlusion as above. Chest CT 06/05/18 11:45 CONCLUSION: 1. Small left-sided pneumothorax and hemothorax. 2. Acute left fifth rib fracture. 3. Emphysema. Chest X-Ray 06/12/18 06:00 CONCLUSION: Tiny left apical pneumothorax following left thoracostomy tube removal. Discharge Plan Discharge Disposition Patient Disposition: Disch W/Home Health Service Discharge Order Discharge Orders: Discharge Order (Routine); Ordered 06/14/18 Ordered By: Adalgisa Guzman Discharge Details Anticipated Discharge Date: 06/14/18 Discharge Comment: DC when arrangements are done Physicians Team Primary Care Provider: UNKNOWN, Attending Provider: Adalgisa Guzman Other Providers: Isma Harrison ; Luis Antonio Mackey ; Miguel Marion ; Marcello Saez ; [employer],Insurance ; Kevin Hopkins V ; Elliott Gallagher Rxs /Orders / Referrals /Forms Prescriptions: New clopidogrel [Plavix] 75 mg Tablet 75 mg PO DAILY Qty: 60 RF: 10 carvedilol [Coreg] 3.125 mg Tablet 3.125 mg PO BID Qty: 60 RF: 3 enalapril maleate 5 mg Tablet 5 mg PO BID Qty: 60 RF: 3 aspirin 325 mg Tablet,Delayed Release (Dr/Ec) 325 mg PO DAILY Qty: 30 RF: 3 acidophilus-sporogenes [Acidophilus Ex Str (L. sporog)] 35 million- 25 million cell Tablet 1 tab PO BID Qty: 60 RF: 0 famotidine 20 mg Tablet 20 mg PO BID Qty: 60 RF: 0 cefuroxime axetil 500 mg tablet 500 mg PO BID 12 Days Qty: 24 RF: 0 Referrals: Isma Harrison MD [Physician] - See Instructions ( Please call the physician's office to book the appointment to be seen within [1 week ].) Marcello Saez MD [Physician] - See Instructions (Office will call patient to schedule follow-up appointment) UNKNOWN, [Primary Care Provider] - See Instructions ( Please call the physician's office to book the appointment to be seen within [ 2-3 with your PCP ].) Elliott Gallagher MD [Physician] - See Instructions ( Please call the physician' s office to book the appointment to be seen within [2-3 weeks ].) Discharge Instructions Patient Printed Instructions: Acute Diarrhea (GEN), Fall Prevention (DC) Additional Instructions: Your Health Problems: Goals to Promote Your Health: * To prevent worsening of your condition * To maintain your health at the optimal level Directions to Meet Your Goals: * Take your medications as prescribed * Follow your dietary instruction * Follow activity as directed * Keep your appointments as scheduled * Take your immunizations and boosters as scheduled * If your symptoms worsen call your PCP * If no PCP go to Urgent Care or Emergency Room Smoking is dangerous to your health. Avoid second hand smoke. You may reach the 24-hour crisis hotline for domestic abuse at . Post Discharge Care Plan Care Plan Goals: Your Health Problems: Goals to Promote Your Health: * To prevent worsening of your condition * To maintain your health at the optimal level Directions to Meet Your Goals: * Take your medications as prescribed * Follow your dietary instruction * Follow activity as directed * Keep your appointments as scheduled * Take your immunizations and boosters as scheduled * If your symptoms worsen call your PCP * If no PCP go to Urgent Care or Emergency Room Smoking is dangerous to your health. Avoid second hand smoke. You may reach the 24-hour crisis hotline for domestic abuse at . Status ED Status: Left Department Discharge Information Discharge Date/Time: 06/14/18 12:34
--- NOTE | 2018-06-14 10:42 | P.DCO ---
Physical Therapy Order: Evaluate and treat Home Health Nursing Order: Medical education, Signs/symptoms of disease process, Medication education-adverse effect and Nursing assessment with vital signs Case Management Consult Case Management Consult-Home Health: Yes I have seen patient Cornell Potter on 06/14/18. My clinical findings support the need for the requested home health care services because: Limited mobility due to disease progression and Deconditioned with increased weakness I certify that my clinical findings support that this patient is homebound because: Post-op weakness
[2018-06-14 11:12] VITALS: BP 118/52; TEMP 97.5; O2SAT 97
[2018-06-14 19:33] VITALS: PULSE 57; RESP 17
== END 2018-06-14 12:34 | disposition home health service (06) | DRG 853 ==
LOC: NEPC 10:56 → NEDA 15:23 → N03 15:27 → HCIS 06-11 18:02
PROVIDERS: ADMIT Hospitalist; ATTEND Hospitalist
CPT/HCPCS: 31500; 36556; 36600; 71010; 71045; 71250; 75635; 80053; 80061; 80202; 81001; 82550; 82552; 82805; 82948; 82962; 83520; 83605; 83735; 83880; 84100; 84132; 84484; 85025; 85610; 85730; 87040; 87077; 87086; 87149; 87186; 87205; 87493; 87641; 90658; 90686; 92928; 93005; 93306; 93458; 93571; 94002; 94003; 94640; 94656; 94657; 94664; 94665; 97162; 97167; 99152; 99153; C1725; C1769; C1876; C1887; C1893; J0171; J0330; J0696; J1450; J1644; J1940; J2250; J2260; J2270; J2543; J2704; J2930; J3010; J3246; J3370; J3480; J7030; J7042; J7050; Q2038; Q9967